=== PATIENT | female | born 1965 | race American Indian/Alaskan Native ===

== ENCOUNTER 2018-05-28 01:04 | Inpatient (IN) | payer MEDICAID, OTHER ==
[2018-05-28 01:18] VITALS: BMI 44.3
[2018-05-28] MEDS ORDERED: Sodium Chloride 0.9% 1,000 ML IV SCH (01:30)
--- NOTE | 2018-05-28 01:35 | ED PDOC ---
Arrival/HPI - General Chief Complaint: Altered Mental Status Time Seen by Provider: 05/28/18 01:05 Historian: Patient, EMS - History of Present Illness Narrative History of Present Illness (Text): 05/28/18 01:20 52 year old female, with past medical history of asthma and hypertension, presents to the Emergency department for evaluation of AMS since prior to arrival. As per EMS, patient was found at home sitting on a chair covered in feces and urine and responding poorly to questions. Patient reportedly was sitting on the chair for an entire week with poor compliance to diet. Upon arrival to the Emergency department, patient is alert and is able to respond verbally but is a poor historian. HPI and ROS limited secondary to patient's condition. Time/Duration: Prior to Arrival Symptom Onset: Gradual Symptom Course: Unchanged Activities at Onset: Light Context: Home Past Medical History - Provider Review Nursing Documentation Reviewed: Yes - Infectious Disease Hx of Infectious Diseases: None - Tetanus Immunization Tetanus Immunization: Unknown - Cardiac Hx Hypertension: Yes - Pulmonary Hx Asthma: Yes - Psychiatric Hx Depression: No Hx Emotional Abuse: No Hx Physical Abuse: No Hx Substance Use: No - Surgical History Hx Cholecystectomy: Yes - Anesthesia Hx Anesthesia: No - Suicidal Assessment Feels Threatened In Home Enviroment: No Family/Social History - Physician Review Nursing Documentation Reviewed: Yes Family/Social History: No Known Family HX Smoking Status: Unknown If Ever Smoked Hx Alcohol Use: No Hx Substance Use: No Hx Substance Use Treatment: No Allergies/Home Meds Allergies/Adverse Reactions: Allergies Sulfa (Sulfonamide Antibiotics) Allergy (Verified 05/28/18 01:17) ANAPHYLAXIS Home Medications: Home Meds Medication Instructions Recorded Confirmed Unobtainable 05/28/18 05/28/18 Review of Systems - Review of Systems Systems not reviewed;Unavailable: Altered Mental Status Physical Exam Vital Signs Reviewed: Yes Vital Signs Temp Pulse Pulse Pulse Resp BP Pulse Ox 05/28/18 08:28 97.6 F 102 H 18 99 05/28/18 08:24 97.6 F 104 H 104 H 104 H 22 159/87 H 05/28/18 07:58 97.6 F 108 H 18 114/73 100 05/28/18 06:45 109 H 19 122/76 99 05/28/18 05:25 109 H 20 130/79 100 05/28/18 04:52 110 H 18 133/65 100 05/28/18 02:16 97.7 F 05/28/18 02:14 111 H 24 117/81 100 05/28/18 01:32 98.4 F 05/28/18 01:19 113 H 18 124/80 100 Temperature: Afebrile Blood Pressure: Normal Pulse: Tachycardic Respiratory Rate: Normal Appearance: Positive for: Ill-Appearing Pain Distress: None Mental Status: Positive for: other (AMS) Finger Stick Blood Glucose: 484 - Systems Exam Head: Present: Atraumatic, Normocephalic Pupils: Present: PERRL Extroacular Muscles: Present: EOMI Conjunctiva: Present: Normal Neck: Present: Normal Range of Motion Respiratory/Chest: Present: Clear to Auscultation, Good Air Exchange. No: Respiratory Distress, Accessory Muscle Use Cardiovascular: Present: Regular Rate and Rhythm, Normal S1, S2. No: Murmurs Abdomen: No: Tenderness, Distention, Peritoneal Signs Back: Present: Normal Inspection Upper Extremity: Present: Normal Inspection. No: Cyanosis, Edema Lower Extremity: Present: Normal Inspection. No: Edema Neurological: Present: GCS=15, CN II-XII Intact Skin: Present: Warm, Dry, Normal Color. No: Rashes Psychiatric: Present: Alert Medical Decision Making ED Course and Treatment: 05/28/18 01:27 Impression: 52 year old female presents to the Emergency department for evaluation of AMS. Differential Diagnosis included but are not limited to: AMS Plan: -- VBG -- CT of head -- Labs -- EKG -- Chest X-ray -- IV Fluids -- Blood culture -- Urine culture -- Urinalysis -- Reassess and disposition Prior Visits: Notes and results from previous visits were reviewed. Progress Notes: 05/28/18 02:20 CODE SEPSIS ACTIVATED. 05/28/18 03:24 Discussed case with Loin Trimmer industrial relations manager, who is aware and agrees with Emergency department management plan, will evaluate patient for ICU admission. 05/28/18 04:15 CT of head reviewed by radiologist, shows normal CT of the brain. 05/28/18 05:13 Loin Trimmer is at bedside evaluating patient. - Critical Care Critical Care Minutes: 30 minutes (management of dka) - Lab Interpretations Microbiology Results: Microbiology Results 05/28/18 01:56 Blood-Venous Blood Culture - Preliminary NO GROWTH AFTER 24 HOURS 05/28/18 01:26 Blood-Venous Blood Culture - Preliminary NO GROWTH AFTER 24 HOURS Lab Results: 05/28/18 01:26 05/28/18 01:26 Lab Results 05/28/18 05:15: pO2 63 H, VBG pH 7.22 L, VBG pCO2 24.0 L, VBG HCO3 9.8 L, VBG Total CO2 10.5 L, VBG O2 Sat (Calc) 90.5 H, VBG Base Excess -16.1 L, VBG Potassium 3.3 L, Sodium 145.0, Chloride 109.0 H, Glucose 434 H* D, Lactate 3.2 H , FiO2 21.0, Venous Blood Potassium 3.3 L 05/28/18 02:35: Urine Opiates Screen Negative, Urine Methadone Screen Negative, Ur Barbiturates Screen Negative, Ur Phencyclidine Scrn Negative, Ur Amphetamines Screen Negative, U Benzodiazepines Scrn Negative, U Oth Cocaine Metabols Negative, U Cannabinoids Screen Negative 05/28/18 02:35: Urine Color Yellow, Urine Appearance Slight-cloudy, Urine pH 6.0 , Ur Specific [place] >= 1.030, Urine Protein 30 H, Urine Glucose (UA) >=1000, Urine Ketones >=80, Urine Blood Moderate H, Urine Nitrate Negative, Urine Bilirubin Small H, Urine Urobilinogen 1.0 H, Ur Leukocyte Esterase Negative, Urine RBC 2 - 5, Urine WBC Negative, Ur Epithelial Cells 4 - 5, Urine Bacteria Mod, Urine Other Mucus 05/28/18 01:26: Beta HCG, Quant < 2.39 05/28/18 01:26: pO2 101 H, VBG pH 7.24 L, VBG pCO2 20.0 L, VBG HCO3 8.6 L, VBG Total CO2 9.2 L, VBG O2 Sat (Calc) 96.4 H, VBG Base Excess -16.6 L, VBG Potassium 4.4, Sodium 141.0, Chloride 101.0, Glucose 544 H*, Lactate 4.2 H*, FiO2 21.0, Venous Blood Potassium 4.4 05/28/18 01:26: Salicylates < 1 L, Acetaminophen < 10.0 L 05/28/18 01:26: TSH 3rd Generation 1.77, Alcohol, Quantitative < 10 05/28/18 01:26: Sodium 145, Chloride 104, Potassium 4.7, Carbon Dioxide 7 L, Anion Gap 38 H, BUN 25 H, Creatinine 0.8, Est GFR ( Amer) > 60, Est GFR ( Non-Af Amer) > 60, Random Glucose 539 H*, Calcium 10.0, Phosphorus 3.8, Magnesium 2.5 H, Total Bilirubin 1.4 H, AST 47 H, ALT 52, Alkaline Phosphatase 190 H, Lactate Dehydrogenase 730 H, Total Creatine Kinase 111, Troponin I < 0.01 , Total Protein 8.9 H, Albumin 4.5, Globulin 4.4, Albumin/Globulin Ratio 1.0 L 05/28/18 01:26: PT 13.4 H, INR 1.17, APTT 20.7 L 05/28/18 01:26: WBC 15.0 H, RBC 4.87, Hgb 16.0, Hct 45.2, MCV 92.8, MCH 32.9, MCHC 35.4, RDW 13.0, Plt Count 341, MPV 10.3, Gran % 81.1 H, Lymph % (Auto) 14.6 L, [place] % (Auto) 4.2, Eos % (Auto) 0.0 L, Baso % (Auto) 0.1, Gran # 12.15 H , Lymph # (Auto) 2.2, [place] # (Auto) 0.6, Eos # (Auto) 0.0, Baso # (Auto) 0.01 05/28/18 01:11: POC Glucose (mg/dL) 484 H* - RAD Interpretation Radiology Orders: 05/28/18 01:20 HEAD W/O CONTRAST [CT] Stat 05/28/18 01:21 CHEST PORTABLE [RAD] Stat - EKG Interpretation EKG Interpretation (Text): 05/28/18 06:16 sinus tachycardia 109 nssts changes - Medication Orders Current Medication Orders: Enoxaparin Sodium (Lovenox) 40 mg SC DAILY [facility] PRN Reason: Protocol Last Admin: 05/28/18 10:29 Dose: 40 mg Subcutaneous Administrations Document 05/28/18 10:29 [email or web address] (Rec: 05/28/18 10:29 [email or web address] [facility] [place] [facility] Injection Site MAR Injection Site Left Abdomen Charges for Administration # of Subcutaneous Administrations 1 Insulin Human Regular 100 (units/ Sodium Chloride) 100 mls @ 6 mls/hr IV .[id number] PRN; Protocol; 6 UNITS/HR PRN Reason: TITRATE PER MD ORDER Last Titration: 05/29/18 05:23 Dose: 3 units/hr, 3 mls/hr Titration Intervention Document 05/29/18 05:23 PD (Rec: 05/29/18 05:[address]) Titration Intake Titration Intake 5 Cumulative Intake 15 Cumulative Intake (Rx) 105 Waste Amount 0 Container Volume 85 Titration Dosing Titration Dose 3 IV Rate 3 Intake/Decrease Increased Cumulative Dose 105 Vancomycin HCl (Vancomycin 1gm) 1 gm in 250 mls @ 167 mls/hr IVPB Q12H [facility] PRN Reason: Protocol Last Admin: 05/29/18 05:20 Dose: 167 mls/hr eMAR Start Stop Document 05/29/18 05:20 PD (Rec: 05/29/18 05:[address]) Intravenous Solution Start Date 05/29/18 Start Time 05:20 Piperacillin Sod/Tazobactam Sod (Zosyn 3.375 In Ns 100ml) 100 mls @ 200 mls/hr IVPB Q6 [facility] PRN Reason: Protocol Last Admin: 05/29/18 05:31 Dose: 200 mls/hr eMAR Start Stop Document 05/29/18 05:31 PD (Rec: 05/29/18 05:[address]) Intravenous Solution Start Date 05/29/18 Start Time 05:31 Potassium Chloride 40 meq/ (Sodium Chloride) 1,020 mls @ 150 mls/hr IV .Q6H48M [facility] Last Admin: 05/29/18 03:35 Dose: 150 mls/hr eMAR Start Stop Document 05/29/18 03:35 PD (Rec: 05/29/18 03:[address]) Intravenous Solution Start Date 05/29/18 Start Time 03:35 Nystatin (Nystop Topical Powder) 2 gm TOP BID O[facility] Last Admin: 05/28/18 17:17 Dose: 1 applic Pantoprazole Sodium (Protonix Inj) 40 mg IVP DAILY [facility] Last Admin: 05/28/18 10:29 Dose: 40 mg IVP Administration Document 05/28/18 10:29 [email or web address] (Rec: 05/28/18 10:29 [email or web address] [facility] [place] Charges for Administration # of IVP Administrations 1 Discontinued Medications Sodium Chloride (Sodium Chloride 0.9%) 1,000 mls @ 150 mls/hr IV .Q6H40M [facility] Last Admin: 05/28/18 01:28 Dose: 150 mls/hr eMAR Start Stop Document 05/28/18 01:28 CNR (Rec: 05/28/18 01:44 CNR [facility] [place] [id number] Intravenous Solution Start Date 05/28/18 Start Time 01:44 Aztreonam (Azactam 2 Gm) 100 mls @ 100 mls/hr IVPB STAT STA PRN Reason: Protocol Stop: 05/28/18 03:17 Last Admin: 05/28/18 03:01 Dose: 100 mls/hr eMAR Start Stop Document 05/28/18 03:01 CNR (Rec: 05/28/18 03:01 CNR [facility] [place] [id number] Intravenous Solution Start Date 05/28/18 Start Time 03:01 End Date 05/28/18 End time 04:01 Total Infusion Time 60 Vancomycin HCl (Vancomycin 1gm) 1 gm in 250 mls @ 167 mls/hr IVPB STAT STA PRN Reason: Protocol Stop: 05/28/18 03:47 Last Admin: 05/28/18 04:12 Dose: 167 mls/hr eMAR Start Stop Document 05/28/18 04:12 CNR (Rec: 05/28/18 04:13 CNR [facility] [id number] Intravenous Solution Start Date 05/28/18 Start Time 04:12 End Date 05/28/18 End time 05:42 Total Infusion Time 90 Piperacillin Sod/Tazobactam Sod (Zosyn 3.375 In Ns 100ml) 100 mls @ 200 mls/hr IVPB Q6H [facility] PRN Reason: Protocol Stop: 05/28/18 14:29 Last Admin: 05/28/18 13:19 Dose: 200 mls/hr eMAR Start Stop Document 05/28/18 13:19 [email or web address] (Rec: 05/28/18 13:19 [email or web address] [facility] [place] Intravenous Solution Start Date 05/28/18 Start Time 13:19 End Date 05/28/18 End time 13:49 Total Infusion Time 30 Potassium Chloride (Potassium Chloride 10 Meq/100 Ml) 10 meq in 100 mls @ 50 mls/hr IVPB Q2H [facility] Stop: 05/28/18 14:14 Last Admin: 05/28/18 11:41 Dose: 50 mls/hr eMAR Start Stop Document 05/28/18 11:41 [email or web address] (Rec: 05/28/18 11:41 [id number] [id number]) Intravenous Solution Start Date 05/28/18 Start Time 11:41 End Date 05/28/18 Dextrose/Sodium Chloride (Dextrose 5%/0.45% Ns 1000 Ml) 1,000 mls @ 150 mls/hr IV .Q6H40M [facility] Last Admin: 05/28/18 11:41 Dose: 150 mls/hr eMAR Start Stop Document 05/28/18 11:41 [email or web address] (Rec: 05/28/18 11:41 [email or web address] [facility] [place]) Intravenous Solution Start Date 05/28/18 Start Time 11:41 Sodium Chloride (Sodium Chloride 0.45%) 1,000 mls @ 100 mls/hr IV .Q10H [facility] Last Admin: 05/28/18 14:15 Dose: 100 mls/hr eMAR Start Stop Document 05/28/18 14:15 [email or web address] (Rec: 05/28/18 14:15 [email or web address] [id number]) Intravenous Solution Start Date 05/28/18 Start Time 14:15 Potassium Chloride 40 meq/ (Sodium Chloride) 1,020 mls @ 100 mls/hr IV .F68H03H [facility] Last Admin: 05/28/18 17:17 Dose: 100 mls/hr eMAR Start Stop Document 05/28/18 17:17 [email or web address] (Rec: 05/28/18 17:17 [email or web address] [facility] [id number]) Intravenous Solution Start Date 05/28/18 Start Time 17:17 Potassium Chloride (Potassium Chloride 10 Meq/100 Ml) 10 meq in 100 mls @ 50 mls/hr IVPB Q2H [facility] Stop: 05/28/18 19:59 Last Admin: 05/28/18 18:26 Dose: 50 mls/hr eMAR Start Stop Document 05/28/18 18:26 [email or web address] (Rec: 05/28/18 18:27 [email or web address] [facility] [place] Intravenous Solution Start Date 05/28/18 Start Time 18:26 End Date 05/28/18 End time 20:26 Total Infusion Time 120 Lorazepam (Ativan) 2 mg IVP ONCE STA PRN Reason: Protocol Stop: 05/29/18 00:54 Last Admin: 05/29/18 01:01 Dose: 2 mg IVP Administration Document 05/29/18 01:01 PD (Rec: 05/29/18 01:01 PD [facility] [place] [place] [place] Charges for Administration # of IVP Administrations 1 Behavioural Document 05/29/18 01:01 PD (Rec: 05/29/18 01:01 PD [facility] [place] [place] [place] Maintenance Maintenance Dose No Nonmedicinal Nonmedicinal Interventions Redirect Therapeutic Communication Behavior Behavior for Medication: Anxiety Hallucinations/paranoid/ delusions/extreme fear Insomnia Re-Assess: Reassess Psych Meds Document 05/29/18 01:31 PD (Rec: 05/29/18 05:29 PD [facility] [place] [place] [place] Reassess Psych Med Effective - Scribe Statement The provider has reviewed the documentation as recorded by the Scribe Freida Gannon. All medical record entries made by the Scribe were at my direction and personally dictated by me. I have reviewed the chart and agree that the record accurately reflects my personal performance of the history, physical exam, medical decision making, and the department course for this patient. I have also personally directed, reviewed, and agree with the discharge instructions and disposition. Disposition/Present on Arrival - Present on Arrival Any Indicators Present on Arrival: No History of DVT/PE: No History of Uncontrolled Diabetes: No Urinary Catheter: No History of Decub. Ulcer: No History Surgical Site Infection Following: None - Disposition Have Diagnosis and Disposition been Completed?: Yes Diagnosis: Diabetic ketoacidosis Disposition: HOSPITALIZED Disposition Time: 06:00 Condition: SERIOUS
[2018-05-28 01:41] LABS: BASO # 0.01 K/mm3 (0.0-2.0); BASO % 0.1 % (0.0-3.0); GRAN # 12.15 (1.4-6.5); GRAN % 81.1 % (50.0-68.0); LYMPH # 2.2 (1.2-3.4); LYMPH % 14.6 % (22.0-35.0); MEAN CELL VOLUME 92.8 fl (80.0-105.0); MEAN CORPUSCULAR HEMOGLOBIN 32.9 pg (25.0-35.0); MEAN CORPUSCULAR HGB CONC 35.4 g/dl (31.0-37.0); MEAN PLATELET VOLUME 10.3 fl (7.0-11.0); MONO # 0.6 (0.1-0.6); MONO % 4.2 % (1.0-6.0); RBC 4.87 10^6/uL (3.5-6.1)
[2018-05-28 01:58] LABS: ACETAMINOPHEN < 10.0 ug/ml (10.0-20.0); SALICYLATE < 1 mg/dL (2.0-20.0)
[2018-05-28 02:00] LABS: VENOUS BLOOD GAS BASE EXCESS -16.6 mmol/L (0.0-2.0); VENOUS BLOOD GAS PO2 101 mm/Hg (30-55); VENOUS BLOOD PH 7.24 (7.32-7.43)
[2018-05-28 02:06] LABS: TROPONIN I < 0.01 ng/mL
[2018-05-28 02:08] LABS: ALBUMIN 4.5 g/dL (3.0-4.8); ALT/SGPT 52 U/L (7-56); AST/SGOT 47 U/L (14-36); BLOOD UREA NITROGEN 25 mg/dL (7-21); GFR NON-AFRICAN AMERICAN > 60
[2018-05-28] MEDS ORDERED: Vancomycin 1gm in NS 250ml 1 GM/250 ML BAG IVPB STA (02:18)
[2018-05-28] MEDS ORDERED: Aztreonam 2 Gm in NS 100mL 100 ML IVPB STA (02:18)
[2018-05-28 02:38] LABS: INR 1.17; PROTHROMBIN TIME 13.4 SECONDS (9.4-12.5)
[2018-05-28 02:53] LABS: PARTIAL THROMBOPLASTIN TIME 20.7 Seconds (25.1-36.5)
[2018-05-28 03:22] LABS: URINE BILIRUBIN SMALL (NEGATIVE); URINE BLOOD MODERATE (NEGATIVE); URINE GLUCOSE (UA) >=1000 mg/dL (NEGATIVE); URINE LEUKOCYTE ESTERASE NEGATIVE Leu/uL (NEGATIVE); URINE PROTEIN 30 mg/dL (<30 mg/dL)
[2018-05-28 03:23] LABS: URINE COLOR YELLOW (YELLOW)
[2018-05-28 03:24] LABS: URINE APPEARANCE SLIGHT-CLOUDY (CLEAR)
[2018-05-28 03:30] LABS: URINE WBC NEGATIVE /hpf (0-6)
[2018-05-28 03:31] LABS: URINE BACTERIA MOD (NEG)
[2018-05-28] MEDS: Insulin Regular 100 UNITS in Sodium Chloride 0.9% 99 ML IV PRN (03:38)
[2018-05-28 03:54] LABS: BARBITURATES, UR NEGATIVE (NEGATIVE); BENZODIAZEPINES, UR NEGATIVE (NEGATIVE); OPIATES, UR NEGATIVE (NEGATIVE); PHENCYCLIDINE, UR NEGATIVE (NEGATIVE)
[2018-05-28 05:35] LABS: VENOUS BLOOD GAS BASE EXCESS -16.1 mmol/L (0.0-2.0); VENOUS BLOOD GAS PO2 63 mm/Hg (30-55); VENOUS BLOOD PH 7.22 (7.32-7.43)
[2018-05-28] MEDS: Vancomycin 1gm in NS 250ml 1 GM/250 ML BAG IVPB SCH ×2 (05:56→17:19)
--- NOTE | 2018-05-28 05:57 | CP.PCM.HP ---
History of Present Illness - History of Present Illness History of Present Illness: Internal Medicine H&P- Neela PGY2 Ms. Simpson is a 52 year old AAF with a past medical history significant for HTN and asthma who was BIBA after she was found to have AMS. Patient is awake but unresponsive verbally to any HPI and ROS questioning. All information was obtained either by EMS or chart review. Patient was reported to have been found covered in feces and to have been "sitting on the couch for one week". ROS unobtainable at this time. In the ED, patient was found to be in sepsis with undetermined source and DKA. PMH: HTN and Asthma PSH: Cholecystectomy Family History: Unobtainable Social History: No history of tobacco, alcohol or illicit drug use Allergies: Sulfa Home Medications: Unobtainable Present on Admission - Present on Admission Any Indicators Present on Admission: No Review of Systems - Review of Systems Systems not reviewed;Unavailable: Altered Mental Status Past Patient History - Infectious Disease Hx of Infectious Diseases: None - Tetanus Immunizations Tetanus Immunization: Unknown - Past Social History Smoking Status: Unknown If Ever Smoked - CARDIAC Hx Hypertension: Yes - PULMONARY Hx Asthma: Yes - PSYCHIATRIC Hx Depression: No Hx Emotional Abuse: No Hx Physical Abuse: No Hx Substance Use: No - SURGICAL HISTORY Hx Cholecystectomy: Yes - ANESTHESIA Hx Anesthesia: No Meds Allergies/Adverse Reactions: Allergies Allergy/AdvReac Type Severity Reaction Status Date / Time Sulfa (Sulfonamide Allergy ANAPHYLAXIS Verified 05/28/18 01:17 Antibiotics) Physical Exam - Constitutional Appears: Unkempt, Confused Additional comments: GCS: 11 - Head Exam Head Exam: ATRAUMATIC, NORMOCEPHALIC - Eye Exam Eye Exam: EOMI, Normal appearance, PERRL - ENT Exam ENT Exam: Mucous Membranes Dry - Neck Exam Neck exam: Positive for: Full Rom. Negative for: Meningismus, Tenderness - Respiratory Exam Respiratory Exam: Clear to Auscultation Bilateral, NORMAL BREATHING PATTERN. absent: Accessory Muscle Use, Chest Wall Tenderness, Decreased Breath Sounds, Prolonged Expiratory Phase, Rales, Rhonchi, Wheezes, Respiratory Distress, Stridor - Cardiovascular Exam Cardiovascular Exam: Tachycardia, REGULAR RHYTHM, +S1, +S2. absent: Bradycardia , Clicks, Diastolic murmur, Gallop, Irregular Rhythm, JVD, RRR, Rubs, +S4, Systolic Murmur - GI/Abdominal Exam GI & Abdominal Exam: Normal Bowel Sounds, Soft. absent: Diminished Bowel Sounds , Tenderness - Extremities Exam Extremities exam: Positive for: normal capillary refill, normal inspection, pedal pulses present. Negative for: calf tenderness, joint swelling, pedal edema, tenderness - Neurological Exam Neurological exam: Altered - Skin Skin Exam: Dry, Normal Color, Warm Additional comments: Multiple Stage I and Stage II SDU located approximately superior to the anal cleft Results - Vital Signs Recent Vital Signs: Last Vital Signs Temp 97.7 F 05/28/18 02:16 Pulse 109 H 05/28/18 05:25 Resp 20 05/28/18 05:25 BP 130/79 05/28/18 05:25 Pulse Ox 100 05/28/18 05:25 - Labs Result Diagrams: 05/28/18 01:26 05/28/18 01:26 Labs: Laboratory Results - last 24 hr 05/28/18 05/28/18 05/28/18 01:11 01:26 01:26 WBC 15.0 H RBC 4.87 Hgb 16.0 Hct 45.2 MCV 92.8 MCH 32.9 MCHC 35.4 RDW 13.0 Plt Count 341 MPV 10.3 Gran % 81.1 H Lymph % (Auto) 14.6 L [place] % (Auto) 4.2 Eos % (Auto) 0.0 L Baso % (Auto) 0.1 Gran # 12.15 H Lymph # (Auto) 2.2 [place] # (Auto) 0.6 Eos # (Auto) 0.0 Baso # (Auto) 0.01 PT 13.4 H INR 1.17 APTT 20.7 L pO2 VBG pH VBG pCO2 VBG HCO3 VBG Total CO2 VBG O2 Sat (Calc) VBG Base Excess VBG Potassium Sodium Chloride Glucose Lactate FiO2 Potassium Carbon Dioxide Anion Gap BUN Creatinine Est GFR ( Amer) Est GFR (Non-Af Amer) POC Glucose (mg/dL) 484 H* Random Glucose Calcium Phosphorus Magnesium Total Bilirubin AST ALT Alkaline Phosphatase Lactate Dehydrogenase Total Creatine Kinase Troponin I Total Protein Albumin Globulin Albumin/Globulin Ratio TSH 3rd Generation Beta HCG, Quant Venous Blood Potassium Urine Color Urine Appearance Urine pH Ur Specific [place] Urine Protein Urine Glucose (UA) Urine Ketones Urine Blood Urine Nitrate Urine Bilirubin Urine Urobilinogen Ur Leukocyte Esterase Urine RBC Urine WBC Ur Epithelial Cells Urine Bacteria Urine Other Salicylates Urine Opiates Screen Urine Methadone Screen Acetaminophen Ur Barbiturates Screen Ur Phencyclidine Scrn Ur Amphetamines Screen U Benzodiazepines Scrn U Oth Cocaine Metabols U Cannabinoids Screen Alcohol, Quantitative 05/28/18 05/28/18 05/28/18 01:26 01:26 01:26 WBC RBC Hgb Hct MCV MCH MCHC RDW Plt Count MPV Gran % Lymph % (Auto) [place] % (Auto) Eos % (Auto) Baso % (Auto) Gran # Lymph # (Auto) [place] # (Auto) Eos # (Auto) Baso # (Auto) PT INR APTT pO2 VBG pH VBG pCO2 VBG HCO3 VBG Total CO2 VBG O2 Sat (Calc) VBG Base Excess VBG Potassium Sodium 145 Chloride 104 Glucose Lactate FiO2 Potassium 4.7 Carbon Dioxide 7 L Anion Gap 38 H BUN 25 H Creatinine 0.8 Est GFR ( Amer) > 60 Est GFR (Non-Af Amer) > 60 POC Glucose (mg/dL) Random Glucose 539 H* Calcium 10.0 Phosphorus 3.8 Magnesium 2.5 H Total Bilirubin 1.4 H AST 47 H ALT 52 Alkaline Phosphatase 190 H Lactate Dehydrogenase 730 H Total Creatine Kinase 111 Troponin I < 0.01 Total Protein 8.9 H Albumin 4.5 Globulin 4.4 Albumin/Globulin Ratio 1.0 L TSH 3rd Generation 1.77 Beta HCG, Quant Venous Blood Potassium Urine Color Urine Appearance Urine pH Ur Specific [place] Urine Protein Urine Glucose (UA) Urine Ketones Urine Blood Urine Nitrate Urine Bilirubin Urine Urobilinogen Ur Leukocyte Esterase Urine RBC Urine WBC Ur Epithelial Cells Urine Bacteria Urine Other Salicylates < 1 L Urine Opiates Screen Urine Methadone Screen Acetaminophen < 10.0 L Ur Barbiturates Screen Ur Phencyclidine Scrn Ur Amphetamines Screen U Benzodiazepines Scrn U Oth Cocaine Metabols U Cannabinoids Screen Alcohol, Quantitative < 10 05/28/18 05/28/18 05/28/18 01:26 01:26 02:35 WBC RBC Hgb Hct MCV MCH MCHC RDW Plt Count MPV Gran % Lymph % (Auto) [place] % (Auto) Eos % (Auto) Baso % (Auto) Gran # Lymph # (Auto) [place] # (Auto) Eos # (Auto) Baso # (Auto) PT INR APTT pO2 101 H VBG pH 7.24 L VBG pCO2 20.0 L VBG HCO3 8.6 L VBG Total CO2 9.2 L VBG O2 Sat (Calc) 96.4 H VBG Base Excess -16.6 L VBG Potassium 4.4 Sodium 141.0 Chloride 101.0 Glucose 544 H* Lactate 4.2 H* FiO2 21.0 Potassium Carbon Dioxide Anion Gap BUN Creatinine Est GFR ( Amer) Est GFR (Non-Af Amer) POC Glucose (mg/dL) Random Glucose Calcium Phosphorus Magnesium Total Bilirubin AST ALT Alkaline Phosphatase Lactate Dehydrogenase Total Creatine Kinase Troponin I Total Protein Albumin Globulin Albumin/Globulin Ratio TSH 3rd Generation Beta HCG, Quant < 2.39 Venous Blood Potassium 4.4 Urine Color Yellow Urine Appearance Slight-cloudy Urine pH 6.0 Ur Specific [place] >= 1.030 Urine Protein 30 H Urine Glucose (UA) >=1000 Urine Ketones >=80 Urine Blood Moderate H Urine Nitrate Negative Urine Bilirubin Small H Urine Urobilinogen 1.0 H Ur Leukocyte Esterase Negative Urine RBC 2 - 5 Urine WBC Negative Ur Epithelial Cells 4 - 5 Urine Bacteria Mod Urine Other Mucus Salicylates Urine Opiates Screen Urine Methadone Screen Acetaminophen Ur Barbiturates Screen Ur Phencyclidine Scrn Ur Amphetamines Screen U Benzodiazepines Scrn U Oth Cocaine Metabols U Cannabinoids Screen Alcohol, Quantitative 05/28/18 05/28/18 02:35 05:15 WBC RBC Hgb Hct MCV MCH MCHC RDW Plt Count MPV Gran % Lymph % (Auto) [place] % (Auto) Eos % (Auto) Baso % (Auto) Gran # Lymph # (Auto) [place] # (Auto) Eos # (Auto) Baso # (Auto) PT INR APTT pO2 63 H VBG pH 7.22 L VBG pCO2 24.0 L VBG HCO3 9.8 L VBG Total CO2 10.5 L VBG O2 Sat (Calc) 90.5 H VBG Base Excess -16.1 L VBG Potassium 3.3 L Sodium 145.0 Chloride 109.0 H Glucose 434 H* D Lactate 3.2 H FiO2 21.0 Potassium Carbon Dioxide Anion Gap BUN Creatinine Est GFR ( Amer) Est GFR (Non-Af Amer) POC Glucose (mg/dL) Random Glucose Calcium Phosphorus Magnesium Total Bilirubin AST ALT Alkaline Phosphatase Lactate Dehydrogenase Total Creatine Kinase Troponin I Total Protein Albumin Globulin Albumin/Globulin Ratio TSH 3rd Generation Beta HCG, Quant Venous Blood Potassium 3.3 L Urine Color Urine Appearance Urine pH Ur Specific [place] Urine Protein Urine Glucose (UA) Urine Ketones Urine Blood Urine Nitrate Urine Bilirubin Urine Urobilinogen Ur Leukocyte Esterase Urine RBC Urine WBC Ur Epithelial Cells Urine Bacteria Urine Other Salicylates Urine Opiates Screen Negative Urine Methadone Screen Negative Acetaminophen Ur Barbiturates Screen Negative Ur Phencyclidine Scrn Negative Ur Amphetamines Screen Negative U Benzodiazepines Scrn Negative U Oth Cocaine Metabols Negative U Cannabinoids Screen Negative Alcohol, Quantitative Assessment & Plan - Assessment and Plan (Free Text) Assessment: 52 year old AAF with a past medical history significant for HTN and asthma who was BIBA after she was found to have AMS. Patient is awake but unresponsive verbally to any HPI and ROS questioning. Patient will be admitted to the ICU for management of DKA and sepsis without identified source. Plan: 1. DKA -Insulin Drip (DKA Algorithm 1) -Normal Saline at 150mls/hr -BMP Q4H -Fingersticks Q1H -Hemoglobin A1c pending -NPO 2. Sepsis without Defined Source -Afebrile with leukocytosis, tachycardia and lactic acidosis -Chest X-Ray pending official radiologist interpretation -Urinalysis without signs of UTI -IV Vancomycin and IV Zosyn empirically -Sputum, Blood and Urine cultures pending -Procal pending GI Prophylaxis: Protonix IVP DVT Prophylaxis: Lovenox Patient seen and case discussed with attending, Dr. Chua. - Date & Time Date: 05/28/18 Time: 06:18 Decision To Admit - Pt Status Changed To: Hospital Disposition Of: Inpatient Admission - Admit Certification Admit to Inpatient:: After my assessment, the patient will require hospitalization for at least two midnights. This is because of the severity of symptoms shown, intensity of services needed, and/or the medical risk in this patient being treated as an outpatient. - . Bed Request Type: Critical Care
--- NOTE | 2018-05-28 06:04 | PCM.SEPTIC ---
Sepsis Progress Note - Reassessment Type Date of Evaluation: 05/28/18 Time of Evaluation: 05:11 Reassessment Type: Non-invasive reassessment - Non Invasive Reassessment Were the most recent vital sign reviewed: Yes Vital Sign (Latest): Temp Pulse Resp BP Pulse Ox 97.7 F 109 H 20 130/79 100 05/28/18 02:16 05/28/18 05:25 05/28/18 05:25 05/28/18 05:25 05/28/18 05:25 Cardiovascular: Yes: Tachycardia. No: Regular Rate, Rhythm, Chest Non Tender, Edema, Gallop, JVD, Murmur, Bradycardia, Ectopy, Friction Rub, Irregularly Irregular Respiratory: Yes: Normal Breath Sounds. No: Accessory Muscle Use, Respiratory Distress Capillary Refill: Normal (Less than 2 sec) Skin: Normal Color, Warm, Dry
[2018-05-28] MEDS: Piperacillin/Tazobact 3.375 gm 100 ML IVPB SCH ×4 (08:26→23:22)
[2018-05-28 08:47] LABS: LDL CHOLESTEROL 106 mg/dL (0-129)
[2018-05-28 08:58] LABS: BLOOD UREA NITROGEN 22 mg/dL (7-21); CALCIUM 9.5 mg/dL (8.4-10.5); GFR NON-AFRICAN AMERICAN > 60; HDL CHOLESTEROL 39 mg/dL (29-60)
[2018-05-28] MEDS: Nystatin 100,000 Units/gm Topical Pow(15 gm) TOP SCH ×2 (09:37→17:17)
--- NOTE | 2018-05-28 09:37 | CT ---
Date of service: 05/28/2018 PROCEDURE: CT HEAD WITHOUT CONTRAST. HISTORY: ams COMPARISON: None available. TECHNIQUE: Axial computed tomography images were obtained through the head/brain without intravenous contrast. Radiation dose: Total exam DLP = 918 mGy-cm. This CT exam was performed using one or more of the following dose reduction techniques: Automated exposure control, adjustment of the mA and/or kV according to patient size, and/or use of iterative reconstruction technique. FINDINGS: HEMORRHAGE: No intracranial hemorrhage. BRAIN: No mass effect or edema. No atrophy or chronic microvascular ischemic changes. VENTRICLES: Unremarkable. No hydrocephalus. CALVARIUM: Unremarkable. PARANASAL SINUSES: Unremarkable as visualized. No significant inflammatory changes. MASTOID AIR CELLS: Unremarkable as visualized. No inflammatory changes. OTHER FINDINGS: The report concurs with the preliminary [facility] report IMPRESSION: No acute findings
--- NOTE | 2018-05-28 10:07 | RAD ---
HISTORY: ams COMPARISON: Chest x-ray performed 12/10/16 TECHNIQUE: Chest, one view. FINDINGS: Examination limited by habitus and patient obliquity. External wires and leads obscure evaluation of the underlying parenchyma. LUNGS: Bibasilar atelectasis. Please note that chest x-ray has limited sensitivity for the detection of pulmonary masses. PLEURA: No significant pleural effusion identified. No definite pneumothorax . CARDIOVASCULAR: Heart size appears within normal limits. OSSEOUS STRUCTURES: Degenerative changes of the spine. VISUALIZED UPPER ABDOMEN: Mild elevation of the right hemidiaphragm. OTHER FINDINGS: None. IMPRESSION: Bibasilar atelectasis.
[2018-05-28 10:24] LABS: BLOOD UREA NITROGEN 23 mg/dL (7-21); CALCIUM 9.4 mg/dL (8.4-10.5); GFR NON-AFRICAN AMERICAN > 60
[2018-05-28] MEDS: Enoxaparin 40 mg Syringe SC SCH (10:29)
[2018-05-28] MEDS ORDERED: Dextrose 5%/0.45% NS 1,000 ML IV SCH (11:15)
--- NOTE | 2018-05-28 12:01 | CARD ---
APPROVED REPORT Date of service: 05/28/2018 EKG Measurement Heart [id number] <Conclusion> Sinus tachycardia Left axis deviation PRWP V 1 - 6 STTW changes
--- NOTE | 2018-05-28 14:07 | CP.CCUPN ---
<Bernardo Bennett - Last Filed: 05/28/18 14:04> CCU Subjective - Physician Review Subjective (Free Text): 05/28/18 14:04 Bernardo Bennett DO PGY1 -Internal Medicine [employer] - ICU Progress Note Patient was seen and examined at bedside this AM; Patient was altered; Screaming for her mother. ROS Unobtainable at this time CCU Objective - Vital Signs / Intake & Output Vital Signs (Last 4 hours): Vital Signs Pulse Resp BP Pulse Ox 05/28/18 11:50 103 H 17 98 05/28/18 11:40 102 H 12 99 05/28/18 11:30 104 H 13 98 05/28/18 11:20 103 H 13 99 05/28/18 11:10 104 H 14 98 05/28/18 11:01 104 H 15 166/81 H 99 05/28/18 11:00 103 H 16 98 05/28/18 10:50 104 H 15 99 05/28/18 10:40 98 05/28/18 10:30 102 H 14 100 05/28/18 10:20 102 H 13 99 05/28/18 10:10 103 H 16 100 Intake and Output (Last 8hrs): Intake & Output 05/27/18 05/28/18 05/28/18 22:59 06:59 14:59 Intake Total 3 Balance 3 Intake: IV 3 - Physical Exam Physical Exam Limitations: Positive for: Altered Mental Status Head: Positive for: Atraumatic, Normocephalic Pupils: Positive for: PERRL Neck: Positive for: Normal Range of Motion Respiratory/Chest: Positive for: Clear to Auscultation, Good Air Exchange. Negative for: Respiratory Distress, Accessory Muscle Use Cardiovascular: Positive for: Regular Rate and Rhythm, Normal S1, S2. Negative for: Murmurs Abdomen: Negative for: Tenderness, Distention, Peritoneal Signs Back: Positive for: Other (SIGNIFICANT ULCERS THROUGHOUT ENTIRE BOTTOM WITH ACTIVE BLEEDIBG ) Upper Extremity: Positive for: Normal Inspection. Negative for: Cyanosis, Edema Lower Extremity: Positive for: Edema (2+ Non pitting ) Neurological: Positive for: GCS=15, CN II-XII Intact Skin: Positive for: Warm, Dry, Normal Color. Negative for: Rashes Other physical findings (Free Text): Poor insight, distressed; confused - Medications Active Medications: Active Medications Generic Name Dose Route Start Last Admin Trade Name Freq PRN Reason Stop Dose Admin Enoxaparin Sodium 40 mg 05/28/18 10:00 05/28/18 10:29 Lovenox SC 40 mg DAILY ODELL Administration Protocol Insulin Human Regular 100 100 mls @ 6 mls/hr 05/28/18 02:09 05/28/18 13:17 units/ Sodium Chloride IV 4 units/hr .[id number] PRN 4 mls/hr TITRATE PER MD ORDER Titration Protocol 6 UNITS/HR Vancomycin HCl 1 gm in 250 mls @ 167 mls/hr 05/28/18 06:00 05/28/18 05:56 Vancomycin 1gm IVPB Not Given Q12H ODELL Protocol Piperacillin Sod/Tazobactam Sod 100 mls @ 200 mls/hr 05/28/18 08:00 05/28/18 13:19 Zosyn 3.375 In Ns 100ml IVPB 05/28/18 14:29 200 mls/hr Q6H ODELL Administration Protocol Potassium Chloride 10 meq in 100 mls @ 50 mls/hr 05/28/18 10:15 05/28/18 11: 41 Potassium Chloride 10 Meq/100 Ml IVPB 05/28/18 14:14 50 mls/hr Q2H ODELL Administration Dextrose/Sodium Chloride 1,000 mls @ 150 mls/hr 05/28/18 11:15 05/28/18 11:41 Dextrose 5%/0.45% Ns 1000 Ml IV 150 mls/hr .Q6H40M ODELL Administration Nystatin 2 gm 05/28/18 10:00 05/28/18 09:37 Nystop Topical Powder TOP 1 applic BID ODELL Administration Pantoprazole Sodium 40 mg 05/28/18 10:00 05/28/18 10:29 Protonix Inj IVP 40 mg DAILY ODELL Administration - Patient Studies Lab Studies: Lab Studies 05/28/18 05/28/18 Range/Units 10:05 08:00 Sodium 153 H 152 H (132-148) mmol/L Potassium 3.3 L 3.3 L (3.6-5.0) mmol/L Chloride 116 H 114 H (98-107) mmol/L Carbon Dioxide 15 L 15 L (21-33) mmol/L Anion Gap 24 H 26 H (10-20) BUN 23 H 22 H (7-21) mg/dL Creatinine 0.6 L 0.6 L (0.7-1.2) mg/dl Est GFR ( Amer) > 60 > 60 Est GFR (Non-Af Amer) > 60 > 60 Random Glucose 294 H 324 H* D (70-110) mg/dL Calcium 9.4 9.5 (8.4-10.5) mg/dL Triglycerides 237 H (35-160) mg/dL Cholesterol 190 (130-200) mg/dL LDL Cholesterol Direct 106 (0-129) mg/dL HDL Cholesterol 39 (29-60) mg/dL Laboratory Results - last 24 hr 05/28/18 05/28/18 08:00 10:05 Sodium 152 H 153 H Potassium 3.3 L 3.3 L Chloride 114 H 116 H Carbon Dioxide 15 L 15 L Anion Gap 26 H 24 H BUN 22 H 23 H Creatinine 0.6 L 0.6 L Est GFR ( Amer) > 60 > 60 Est GFR (Non-Af Amer) > 60 > 60 Random Glucose 324 H* D 294 H Calcium 9.5 9.4 Triglycerides 237 H Cholesterol 190 LDL Cholesterol Direct 106 HDL Cholesterol 39 Fingerstick Blood Sugar Results: 354 Review of Systems - Review of Systems Systems not reviewed;Unavailable: Altered Mental Status Assessment/Plan - Assessment and Plan (Free Text) Assessment: 52F w/ a PMH of HTN and Asthma presented w/ DKA and SIRS to [facility] on 05/27. Neuro: -AAO1 -Altered mental status; Unknown baseline -Most likely 2/2 DKA; -CT Head negative for acute changes -Continue monitoring; Reorient patient as necessary Cardiology: -Tachycardic, Normotensive overnight -Maintain MAP >65 Pulmonology: -Satting >95% on RA -Continue monitoring Endo: -DKA- On admission: AG 34; BG 539 -Repeat BMP at 0800 - AG 23; Bg 324 -BMP Q4 -Accucheck Q1 -On Insulin Drip per DKA Algorithm GI: -NPO -Resume diet once gap closes and patient can tolerate / Nephro: -Murray in place -ID -SIRS -Empiric Vanc/Zosyn -UA w/o Bacteria/ Pyuria -Pancultures pending -CXR NAD -CTAP -Procal pending Patient was seen, examined, and discussed w/ attending physician Dr. Ed Bennett DO PGY1 - Date & Time Date: 05/28/18 Time: 14:12 <Kylie Ward - Last Filed: 05/28/18 15:34> CCU Objective - Vital Signs / Intake & Output Vital Signs (Last 4 hours): Vital Signs Pulse Resp Pulse Ox 05/28/18 11:50 103 H 17 98 05/28/18 11:40 102 H 12 99 Intake and Output (Last 8hrs): Intake & Output 05/28/18 05/28/18 05/28/18 06:59 14:59 22:59 Intake Total 3 Balance 3 Intake: IV 3 - Medications Active Medications: Active Medications Generic Name Dose Route Start Last Admin Trade Name Freq PRN Reason Stop Dose Admin Enoxaparin Sodium 40 mg 05/28/18 10:00 05/28/18 10:29 Lovenox SC 40 mg DAILY ODELL Administration Protocol Insulin Human Regular 100 100 mls @ 6 mls/hr 05/28/18 02:09 05/28/18 13:17 units/ Sodium Chloride IV 4 units/hr .[id number] PRN 4 mls/hr TITRATE PER MD ORDER Titration Protocol 6 UNITS/HR Vancomycin HCl 1 gm in 250 mls @ 167 mls/hr 05/28/18 06:00 05/28/18 05:56 Vancomycin 1gm IVPB Not Given Q12H ODELL Protocol Dextrose/Sodium Chloride 1,000 mls @ 150 mls/hr 05/28/18 11:15 05/28/18 11:41 Dextrose 5%/0.45% Ns 1000 Ml IV 150 mls/hr .Q6H40M ODELL Administration Sodium Chloride 1,000 mls @ 100 mls/hr 05/28/18 14:15 05/28/18 14:15 Sodium Chloride 0.45% IV 100 mls/hr .Q10H ODELL Administration Nystatin 2 gm 05/28/18 10:00 05/28/18 09:37 Nystop Topical Powder TOP 1 applic BID ODELL Administration Pantoprazole Sodium 40 mg 05/28/18 10:00 05/28/18 10:29 Protonix Inj IVP 40 mg DAILY ODELL Administration - Patient Studies Lab Studies: Lab Studies 05/28/18 05/28/18 05/28/18 Range/Units 14:25 10:05 08:00 Sodium 151 H 153 H 152 H (132-148) mmol/L Potassium 3.3 L 3.3 L 3.3 L (3.6-5.0) mmol/L Chloride 116 H 116 H 114 H (98-107) mmol/L Carbon Dioxide 17 L 15 L 15 L (21-33) mmol/L Anion Gap 21 H 24 H 26 H (10-20) BUN 20 23 H 22 H (7-21) mg/dL Creatinine 0.6 L 0.6 L 0.6 L (0.7-1.2) mg/dl Est GFR ( Amer) > 60 > 60 > 60 Est GFR (Non-Af Amer) > 60 > 60 > 60 Random Glucose 358 H* D 294 H 324 H* D (70-110) mg/dL Calcium 9.2 9.4 9.5 (8.4-10.5) mg/dL Triglycerides 237 H (35-160) mg/dL Cholesterol 190 (130-200) mg/dL LDL Cholesterol Direct 106 (0-129) mg/dL HDL Cholesterol 39 (29-60) mg/dL Laboratory Results - last 24 hr 05/28/18 05/28/18 05/28/18 08:00 10:05 14:25 Sodium 152 H 153 H 151 H Potassium 3.3 L 3.3 L 3.3 L Chloride 114 H 116 H 116 H Carbon Dioxide 15 L 15 L 17 L Anion Gap 26 H 24 H 21 H BUN 22 H 23 H 20 Creatinine 0.6 L 0.6 L 0.6 L Est GFR ( Amer) > 60 > 60 > 60 Est GFR (Non-Af Amer) > 60 > 60 > 60 Random Glucose 324 H* D 294 H 358 H* D Calcium 9.5 9.4 9.2 Triglycerides 237 H Cholesterol 190 LDL Cholesterol Direct 106 HDL Cholesterol 39 Addendum Addendum: 05/28/18 15:32 ICU Attending Addendum: Patient seen and examined. Case reviewed on round with housestaff. Agree with resident note above with the following additions/exceptions: 52F admitted with possible sepsis as well as DKA. Cont insulin drip with D5 1/2NS BMP q4 hours replete lytes qHour fingersticks check A1c cont broad spectrum abx with vanc/zosyn while awaiting cultures Rest of care as noted above. Kylie Ward MD Die [facility]
[2018-05-28] MEDS ORDERED: Sodium Chloride 0.45% 1,000 ML IV SCH (14:15)
[2018-05-28 14:51] LABS: BLOOD UREA NITROGEN 20 mg/dL (7-21); CALCIUM 9.2 mg/dL (8.4-10.5); GFR NON-AFRICAN AMERICAN > 60
[2018-05-28] MEDS ORDERED: Potassium Chloride 40 MEQ in Sodium Chloride 0.45% 1,000 ML IV SCH (15:47)
--- NOTE | 2018-05-28 16:15 | CP.PCM.CON ---
History of Present Illness - History of Present Illness History of Present Illness: Infectious Disease Consultation: May 28, 2018 Ms. Simpson is a 52 year old AAF with a past medical history significant for HTN and asthma who was BIBA after she was found to have AMS. Patient is awake but unresponsive verbally for any HPI and ROS questioning. All information was obtained either by EMS or chart review. Patient was reported to have been found covered in feces and to have been "sitting on the couch for one week". ROS unobtainable at this time. The patient is currently screaming for her mother and cannot be questioned on any other topics at this time. In ED, patient was found with values consistent with sepsis from undetermined source and DKA. PMHx: HTN and Asthma PSHx: Cholecystectomy Family Hx: Unable to obtain from patient Social Hx: No known history of tobacco, alcohol or illicit drug use Allergies: Sulfa Active Medications Enoxaparin Sodium (Lovenox) 40 mg SC DAILY [facility] PRN Reason: Protocol Last Admin: 05/28/18 10:29 Dose: 40 mg Insulin Human Regular 100 (units/ Sodium Chloride) 100 mls @ 6 mls/hr IV .[id number] PRN; Protocol; 6 UNITS/HR PRN Reason: TITRATE PER MD ORDER Last Titration: 05/28/18 13:17 Dose: 4 units/hr, 4 mls/hr Vancomycin HCl (Vancomycin 1gm) 1 gm in 250 mls @ 167 mls/hr IVPB Q12H [facility] PRN Reason: Protocol Last Admin: 05/28/18 05:56 Dose: Not Given Potassium Chloride 40 meq/ (Sodium Chloride) 1,020 mls @ 100 mls/hr IV .[id number] [facility] Potassium Chloride (Potassium Chloride 10 Meq/100 Ml) 10 meq in 100 mls @ 50 mls/hr IVPB Q2H [facility] Stop: 05/28/18 19:59 Nystatin (Nystop Topical Powder) 2 gm TOP BID ODE[facility] Last Admin: 05/28/18 09:37 Dose: 1 applic Pantoprazole Sodium (Protonix Inj) 40 mg IVP DAILY O[facility] Last Admin: 05/28/18 10:29 Dose: 40 mg ROS: Unable to obtain from patient. Past Patient History - Infectious Disease Hx of Infectious Diseases: None - Tetanus Immunizations Tetanus Immunization: Unknown - Past Social History Smoking Status: Unknown If Ever Smoked - CARDIAC Hx Hypertension: Yes - PULMONARY Hx Asthma: Yes - PSYCHIATRIC Hx Depression: No Hx Emotional Abuse: No Hx Physical Abuse: No Hx Substance Use: No - SURGICAL HISTORY Hx Cholecystectomy: Yes - ANESTHESIA Hx Anesthesia: No Meds Allergies/Adverse Reactions: Allergies Allergy/AdvReac Type Severity Reaction Status Date / Time Sulfa (Sulfonamide Allergy ANAPHYLAXIS Verified 05/28/18 01:17 Antibiotics) - Medications Medications: Current Medications Enoxaparin Sodium (Lovenox) 40 mg SC DAILY ODELL PRN Reason: Protocol Last Admin: 05/28/18 10:29 Dose: 40 mg Insulin Human Regular 100 (units/ Sodium Chloride) 100 mls @ 6 mls/hr IV .[id number] PRN; Protocol; 6 UNITS/HR PRN Reason: TITRATE PER MD ORDER Last Titration: 05/28/18 13:17 Dose: 4 units/hr, 4 mls/hr Vancomycin HCl (Vancomycin 1gm) 1 gm in 250 mls @ 167 mls/hr IVPB Q12H [facility] PRN Reason: Protocol Last Admin: 05/28/18 05:56 Dose: Not Given Potassium Chloride 40 meq/ (Sodium Chloride) 1,020 mls @ 100 mls/hr IV .[id number] [facility] Potassium Chloride (Potassium Chloride 10 Meq/100 Ml) 10 meq in 100 mls @ 50 mls/hr IVPB Q2H [facility] Stop: 05/28/18 19:59 Nystatin (Nystop Topical Powder) 2 gm TOP BID [facility] Last Admin: 05/28/18 09:37 Dose: 1 applic Pantoprazole Sodium (Protonix Inj) 40 mg IVP DAILY [facility] Last Admin: 05/28/18 10:29 Dose: 40 mg Physical Exam - Constitutional Appears: Unkempt, Agitated, Confused, Chronically Ill - Head Exam Head Exam: ATRAUMATIC, NORMOCEPHALIC - Eye Exam Eye Exam: EOMI, PERRL Pupil Exam: NORMAL ACCOMODATION, PERRL - ENT Exam ENT Exam: Mucous Membranes Moist, Normal External Ear Exam, TM's Normal Bilaterally - Neck Exam Neck exam: Positive for: Full Rom, Normal Inspection - Respiratory Exam Respiratory Exam: Clear to Auscultation Bilateral, NORMAL BREATHING PATTERN. absent: Rales, Rhonchi, Wheezes - Cardiovascular Exam Cardiovascular Exam: REGULAR RHYTHM, RRR, +S1, +S2 - GI/Abdominal Exam GI & Abdominal Exam: Normal Bowel Sounds, Soft. absent: Distended, Tenderness - Extremities Exam Extremities exam: Positive for: joint swelling, pedal edema Additional comments: +2 edema of the lower extremities. - Back Exam Additional comments: ulcerations on the lower back and upper sacrum... some are oozing blood. - Neurological Exam Neurological exam: Alert Additional comments: AAO x 0-1, unable to follow commands at this time. - Psychiatric Exam Psychiatric exam: Agitated, Anxious - Skin Additional comments: ulcerations in the lower back and upper sacral area. +2 edema of the lower extremities. Chronic venous stasis changes to the lower extremities. Morbidly obese. Results - Vital Signs Recent Vital Signs: Last Vital Signs Temp 97.6 F 05/28/18 08:28 Pulse 103 H 05/28/18 11:50 Resp 17 05/28/18 11:50 BP 166/81 H 05/28/18 11:01 Pulse Ox 98 05/28/18 11:50 - Labs Result Diagrams: 05/28/18 01:26 05/28/18 14:25 Labs: Laboratory Results - last 24 hr 05/28/18 05/28/18 05/28/18 08:00 10:05 14:25 Sodium 152 H 153 H 151 H Potassium 3.3 L 3.3 L 3.3 L Chloride 114 H 116 H 116 H Carbon Dioxide 15 L 15 L 17 L Anion Gap 26 H 24 H 21 H BUN 22 H 23 H 20 Creatinine 0.6 L 0.6 L 0.6 L Est GFR ( Amer) > 60 > 60 > 60 Est GFR (Non-Af Amer) > 60 > 60 > 60 Random Glucose 324 H* D 294 H 358 H* D Calcium 9.5 9.4 9.2 Triglycerides 237 H Cholesterol 190 LDL Cholesterol Direct 106 HDL Cholesterol 39 Assessment & Plan - Assessment and Plan (Free Text) Assessment: 52 yo AA obese female with AMS with signs of sepsis with tachcardia, leukocytosis of 15, but no fevers. Patient was reported found in her home covered in feces on her cough for unknown period of time. Findings of DKA. Check brown cultures. On insulin drip. Currently on IV Vancomycin and Zosyn for antibiotic coverage. Procalcitonin pending. No discernable renal issues at this time. Supportive care. Continue broad spectrum antibiotic coverage. Awaiting brown culture results. Awaiting Procalcitonin values. Thank you for allowing me to participate in the care of the patient, we will follow with you.
[2018-05-28] MEDS: Potassium Chloride 40 MEQ in Sodium Chloride 0.45% 1,000 ML IV SCH (18:22)
[2018-05-28 19:58] LABS: BLOOD UREA NITROGEN 19 mg/dL (7-21); CALCIUM 9.5 mg/dL (8.4-10.5); GFR NON-AFRICAN AMERICAN > 60
[2018-05-29 00:22] LABS: BLOOD UREA NITROGEN 18 mg/dL (7-21); CALCIUM 9.4 mg/dL (8.4-10.5); GFR NON-AFRICAN AMERICAN > 60
[2018-05-29] MEDS: Insulin Regular 100 UNITS in Sodium Chloride 0.9% 99 ML IV PRN (01:13)
[2018-05-29] MEDS: Potassium Chloride 40 MEQ in Sodium Chloride 0.45% 1,000 ML IV SCH (03:35)
[2018-05-29] MEDS: Vancomycin 1gm in NS 250ml 1 GM/250 ML BAG IVPB SCH ×2 (05:20→17:11)
[2018-05-29] MEDS: Piperacillin/Tazobact 3.375 gm 100 ML IVPB SCH ×4 (05:31→23:46)
[2018-05-29 07:14] LABS: ALB/GLOB RATIO 0.9 (1.1-1.8); ALBUMIN 3.2 g/dL (3.0-4.8); ALT/SGPT 45 U/L (7-56); AST/SGOT 43 U/L (14-36); BLOOD UREA NITROGEN 19 mg/dL (7-21); CALCIUM 9.6 mg/dL (8.4-10.5); GFR NON-AFRICAN AMERICAN > 60
--- NOTE | 2018-05-29 07:30 | CP.PCM.CON ---
<Meaghan Frances - Last Filed: 05/29/18 14:07> History of Present Illness - History of Present Illness History of Present Illness: PGY-1 Meaghan Frances D.O. Neurology consult note for Dr. Hernandez's service: Patient is uncooperative and disoriented at time of evaluation. Therefore, all HPI and history is obtained from medical record. Wanda Simpson is a 52 yo female with a history of HTN, obesity, and asthma who was brought in by ambulance after being found on her couch covered in feces with altered mental status. Patient reportedly has multiple skin tears and pressure ulcers. She required a stat dose of Ativan overnight for agitation. Patient is lying in bed. She states her name is Zahra and that she is home. She then repeatedly yells "I want to eat!" and is not cooperative with the exam. The last time the patient presented to the ED was in November 2016 with upper respiratory symptoms, during which she refused labs and left AMA. Patient was re-examined in the afternoon, and family (mother, son, daughter) were at bedside. They report that the patient is independently functional at baseline. She lives at home with her . They deny the patient previously being hospitalized for AMS or DKA. The patient is oriented to person and place and she is able to identify her family members. PMH: Denies DM HTN asthma OB ?hepatitis cholecystectomy Meds: unknown All: sulfa- anaphylaxis FH: unknown SH: unknown PMD: none Review of Systems - Review of Systems Systems not reviewed;Unavailable: Altered Mental Status, Uncooperative Past Patient History - Infectious Disease Hx of Infectious Diseases: None - Tetanus Immunizations Tetanus Immunization: Unknown - Past Medical History & Family History Past Medical History?: Yes Pertinent Family History: unknown - Past Social History Smoking Status: Unknown If Ever Smoked - CARDIAC Hx Hypertension: Yes - PULMONARY Hx Asthma: Yes - NEUROLOGICAL Hx Neurological Disorder: No - HEENT Hx HEENT Problems: No - RENAL Hx Chronic Kidney Disease: No - ENDOCRINE/METABOLIC Hx Endocrine Disorders: No - HEMATOLOGICAL/ONCOLOGICAL Hx Blood Disorders: No - INTEGUMENTARY Hx Dermatological Problems: No - MUSCULOSKELETAL/RHEUMATOLOGICAL Hx Arthritis: Yes Hx Falls: No - GASTROINTESTINAL Hx Gall Bladder Disease: Yes (cholestectomy) - GENITOURINARY/GYNECOLOGICAL Hx Genitourinary Disorders: Yes Hx Incontinence: Yes - PSYCHIATRIC Hx Depression: No Hx Emotional Abuse: No Hx Physical Abuse: No Hx Substance Use: No - SURGICAL HISTORY Hx Cholecystectomy: Yes - ANESTHESIA Hx Anesthesia: No Meds Allergies/Adverse Reactions: Allergies Allergy/AdvReac Type Severity Reaction Status Date / Time Sulfa (Sulfonamide Allergy ANAPHYLAXIS Verified 05/28/18 01:17 Antibiotics) - Medications Medications: Current Medications Enoxaparin Sodium (Lovenox) 40 mg SC DAILY [facility] PRN Reason: Protocol Last Admin: 05/28/18 10:29 Dose: 40 mg Insulin Human Regular 100 (units/ Sodium Chloride) 100 mls @ 6 mls/hr IV .[id number] PRN; Protocol; 6 UNITS/HR PRN Reason: TITRATE PER MD ORDER Last Titration: 05/29/18 05:23 Dose: 3 units/hr, 3 mls/hr Vancomycin HCl (Vancomycin 1gm) 1 gm in 250 mls @ 167 mls/hr IVPB Q12H [facility] PRN Reason: Protocol Last Admin: 05/29/18 05:20 Dose: 167 mls/hr Piperacillin Sod/Tazobactam Sod (Zosyn 3.375 In Ns 100ml) 100 mls @ 200 mls/hr IVPB Q6 [facility] PRN Reason: Protocol Last Admin: 05/29/18 05:31 Dose: 200 mls/hr Potassium Chloride 40 meq/ (Sodium Chloride) 1,020 mls @ 150 mls/hr IV .[id number] [facility] Last Admin: 05/29/18 03:35 Dose: 150 mls/hr Nystatin (Nystop Topical Powder) 2 gm TOP BID [facility] Last Admin: 05/28/18 17:17 Dose: 1 applic Pantoprazole Sodium (Protonix Inj) 40 mg IVP DAILY [facility] Last Admin: 05/28/18 10:29 Dose: 40 mg Physical Exam - Head Exam Head Exam: ATRAUMATIC, NORMAL INSPECTION, NORMOCEPHALIC - Eye Exam Eye Exam: EOMI, Normal appearance - ENT Exam ENT Exam: Mucous Membranes Moist, Normal Exam - Neck Exam Neck exam: Positive for: Normal Inspection - Respiratory Exam Respiratory Exam: NORMAL BREATHING PATTERN - Cardiovascular Exam Cardiovascular Exam: REGULAR RHYTHM - GI/Abdominal Exam GI & Abdominal Exam: Soft Additional comments: obese - Rectal Exam Rectal Exam: Deferred - Extremities Exam Extremities exam: Positive for: normal capillary refill, normal inspection, pedal pulses present - Neurological Exam Neurological exam: Alert, Altered, CN II-XII Intact Additional comments: oriented to person and place no gross motor or sensory deficits noted - Psychiatric Exam Psychiatric exam: Flat Affect - Skin Skin Exam: Dry, Normal Color, Warm Results - Vital Signs Recent Vital Signs: Last Vital Signs Temp 97.8 F 05/28/18 20:00 Pulse 99 H 05/29/18 06:30 Resp 17 05/29/18 06:30 BP 140/72 05/29/18 06:01 Pulse Ox 99 05/29/18 06:30 - Labs Result Diagrams: 05/29/18 05:45 05/29/18 05:45 Labs: Laboratory Results - last 24 hr 05/28/18 05/28/18 05/28/18 08:00 08:00 08:00 Sodium 152 H Potassium 3.3 L Chloride 114 H Carbon Dioxide 15 L Anion Gap 26 H BUN 22 H Creatinine 0.6 L Est GFR ( Amer) > 60 Est GFR (Non-Af Amer) > 60 POC Glucose (mg/dL) Random Glucose 324 H* D Hemoglobin A1c 16.9 H Calcium 9.5 Total Bilirubin AST ALT Alkaline Phosphatase Ammonia Total Protein Albumin Globulin Albumin/Globulin Ratio Triglycerides 237 H Cholesterol 190 LDL Cholesterol Direct 106 HDL Cholesterol 39 Procalcitonin 0.14 L 05/28/18 05/28/18 05/28/18 10:05 14:25 16:26 Sodium 153 H 151 H Potassium 3.3 L 3.3 L Chloride 116 H 116 H Carbon Dioxide 15 L 17 L Anion Gap 24 H 21 H BUN 23 H 20 Creatinine 0.6 L 0.6 L Est GFR ( Amer) > 60 > 60 Est GFR (Non-Af Amer) > 60 > 60 POC Glucose (mg/dL) 314 H Random Glucose 294 H 358 H* D Hemoglobin A1c Calcium 9.4 9.2 Total Bilirubin AST ALT Alkaline Phosphatase Ammonia Total Protein Albumin Globulin Albumin/Globulin Ratio Triglycerides Cholesterol LDL Cholesterol Direct HDL Cholesterol Procalcitonin 05/28/18 05/28/18 05/28/18 17:29 18:23 18:49 Sodium Potassium Chloride Carbon Dioxide Anion Gap BUN Creatinine Est GFR ( Amer) Est GFR (Non-Af Amer) POC Glucose (mg/dL) 318 H 285 H 290 H Random Glucose Hemoglobin A1c Calcium Total Bilirubin AST ALT Alkaline Phosphatase Ammonia Total Protein Albumin Globulin Albumin/Globulin Ratio Triglycerides Cholesterol LDL Cholesterol Direct HDL Cholesterol Procalcitonin 05/28/18 05/28/18 05/28/18 19:47 19:47 20:25 Sodium 152 H Potassium 3.4 L Chloride 118 H Carbon Dioxide 20 L Anion Gap 17 BUN 19 Creatinine 0.5 L Est GFR ( Amer) > 60 Est GFR (Non-Af Amer) > 60 POC Glucose (mg/dL) 257 H Random Glucose 249 H Hemoglobin A1c Calcium 9.5 Total Bilirubin AST ALT Alkaline Phosphatase Ammonia 29 Total Protein Albumin Globulin Albumin/Globulin Ratio Triglycerides Cholesterol LDL Cholesterol Direct HDL Cholesterol Procalcitonin 05/28/18 05/28/18 05/29/18 22:28 23:17 00:05 Sodium 152 H Potassium 3.5 L Chloride 119 H Carbon Dioxide 19 L Anion Gap 17 BUN 18 Creatinine 0.5 L Est GFR ( Amer) > 60 Est GFR (Non-Af Amer) > 60 POC Glucose (mg/dL) 257 H 230 H Random Glucose 221 H Hemoglobin A1c Calcium 9.4 Total Bilirubin AST ALT Alkaline Phosphatase Ammonia Total Protein Albumin Globulin Albumin/Globulin Ratio Triglycerides Cholesterol LDL Cholesterol Direct HDL Cholesterol Procalcitonin 05/29/18 05/29/18 00:06 05:45 Sodium 153 H Potassium 3.8 Chloride 119 H Carbon Dioxide 20 L Anion Gap 19 BUN 19 Creatinine 0.6 L Est GFR ( Amer) > 60 Est GFR (Non-Af Amer) > 60 POC Glucose (mg/dL) 223 H Random Glucose 252 H Hemoglobin A1c Calcium 9.6 Total Bilirubin 0.8 AST 43 H ALT 45 Alkaline Phosphatase 159 H Ammonia Total Protein 6.8 Albumin 3.2 Globulin 3.6 Albumin/Globulin Ratio 0.9 L Triglycerides Cholesterol LDL Cholesterol Direct HDL Cholesterol Procalcitonin - EKG Data EKG Interpreted by: ER Physician EKG shows normal: Sinus rhythm, [place] (left) Rate: Tachycardia - Impressions Impression: sinus tachycardia (HR 109), L axis deviation Assessment & Plan - Assessment and Plan (Free Text) Assessment: Patient is a 52 yo AA female with a history of HTN and asthma who presented with AMS and DKA. Patient was initially managed in the ICU on an insulin drip, but she is now downgraded to med/surg. Plan: AMS- suspect toxic metabolic encephalopathy 2/2 DKA and/or infection, need to correct systemic causes before evaluating further for neuro etiology - CT head: no acute findings - CXR: bibasilar atelectasis - UDS, BAL, salicylates, acetaminophen: negative - UA: moderate bacteria, no LE or nitrate - TSH wnl (1.77) - Consider EEG if still altered once metabolic derangements are corrected - F/u hepatitis panel - PT/OT/ST DKA, resolved - Management by primary team - BG 539->252 - VBG: pH 7.22, p02 63, pC02 24 - Anion gap 38->19 - Off insulin drip - ISS high - Accuchecks ACHS - Hypoglycemia protocol - F/u A1c Sepsis, improving - Management by primary team and ID - Afebrile - Tachycardic (90s-100s) - WBC 15->12.8 - LA 4.2->3.2 - Procal 0.14 - Blood Cx no growth >24 hrs - F/u Urine Cx - Vancomycin and zosyn HTN, chronic- SBP 110s-150s - Management by primary team Case was discussed with attending, Dr. Hernandez. <Yovany Hernandez - Last Filed: 05/29/18 20:41> Meds - Medications Medications: Current Medications Enoxaparin Sodium (Lovenox) 40 mg SC DAILY [facility] PRN Reason: Protocol Last Admin: 05/29/18 10:18 Dose: 40 mg Vancomycin HCl (Vancomycin 1gm) 1 gm in 250 mls @ 167 mls/hr IVPB Q12H [facility] PRN Reason: Protocol Last Admin: 05/29/18 17:11 Dose: 167 mls/hr Piperacillin Sod/Tazobactam Sod (Zosyn 3.375 In Ns 100ml) 100 mls @ 200 mls/hr IVPB Q6 [facility] PRN Reason: Protocol Last Admin: 05/29/18 17:18 Dose: 200 mls/hr Sodium Chloride (Sodium Chloride 0.45%) 1,000 mls @ 125 mls/hr IV .Q8H [facility] Last Admin: 05/29/18 16:59 Dose: 125 mls/hr Insulin Human NPH (Humulin N) 10 units SC HS ODELL Insulin Human Regular (Humulin R Low) 0 units SC ACHS ODE[facility] PRN Reason: Protocol Last Admin: 05/29/18 17:17 Dose: 5 unit Nystatin (Nystop Topical Powder) 2 gm TOP BID [facility] Last Admin: 05/29/18 17:17 Dose: 1 applic Pantoprazole Sodium (Protonix Inj) 40 mg IVP DAILY [facility] Last Admin: 05/29/18 10:18 Dose: 40 mg Results - Vital Signs Recent Vital Signs: Last Vital Signs Temp 97.6 F 05/29/18 16:00 Pulse 103 H 05/29/18 18:30 Resp 26 H 05/29/18 18:30 BP 151/73 H 05/29/18 18:01 Pulse Ox 99 05/29/18 18:30 - Labs Result Diagrams: 05/29/18 05:45 05/29/18 19:40 Labs: Laboratory Results - last 24 hr 05/28/18 05/28/18 05/28/18 09:50 10:51 11:52 WBC RBC Hgb Hct MCV MCH MCHC RDW Plt Count MPV Gran % Lymph % (Auto) [place] % (Auto) Eos % (Auto) Baso % (Auto) Gran # Lymph # (Auto) [place] # (Auto) Eos # (Auto) Baso # (Auto) Sodium Potassium Chloride Carbon Dioxide Anion Gap BUN Creatinine Est GFR ( Amer) Est GFR (Non-Af Amer) POC Glucose (mg/dL) 279 H 268 H 298 H Random Glucose Calcium Total Bilirubin AST ALT Alkaline Phosphatase Total Protein Albumin Globulin Albumin/Globulin Ratio 05/28/18 05/28/18 05/28/18 13:05 14:07 15:19 WBC RBC Hgb Hct MCV MCH MCHC RDW Plt Count MPV Gran % Lymph % (Auto) [place] % (Auto) Eos % (Auto) Baso % (Auto) Gran # Lymph # (Auto) [place] # (Auto) Eos # (Auto) Baso # (Auto) Sodium Potassium Chloride Carbon Dioxide Anion Gap BUN Creatinine Est GFR ( Amer) Est GFR (Non-Af Amer) POC Glucose (mg/dL) 322 H 335 H 347 H Random Glucose Calcium Total Bilirubin AST ALT Alkaline Phosphatase Total Protein Albumin Globulin Albumin/Globulin Ratio 05/28/18 05/28/18 05/29/18 22:28 23:17 00:05 WBC RBC Hgb Hct MCV MCH MCHC RDW Plt Count MPV Gran % Lymph % (Auto) [place] % (Auto) Eos % (Auto) Baso % (Auto) Gran # Lymph # (Auto) [place] # (Auto) Eos # (Auto) Baso # (Auto) Sodium 152 H Potassium 3.5 L Chloride 119 H Carbon Dioxide 19 L Anion Gap 17 BUN 18 Creatinine 0.5 L Est GFR ( Amer) > 60 Est GFR (Non-Af Amer) > 60 POC Glucose (mg/dL) 257 H 230 H Random Glucose 221 H Calcium 9.4 Total Bilirubin AST ALT Alkaline Phosphatase Total Protein Albumin Globulin Albumin/Globulin Ratio 05/29/18 05/29/18 05/29/18 00:06 01:08 02:11 WBC RBC Hgb Hct MCV MCH MCHC RDW Plt Count MPV Gran % Lymph % (Auto) [place] % (Auto) Eos % (Auto) Baso % (Auto) Gran # Lymph # (Auto) [place] # (Auto) Eos # (Auto) Baso # (Auto) Sodium Potassium Chloride Carbon Dioxide Anion Gap BUN Creatinine Est GFR ( Amer) Est GFR (Non-Af Amer) POC Glucose (mg/dL) 223 H 280 H 230 H Random Glucose Calcium Total Bilirubin AST ALT Alkaline Phosphatase Total Protein Albumin Globulin Albumin/Globulin Ratio 05/29/18 05/29/18 05/29/18 03:40 03:58 05:06 WBC RBC Hgb Hct MCV MCH MCHC RDW Plt Count MPV Gran % Lymph % (Auto) [place] % (Auto) Eos % (Auto) Baso % (Auto) Gran # Lymph # (Auto) [place] # (Auto) Eos # (Auto) Baso # (Auto) Sodium Potassium Chloride Carbon Dioxide Anion Gap BUN Creatinine Est GFR ( Amer) Est GFR (Non-Af Amer) POC Glucose (mg/dL) 233 H 203 H 291 H Random Glucose Calcium Total Bilirubin AST ALT Alkaline Phosphatase Total Protein Albumin Globulin Albumin/Globulin Ratio 05/29/18 05/29/18 05/29/18 05:45 05:45 06:32 WBC 12.8 H RBC 4.31 Hgb 14.0 D Hct 39.8 MCV 92.3 MCH 32.5 MCHC 35.2 RDW 12.9 Plt Count 239 MPV 10.2 Gran % 73.4 H Lymph % (Auto) 12.4 L [place] % (Auto) 13.8 H Eos % (Auto) 0.2 L Baso % (Auto) 0.2 Gran # 9.40 H Lymph # (Auto) 1.6 [place] # (Auto) 1.8 H Eos # (Auto) 0.0 Baso # (Auto) 0.02 Sodium 153 H Potassium 3.8 Chloride 119 H Carbon Dioxide 20 L Anion Gap 19 BUN 19 Creatinine 0.6 L Est GFR ( Amer) > 60 Est GFR (Non-Af Amer) > 60 POC Glucose (mg/dL) 265 H Random Glucose 252 H Calcium 9.6 Total Bilirubin 0.8 AST 43 H ALT 45 Alkaline Phosphatase 159 H Total Protein 6.8 Albumin 3.2 Globulin 3.6 Albumin/Globulin Ratio 0.9 L 05/29/18 05/29/18 05/29/18 07:27 08:45 09:55 WBC RBC Hgb Hct MCV MCH MCHC RDW Plt Count MPV Gran % Lymph % (Auto) [place] % (Auto) Eos % (Auto) Baso % (Auto) Gran # Lymph # (Auto) [place] # (Auto) Eos # (Auto) Baso # (Auto) Sodium Potassium Chloride Carbon Dioxide Anion Gap BUN Creatinine Est GFR ( Amer) Est GFR (Non-Af Amer) POC Glucose (mg/dL) 315 H 294 H 312 H Random Glucose Calcium Total Bilirubin AST ALT Alkaline Phosphatase Total Protein Albumin Globulin Albumin/Globulin Ratio 05/29/18 05/29/18 05/29/18 11:06 14:15 15:12 WBC RBC Hgb Hct MCV MCH MCHC RDW Plt Count MPV Gran % Lymph % (Auto) [place] % (Auto) Eos % (Auto) Baso % (Auto) Gran # Lymph # (Auto) [place] # (Auto) Eos # (Auto) Baso # (Auto) Sodium 152 H Potassium 3.6 Chloride 117 H Carbon Dioxide 20 L Anion Gap 19 BUN 17 Creatinine 0.5 L Est GFR ( Amer) > 60 Est GFR (Non-Af Amer) > 60 POC Glucose (mg/dL) 330 H 345 H Random Glucose 340 H* D Calcium 9.3 Total Bilirubin AST ALT Alkaline Phosphatase Total Protein Albumin Globulin Albumin/Globulin Ratio 05/29/18 05/29/18 05/29/18 16:09 17:51 19:40 WBC RBC Hgb Hct MCV MCH MCHC RDW Plt Count MPV Gran % Lymph % (Auto) [place] % (Auto) Eos % (Auto) Baso % (Auto) Gran # Lymph # (Auto) [place] # (Auto) Eos # (Auto) Baso # (Auto) Sodium 151 H Potassium 3.1 L Chloride 116 H Carbon Dioxide 23 Anion Gap 14 BUN 16 Creatinine 0.5 L Est GFR ( Amer) > 60 Est GFR (Non-Af Amer) > 60 POC Glucose (mg/dL) 377 H 330 H Random Glucose 271 H Calcium 9.4 Total Bilirubin AST ALT Alkaline Phosphatase Total Protein Albumin Globulin Albumin/Globulin Ratio Attending/Attestation - Attestation I have personally seen and examined this patient.: Yes I have fully participated in the care of the patient.: Yes I have reviewed all pertinent clinical information: Yes Notes (Text): 05/29/18 20:40 On my exam, the patient was awake, alert and somewhat oriented. She moves all extremities and followed simple commands. She recognized family members in the room and was able to name all of them. Her mental status was improving with correction of underlying toxic-metabolic causes for her encephalopathy.
[2018-05-29 07:32] LABS: BASO # 0.02 K/mm3 (0.0-2.0); BASO % 0.2 % (0.0-3.0); EOS % 0.2 % (1.5-5.0); GRAN # 9.4 (1.4-6.5); GRAN % 73.4 % (50.0-68.0); LYMPH # 1.6 (1.2-3.4); LYMPH % 12.4 % (22.0-35.0); MEAN CELL VOLUME 92.3 fl (80.0-105.0); MEAN CORPUSCULAR HEMOGLOBIN 32.5 pg (25.0-35.0); MEAN CORPUSCULAR HGB CONC 35.2 g/dl (31.0-37.0); MEAN PLATELET VOLUME 10.2 fl (7.0-11.0); MONO # 1.8 (0.1-0.6); MONO % 13.8 % (1.0-6.0); RBC 4.31 10^6/uL (3.5-6.1); RED CELL DISTRIBUTION WIDTH 12.9 % (11.5-14.5); WHITE BLOOD COUNT 12.8 10^3/ul (4.5-11.0)
[2018-05-29] MEDS ORDERED: Insulin Detemir 100 units/ml Vial (Levemir) SC ONE (07:53)
[2018-05-29] MEDS: Enoxaparin 40 mg Syringe SC SCH (10:18)
[2018-05-29] MEDS: Nystatin 100,000 Units/gm Topical Pow(15 gm) TOP SCH ×2 (10:19→17:17)
[2018-05-29] MEDS ORDERED: Insulin Reg-HIGH-Coverage SC SCH (11:30)
[2018-05-29 14:45] LABS: BLOOD UREA NITROGEN 17 mg/dL (7-21); CALCIUM 9.3 mg/dL (8.4-10.5); GFR NON-AFRICAN AMERICAN > 60
[2018-05-29] MEDS ORDERED: Insulin Regular 100 UNITS in Sodium Chloride 0.9% 99 ML IV SCH (15:15)
[2018-05-29] MEDS: Sodium Chloride 0.45% 1,000 ML IV SCH (16:59)
[2018-05-29] MEDS: Insulin Human NPH/Reg 70/30 Vial(3 ml) SC SCH (17:16)
[2018-05-29] MEDS: Insulin Reg-LOW-Coverage SC SCH ×2 (17:17→22:34)
--- NOTE | 2018-05-29 18:17 | CP.PCM.PN ---
<Edinson Bellamy - Last Filed: 05/29/18 18:13> Subjective - Date & Time of Evaluation Date of Evaluation: 05/29/18 Time of Evaluation: 18:14 - Subjective Subjective: Edinson Bellamy, PGY-1 Progress Note for Hospitalist Service Patient seen and examined this morning in the ICU at bedside. No acute events overnight. Patient is awake and responding to questions but is still altered. She states she slept well overnight and admits to good appetite. She denies any pain at this time. ROS limited due to altered state. Objective - Vital Signs/Intake and Output Vital Signs (last 24 hours): Temp Pulse Resp BP Pulse Ox 97.6 F 105 H 14 166/70 H 99 05/29/18 12:00 05/29/18 18:00 05/29/18 16:10 05/29/18 16:01 05/29/18 16:20 Intake and Output: 05/29/18 05/29/18 06:59 18:59 Intake Total 2380 3 Output Total 275 Balance 2105 3 - Medications Medications: Current Medications Enoxaparin Sodium (Lovenox) 40 mg SC DAILY [facility] PRN Reason: Protocol Last Admin: 05/29/18 10:18 Dose: 40 mg Vancomycin HCl (Vancomycin 1gm) 1 gm in 250 mls @ 167 mls/hr IVPB Q12H [facility] PRN Reason: Protocol Last Admin: 05/29/18 17:11 Dose: 167 mls/hr Piperacillin Sod/Tazobactam Sod (Zosyn 3.375 In Ns 100ml) 100 mls @ 200 mls/hr IVPB Q6 [facility] PRN Reason: Protocol Last Admin: 05/29/18 17:18 Dose: 200 mls/hr Sodium Chloride (Sodium Chloride 0.45%) 1,000 mls @ 125 mls/hr IV .Q8H [facility] Last Admin: 05/29/18 16:59 Dose: 125 mls/hr Insulin Human NPH (Humulin N) 10 units SC HS [facility] Insulin Human Regular (Humulin R Low) 0 units SC ACHS [facility] PRN Reason: Protocol Last Admin: 05/29/18 17:17 Dose: 5 unit Nystatin (Nystop Topical Powder) 2 gm TOP BID [facility] Last Admin: 05/29/18 17:17 Dose: 1 applic Pantoprazole Sodium (Protonix Inj) 40 mg IVP DAILY [facility] Last Admin: 05/29/18 10:18 Dose: 40 mg - Labs Labs: 05/29/18 05:45 05/29/18 14:15 PT 13.4 SECONDS (9.4-12.5) H 05/28/18 01:26 INR 1.17 05/28/18 01:26 APTT 20.7 Seconds (25.1-36.5) L 05/28/18 01:26 - Constitutional Appears: No Acute Distress - Head Exam Head Exam: ATRAUMATIC, NORMAL INSPECTION - Eye Exam Eye Exam: EOMI Pupil Exam: PERRL - Neck Exam Neck Exam: Normal Inspection - Respiratory Exam Respiratory Exam: Clear to Ausculation Bilateral, NORMAL BREATHING PATTERN - Cardiovascular Exam Cardiovascular Exam: REGULAR RHYTHM, +S1, +S2 - GI/Abdominal Exam GI & Abdominal Exam: Normal Bowel Sounds. absent: Firm, Guarding - Extremities Exam Extremities Exam: Normal Inspection. absent: Joint Swelling - Back Exam Additional comments: superficial skin abrasions noted on the lower back that extend from L5 to lower gluteal region B/L - Neurological Exam Neurological Exam: Altered, Awake. absent: Oriented x3 Neuro motor strength exam: Left Upper Extremity: 5, Right Upper Extremity: 5 - Skin Skin Exam: Normal Color, Warm Additional comments: fungal growth noted along lower breast border and lower abdominal crevice Assessment and Plan - Assessment and Plan (Free Text) Assessment: This is a 52 year old female with PMH of obesity, HTN and asthma presenting for management of DKA which is now resolved and sepsis. Echo final read is pending. AMS - improving -2/2 metabolic acidosis vs electrolyte abnormality -alert today but is not oriented to place or time -seizure, aspiration precautions -Head CT yesterday showed no acute findings -urine drug screen was unremarkable -PT eval -OT eval -speech/swallow eval -neff catheter in place -neurology on consult, Dr. Hernandez DKA - resolved -GAP today is 14 from 34 yesterday, most recent sugar today is 345 -insulin drip stopped this morning, received a total of approximately 36 units of insulin from 7pm last night to 7am this morning -currently receiving NPH 10 units HS and human regular ACHS -U/A on admission revealed ketones, moderate blood, and moderate bacteria -hypoglycemia protocol -NPO diet -Endo on consult, Dr. Solitario Sepsis -afebrile today, tachcardic -WBC today is 12.8 from 15 yesterday -CXR yesterday showed bibasilar atelectasis -U/A revealed moderate bacteria -urine culture pending, MRSA pending -blood culture shows no growth after 24 hours -currently on vancomycin and zosyn -procalc unremarkable at 0.14 -receiving nystatin topical for fungal growth noted along lower breast border and lower abdominal crevice -Infectious disease on consult, Dr. Pappas Hypernatremia -sodium this morning of 152 from 145 yesterday. Corrected sodium of 155 today -currently on 1/2 NS at 125 ml/hr -will monitor PPX with lovenox and protonix Case discussed and reviewed with attending, Dr. Bennett <Sandrita Bennett R - Last Filed: 05/30/18 12:58> Objective - Vital Signs/Intake and Output Vital Signs (last 24 hours): Temp Pulse Resp BP Pulse Ox 98 F 87 17 133/86 100 05/30/18 08:00 05/30/18 09:30 05/30/18 09:30 05/30/18 09:16 05/30/18 09:40 Intake and Output: 05/30/18 05/30/18 06:59 18:59 Intake Total 2150 Output Total 600 Balance 1550 - Medications Medications: Current Medications Enoxaparin Sodium (Lovenox) 40 mg SC DAILY [facility] PRN Reason: Protocol Last Admin: 05/30/18 09:23 Dose: 40 mg Vancomycin HCl (Vancomycin 1gm) 1 gm in 250 mls @ 167 mls/hr IVPB Q12H [facility] PRN Reason: Protocol Last Admin: 05/30/18 06:09 Dose: 167 mls/hr Piperacillin Sod/Tazobactam Sod (Zosyn 3.375 In Ns 100ml) 100 mls @ 200 mls/hr IVPB Q6 [facility] PRN Reason: Protocol Last Admin: 05/30/18 05:26 Dose: 200 mls/hr Sodium Chloride (Sodium Chloride 0.45%) 1,000 mls @ 125 mls/hr IV .Q8H [facility] Last Admin: 05/30/18 02:02 Dose: 125 mls/hr Potassium Phosphate 15 mmole/ (Sodium Chloride) 255 mls @ 42.5 mls/hr IVPB ONCE ONE Stop: 05/30/18 13:29 Last Admin: 05/30/18 09:20 Dose: 42.5 mls/hr Insulin Human NPH (Humulin N) 10 units SC HS [facility] Last Admin: 05/29/18 22:37 Dose: 10 units Insulin Human Regular (Humulin R Low) 0 units SC ACHS [facility] PRN Reason: Protocol Last Admin: 05/30/18 08:32 Dose: Not Given Nystatin (Nystop Topical Powder) 2 gm TOP BID [facility] Last Admin: 05/30/18 09:20 Dose: 1 applic Pantoprazole Sodium (Protonix Inj) 40 mg IVP DAILY [facility] Last Admin: 05/30/18 09:24 Dose: 40 mg - Labs Labs: 05/30/18 05:30 05/30/18 05:30 PT 13.4 SECONDS (9.4-12.5) H 05/28/18 01:26 INR 1.17 05/28/18 01:26 APTT 20.7 Seconds (25.1-36.5) L 05/28/18 01:26 Attending/Attestation - Attestation I have personally seen and examined this patient.: Yes I have fully participated in the care of the patient.: Yes I have reviewed all pertinent clinical information, including history, physical exam and plan: Yes
--- NOTE | 2018-05-29 19:17 | CP.CCUPN ---
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 - ICU Progress Note Seen and examined this morning at bedside in ICU Patient is still very altered; spoke w/ family who reported patient baseline is AAO4 ROS Unobtainable pt is noncooperative 05/29/18 19:29 CCU Objective - Vital Signs / Intake & Output Vital Signs (Last 4 hours): Vital Signs Temp Pulse Resp BP Pulse Ox 05/29/18 18:30 103 H 26 H 99 05/29/18 18:20 104 H 11 L 98 05/29/18 18:10 106 H 20 99 05/29/18 18:01 106 H 19 151/73 H 98 05/29/18 18:00 106 H 15 98 05/29/18 17:50 104 H 11 L 98 05/29/18 17:40 103 H 16 99 05/29/18 17:30 103 H 16 99 05/29/18 17:20 105 H 16 99 05/29/18 17:10 103 H 18 98 05/29/18 17:01 106 H 16 157/57 H 99 05/29/18 17:00 105 H 12 100 05/29/18 16:50 104 H 14 98 05/29/18 16:40 105 H 99 05/29/18 16:30 103 H 21 99 05/29/18 16:20 102 H 99 05/29/18 16:10 99 H 14 99 05/29/18 16:01 102 H 22 166/70 H 100 05/29/18 16:00 97.6 F 101 H 17 99 05/29/18 15:50 102 H 16 99 05/29/18 15:40 102 H 99 05/29/18 15:30 100 H 16 100 05/29/18 15:20 101 H 15 100 05/29/18 15:10 102 H 16 99 05/29/18 15:01 105 H 14 160/102 H 100 05/29/18 15:00 103 H 13 99 Intake and Output (Last 8hrs): Intake & Output 05/29/18 05/29/18 05/29/18 06:59 14:59 22:59 Intake Total 2380 3 1600 Output Total 275 650 Balance 2105 3 950 Intake: IV 2380 3 1600 Left Forearm 1600 Right Antecubital 2280 Output: Urine 275 650 Urethral (Murray) 275 650 - Physical Exam Head: Positive for: Atraumatic, Normocephalic Pupils: Positive for: PERRL Extroacular Muscles: Positive for: EOMI Conjunctiva: Positive for: Normal Neck: Positive for: Normal Range of Motion Respiratory/Chest: Positive for: Clear to Auscultation, Good Air Exchange. Negative for: Respiratory Distress, Accessory Muscle Use Cardiovascular: Positive for: Regular Rate and Rhythm, Normal S1, S2. Negative for: Murmurs Abdomen: Negative for: Tenderness, Distention, Peritoneal Signs Back: Positive for: Normal Inspection Upper Extremity: Positive for: Normal Inspection, Other (Brudzinski negative ). Negative for: Cyanosis, Edema Lower Extremity: Positive for: Normal Inspection. Negative for: Edema Neurological: Positive for: GCS=15, CN II-XII Intact, Other (Moving all extremities spontaneously ) Skin: Positive for: Warm, Dry, Normal Color. Negative for: Rashes Psychiatric: Positive for: Alert - Medications Active Medications: Active Medications Generic Name Dose Route Start Last Admin Trade Name Freq PRN Reason Stop Dose Admin Enoxaparin Sodium 40 mg 05/28/18 10:00 05/29/18 10:18 Lovenox SC 40 mg DAILY ODELL Administration Protocol Vancomycin HCl 1 gm in 250 mls @ 167 mls/hr 05/28/18 06:00 05/29/18 17:11 Vancomycin 1gm IVPB 167 mls/hr Q12H ODELL Administration Protocol Piperacillin Sod/Tazobactam Sod 100 mls @ 200 mls/hr 05/28/18 18:00 05/29/18 17:18 Zosyn 3.375 In Ns 100ml IVPB 200 mls/hr Q6 ODELL Administration Protocol Sodium Chloride 1,000 mls @ 125 mls/hr 05/29/18 16:15 05/29/18 16:59 Sodium Chloride 0.45% IV 125 mls/hr .Q8H ODELL Administration Insulin Human NPH 10 units 05/29/18 22:00 Humulin N SC HS ODELL Insulin Human Regular 0 units 05/29/18 16:30 05/29/18 17:17 Humulin R Low SC 5 unit ACHS ODELL Administration Protocol Nystatin 2 gm 05/28/18 10:00 05/29/18 17:17 Nystop Topical Powder TOP 1 applic BID ODELL Administration Pantoprazole Sodium 40 mg 05/28/18 10:00 05/29/18 10:18 Protonix Inj IVP 40 mg DAILY ODELL Administration - Patient Studies Lab Studies: Lab Studies 05/29/18 05/29/18 05/29/18 Range/Units 17:51 16:09 15:12 WBC (4.5-11.0) 10^3/ul RBC (3.5-6.1) 10^6/uL Hgb (12.0-16.0) g/dL Hct (36.0-48.0) % MCV (80.0-105.0) fl MCH (25.0-35.0) pg MCHC (31.0-37.0) g/dl RDW (11.5-14.5) % Plt Count (120.0-450.0) 10^3/uL MPV (7.0-11.0) fl Gran % (50.0-68.0) % Lymph % (Auto) (22.0-35.0) % [place] % (Auto) (1.0-6.0) % Eos % (Auto) (1.5-5.0) % Baso % (Auto) (0.0-3.0) % Gran # (1.4-6.5) Lymph # (Auto) (1.2-3.4) [place] # (Auto) (0.1-0.6) Eos # (Auto) (0.0-0.7) Baso # (Auto) (0.0-2.0) K/mm3 Sodium (132-148) mmol/L Potassium (3.6-5.0) mmol/L Chloride (98-107) mmol/L Carbon Dioxide (21-33) mmol/L Anion Gap (10-20) BUN (7-21) mg/dL Creatinine (0.7-1.2) mg/dl Est GFR ( Amer) Est GFR (Non-Af Amer) POC Glucose (mg/dL) 330 H 377 H 345 H (65-110) mg/dL Random Glucose (70-110) mg/dL Calcium (8.4-10.5) mg/dL Total Bilirubin (0.2-1.3) mg/dL AST (14-36) U/L ALT (7-56) U/L Alkaline Phosphatase (38-126) U/L Ammonia (9-33) umol/L Total Protein (5.8-8.3) g/dL Albumin (3.0-4.8) g/dL Globulin gm/dL Albumin/Globulin Ratio (1.1-1.8) 05/29/18 05/29/18 05/29/18 Range/Units 14:15 11:06 09:55 WBC (4.5-11.0) 10^3/ul RBC (3.5-6.1) 10^6/uL Hgb (12.0-16.0) g/dL Hct (36.0-48.0) % MCV (80.0-105.0) fl MCH (25.0-35.0) pg MCHC (31.0-37.0) g/dl RDW (11.5-14.5) % Plt Count (120.0-450.0) 10^3/uL MPV (7.0-11.0) fl Gran % (50.0-68.0) % Lymph % (Auto) (22.0-35.0) % [place] % (Auto) (1.0-6.0) % Eos % (Auto) (1.5-5.0) % Baso % (Auto) (0.0-3.0) % Gran # (1.4-6.5) Lymph # (Auto) (1.2-3.4) [place] # (Auto) (0.1-0.6) Eos # (Auto) (0.0-0.7) Baso # (Auto) (0.0-2.0) K/mm3 Sodium 152 H (132-148) mmol/L Potassium 3.6 (3.6-5.0) mmol/L Chloride 117 H (98-107) mmol/L Carbon Dioxide 20 L (21-33) mmol/L Anion Gap 19 (10-20) BUN 17 (7-21) mg/dL Creatinine 0.5 L (0.7-1.2) mg/dl Est GFR ( Amer) > 60 Est GFR (Non-Af Amer) > 60 POC Glucose (mg/dL) 330 H 312 H (65-110) mg/dL Random Glucose 340 H* D (70-110) mg/dL Calcium 9.3 (8.4-10.5) mg/dL Total Bilirubin (0.2-1.3) mg/dL AST (14-36) U/L ALT (7-56) U/L Alkaline Phosphatase (38-126) U/L Ammonia (9-33) umol/L Total Protein (5.8-8.3) g/dL Albumin (3.0-4.8) g/dL Globulin gm/dL Albumin/Globulin Ratio (1.1-1.8) 05/29/18 05/29/18 05/29/18 Range/Units 08:45 07:27 06:32 WBC (4.5-11.0) 10^3/ul RBC (3.5-6.1) 10^6/uL Hgb (12.0-16.0) g/dL Hct (36.0-48.0) % MCV (80.0-105.0) fl MCH (25.0-35.0) pg MCHC (31.0-37.0) g/dl RDW (11.5-14.5) % Plt Count (120.0-450.0) 10^3/uL MPV (7.0-11.0) fl Gran % (50.0-68.0) % Lymph % (Auto) (22.0-35.0) % [place] % (Auto) (1.0-6.0) % Eos % (Auto) (1.5-5.0) % Baso % (Auto) (0.0-3.0) % Gran # (1.4-6.5) Lymph # (Auto) (1.2-3.4) [place] # (Auto) (0.1-0.6) Eos # (Auto) (0.0-0.7) Baso # (Auto) (0.0-2.0) K/mm3 Sodium (132-148) mmol/L Potassium (3.6-5.0) mmol/L Chloride (98-107) mmol/L Carbon Dioxide (21-33) mmol/L Anion Gap (10-20) BUN (7-21) mg/dL Creatinine (0.7-1.2) mg/dl Est GFR ( Amer) Est GFR (Non-Af Amer) POC Glucose (mg/dL) 294 H 315 H 265 H (65-110) mg/dL Random Glucose (70-110) mg/dL Calcium (8.4-10.5) mg/dL Total Bilirubin (0.2-1.3) mg/dL AST (14-36) U/L ALT (7-56) U/L Alkaline Phosphatase (38-126) U/L Ammonia (9-33) umol/L Total Protein (5.8-8.3) g/dL Albumin (3.0-4.8) g/dL Globulin gm/dL Albumin/Globulin Ratio (1.1-1.8) 05/29/18 05/29/18 05/29/18 Range/Units 05:45 05:45 05:06 WBC 12.8 H (4.5-11.0) 10^3/ul RBC 4.31 (3.5-6.1) 10^6/uL Hgb 14.0 D (12.0-16.0) g/dL Hct 39.8 (36.0-48.0) % MCV 92.3 (80.0-105.0) fl MCH 32.5 (25.0-35.0) pg MCHC 35.2 (31.0-37.0) g/dl RDW 12.9 (11.5-14.5) % Plt Count 239 (120.0-450.0) 10^3/uL MPV 10.2 (7.0-11.0) fl Gran % 73.4 H (50.0-68.0) % Lymph % (Auto) 12.4 L (22.0-35.0) % [place] % (Auto) 13.8 H (1.0-6.0) % Eos % (Auto) 0.2 L (1.5-5.0) % Baso % (Auto) 0.2 (0.0-3.0) % Gran # 9.40 H (1.4-6.5) Lymph # (Auto) 1.6 (1.2-3.4) [place] # (Auto) 1.8 H (0.1-0.6) Eos # (Auto) 0.0 (0.0-0.7) Baso # (Auto) 0.02 (0.0-2.0) K/mm3 Sodium 153 H (132-148) mmol/L Potassium 3.8 (3.6-5.0) mmol/L Chloride 119 H (98-107) mmol/L Carbon Dioxide 20 L (21-33) mmol/L Anion Gap 19 (10-20) BUN 19 (7-21) mg/dL Creatinine 0.6 L (0.7-1.2) mg/dl Est GFR ( Amer) > 60 Est GFR (Non-Af Amer) > 60 POC Glucose (mg/dL) 291 H (65-110) mg/dL Random Glucose 252 H (70-110) mg/dL Calcium 9.6 (8.4-10.5) mg/dL Total Bilirubin 0.8 (0.2-1.3) mg/dL AST 43 H (14-36) U/L ALT 45 (7-56) U/L Alkaline Phosphatase 159 H (38-126) U/L Ammonia (9-33) umol/L Total Protein 6.8 (5.8-8.3) g/dL Albumin 3.2 (3.0-4.8) g/dL Globulin 3.6 gm/dL Albumin/Globulin Ratio 0.9 L (1.1-1.8) 05/29/18 05/29/18 05/29/18 Range/Units 03:58 03:40 02:11 WBC (4.5-11.0) 10^3/ul RBC (3.5-6.1) 10^6/uL Hgb (12.0-16.0) g/dL Hct (36.0-48.0) % MCV (80.0-105.0) fl MCH (25.0-35.0) pg MCHC (31.0-37.0) g/dl RDW (11.5-14.5) % Plt Count (120.0-450.0) 10^3/uL MPV (7.0-11.0) fl Gran % (50.0-68.0) % Lymph % (Auto) (22.0-35.0) % [place] % (Auto) (1.0-6.0) % Eos % (Auto) (1.5-5.0) % Baso % (Auto) (0.0-3.0) % Gran # (1.4-6.5) Lymph # (Auto) (1.2-3.4) [place] # (Auto) (0.1-0.6) Eos # (Auto) (0.0-0.7) Baso # (Auto) (0.0-2.0) K/mm3 Sodium (132-148) mmol/L Potassium (3.6-5.0) mmol/L Chloride (98-107) mmol/L Carbon Dioxide (21-33) mmol/L Anion Gap (10-20) BUN (7-21) mg/dL Creatinine (0.7-1.2) mg/dl Est GFR ( Amer) Est GFR (Non-Af Amer) POC Glucose (mg/dL) 203 H 233 H 230 H (65-110) mg/dL Random Glucose (70-110) mg/dL Calcium (8.4-10.5) mg/dL Total Bilirubin (0.2-1.3) mg/dL AST (14-36) U/L ALT (7-56) U/L Alkaline Phosphatase (38-126) U/L Ammonia (9-33) umol/L Total Protein (5.8-8.3) g/dL Albumin (3.0-4.8) g/dL Globulin gm/dL Albumin/Globulin Ratio (1.1-1.8) 05/29/18 05/29/18 05/29/18 Range/Units 01:08 00:06 00:05 WBC (4.5-11.0) 10^3/ul RBC (3.5-6.1) 10^6/uL Hgb (12.0-16.0) g/dL Hct (36.0-48.0) % MCV (80.0-105.0) fl MCH (25.0-35.0) pg MCHC (31.0-37.0) g/dl RDW (11.5-14.5) % Plt Count (120.0-450.0) 10^3/uL MPV (7.0-11.0) fl Gran % (50.0-68.0) % Lymph % (Auto) (22.0-35.0) % [place] % (Auto) (1.0-6.0) % Eos % (Auto) (1.5-5.0) % Baso % (Auto) (0.0-3.0) % Gran # (1.4-6.5) Lymph # (Auto) (1.2-3.4) [place] # (Auto) (0.1-0.6) Eos # (Auto) (0.0-0.7) Baso # (Auto) (0.0-2.0) K/mm3 Sodium 152 H (132-148) mmol/L Potassium 3.5 L (3.6-5.0) mmol/L Chloride 119 H (98-107) mmol/L Carbon Dioxide 19 L (21-33) mmol/L Anion Gap 17 (10-20) BUN 18 (7-21) mg/dL Creatinine 0.5 L (0.7-1.2) mg/dl Est GFR ( Amer) > 60 Est GFR (Non-Af Amer) > 60 POC Glucose (mg/dL) 280 H 223 H (65-110) mg/dL Random Glucose 221 H (70-110) mg/dL Calcium 9.4 (8.4-10.5) mg/dL Total Bilirubin (0.2-1.3) mg/dL AST (14-36) U/L ALT (7-56) U/L Alkaline Phosphatase (38-126) U/L Ammonia (9-33) umol/L Total Protein (5.8-8.3) g/dL Albumin (3.0-4.8) g/dL Globulin gm/dL Albumin/Globulin Ratio (1.1-1.8) 05/28/18 05/28/18 05/28/18 Range/Units 23:17 22:28 20:25 WBC (4.5-11.0) 10^3/ul RBC (3.5-6.1) 10^6/uL Hgb (12.0-16.0) g/dL Hct (36.0-48.0) % MCV (80.0-105.0) fl MCH (25.0-35.0) pg MCHC (31.0-37.0) g/dl RDW (11.5-14.5) % Plt Count (120.0-450.0) 10^3/uL MPV (7.0-11.0) fl Gran % (50.0-68.0) % Lymph % (Auto) (22.0-35.0) % [place] % (Auto) (1.0-6.0) % Eos % (Auto) (1.5-5.0) % Baso % (Auto) (0.0-3.0) % Gran # (1.4-6.5) Lymph # (Auto) (1.2-3.4) [place] # (Auto) (0.1-0.6) Eos # (Auto) (0.0-0.7) Baso # (Auto) (0.0-2.0) K/mm3 Sodium (132-148) mmol/L Potassium (3.6-5.0) mmol/L Chloride (98-107) mmol/L Carbon Dioxide (21-33) mmol/L Anion Gap (10-20) BUN (7-21) mg/dL Creatinine (0.7-1.2) mg/dl Est GFR ( Amer) Est GFR (Non-Af Amer) POC Glucose (mg/dL) 230 H 257 H 257 H (65-110) mg/dL Random Glucose (70-110) mg/dL Calcium (8.4-10.5) mg/dL Total Bilirubin (0.2-1.3) mg/dL AST (14-36) U/L ALT (7-56) U/L Alkaline Phosphatase (38-126) U/L Ammonia (9-33) umol/L Total Protein (5.8-8.3) g/dL Albumin (3.0-4.8) g/dL Globulin gm/dL Albumin/Globulin Ratio (1.1-1.8) 05/28/18 05/28/18 05/28/18 Range/Units 19:47 19:47 15:19 WBC (4.5-11.0) 10^3/ul RBC (3.5-6.1) 10^6/uL Hgb (12.0-16.0) g/dL Hct (36.0-48.0) % MCV (80.0-105.0) fl MCH (25.0-35.0) pg MCHC (31.0-37.0) g/dl RDW (11.5-14.5) % Plt Count (120.0-450.0) 10^3/uL MPV (7.0-11.0) fl Gran % (50.0-68.0) % Lymph % (Auto) (22.0-35.0) % [place] % (Auto) (1.0-6.0) % Eos % (Auto) (1.5-5.0) % Baso % (Auto) (0.0-3.0) % Gran # (1.4-6.5) Lymph # (Auto) (1.2-3.4) [place] # (Auto) (0.1-0.6) Eos # (Auto) (0.0-0.7) Baso # (Auto) (0.0-2.0) K/mm3 Sodium 152 H (132-148) mmol/L Potassium 3.4 L (3.6-5.0) mmol/L Chloride 118 H (98-107) mmol/L Carbon Dioxide 20 L (21-33) mmol/L Anion Gap 17 (10-20) BUN 19 (7-21) mg/dL Creatinine 0.5 L (0.7-1.2) mg/dl Est GFR ( Amer) > 60 Est GFR (Non-Af Amer) > 60 POC Glucose (mg/dL) 347 H (65-110) mg/dL Random Glucose 249 H (70-110) mg/dL Calcium 9.5 (8.4-10.5) mg/dL Total Bilirubin (0.2-1.3) mg/dL AST (14-36) U/L ALT (7-56) U/L Alkaline Phosphatase (38-126) U/L Ammonia 29 (9-33) umol/L Total Protein (5.8-8.3) g/dL Albumin (3.0-4.8) g/dL Globulin gm/dL Albumin/Globulin Ratio (1.1-1.8) 05/28/18 05/28/18 05/28/18 Range/Units 14:07 13:05 11:52 WBC (4.5-11.0) 10^3/ul RBC (3.5-6.1) 10^6/uL Hgb (12.0-16.0) g/dL Hct (36.0-48.0) % MCV (80.0-105.0) fl MCH (25.0-35.0) pg MCHC (31.0-37.0) g/dl RDW (11.5-14.5) % Plt Count (120.0-450.0) 10^3/uL MPV (7.0-11.0) fl Gran % (50.0-68.0) % Lymph % (Auto) (22.0-35.0) % [place] % (Auto) (1.0-6.0) % Eos % (Auto) (1.5-5.0) % Baso % (Auto) (0.0-3.0) % Gran # (1.4-6.5) Lymph # (Auto) (1.2-3.4) [place] # (Auto) (0.1-0.6) Eos # (Auto) (0.0-0.7) Baso # (Auto) (0.0-2.0) K/mm3 Sodium (132-148) mmol/L Potassium (3.6-5.0) mmol/L Chloride (98-107) mmol/L Carbon Dioxide (21-33) mmol/L Anion Gap (10-20) BUN (7-21) mg/dL Creatinine (0.7-1.2) mg/dl Est GFR ( Amer) Est GFR (Non-Af Amer) POC Glucose (mg/dL) 335 H 322 H 298 H (65-110) mg/dL Random Glucose (70-110) mg/dL Calcium (8.4-10.5) mg/dL Total Bilirubin (0.2-1.3) mg/dL AST (14-36) U/L ALT (7-56) U/L Alkaline Phosphatase (38-126) U/L Ammonia (9-33) umol/L Total Protein (5.8-8.3) g/dL Albumin (3.0-4.8) g/dL Globulin gm/dL Albumin/Globulin Ratio (1.1-1.8) 05/28/18 05/28/18 Range/Units 10:51 09:50 WBC (4.5-11.0) 10^3/ul RBC (3.5-6.1) 10^6/uL Hgb (12.0-16.0) g/dL Hct (36.0-48.0) % MCV (80.0-105.0) fl MCH (25.0-35.0) pg MCHC (31.0-37.0) g/dl RDW (11.5-14.5) % Plt Count (120.0-450.0) 10^3/uL MPV (7.0-11.0) fl Gran % (50.0-68.0) % Lymph % (Auto) (22.0-35.0) % [place] % (Auto) (1.0-6.0) % Eos % (Auto) (1.5-5.0) % Baso % (Auto) (0.0-3.0) % Gran # (1.4-6.5) Lymph # (Auto) (1.2-3.4) [place] # (Auto) (0.1-0.6) Eos # (Auto) (0.0-0.7) Baso # (Auto) (0.0-2.0) K/mm3 Sodium (132-148) mmol/L Potassium (3.6-5.0) mmol/L Chloride (98-107) mmol/L Carbon Dioxide (21-33) mmol/L Anion Gap (10-20) BUN (7-21) mg/dL Creatinine (0.7-1.2) mg/dl Est GFR ( Amer) Est GFR (Non-Af Amer) POC Glucose (mg/dL) 268 H 279 H (65-110) mg/dL Random Glucose (70-110) mg/dL Calcium (8.4-10.5) mg/dL Total Bilirubin (0.2-1.3) mg/dL AST (14-36) U/L ALT (7-56) U/L Alkaline Phosphatase (38-126) U/L Ammonia (9-33) umol/L Total Protein (5.8-8.3) g/dL Albumin (3.0-4.8) g/dL Globulin gm/dL Albumin/Globulin Ratio (1.1-1.8) Laboratory Results - last 24 hr 05/28/18 05/28/18 05/28/18 09:50 10:51 11:52 WBC RBC Hgb Hct MCV MCH MCHC RDW Plt Count MPV Gran % Lymph % (Auto) [place] % (Auto) Eos % (Auto) Baso % (Auto) Gran # Lymph # (Auto) [place] # (Auto) Eos # (Auto) Baso # (Auto) Sodium Potassium Chloride Carbon Dioxide Anion Gap BUN Creatinine Est GFR ( Amer) Est GFR (Non-Af Amer) POC Glucose (mg/dL) 279 H 268 H 298 H Random Glucose Calcium Total Bilirubin AST ALT Alkaline Phosphatase Ammonia Total Protein Albumin Globulin Albumin/Globulin Ratio 05/28/18 05/28/18 05/28/18 13:05 14:07 15:19 WBC RBC Hgb Hct MCV MCH MCHC RDW Plt Count MPV Gran % Lymph % (Auto) [place] % (Auto) Eos % (Auto) Baso % (Auto) Gran # Lymph # (Auto) [place] # (Auto) Eos # (Auto) Baso # (Auto) Sodium Potassium Chloride Carbon Dioxide Anion Gap BUN Creatinine Est GFR ( Amer) Est GFR (Non-Af Amer) POC Glucose (mg/dL) 322 H 335 H 347 H Random Glucose Calcium Total Bilirubin AST ALT Alkaline Phosphatase Ammonia Total Protein Albumin Globulin Albumin/Globulin Ratio 05/28/18 05/28/18 05/28/18 19:47 19:47 20:25 WBC RBC Hgb Hct MCV MCH MCHC RDW Plt Count MPV Gran % Lymph % (Auto) [place] % (Auto) Eos % (Auto) Baso % (Auto) Gran # Lymph # (Auto) [place] # (Auto) Eos # (Auto) Baso # (Auto) Sodium 152 H Potassium 3.4 L Chloride 118 H Carbon Dioxide 20 L Anion Gap 17 BUN 19 Creatinine 0.5 L Est GFR ( Amer) > 60 Est GFR (Non-Af Amer) > 60 POC Glucose (mg/dL) 257 H Random Glucose 249 H Calcium 9.5 Total Bilirubin AST ALT Alkaline Phosphatase Ammonia 29 Total Protein Albumin Globulin Albumin/Globulin Ratio 05/28/18 05/28/18 05/29/18 22:28 23:17 00:05 WBC RBC Hgb Hct MCV MCH MCHC RDW Plt Count MPV Gran % Lymph % (Auto) [place] % (Auto) Eos % (Auto) Baso % (Auto) Gran # Lymph # (Auto) [place] # (Auto) Eos # (Auto) Baso # (Auto) Sodium 152 H Potassium 3.5 L Chloride 119 H Carbon Dioxide 19 L Anion Gap 17 BUN 18 Creatinine 0.5 L Est GFR ( Amer) > 60 Est GFR (Non-Af Amer) > 60 POC Glucose (mg/dL) 257 H 230 H Random Glucose 221 H Calcium 9.4 Total Bilirubin AST ALT Alkaline Phosphatase Ammonia Total Protein Albumin Globulin Albumin/Globulin Ratio 05/29/18 05/29/18 05/29/18 00:06 01:08 02:11 WBC RBC Hgb Hct MCV MCH MCHC RDW Plt Count MPV Gran % Lymph % (Auto) [place] % (Auto) Eos % (Auto) Baso % (Auto) Gran # Lymph # (Auto) [place] # (Auto) Eos # (Auto) Baso # (Auto) Sodium Potassium Chloride Carbon Dioxide Anion Gap BUN Creatinine Est GFR ( Amer) Est GFR (Non-Af Amer) POC Glucose (mg/dL) 223 H 280 H 230 H Random Glucose Calcium Total Bilirubin AST ALT Alkaline Phosphatase Ammonia Total Protein Albumin Globulin Albumin/Globulin Ratio 05/29/18 05/29/18 05/29/18 03:40 03:58 05:06 WBC RBC Hgb Hct MCV MCH MCHC RDW Plt Count MPV Gran % Lymph % (Auto) [place] % (Auto) Eos % (Auto) Baso % (Auto) Gran # Lymph # (Auto) [place] # (Auto) Eos # (Auto) Baso # (Auto) Sodium Potassium Chloride Carbon Dioxide Anion Gap BUN Creatinine Est GFR ( Amer) Est GFR (Non-Af Amer) POC Glucose (mg/dL) 233 H 203 H 291 H Random Glucose Calcium Total Bilirubin AST ALT Alkaline Phosphatase Ammonia Total Protein Albumin Globulin Albumin/Globulin Ratio 05/29/18 05/29/18 05/29/18 05:45 05:45 06:32 WBC 12.8 H RBC 4.31 Hgb 14.0 D Hct 39.8 MCV 92.3 MCH 32.5 MCHC 35.2 RDW 12.9 Plt Count 239 MPV 10.2 Gran % 73.4 H Lymph % (Auto) 12.4 L [place] % (Auto) 13.8 H Eos % (Auto) 0.2 L Baso % (Auto) 0.2 Gran # 9.40 H Lymph # (Auto) 1.6 [place] # (Auto) 1.8 H Eos # (Auto) 0.0 Baso # (Auto) 0.02 Sodium 153 H Potassium 3.8 Chloride 119 H Carbon Dioxide 20 L Anion Gap 19 BUN 19 Creatinine 0.6 L Est GFR ( Amer) > 60 Est GFR (Non-Af Amer) > 60 POC Glucose (mg/dL) 265 H Random Glucose 252 H Calcium 9.6 Total Bilirubin 0.8 AST 43 H ALT 45 Alkaline Phosphatase 159 H Ammonia Total Protein 6.8 Albumin 3.2 Globulin 3.6 Albumin/Globulin Ratio 0.9 L 05/29/18 05/29/18 05/29/18 07:27 08:45 09:55 WBC RBC Hgb Hct MCV MCH MCHC RDW Plt Count MPV Gran % Lymph % (Auto) [place] % (Auto) Eos % (Auto) Baso % (Auto) Gran # Lymph # (Auto) [place] # (Auto) Eos # (Auto) Baso # (Auto) Sodium Potassium Chloride Carbon Dioxide Anion Gap BUN Creatinine Est GFR ( Amer) Est GFR (Non-Af Amer) POC Glucose (mg/dL) 315 H 294 H 312 H Random Glucose Calcium Total Bilirubin AST ALT Alkaline Phosphatase Ammonia Total Protein Albumin Globulin Albumin/Globulin Ratio 05/29/18 05/29/18 05/29/18 11:06 14:15 15:12 WBC RBC Hgb Hct MCV MCH MCHC RDW Plt Count MPV Gran % Lymph % (Auto) [place] % (Auto) Eos % (Auto) Baso % (Auto) Gran # Lymph # (Auto) [place] # (Auto) Eos # (Auto) Baso # (Auto) Sodium 152 H Potassium 3.6 Chloride 117 H Carbon Dioxide 20 L Anion Gap 19 BUN 17 Creatinine 0.5 L Est GFR ( Amer) > 60 Est GFR (Non-Af Amer) > 60 POC Glucose (mg/dL) 330 H 345 H Random Glucose 340 H* D Calcium 9.3 Total Bilirubin AST ALT Alkaline Phosphatase Ammonia Total Protein Albumin Globulin Albumin/Globulin Ratio 05/29/18 05/29/18 16:09 17:51 WBC RBC Hgb Hct MCV MCH MCHC RDW Plt Count MPV Gran % Lymph % (Auto) [place] % (Auto) Eos % (Auto) Baso % (Auto) Gran # Lymph # (Auto) [place] # (Auto) Eos # (Auto) Baso # (Auto) Sodium Potassium Chloride Carbon Dioxide Anion Gap BUN Creatinine Est GFR ( Amer) Est GFR (Non-Af Amer) POC Glucose (mg/dL) 377 H 330 H Random Glucose Calcium Total Bilirubin AST ALT Alkaline Phosphatase Ammonia Total Protein Albumin Globulin Albumin/Globulin Ratio Fingerstick Blood Sugar Results: 330 Review of Systems - Review of Systems Systems not reviewed;Unavailable: Altered Mental Status Assessment/Plan - Assessment and Plan (Free Text) Assessment: 52F w/ a PMH of HTN and Asthma presented w/ DKA and SIRS to [facility] [place] ED on 05/27. Neuro: -AAOx2 -Altered mental status; Baseline is AAO4 -Most likely 2/2 DKA; However Cannot rule out infectious or other etiologies at this time -CT Head negative for acute changes -Continue monitoring; Reorient patient as necessary Cardiology: -Patient continues to be tachycardic -Her BP ranges from borderline HTN to Normotensive; Her MAP is always >65 -Maintain MAP >65 Pulmonology: -Satting >95% on RA -CXR NAD -HOB >35degrees - aspiration precautions -Continue monitoring Endo: -DKA- On admission: AG 34; BG 539 -Most Recent A -BMP Q4 -Accucheck Q2 -No longer on drip switched to -30U NPH/Reg in AM -10U Humulin SCHS tonight -20U NPH/Reg AC today -ISS Low coverage ACHS -Patient is altered at this time; unable to follow commands -Will obtain [employer] eval tomorrow and resume diet GI: -NPO -Resume diet once gap closes and patient can tolerate / Nephro: -Murray in place -Monitor BUN/Cr -UA negative for bacteruria/ pyuria ID: -SIRS -Empiric Vanc/Zosyn -UA w/o Bacteria/ Pyuria -Pancultures pending -CXR NAD -CTAP -Procal pending GI PPX: Protonix IVP DVT PPX: SCDs ; Lovenox 40 Patient was seen, examined, and discussed w/ attending physician Dr. Aminta Bennett DO PGY1 - Date & Time Date: 05/29/18 Time: 20:35 <Luis Lemos - Last Filed: 05/30/18 15:18> CCU Objective - Vital Signs / Intake & Output Intake and Output (Last 8hrs): Intake & Output 05/30/18 05/30/18 05/30/18 06:59 14:59 22:59 Intake Total 2150 Output Total 600 Balance 1550 Intake: IV 2150 Left Forearm 2150 Output: Urine 600 Urethral (Murray) 600 - Medications Active Medications: Active Medications Generic Name Dose Route Start Last Admin Trade Name Freq PRN Reason Stop Dose Admin Enoxaparin Sodium 40 mg 05/28/18 10:00 05/30/18 09:23 Lovenox SC 40 mg DAILY ODELL Administration Protocol Vancomycin HCl 1 gm in 250 mls @ 167 mls/hr 05/28/18 06:00 05/30/18 06:09 Vancomycin 1gm IVPB 167 mls/hr Q12H ODELL Administration Protocol Piperacillin Sod/Tazobactam Sod 100 mls @ 200 mls/hr 05/28/18 18:00 05/30/18 14:29 Zosyn 3.375 In Ns 100ml IVPB 200 mls/hr Q6 ODELL Administration Protocol Sodium Chloride 1,000 mls @ 125 mls/hr 05/29/18 16:15 05/30/18 02:02 Sodium Chloride 0.45% IV 125 mls/hr .Q8H ODELL Administration Insulin Human NPH 10 units 05/29/18 22:00 05/29/18 22:37 Humulin N SC 10 units HS ODELL Administration Insulin Human Regular 0 units 05/29/18 16:30 05/30/18 12:00 Humulin R Low SC Not Given ACHS ODELL Protocol Nystatin 2 gm 05/28/18 10:00 05/30/18 09:20 Nystop Topical Powder TOP 1 applic BID ODELL Administration Pantoprazole Sodium 40 mg 05/28/18 10:00 05/30/18 09:24 Protonix Inj IVP 40 mg DAILY ODELL Administration - Patient Studies Lab Studies: Microbiology Studies 05/28/18 09:07 MRSA Culture (Admit) - Final Naris MRSA NOT DETECTED Lab Studies 05/30/18 05/30/18 05/30/18 Range/Units 11:03 06:14 05:30 WBC (4.5-11.0) 10^3/ul RBC (3.5-6.1) 10^6/uL Hgb (12.0-16.0) g/dL Hct (36.0-48.0) % MCV (80.0-105.0) fl MCH (25.0-35.0) pg MCHC (31.0-37.0) g/dl RDW (11.5-14.5) % Plt Count (120.0-450.0) 10^3/uL MPV (7.0-11.0) fl Gran % (50.0-68.0) % Lymph % (Auto) (22.0-35.0) % [place] % (Auto) (1.0-6.0) % Eos % (Auto) (1.5-5.0) % Baso % (Auto) (0.0-3.0) % Gran # (1.4-6.5) Lymph # (Auto) (1.2-3.4) [place] # (Auto) (0.1-0.6) Eos # (Auto) (0.0-0.7) Baso # (Auto) (0.0-2.0) K/mm3 Sodium 149 H (132-148) mmol/L Potassium 3.2 L (3.6-5.0) mmol/L Chloride 115 H (98-107) mmol/L Carbon Dioxide 26 (21-33) mmol/L Anion Gap 12 (10-20) BUN 13 (7-21) mg/dL Creatinine 0.4 L (0.7-1.2) mg/dl Est GFR ( Amer) > 60 Est GFR (Non-Af Amer) > 60 POC Glucose (mg/dL) 295 H 166 H (65-110) mg/dL Random Glucose 152 H (70-110) mg/dL Calcium 8.9 (8.4-10.5) mg/dL Phosphorus 1.1 L* (2.5-4.5) mg/dL Magnesium 2.0 (1.7-2.2) mg/dL Total Bilirubin 0.6 (0.2-1.3) mg/dL AST 44 H (14-36) U/L ALT 48 (7-56) U/L Alkaline Phosphatase 123 (38-126) U/L Total Protein 6.2 (5.8-8.3) g/dL Albumin 2.8 L (3.0-4.8) g/dL Globulin 3.4 gm/dL Albumin/Globulin Ratio 0.8 L (1.1-1.8) Hepatitis A IgM Ab (NEGATIVE) Hep Bs Antigen (NEGATIVE) Hep B Core IgM Ab (NEGATIVE) Hepatitis C Antibody (NEGATIVE) 05/30/18 05/30/18 05/29/18 Range/Units 05:30 03:13 23:59 WBC 8.1 D (4.5-11.0) 10^3/ul RBC 3.96 (3.5-6.1) 10^6/uL Hgb 12.7 (12.0-16.0) g/dL Hct 36.4 (36.0-48.0) % MCV 91.9 (80.0-105.0) fl MCH 32.1 (25.0-35.0) pg MCHC 34.9 (31.0-37.0) g/dl RDW 13.2 (11.5-14.5) % Plt Count 189 (120.0-450.0) 10^3/uL MPV 9.5 (7.0-11.0) fl Gran % 70.6 H (50.0-68.0) % Lymph % (Auto) 16.4 L (22.0-35.0) % [place] % (Auto) 12.1 H (1.0-6.0) % Eos % (Auto) 0.7 L (1.5-5.0) % Baso % (Auto) 0.2 (0.0-3.0) % Gran # 5.70 (1.4-6.5) Lymph # (Auto) 1.3 (1.2-3.4) [place] # (Auto) 1.0 H (0.1-0.6) Eos # (Auto) 0.1 (0.0-0.7) Baso # (Auto) 0.02 (0.0-2.0) K/mm3 Sodium (132-148) mmol/L Potassium (3.6-5.0) mmol/L Chloride (98-107) mmol/L Carbon Dioxide (21-33) mmol/L Anion Gap (10-20) BUN (7-21) mg/dL Creatinine (0.7-1.2) mg/dl Est GFR ( Amer) Est GFR (Non-Af Amer) POC Glucose (mg/dL) 137 H 168 H (65-110) mg/dL Random Glucose (70-110) mg/dL Calcium (8.4-10.5) mg/dL Phosphorus (2.5-4.5) mg/dL Magnesium (1.7-2.2) mg/dL Total Bilirubin (0.2-1.3) mg/dL AST (14-36) U/L ALT (7-56) U/L Alkaline Phosphatase (38-126) U/L Total Protein (5.8-8.3) g/dL Albumin (3.0-4.8) g/dL Globulin gm/dL Albumin/Globulin Ratio (1.1-1.8) Hepatitis A IgM Ab (NEGATIVE) Hep Bs Antigen (NEGATIVE) Hep B Core IgM Ab (NEGATIVE) Hepatitis C Antibody (NEGATIVE) 05/29/18 05/29/18 05/29/18 Range/Units 22:11 22:10 19:55 WBC (4.5-11.0) 10^3/ul RBC (3.5-6.1) 10^6/uL Hgb (12.0-16.0) g/dL Hct (36.0-48.0) % MCV (80.0-105.0) fl MCH (25.0-35.0) pg MCHC (31.0-37.0) g/dl RDW (11.5-14.5) % Plt Count (120.0-450.0) 10^3/uL MPV (7.0-11.0) fl Gran % (50.0-68.0) % Lymph % (Auto) (22.0-35.0) % [place] % (Auto) (1.0-6.0) % Eos % (Auto) (1.5-5.0) % Baso % (Auto) (0.0-3.0) % Gran # (1.4-6.5) Lymph # (Auto) (1.2-3.4) [place] # (Auto) (0.1-0.6) Eos # (Auto) (0.0-0.7) Baso # (Auto) (0.0-2.0) K/mm3 Sodium (132-148) mmol/L Potassium (3.6-5.0) mmol/L Chloride (98-107) mmol/L Carbon Dioxide (21-33) mmol/L Anion Gap (10-20) BUN (7-21) mg/dL Creatinine (0.7-1.2) mg/dl Est GFR ( Amer) Est GFR (Non-Af Amer) POC Glucose (mg/dL) 208 H 215 H 272 H (65-110) mg/dL Random Glucose (70-110) mg/dL Calcium (8.4-10.5) mg/dL Phosphorus (2.5-4.5) mg/dL Magnesium (1.7-2.2) mg/dL Total Bilirubin (0.2-1.3) mg/dL AST (14-36) U/L ALT (7-56) U/L Alkaline Phosphatase (38-126) U/L Total Protein (5.8-8.3) g/dL Albumin (3.0-4.8) g/dL Globulin gm/dL Albumin/Globulin Ratio (1.1-1.8) Hepatitis A IgM Ab (NEGATIVE) Hep Bs Antigen (NEGATIVE) Hep B Core IgM Ab (NEGATIVE) Hepatitis C Antibody (NEGATIVE) 05/29/18 05/29/18 05/29/18 Range/Units 19:40 17:51 16:09 WBC (4.5-11.0) 10^3/ul RBC (3.5-6.1) 10^6/uL Hgb (12.0-16.0) g/dL Hct (36.0-48.0) % MCV (80.0-105.0) fl MCH (25.0-35.0) pg MCHC (31.0-37.0) g/dl RDW (11.5-14.5) % Plt Count (120.0-450.0) 10^3/uL MPV (7.0-11.0) fl Gran % (50.0-68.0) % Lymph % (Auto) (22.0-35.0) % [place] % (Auto) (1.0-6.0) % Eos % (Auto) (1.5-5.0) % Baso % (Auto) (0.0-3.0) % Gran # (1.4-6.5) Lymph # (Auto) (1.2-3.4) [place] # (Auto) (0.1-0.6) Eos # (Auto) (0.0-0.7) Baso # (Auto) (0.0-2.0) K/mm3 Sodium 151 H (132-148) mmol/L Potassium 3.1 L (3.6-5.0) mmol/L Chloride 116 H (98-107) mmol/L Carbon Dioxide 23 (21-33) mmol/L Anion Gap 14 (10-20) BUN 16 (7-21) mg/dL Creatinine 0.5 L (0.7-1.2) mg/dl Est GFR ( Amer) > 60 Est GFR (Non-Af Amer) > 60 POC Glucose (mg/dL) 330 H 377 H (65-110) mg/dL Random Glucose 271 H (70-110) mg/dL Calcium 9.4 (8.4-10.5) mg/dL Phosphorus (2.5-4.5) mg/dL Magnesium (1.7-2.2) mg/dL Total Bilirubin (0.2-1.3) mg/dL AST (14-36) U/L ALT (7-56) U/L Alkaline Phosphatase (38-126) U/L Total Protein (5.8-8.3) g/dL Albumin (3.0-4.8) g/dL Globulin gm/dL Albumin/Globulin Ratio (1.1-1.8) Hepatitis A IgM Ab (NEGATIVE) Hep Bs Antigen (NEGATIVE) Hep B Core IgM Ab (NEGATIVE) Hepatitis C Antibody (NEGATIVE) 05/29/18 05/29/18 Range/Units 15:12 14:15 WBC (4.5-11.0) 10^3/ul RBC (3.5-6.1) 10^6/uL Hgb (12.0-16.0) g/dL Hct (36.0-48.0) % MCV (80.0-105.0) fl MCH (25.0-35.0) pg MCHC (31.0-37.0) g/dl RDW (11.5-14.5) % Plt Count (120.0-450.0) 10^3/uL MPV (7.0-11.0) fl Gran % (50.0-68.0) % Lymph % (Auto) (22.0-35.0) % [place] % (Auto) (1.0-6.0) % Eos % (Auto) (1.5-5.0) % Baso % (Auto) (0.0-3.0) % Gran # (1.4-6.5) Lymph # (Auto) (1.2-3.4) [place] # (Auto) (0.1-0.6) Eos # (Auto) (0.0-0.7) Baso # (Auto) (0.0-2.0) K/mm3 Sodium (132-148) mmol/L Potassium (3.6-5.0) mmol/L Chloride (98-107) mmol/L Carbon Dioxide (21-33) mmol/L Anion Gap (10-20) BUN (7-21) mg/dL Creatinine (0.7-1.2) mg/dl Est GFR ( Amer) Est GFR (Non-Af Amer) POC Glucose (mg/dL) 345 H (65-110) mg/dL Random Glucose (70-110) mg/dL Calcium (8.4-10.5) mg/dL Phosphorus (2.5-4.5) mg/dL Magnesium (1.7-2.2) mg/dL Total Bilirubin (0.2-1.3) mg/dL AST (14-36) U/L ALT (7-56) U/L Alkaline Phosphatase (38-126) U/L Total Protein (5.8-8.3) g/dL Albumin (3.0-4.8) g/dL Globulin gm/dL Albumin/Globulin Ratio (1.1-1.8) Hepatitis A IgM Ab Negative (NEGATIVE) Hep Bs Antigen Negative (NEGATIVE) Hep B Core IgM Ab Negative (NEGATIVE) Hepatitis C Antibody Reactive (NEGATIVE) Laboratory Results - last 24 hr 05/29/18 05/29/18 05/29/18 14:15 15:12 16:09 WBC RBC Hgb Hct MCV MCH MCHC RDW Plt Count MPV Gran % Lymph % (Auto) [place] % (Auto) Eos % (Auto) Baso % (Auto) Gran # Lymph # (Auto) [place] # (Auto) Eos # (Auto) Baso # (Auto) Sodium Potassium Chloride Carbon Dioxide Anion Gap BUN Creatinine Est GFR ( Amer) Est GFR (Non-Af Amer) POC Glucose (mg/dL) 345 H 377 H Random Glucose Calcium Phosphorus Magnesium Total Bilirubin AST ALT Alkaline Phosphatase Total Protein Albumin Globulin Albumin/Globulin Ratio Hepatitis A IgM Ab Negative Hep Bs Antigen Negative Hep B Core IgM Ab Negative Hepatitis C Antibody Reactive 05/29/18 05/29/18 05/29/18 17:51 19:40 19:55 WBC RBC Hgb Hct MCV MCH MCHC RDW Plt Count MPV Gran % Lymph % (Auto) [place] % (Auto) Eos % (Auto) Baso % (Auto) Gran # Lymph # (Auto) [place] # (Auto) Eos # (Auto) Baso # (Auto) Sodium 151 H Potassium 3.1 L Chloride 116 H Carbon Dioxide 23 Anion Gap 14 BUN 16 Creatinine 0.5 L Est GFR ( Amer) > 60 Est GFR (Non-Af Amer) > 60 POC Glucose (mg/dL) 330 H 272 H Random Glucose 271 H Calcium 9.4 Phosphorus Magnesium Total Bilirubin AST ALT Alkaline Phosphatase Total Protein Albumin Globulin Albumin/Globulin Ratio Hepatitis A IgM Ab Hep Bs Antigen Hep B Core IgM Ab Hepatitis C Antibody 05/29/18 05/29/18 05/29/18 22:10 22:11 23:59 WBC RBC Hgb Hct MCV MCH MCHC RDW Plt Count MPV Gran % Lymph % (Auto) [place] % (Auto) Eos % (Auto) Baso % (Auto) Gran # Lymph # (Auto) [place] # (Auto) Eos # (Auto) Baso # (Auto) Sodium Potassium Chloride Carbon Dioxide Anion Gap BUN Creatinine Est GFR ( Amer) Est GFR (Non-Af Amer) POC Glucose (mg/dL) 215 H 208 H 168 H Random Glucose Calcium Phosphorus Magnesium Total Bilirubin AST ALT Alkaline Phosphatase Total Protein Albumin Globulin Albumin/Globulin Ratio Hepatitis A IgM Ab Hep Bs Antigen Hep B Core IgM Ab Hepatitis C Antibody 05/30/18 05/30/18 05/30/18 03:13 05:30 05:30 WBC 8.1 D RBC 3.96 Hgb 12.7 Hct 36.4 MCV 91.9 MCH 32.1 MCHC 34.9 RDW 13.2 Plt Count 189 MPV 9.5 Gran % 70.6 H Lymph % (Auto) 16.4 L [place] % (Auto) 12.1 H Eos % (Auto) 0.7 L Baso % (Auto) 0.2 Gran # 5.70 Lymph # (Auto) 1.3 [place] # (Auto) 1.0 H Eos # (Auto) 0.1 Baso # (Auto) 0.02 Sodium 149 H Potassium 3.2 L Chloride 115 H Carbon Dioxide 26 Anion Gap 12 BUN 13 Creatinine 0.4 L Est GFR ( Amer) > 60 Est GFR (Non-Af Amer) > 60 POC Glucose (mg/dL) 137 H Random Glucose 152 H Calcium 8.9 Phosphorus 1.1 L* Magnesium 2.0 Total Bilirubin 0.6 AST 44 H ALT 48 Alkaline Phosphatase 123 Total Protein 6.2 Albumin 2.8 L Globulin 3.4 Albumin/Globulin Ratio 0.8 L Hepatitis A IgM Ab Hep Bs Antigen Hep B Core IgM Ab Hepatitis C Antibody 05/30/18 05/30/18 06:14 11:03 WBC RBC Hgb Hct MCV MCH MCHC RDW Plt Count MPV Gran % Lymph % (Auto) [place] % (Auto) Eos % (Auto) Baso % (Auto) Gran # Lymph # (Auto) [place] # (Auto) Eos # (Auto) Baso # (Auto) Sodium Potassium Chloride Carbon Dioxide Anion Gap BUN Creatinine Est GFR ( Amer) Est GFR (Non-Af Amer) POC Glucose (mg/dL) 166 H 295 H Random Glucose Calcium Phosphorus Magnesium Total Bilirubin AST ALT Alkaline Phosphatase Total Protein Albumin Globulin Albumin/Globulin Ratio Hepatitis A IgM Ab Hep Bs Antigen Hep B Core IgM Ab Hepatitis C Antibody Critical Care Progress Note - Nutrition Nutrition: Nutrition Category Date Time Status Dysphagia/Modified Consistency Diet [DIET] Diets 05/30/18 Lunch Ordered Attending/Attestation - Attestation I have personally seen and examined this patient.: Yes I have fully participated in the care of the patient.: Yes I have reviewed all pertinent clinical information: Yes Notes (Text): 05/30/18 15:12 52 yo with DKA, toxic metabolic encephalopathy, but protecting airways. cont insulin drip, fluids, accu q1, bmp q4 ccm time 40 min
[2018-05-29 19:57] LABS: BLOOD UREA NITROGEN 16 mg/dL (7-21); CALCIUM 9.4 mg/dL (8.4-10.5); GFR NON-AFRICAN AMERICAN > 60
[2018-05-29 22:14] LABS: HEPATITIS B SURFACE AG Negative (NEGATIVE)
[2018-05-29 22:20] LABS: HEPATITIS A IGM NEGATIVE (NEGATIVE); HEPATITIS B CORE AB NEGATIVE (NEGATIVE)
[2018-05-29] MEDS: Insulin Human NPH 1 UNITS/0.01 ML SC SCH (22:37)
[2018-05-29 23:40] LABS: HEPATITIS C ANTIBODY REACTIVE (NEGATIVE)
--- NOTE | 2018-05-29 23:57 | CP.PCM.PN ---
Subjective - Date & Time of Evaluation Date of Evaluation: 05/29/18 Time of Evaluation: 22:45 - Subjective Subjective: Infectious Disease Follow Up: May 29, 2018 Ms. Simpson is a 52 year old AAF with a past medical history significant for HTN and asthma who was BIBA after she was found to have AMS. Patient is awake but unresponsive verbally for any HPI and ROS questioning. All information was obtained either by EMS or chart review. Patient was reported to have been found covered in feces and to have been "sitting on the couch for one week". ROS unobtainable at this time. The patient is currently screaming for her mother and cannot be questioned on any other topics at this time. In ED, patient was found with values consistent with sepsis from undetermined source and DKA. Currently, the patient remains confused. Extensive sacral decubiti. Objective - Vital Signs/Intake and Output Vital Signs (last 24 hours): Temp Pulse Resp BP Pulse Ox 97.6 F 100 H 10 L 151/80 H 99 05/29/18 16:00 05/29/18 22:20 05/29/18 22:20 05/29/18 22:01 05/29/18 22:20 Intake and Output: 05/29/18 05/30/18 18:59 06:59 Intake Total 1603 Output Total 650 Balance 953 - Medications Medications: Current Medications Enoxaparin Sodium (Lovenox) 40 mg SC DAILY [facility] PRN Reason: Protocol Last Admin: 05/29/18 10:18 Dose: 40 mg Vancomycin HCl (Vancomycin 1gm) 1 gm in 250 mls @ 167 mls/hr IVPB Q12H [facility] PRN Reason: Protocol Last Admin: 05/29/18 17:11 Dose: 167 mls/hr Piperacillin Sod/Tazobactam Sod (Zosyn 3.375 In Ns 100ml) 100 mls @ 200 mls/hr IVPB Q6 [facility] PRN Reason: Protocol Last Admin: 05/29/18 17:18 Dose: 200 mls/hr Sodium Chloride (Sodium Chloride 0.45%) 1,000 mls @ 125 mls/hr IV .Q8H [facility] Last Admin: 05/29/18 16:59 Dose: 125 mls/hr Potassium Chloride (Potassium Chloride 20 Meq/100 Ml) 20 meq in 100 mls @ 50 mls/hr IVPB Q2H [facility] Stop: 05/30/18 01:44 Last Admin: 05/29/18 22:17 Dose: 50 mls/hr Insulin Human NPH (Humulin N) 10 units SC HS [facility] Last Admin: 05/29/18 22:37 Dose: 10 units Insulin Human Regular (Humulin R Low) 0 units SC ACHS [facility] PRN Reason: Protocol Last Admin: 05/29/18 22:34 Dose: Not Given Nystatin (Nystop Topical Powder) 2 gm TOP BID [facility] Last Admin: 05/29/18 17:17 Dose: 1 applic Pantoprazole Sodium (Protonix Inj) 40 mg IVP DAILY [facility] Last Admin: 05/29/18 10:18 Dose: 40 mg - Labs Labs: 05/29/18 05:45 05/29/18 19:40 PT 13.4 SECONDS (9.4-12.5) H 05/28/18 01:26 INR 1.17 05/28/18 01:26 APTT 20.7 Seconds (25.1-36.5) L 05/28/18 01:26 - Constitutional Appears: Non-toxic, No Acute Distress, Confused, Chronically Ill - Head Exam Head Exam: ATRAUMATIC, NORMOCEPHALIC - Eye Exam Eye Exam: EOMI, PERRL Pupil Exam: NORMAL ACCOMODATION, PERRL - ENT Exam ENT Exam: Mucous Membranes Moist, Normal External Ear Exam, TM's Normal Bilaterally - Neck Exam Neck Exam: Full ROM, Normal Inspection - Respiratory Exam Respiratory Exam: Clear to Ausculation Bilateral, NORMAL BREATHING PATTERN. absent: Rales, Rhonchi, Wheezes - Cardiovascular Exam Cardiovascular Exam: REGULAR RHYTHM, RRR, +S1, +S2 - GI/Abdominal Exam GI & Abdominal Exam: Soft, Tenderness, Normal Bowel Sounds. absent: Distended - Extremities Exam Extremities Exam: Full ROM, Joint Swelling, Normal Inspection, Pedal Edema Additional comments: +2 edema of the lower extremities. - Back Exam Additional comments: ulcerations on the lower back and upper sacrum... some are oozing blood. - Neurological Exam Neurological Exam: Alert, Awake, CN II-XII Intact - Psychiatric Exam Psychiatric exam: Agitated, Anxious - Skin Additional comments: ulcerations in the lower back and upper sacral area. +2 edema of the lower extremities. Chronic venous stasis changes to the lower extremities. Morbidly obese. Assessment and Plan - Assessment and Plan (Free Text) Assessment: 52 yo AA obese female with AMS with signs of sepsis with tachcardia, leukocytosis of 15, but no fevers. Patient was reported found in her home covered in feces on her cough for unknown period of time. Findings of DKA. Check brown cultures. On insulin drip. Currently on IV Vancomycin and Zosyn for antibiotic coverage. Procalcitonin pending. No discernable renal issues at this time. Supportive care. Continue broad spectrum antibiotic coverage. Awaiting brown culture results. Awaiting Procalcitonin values. Cultures to date are negative. Thank you for allowing me to participate in the care of the patient, we will follow with you.
[2018-05-30] MEDS: Sodium Chloride 0.45% 1,000 ML IV SCH ×2 (02:02→23:43)
--- NOTE | 2018-05-30 02:59 | CON ---
Copied To: Starr Solitario MD Attending MD: Starr Solitario MD DATE: 05/29/2018 ENDOCRINOLOGY CONSULT LOCATION: In CCU 128, room 3. HISTORY OF PRESENT ILLNESS: This is a 52-year-old female with known history of hypertension, presenting here with altered mental status and with fecal and urinary incontinence and supervening marked hyperglycemic accelerations and was evaluated to be in diabetic ketoacidosis and has received an insulin drip infusion with vigorous IV hydration in the ICU as noted. PAST MEDICAL HISTORY: Essentially not known as the patient remains confused and is unable to give any medical history at this time. FAMILY HISTORY: Positive for hypertension and diabetes. SOCIAL HISTORY: No known substance use. REVIEW OF SYSTEMS: Not possible at this time. PHYSICAL EXAMINATION: GENERAL: This is an obese female, in no apparent distress. VITAL SIGNS: Blood pressure of 150/90; pulse of 100 beats per minute, regular; temperature 98; respirations 20. Height is 5 feet 9 inches, weight is 300 pounds. HEENT: Head normocephalic. Eyes anicteric with pink conjunctivae. Funduscopy not possible at this time. Ears, nose and throat otherwise normal. NECK: Supple. Thyroid gland is normal sized. No carotid bruits or cervical adenopathy. CARDIOPULMONARY: Some adynamic precordium. S1, S2 is rapid and regular. LUNGS: Show scattered rhonchi. ABDOMEN: Obese, soft with positive bowel sounds. EXTREMITIES: No peripheral edema. Pulses are +2 bilaterally. LABORATORY DATA: Her initial chemistry showed a BUN of 25, sodium 145, potassium 4.7, chloride 104, CO2 is 7, glucose 539 and creatinine 0.8. Anion gap is 38. The latest CO2 now is 20 today as noted and glucose levels are ranging from 345 to 377 mg/dL. ASSESSMENT: This is a 52-year-old female with uncontrolled and decompensated type 2 insulin-requiring diabetes presenting here with diabetic ketoacidosis and dehydration and has now improved clinically and metabolically as noted thereof. The biggest concern at this time is the patient's persistent confusion and altered mental status, which will be a big concern regarding the outpatient insulin therapy, which would be started today. PLAN OF MANAGEMENT: At least for inpatient diabetic management, we will start her on a premixed insulin regimen with basal insulin at bedtime with Humulin NPH given as 10 units at bedtime start tonight. We will add Humulin 70/30 given as 30 units before breakfast and 20 units before dinner to start today. We will modify the coverage scale to obviate hypoglycemia and detailed orders have been given. We will continue the IV hydration and change the IV to half-normal saline at 125 mL/hour as ordered. We will obtain serial chemistries and supplement accordingly as needed. We will also obtain a baseline TSH to screen for any underlying endocrinopathy. We will follow. If she improves clinically and metabolically when inpatient, then we will switch her over to oral hypoglycemic therapy to be given as outpatient. Starr Solitario MD
[2018-05-30] MEDS: Piperacillin/Tazobact 3.375 gm 100 ML IVPB SCH ×4 (05:26→23:40)
[2018-05-30] MEDS: Vancomycin 1gm in NS 250ml 1 GM/250 ML BAG IVPB SCH ×2 (06:09→17:05)
[2018-05-30 06:32] LABS: BASO # 0.02 K/mm3 (0.0-2.0); BASO % 0.2 % (0.0-3.0); EOS # 0.1 (0.0-0.7); EOS % 0.7 % (1.5-5.0); GRAN # 5.7 (1.4-6.5); GRAN % 70.6 % (50.0-68.0); HEMOGLOBIN 12.7 g/dL (12.0-16.0); LYMPH # 1.3 (1.2-3.4); LYMPH % 16.4 % (22.0-35.0); MEAN CELL VOLUME 91.9 fl (80.0-105.0); MEAN CORPUSCULAR HEMOGLOBIN 32.1 pg (25.0-35.0); MEAN CORPUSCULAR HGB CONC 34.9 g/dl (31.0-37.0); MEAN PLATELET VOLUME 9.5 fl (7.0-11.0); MONO % 12.1 % (1.0-6.0); RBC 3.96 10^6/uL (3.5-6.1); RED CELL DISTRIBUTION WIDTH 13.2 % (11.5-14.5); WHITE BLOOD COUNT 8.1 10^3/ul (4.5-11.0)
[2018-05-30 07:30] LABS: BLOOD UREA NITROGEN 13 mg/dL (7-21)
[2018-05-30] MEDS ORDERED: Potassium Phosphate 15 MMOLE in Sodium Chloride 0.9% 250 ML IVPB ONE (07:30)
[2018-05-30] MEDS ORDERED: Insulin Human NPH/Reg 70/30 Vial(3 ml) SC SCH (07:30)
[2018-05-30 07:31] LABS: ALB/GLOB RATIO 0.8 (1.1-1.8); ALBUMIN 2.8 g/dL (3.0-4.8); ALT/SGPT 48 U/L (7-56); AST/SGOT 44 U/L (14-36); CALCIUM 8.9 mg/dL (8.4-10.5); GFR NON-AFRICAN AMERICAN > 60
--- NOTE | 2018-05-30 07:38 | CP.PCM.PN ---
<Meaghan Frances - Last Filed: 05/30/18 13:26> Subjective - Date & Time of Evaluation Date of Evaluation: 05/30/18 Time of Evaluation: 09:45 - Subjective Subjective: PGY-1 Meaghan Frances D.O. Neurology progress note for Dr. Dominguez service: Patient is seen and examined this morning. No acute events reported overnight. Patient is being fed by RN. She states that she needs help because of her "sugars." She denies knowing that she was diabetic prior to this; however, she states "I knew something was wrong because I was feeling weird." Her speech is very slow. She is oriented x3. She ignores some questions and closes her eyes. She is complaining about the taste of the food, yet it appears as though she ate most of her meal. She denies focal motor or sensory deficits. She denies problems with her vision. She endorses back pain. Objective - Vital Signs/Intake and Output Vital Signs (last 24 hours): Temp Pulse Resp BP Pulse Ox 97.6 F 89 15 147/75 96 05/29/18 16:00 05/30/18 07:10 05/30/18 07:10 05/30/18 06:01 05/30/18 07:10 - Medications Medications: Current Medications Enoxaparin Sodium (Lovenox) 40 mg SC DAILY ODELL PRN Reason: Protocol Last Admin: 05/29/18 10:18 Dose: 40 mg Vancomycin HCl (Vancomycin 1gm) 1 gm in 250 mls @ 167 mls/hr IVPB Q12H ODELL PRN Reason: Protocol Last Admin: 05/30/18 06:09 Dose: 167 mls/hr Piperacillin Sod/Tazobactam Sod (Zosyn 3.375 In Ns 100ml) 100 mls @ 200 mls/hr IVPB Q6 ODELL PRN Reason: Protocol Last Admin: 05/30/18 05:26 Dose: 200 mls/hr Sodium Chloride (Sodium Chloride 0.45%) 1,000 mls @ 125 mls/hr IV .Q8H ODELL Last Admin: 05/30/18 02:02 Dose: 125 mls/hr Potassium Phosphate 15 mmole/ (Sodium Chloride) 255 mls @ 42.5 mls/hr IVPB ONCE ONE Stop: 05/30/18 13:29 Insulin Human NPH (Humulin N) 10 units SC HS [facility] Last Admin: 05/29/18 22:37 Dose: 10 units Insulin Human Regular (Humulin R Low) 0 units SC ACHS [facility] PRN Reason: Protocol Last Admin: 05/29/18 22:34 Dose: Not Given Nystatin (Nystop Topical Powder) 2 gm TOP BID [facility] Last Admin: 05/29/18 17:17 Dose: 1 applic Pantoprazole Sodium (Protonix Inj) 40 mg IVP DAILY [facility] Last Admin: 05/29/18 10:18 Dose: 40 mg - Labs Labs: 05/30/18 05:30 05/30/18 05:30 PT 13.4 SECONDS (9.4-12.5) H 05/28/18 01:26 INR 1.17 05/28/18 01:26 APTT 20.7 Seconds (25.1-36.5) L 05/28/18 01:26 - Constitutional Appears: No Acute Distress, Unkempt - Head Exam Head Exam: ATRAUMATIC, NORMAL INSPECTION, NORMOCEPHALIC - Eye Exam Eye Exam: EOMI, Normal appearance, PERRL - ENT Exam ENT Exam: Mucous Membranes Moist, Normal Exam - Neck Exam Neck Exam: Normal Inspection - Respiratory Exam Respiratory Exam: Clear to Ausculation Bilateral, NORMAL BREATHING PATTERN - Cardiovascular Exam Cardiovascular Exam: REGULAR RHYTHM, +S1, +S2 - GI/Abdominal Exam GI & Abdominal Exam: Soft Additional comments: obese - Rectal Exam Rectal Exam: Deferred - Extremities Exam Extremities Exam: Normal Capillary Refill, Normal Inspection - Neurological Exam Neurological Exam: Alert, Awake, CN II-XII Intact, Oriented x3 Neuro motor strength exam: Left Upper Extremity: 5, Right Upper Extremity: 5, Left Lower Extremity: 5, Right Lower Extremity: 5 Additional comments: no significant change oriented to person and place no gross motor or sensory deficits noted - Psychiatric Exam Psychiatric exam: Flat Affect (with occasional outburts) - Skin Skin Exam: Dry, Normal Color, Warm Assessment and Plan - Assessment and Plan (Free Text) Assessment: Patient is a 52 yo AA female with a history of HTN and asthma who presented with AMS and DKA. Patient was initially managed in the ICU on an insulin drip, but she is now downgraded to med/surg. Plan: AMS, improving- suspect toxic metabolic encephalopathy 2/2 DKA and/or infection , neurological exam and mental status improving with improvement of glucose, anion gap, sodium, etc. - CT head: no acute findings - CXR: bibasilar atelectasis - Echo: EF 60%, LVH - UDS, BAL, salicylates, acetaminophen: negative - UA: moderate bacteria, no LE or nitrate - Ammonia wnl (29) - TSH wnl (1.77) - HCV Ab positive - HCV viral RNA pending - HIV pending - PT- rec QING - OT - ST- mechanical soft bite-sized diet, thin liquids DKA, resolved - Management by primary team and endocrinology - VBG on admission: pH 7.22, p02 63, pC02 24 - BG 539->152 - Anion gap 38->12 - A1c 16.9 - Off insulin drip - NPH 10 units QHS - ISS (regular) high dose - Accuchecks ACHS (200s-300s) - Hypoglycemia protocol Sepsis, improving - Management by primary team and ID - Afebrile - Tachycardic (90s-100s) - WBC 15->12.8->8.1 with L-shift - LA 4.2->3.2 - Procal 0.14 - Blood Cx no growth >48 hrs - Urine Cx no growth - Vancomycin and zosyn HTN, chronic- SBP 120s-150s - Management by primary team Neurology will sign off case at this time. Please re-consult if needed. Case was discussed with attending, Dr. Hernandez. <Yovany Hernandez - Last Filed: 06/14/18 13:30> Objective - Vital Signs/Intake and Output Vital Signs (last 24 hours): Temp Pulse Resp BP Pulse Ox 98.5 F 71 20 109/79 97 06/14/18 06:00 06/14/18 06:00 06/14/18 06:00 06/14/18 06:00 06/14/18 06:00 Intake and Output: 06/14/18 06/14/18 06:59 18:59 Output Total 1000 Balance -1000 - Medications Medications: Current Medications Collagenase (Santyl) 0 gm TOP BID [facility] Last Admin: 06/14/18 10:13 Dose: 1 applic Enoxaparin Sodium (Lovenox) 40 mg SC DAILY [facility] PRN Reason: Protocol Last Admin: 06/14/18 10:08 Dose: 40 mg Gabapentin (Neurontin) 100 mg PO TID ODELL PRN Reason: Protocol Last Admin: 06/14/18 09:59 Dose: 100 mg Ibuprofen (Motrin Tab) 400 mg PO Q6H PRN PRN Reason: Pain, moderate (4-7) Last Admin: 06/03/18 01:19 Dose: 400 mg Insulin Human NPH (Humulin N) 14 units SC HS [facility] Last Admin: 06/12/18 21:56 Dose: 14 units Insulin Human Regular (Humulin R Med) 0 units SC ACHS ODE[facility] PRN Reason: Protocol Last Admin: 06/14/18 12:25 Dose: Not Given Lactic Acid (Lac-Hydrin 12% Cream (140 G)) 0 ea TOP DAILY [facility] Last Admin: 06/14/18 10:08 Dose: 1 applic Magnesium Oxide (Mag-Ox) 400 mg PO BID [facility] Last Admin: 06/14/18 09:59 Dose: 400 mg Nystatin (Nystop Topical Powder) 2 gm TOP BID [facility] Stop: 06/15/18 23:59 Last Admin: 06/14/18 10:14 Dose: 1 applic Ondansetron HCl (Zofran Inj) 4 mg IVP Q4H PRN PRN Reason: Nausea/Vomiting Last Admin: 06/09/18 08:32 Dose: 4 mg Pantoprazole Sodium (Protonix Ec Tab) 40 mg PO ACB [facility] Last Admin: 06/14/18 09:59 Dose: 40 mg - Labs Labs: 06/14/18 08:45 06/14/18 08:45 PT 13.4 SECONDS (9.4-12.5) H 05/28/18 01:26 INR 1.17 05/28/18 01:26 APTT 20.7 Seconds (25.1-36.5) L 05/28/18 01:26 Attending/Attestation - Attestation I have personally seen and examined this patient.: Yes I have fully participated in the care of the patient.: Yes I have reviewed all pertinent clinical information, including history, physical exam and plan: Yes Notes (Text): 06/14/18 13:30 On my exam, the patient is neurologically unchanged and stable. I agree with the remaining assessment and plan.
[2018-05-30] MEDS: Insulin Reg-LOW-Coverage SC SCH ×4 (08:32→21:59)
[2018-05-30] MEDS ORDERED: Potassium & Sodium Phosphate PO ONE (08:55)
[2018-05-30] MEDS ORDERED: Potassium Chloride 20 mEq ER Tab PO STA (08:55)
--- NOTE | 2018-05-30 09:04 | CARD ---
APPROVED REPORT Date of service: 05/29/2018 EXAM: Two-dimensional and M-mode echocardiogram with Doppler and color Doppler. Other Information Quality : GoodRhythm : INDICATION Murmur 2D DIMENSIONS Left Atrium (2D)3.3 (1.6-4.0cm)IVSd1.2 (0.7-1.1cm) LVDd4.1 (3.9-5.9cm)PWd1.2 (0.7-1.1cm) LVDs2.8 (2.5-4.0cm)FS (%) 32.1 % LVEF (%)60.0 (>50%) M-Mode DIMENSIONS Aortic Root2.80 (2.2-3.7cm)Aortic Cusp Exc.1.90 (1.5-2.0cm) Aortic Valve AoV Peak Troqqenp824.0cm/sAoV VTI41.1cmLVOT Peak Nntpztkq212.0cm/s LVOT VTI31.20cm Mitral Valve MV E Olkckggn99.6cm/sMV A Shaycylg042.0cm/sE/A ratio0.7 TDI Lateral E' Peak V11.10cm/sMedial E' Peak V9.75cm/sE/Lateral E'7.5 E/Medial E'8.6 Pulmonary Valve PV Peak Pwtquuuj840.0cm/sPV Peak Grad.8mmHg Tricuspid Valve TR Peak Gzpjiebm520xg/sRAP [id number] Peak Gr.29mmHg [id number] LEFT VENTRICLE The left ventricle is normal size. There is borderline to mild concentric left ventricular hypertrophy. The left ventricular function is normal. The left ventricular ejection fraction is within the normal range. There is normal LV segmental wall motion. RIGHT VENTRICLE The right ventricle is normal size. ATRIA The left atrium size is normal. The right atrium size is normal. The interatrial septum is intact with no evidence for an atrial septal defect. AORTIC VALVE The aortic valve is normal in structure. MITRAL VALVE The mitral valve is normal in structure. TRICUSPID VALVE The tricuspid valve is normal in structure. There is mild tricuspid regurgitation. PULMONIC VALVE The pulmonic valve is not well visualized. GREAT VESSELS The aortic root is normal in size. PERICARDIAL EFFUSION There is no pericardial effusion. <Conclusion> The left ventricle is normal size. There is borderline to mild concentric left ventricular hypertrophy. The left ventricular function is normal. There is mild tricuspid regurgitation.
[2018-05-30] MEDS: Nystatin 100,000 Units/gm Topical Pow(15 gm) TOP SCH (09:20)
[2018-05-30] MEDS: Enoxaparin 40 mg Syringe SC SCH (09:23)
--- NOTE | 2018-05-30 12:14 | RAD ---
Date of service: 05/30/2018 PROCEDURE: Radiographs of the Left Shoulder HISTORY: lump on shoulder COMPARISON: No prior. FINDINGS: BONES: Normal. No fracture. JOINTS: Normal. Glenohumeral and acromioclavicular joints preserved. No osteoarthritis. SOFT TISSUES: There is a large lipoma over the left shoulder measuring 15 cm wide by 7 cm in height. OTHER FINDINGS: None. IMPRESSION: There is a large lipoma over the left shoulder measuring 15 cm wide by 7 cm in height.
--- NOTE | 2018-05-30 14:17 | CP.CCUPN ---
<Tonie Bonilla - Last Filed: 05/30/18 13:56> CCU Subjective - Physician Review Events Since Last Encounter (Free Text): 05/30/18 13:56 Patient seen and examined at bedside. No acute event overnight. This AM, patient is awake, alert, oriented to self, place, family members. States that she is hungry. Denies nausea, vomiting, fevers, chills, focal weakness, abdominal pain, urinary symptoms. CCU Objective - Vital Signs / Intake & Output Intake and Output (Last 8hrs): Intake & Output 05/29/18 05/30/18 05/30/18 22:59 06:59 14:59 Intake Total 1600 2150 Output Total 650 600 Balance 950 1550 Intake: IV 1600 2150 Left Forearm 1600 2150 Output: Urine 650 600 Urethral (Murray) 650 600 - Physical Exam Head: Positive for: Atraumatic, Normocephalic Pupils: Positive for: PERRL Extroacular Muscles: Positive for: EOMI Conjunctiva: Positive for: Normal Neck: Positive for: Normal Range of Motion Respiratory/Chest: Positive for: Clear to Auscultation, Good Air Exchange. Negative for: Respiratory Distress, Accessory Muscle Use Cardiovascular: Positive for: Regular Rate and Rhythm, Normal S1, S2. Negative for: Murmurs Abdomen: Negative for: Tenderness, Distention, Peritoneal Signs Back: Positive for: Normal Inspection Upper Extremity: Positive for: Normal Inspection, Other (large left sided soft mass, movable palpable on left shoulder, mildly TTP). Negative for: Cyanosis, Edema Lower Extremity: Positive for: Normal Inspection. Negative for: Edema Neurological: Positive for: GCS=15, CN II-XII Intact, Speech Normal, Other ( Moving all extremities spontaneously ) Skin: Positive for: Warm, Dry, Normal Color. Negative for: Rashes Psychiatric: Positive for: Alert - Medications Active Medications: Active Medications Generic Name Dose Route Start Last Admin Trade Name Freq PRN Reason Stop Dose Admin Enoxaparin Sodium 40 mg 05/28/18 10:00 05/30/18 09:23 Lovenox SC 40 mg DAILY ODELL Administration Protocol Vancomycin HCl 1 gm in 250 mls @ 167 mls/hr 05/28/18 06:00 05/30/18 06:09 Vancomycin 1gm IVPB 167 mls/hr Q12H ODELL Administration Protocol Piperacillin Sod/Tazobactam Sod 100 mls @ 200 mls/hr 05/28/18 18:00 05/30/18 05:26 Zosyn 3.375 In Ns 100ml IVPB 200 mls/hr Q6 ODELL Administration Protocol Sodium Chloride 1,000 mls @ 125 mls/hr 05/29/18 16:15 05/30/18 02:02 Sodium Chloride 0.45% IV 125 mls/hr .Q8H ODELL Administration Insulin Human NPH 10 units 05/29/18 22:00 05/29/18 22:37 Humulin N SC 10 units HS ODELL Administration Insulin Human Regular 0 units 05/29/18 16:30 05/30/18 08:32 Humulin R Low SC Not Given ACHS ODELL Protocol Nystatin 2 gm 05/28/18 10:00 05/30/18 09:20 Nystop Topical Powder TOP 1 applic BID ODELL Administration Pantoprazole Sodium 40 mg 05/28/18 10:00 05/30/18 09:24 Protonix Inj IVP 40 mg DAILY ODELL Administration - Patient Studies Lab Studies: Microbiology Studies 05/28/18 09:07 MRSA Culture (Admit) - Final Naris MRSA NOT DETECTED Lab Studies 05/30/18 05/30/18 05/30/18 Range/Units 11:03 06:14 05:30 WBC (4.5-11.0) 10^3/ul RBC (3.5-6.1) 10^6/uL Hgb (12.0-16.0) g/dL Hct (36.0-48.0) % MCV (80.0-105.0) fl MCH (25.0-35.0) pg MCHC (31.0-37.0) g/dl RDW (11.5-14.5) % Plt Count (120.0-450.0) 10^3/uL MPV (7.0-11.0) fl Gran % (50.0-68.0) % Lymph % (Auto) (22.0-35.0) % [place] % (Auto) (1.0-6.0) % Eos % (Auto) (1.5-5.0) % Baso % (Auto) (0.0-3.0) % Gran # (1.4-6.5) Lymph # (Auto) (1.2-3.4) [place] # (Auto) (0.1-0.6) Eos # (Auto) (0.0-0.7) Baso # (Auto) (0.0-2.0) K/mm3 Sodium 149 H (132-148) mmol/L Potassium 3.2 L (3.6-5.0) mmol/L Chloride 115 H (98-107) mmol/L Carbon Dioxide 26 (21-33) mmol/L Anion Gap 12 (10-20) BUN 13 (7-21) mg/dL Creatinine 0.4 L (0.7-1.2) mg/dl Est GFR ( Amer) > 60 Est GFR (Non-Af Amer) > 60 POC Glucose (mg/dL) 295 H 166 H (65-110) mg/dL Random Glucose 152 H (70-110) mg/dL Calcium 8.9 (8.4-10.5) mg/dL Phosphorus 1.1 L* (2.5-4.5) mg/dL Magnesium 2.0 (1.7-2.2) mg/dL Total Bilirubin 0.6 (0.2-1.3) mg/dL AST 44 H (14-36) U/L ALT 48 (7-56) U/L Alkaline Phosphatase 123 (38-126) U/L Total Protein 6.2 (5.8-8.3) g/dL Albumin 2.8 L (3.0-4.8) g/dL Globulin 3.4 gm/dL Albumin/Globulin Ratio 0.8 L (1.1-1.8) Hepatitis A IgM Ab (NEGATIVE) Hep Bs Antigen (NEGATIVE) Hep B Core IgM Ab (NEGATIVE) Hepatitis C Antibody (NEGATIVE) 05/30/18 05/30/18 05/29/18 Range/Units 05:30 03:13 23:59 WBC 8.1 D (4.5-11.0) 10^3/ul RBC 3.96 (3.5-6.1) 10^6/uL Hgb 12.7 (12.0-16.0) g/dL Hct 36.4 (36.0-48.0) % MCV 91.9 (80.0-105.0) fl MCH 32.1 (25.0-35.0) pg MCHC 34.9 (31.0-37.0) g/dl RDW 13.2 (11.5-14.5) % Plt Count 189 (120.0-450.0) 10^3/uL MPV 9.5 (7.0-11.0) fl Gran % 70.6 H (50.0-68.0) % Lymph % (Auto) 16.4 L (22.0-35.0) % [place] % (Auto) 12.1 H (1.0-6.0) % Eos % (Auto) 0.7 L (1.5-5.0) % Baso % (Auto) 0.2 (0.0-3.0) % Gran # 5.70 (1.4-6.5) Lymph # (Auto) 1.3 (1.2-3.4) [place] # (Auto) 1.0 H (0.1-0.6) Eos # (Auto) 0.1 (0.0-0.7) Baso # (Auto) 0.02 (0.0-2.0) K/mm3 Sodium (132-148) mmol/L Potassium (3.6-5.0) mmol/L Chloride (98-107) mmol/L Carbon Dioxide (21-33) mmol/L Anion Gap (10-20) BUN (7-21) mg/dL Creatinine (0.7-1.2) mg/dl Est GFR ( Amer) Est GFR (Non-Af Amer) POC Glucose (mg/dL) 137 H 168 H (65-110) mg/dL Random Glucose (70-110) mg/dL Calcium (8.4-10.5) mg/dL Phosphorus (2.5-4.5) mg/dL Magnesium (1.7-2.2) mg/dL Total Bilirubin (0.2-1.3) mg/dL AST (14-36) U/L ALT (7-56) U/L Alkaline Phosphatase (38-126) U/L Total Protein (5.8-8.3) g/dL Albumin (3.0-4.8) g/dL Globulin gm/dL Albumin/Globulin Ratio (1.1-1.8) Hepatitis A IgM Ab (NEGATIVE) Hep Bs Antigen (NEGATIVE) Hep B Core IgM Ab (NEGATIVE) Hepatitis C Antibody (NEGATIVE) 05/29/18 05/29/18 05/29/18 Range/Units 22:11 22:10 19:55 WBC (4.5-11.0) 10^3/ul RBC (3.5-6.1) 10^6/uL Hgb (12.0-16.0) g/dL Hct (36.0-48.0) % MCV (80.0-105.0) fl MCH (25.0-35.0) pg MCHC (31.0-37.0) g/dl RDW (11.5-14.5) % Plt Count (120.0-450.0) 10^3/uL MPV (7.0-11.0) fl Gran % (50.0-68.0) % Lymph % (Auto) (22.0-35.0) % [place] % (Auto) (1.0-6.0) % Eos % (Auto) (1.5-5.0) % Baso % (Auto) (0.0-3.0) % Gran # (1.4-6.5) Lymph # (Auto) (1.2-3.4) [place] # (Auto) (0.1-0.6) Eos # (Auto) (0.0-0.7) Baso # (Auto) (0.0-2.0) K/mm3 Sodium (132-148) mmol/L Potassium (3.6-5.0) mmol/L Chloride (98-107) mmol/L Carbon Dioxide (21-33) mmol/L Anion Gap (10-20) BUN (7-21) mg/dL Creatinine (0.7-1.2) mg/dl Est GFR ( Amer) Est GFR (Non-Af Amer) POC Glucose (mg/dL) 208 H 215 H 272 H (65-110) mg/dL Random Glucose (70-110) mg/dL Calcium (8.4-10.5) mg/dL Phosphorus (2.5-4.5) mg/dL Magnesium (1.7-2.2) mg/dL Total Bilirubin (0.2-1.3) mg/dL AST (14-36) U/L ALT (7-56) U/L Alkaline Phosphatase (38-126) U/L Total Protein (5.8-8.3) g/dL Albumin (3.0-4.8) g/dL Globulin gm/dL Albumin/Globulin Ratio (1.1-1.8) Hepatitis A IgM Ab (NEGATIVE) Hep Bs Antigen (NEGATIVE) Hep B Core IgM Ab (NEGATIVE) Hepatitis C Antibody (NEGATIVE) 05/29/18 05/29/18 05/29/18 Range/Units 19:40 17:51 16:09 WBC (4.5-11.0) 10^3/ul RBC (3.5-6.1) 10^6/uL Hgb (12.0-16.0) g/dL Hct (36.0-48.0) % MCV (80.0-105.0) fl MCH (25.0-35.0) pg MCHC (31.0-37.0) g/dl RDW (11.5-14.5) % Plt Count (120.0-450.0) 10^3/uL MPV (7.0-11.0) fl Gran % (50.0-68.0) % Lymph % (Auto) (22.0-35.0) % [place] % (Auto) (1.0-6.0) % Eos % (Auto) (1.5-5.0) % Baso % (Auto) (0.0-3.0) % Gran # (1.4-6.5) Lymph # (Auto) (1.2-3.4) [place] # (Auto) (0.1-0.6) Eos # (Auto) (0.0-0.7) Baso # (Auto) (0.0-2.0) K/mm3 Sodium 151 H (132-148) mmol/L Potassium 3.1 L (3.6-5.0) mmol/L Chloride 116 H (98-107) mmol/L Carbon Dioxide 23 (21-33) mmol/L Anion Gap 14 (10-20) BUN 16 (7-21) mg/dL Creatinine 0.5 L (0.7-1.2) mg/dl Est GFR ( Amer) > 60 Est GFR (Non-Af Amer) > 60 POC Glucose (mg/dL) 330 H 377 H (65-110) mg/dL Random Glucose 271 H (70-110) mg/dL Calcium 9.4 (8.4-10.5) mg/dL Phosphorus (2.5-4.5) mg/dL Magnesium (1.7-2.2) mg/dL Total Bilirubin (0.2-1.3) mg/dL AST (14-36) U/L ALT (7-56) U/L Alkaline Phosphatase (38-126) U/L Total Protein (5.8-8.3) g/dL Albumin (3.0-4.8) g/dL Globulin gm/dL Albumin/Globulin Ratio (1.1-1.8) Hepatitis A IgM Ab (NEGATIVE) Hep Bs Antigen (NEGATIVE) Hep B Core IgM Ab (NEGATIVE) Hepatitis C Antibody (NEGATIVE) 05/29/18 05/29/18 05/29/18 Range/Units 15:12 14:15 14:15 WBC (4.5-11.0) 10^3/ul RBC (3.5-6.1) 10^6/uL Hgb (12.0-16.0) g/dL Hct (36.0-48.0) % MCV (80.0-105.0) fl MCH (25.0-35.0) pg MCHC (31.0-37.0) g/dl RDW (11.5-14.5) % Plt Count (120.0-450.0) 10^3/uL MPV (7.0-11.0) fl Gran % (50.0-68.0) % Lymph % (Auto) (22.0-35.0) % [place] % (Auto) (1.0-6.0) % Eos % (Auto) (1.5-5.0) % Baso % (Auto) (0.0-3.0) % Gran # (1.4-6.5) Lymph # (Auto) (1.2-3.4) [place] # (Auto) (0.1-0.6) Eos # (Auto) (0.0-0.7) Baso # (Auto) (0.0-2.0) K/mm3 Sodium 152 H (132-148) mmol/L Potassium 3.6 (3.6-5.0) mmol/L Chloride 117 H (98-107) mmol/L Carbon Dioxide 20 L (21-33) mmol/L Anion Gap 19 (10-20) BUN 17 (7-21) mg/dL Creatinine 0.5 L (0.7-1.2) mg/dl Est GFR ( Amer) > 60 Est GFR (Non-Af Amer) > 60 POC Glucose (mg/dL) 345 H (65-110) mg/dL Random Glucose 340 H* D (70-110) mg/dL Calcium 9.3 (8.4-10.5) mg/dL Phosphorus (2.5-4.5) mg/dL Magnesium (1.7-2.2) mg/dL Total Bilirubin (0.2-1.3) mg/dL AST (14-36) U/L ALT (7-56) U/L Alkaline Phosphatase (38-126) U/L Total Protein (5.8-8.3) g/dL Albumin (3.0-4.8) g/dL Globulin gm/dL Albumin/Globulin Ratio (1.1-1.8) Hepatitis A IgM Ab Negative (NEGATIVE) Hep Bs Antigen Negative (NEGATIVE) Hep B Core IgM Ab Negative (NEGATIVE) Hepatitis C Antibody Reactive (NEGATIVE) 05/28/18 05/28/18 05/28/18 Range/Units 15:19 14:07 13:05 WBC (4.5-11.0) 10^3/ul RBC (3.5-6.1) 10^6/uL Hgb (12.0-16.0) g/dL Hct (36.0-48.0) % MCV (80.0-105.0) fl MCH (25.0-35.0) pg MCHC (31.0-37.0) g/dl RDW (11.5-14.5) % Plt Count (120.0-450.0) 10^3/uL MPV (7.0-11.0) fl Gran % (50.0-68.0) % Lymph % (Auto) (22.0-35.0) % [place] % (Auto) (1.0-6.0) % Eos % (Auto) (1.5-5.0) % Baso % (Auto) (0.0-3.0) % Gran # (1.4-6.5) Lymph # (Auto) (1.2-3.4) [place] # (Auto) (0.1-0.6) Eos # (Auto) (0.0-0.7) Baso # (Auto) (0.0-2.0) K/mm3 Sodium (132-148) mmol/L Potassium (3.6-5.0) mmol/L Chloride (98-107) mmol/L Carbon Dioxide (21-33) mmol/L Anion Gap (10-20) BUN (7-21) mg/dL Creatinine (0.7-1.2) mg/dl Est GFR ( Amer) Est GFR (Non-Af Amer) POC Glucose (mg/dL) 347 H 335 H 322 H (65-110) mg/dL Random Glucose (70-110) mg/dL Calcium (8.4-10.5) mg/dL Phosphorus (2.5-4.5) mg/dL Magnesium (1.7-2.2) mg/dL Total Bilirubin (0.2-1.3) mg/dL AST (14-36) U/L ALT (7-56) U/L Alkaline Phosphatase (38-126) U/L Total Protein (5.8-8.3) g/dL Albumin (3.0-4.8) g/dL Globulin gm/dL Albumin/Globulin Ratio (1.1-1.8) Hepatitis A IgM Ab (NEGATIVE) Hep Bs Antigen (NEGATIVE) Hep B Core IgM Ab (NEGATIVE) Hepatitis C Antibody (NEGATIVE) 05/28/18 Range/Units 11:52 WBC (4.5-11.0) 10^3/ul RBC (3.5-6.1) 10^6/uL Hgb (12.0-16.0) g/dL Hct (36.0-48.0) % MCV (80.0-105.0) fl MCH (25.0-35.0) pg MCHC (31.0-37.0) g/dl RDW (11.5-14.5) % Plt Count (120.0-450.0) 10^3/uL MPV (7.0-11.0) fl Gran % (50.0-68.0) % Lymph % (Auto) (22.0-35.0) % [place] % (Auto) (1.0-6.0) % Eos % (Auto) (1.5-5.0) % Baso % (Auto) (0.0-3.0) % Gran # (1.4-6.5) Lymph # (Auto) (1.2-3.4) [place] # (Auto) (0.1-0.6) Eos # (Auto) (0.0-0.7) Baso # (Auto) (0.0-2.0) K/mm3 Sodium (132-148) mmol/L Potassium (3.6-5.0) mmol/L Chloride (98-107) mmol/L Carbon Dioxide (21-33) mmol/L Anion Gap (10-20) BUN (7-21) mg/dL Creatinine (0.7-1.2) mg/dl Est GFR ( Amer) Est GFR (Non-Af Amer) POC Glucose (mg/dL) 298 H (65-110) mg/dL Random Glucose (70-110) mg/dL Calcium (8.4-10.5) mg/dL Phosphorus (2.5-4.5) mg/dL Magnesium (1.7-2.2) mg/dL Total Bilirubin (0.2-1.3) mg/dL AST (14-36) U/L ALT (7-56) U/L Alkaline Phosphatase (38-126) U/L Total Protein (5.8-8.3) g/dL Albumin (3.0-4.8) g/dL Globulin gm/dL Albumin/Globulin Ratio (1.1-1.8) Hepatitis A IgM Ab (NEGATIVE) Hep Bs Antigen (NEGATIVE) Hep B Core IgM Ab (NEGATIVE) Hepatitis C Antibody (NEGATIVE) Laboratory Results - last 24 hr 05/28/18 05/28/18 05/28/18 11:52 13:05 14:07 WBC RBC Hgb Hct MCV MCH MCHC RDW Plt Count MPV Gran % Lymph % (Auto) [place] % (Auto) Eos % (Auto) Baso % (Auto) Gran # Lymph # (Auto) [place] # (Auto) Eos # (Auto) Baso # (Auto) Sodium Potassium Chloride Carbon Dioxide Anion Gap BUN Creatinine Est GFR ( Amer) Est GFR (Non-Af Amer) POC Glucose (mg/dL) 298 H 322 H 335 H Random Glucose Calcium Phosphorus Magnesium Total Bilirubin AST ALT Alkaline Phosphatase Total Protein Albumin Globulin Albumin/Globulin Ratio Hepatitis A IgM Ab Hep Bs Antigen Hep B Core IgM Ab Hepatitis C Antibody 05/28/18 05/29/18 05/29/18 15:19 14:15 14:15 WBC RBC Hgb Hct MCV MCH MCHC RDW Plt Count MPV Gran % Lymph % (Auto) [place] % (Auto) Eos % (Auto) Baso % (Auto) Gran # Lymph # (Auto) [place] # (Auto) Eos # (Auto) Baso # (Auto) Sodium 152 H Potassium 3.6 Chloride 117 H Carbon Dioxide 20 L Anion Gap 19 BUN 17 Creatinine 0.5 L Est GFR ( Amer) > 60 Est GFR (Non-Af Amer) > 60 POC Glucose (mg/dL) 347 H Random Glucose 340 H* D Calcium 9.3 Phosphorus Magnesium Total Bilirubin AST ALT Alkaline Phosphatase Total Protein Albumin Globulin Albumin/Globulin Ratio Hepatitis A IgM Ab Negative Hep Bs Antigen Negative Hep B Core IgM Ab Negative Hepatitis C Antibody Reactive 05/29/18 05/29/18 05/29/18 15:12 16:09 17:51 WBC RBC Hgb Hct MCV MCH MCHC RDW Plt Count MPV Gran % Lymph % (Auto) [place] % (Auto) Eos % (Auto) Baso % (Auto) Gran # Lymph # (Auto) [place] # (Auto) Eos # (Auto) Baso # (Auto) Sodium Potassium Chloride Carbon Dioxide Anion Gap BUN Creatinine Est GFR ( Amer) Est GFR (Non-Af Amer) POC Glucose (mg/dL) 345 H 377 H 330 H Random Glucose Calcium Phosphorus Magnesium Total Bilirubin AST ALT Alkaline Phosphatase Total Protein Albumin Globulin Albumin/Globulin Ratio Hepatitis A IgM Ab Hep Bs Antigen Hep B Core IgM Ab Hepatitis C Antibody 05/29/18 05/29/18 05/29/18 19:40 19:55 22:10 WBC RBC Hgb Hct MCV MCH MCHC RDW Plt Count MPV Gran % Lymph % (Auto) [place] % (Auto) Eos % (Auto) Baso % (Auto) Gran # Lymph # (Auto) [place] # (Auto) Eos # (Auto) Baso # (Auto) Sodium 151 H Potassium 3.1 L Chloride 116 H Carbon Dioxide 23 Anion Gap 14 BUN 16 Creatinine 0.5 L Est GFR ( Amer) > 60 Est GFR (Non-Af Amer) > 60 POC Glucose (mg/dL) 272 H 215 H Random Glucose 271 H Calcium 9.4 Phosphorus Magnesium Total Bilirubin AST ALT Alkaline Phosphatase Total Protein Albumin Globulin Albumin/Globulin Ratio Hepatitis A IgM Ab Hep Bs Antigen Hep B Core IgM Ab Hepatitis C Antibody 05/29/18 05/29/18 05/30/18 22:11 23:59 03:13 WBC RBC Hgb Hct MCV MCH MCHC RDW Plt Count MPV Gran % Lymph % (Auto) [place] % (Auto) Eos % (Auto) Baso % (Auto) Gran # Lymph # (Auto) [place] # (Auto) Eos # (Auto) Baso # (Auto) Sodium Potassium Chloride Carbon Dioxide Anion Gap BUN Creatinine Est GFR ( Amer) Est GFR (Non-Af Amer) POC Glucose (mg/dL) 208 H 168 H 137 H Random Glucose Calcium Phosphorus Magnesium Total Bilirubin AST ALT Alkaline Phosphatase Total Protein Albumin Globulin Albumin/Globulin Ratio Hepatitis A IgM Ab Hep Bs Antigen Hep B Core IgM Ab Hepatitis C Antibody 05/30/18 05/30/18 05/30/18 05:30 05:30 06:14 WBC 8.1 D RBC 3.96 Hgb 12.7 Hct 36.4 MCV 91.9 MCH 32.1 MCHC 34.9 RDW 13.2 Plt Count 189 MPV 9.5 Gran % 70.6 H Lymph % (Auto) 16.4 L [place] % (Auto) 12.1 H Eos % (Auto) 0.7 L Baso % (Auto) 0.2 Gran # 5.70 Lymph # (Auto) 1.3 [place] # (Auto) 1.0 H Eos # (Auto) 0.1 Baso # (Auto) 0.02 Sodium 149 H Potassium 3.2 L Chloride 115 H Carbon Dioxide 26 Anion Gap 12 BUN 13 Creatinine 0.4 L Est GFR ( Amer) > 60 Est GFR (Non-Af Amer) > 60 POC Glucose (mg/dL) 166 H Random Glucose 152 H Calcium 8.9 Phosphorus 1.1 L* Magnesium 2.0 Total Bilirubin 0.6 AST 44 H ALT 48 Alkaline Phosphatase 123 Total Protein 6.2 Albumin 2.8 L Globulin 3.4 Albumin/Globulin Ratio 0.8 L Hepatitis A IgM Ab Hep Bs Antigen Hep B Core IgM Ab Hepatitis C Antibody 05/30/18 11:03 WBC RBC Hgb Hct MCV MCH MCHC RDW Plt Count MPV Gran % Lymph % (Auto) [place] % (Auto) Eos % (Auto) Baso % (Auto) Gran # Lymph # (Auto) [place] # (Auto) Eos # (Auto) Baso # (Auto) Sodium Potassium Chloride Carbon Dioxide Anion Gap BUN Creatinine Est GFR ( Amer) Est GFR (Non-Af Amer) POC Glucose (mg/dL) 295 H Random Glucose Calcium Phosphorus Magnesium Total Bilirubin AST ALT Alkaline Phosphatase Total Protein Albumin Globulin Albumin/Globulin Ratio Hepatitis A IgM Ab Hep Bs Antigen Hep B Core IgM Ab Hepatitis C Antibody Fingerstick Blood Sugar Results: 295 Critical Care Progress Note - Nutrition Nutrition: Nutrition Category Date Time Status Dysphagia/Modified Consistency Diet [DIET] Diets 05/30/18 Lunch Ordered Assessment/Plan - Assessment and Plan (Free Text) Assessment: 52F with PMH HTN, type 2 DM, and asthma, admitted to ICU for AMS in setting of DKA. Patient's mental status has improved since admission. Patient['s agap closed, on sq insulin, Dr Solitario following. Downgraded, primary team aware: Neuro: -AAO to person, place -Baseline is AAO4. CT head negative. Neuro on board, likely toxic metabolic encephalopathy. -monitor closely Cardiology: -Maintain MAP >65 -Echo shows EF 60.8%. Pulmonology: - saturating well on RA - CXR neg Endo: -DKA- agap closed. on SQ insulin, Dr Solitario following, maintain euglycemia. GI: -Carb consistent diet -protonix Nephro: -stable Cr. replete lytes, maintain euvolemia. ID: - afebrile, no leukocytosis today. -On Vanc/Zosyn per ID -UA w/o Bacteria/ Pyuria -blood culture neg, Ucx neg -CXR NAD -Procal 0.14 GI PPX: Protonix DVT PPX: SCDs ; Lovenox 40 Patient was seen, examined, and discussed w/ attending physician Dr. Lemos <Luis Lemos - Last Filed: 05/30/18 15:44> CCU Objective - Vital Signs / Intake & Output Intake and Output (Last 8hrs): Intake & Output 05/30/18 05/30/18 05/30/18 06:59 14:59 22:59 Intake Total 2150 Output Total 600 Balance 1550 Intake: IV 2150 Left Forearm 2150 Output: Urine 600 Urethral (Murray) 600 - Medications Active Medications: Active Medications Generic Name Dose Route Start Last Admin Trade Name Freq PRN Reason Stop Dose Admin Enoxaparin Sodium 40 mg 05/28/18 10:00 05/30/18 09:23 Lovenox SC 40 mg DAILY ODELL Administration Protocol Vancomycin HCl 1 gm in 250 mls @ 167 mls/hr 05/28/18 06:00 05/30/18 06:09 Vancomycin 1gm IVPB 167 mls/hr Q12H ODELL Administration Protocol Piperacillin Sod/Tazobactam Sod 100 mls @ 200 mls/hr 05/28/18 18:00 05/30/18 14:29 Zosyn 3.375 In Ns 100ml IVPB 200 mls/hr Q6 ODELL Administration Protocol Sodium Chloride 1,000 mls @ 125 mls/hr 05/29/18 16:15 05/30/18 02:02 Sodium Chloride 0.45% IV 125 mls/hr .Q8H ODELL Administration Insulin Human NPH 10 units 05/29/18 22:00 05/29/18 22:37 Humulin N SC 10 units HS ODELL Administration Insulin Human Regular 0 units 05/29/18 16:30 05/30/18 12:00 Humulin R Low SC Not Given ACHS ODELL Protocol Nystatin 2 gm 05/28/18 10:00 05/30/18 09:20 Nystop Topical Powder TOP 1 applic BID ODELL Administration Pantoprazole Sodium 40 mg 05/28/18 10:00 05/30/18 09:24 Protonix Inj IVP 40 mg DAILY ODELL Administration - Patient Studies Lab Studies: Microbiology Studies 05/28/18 09:07 MRSA Culture (Admit) - Final Naris MRSA NOT DETECTED Lab Studies 05/30/18 05/30/18 05/30/18 Range/Units 11:03 06:14 05:30 WBC (4.5-11.0) 10^3/ul RBC (3.5-6.1) 10^6/uL Hgb (12.0-16.0) g/dL Hct (36.0-48.0) % MCV (80.0-105.0) fl MCH (25.0-35.0) pg MCHC (31.0-37.0) g/dl RDW (11.5-14.5) % Plt Count (120.0-450.0) 10^3/uL MPV (7.0-11.0) fl Gran % (50.0-68.0) % Lymph % (Auto) (22.0-35.0) % [place] % (Auto) (1.0-6.0) % Eos % (Auto) (1.5-5.0) % Baso % (Auto) (0.0-3.0) % Gran # (1.4-6.5) Lymph # (Auto) (1.2-3.4) [place] # (Auto) (0.1-0.6) Eos # (Auto) (0.0-0.7) Baso # (Auto) (0.0-2.0) K/mm3 Sodium 149 H (132-148) mmol/L Potassium 3.2 L (3.6-5.0) mmol/L Chloride 115 H (98-107) mmol/L Carbon Dioxide 26 (21-33) mmol/L Anion Gap 12 (10-20) BUN 13 (7-21) mg/dL Creatinine 0.4 L (0.7-1.2) mg/dl Est GFR ( Amer) > 60 Est GFR (Non-Af Amer) > 60 POC Glucose (mg/dL) 295 H 166 H (65-110) mg/dL Random Glucose 152 H (70-110) mg/dL Calcium 8.9 (8.4-10.5) mg/dL Phosphorus 1.1 L* (2.5-4.5) mg/dL Magnesium 2.0 (1.7-2.2) mg/dL Total Bilirubin 0.6 (0.2-1.3) mg/dL AST 44 H (14-36) U/L ALT 48 (7-56) U/L Alkaline Phosphatase 123 (38-126) U/L Total Protein 6.2 (5.8-8.3) g/dL Albumin 2.8 L (3.0-4.8) g/dL Globulin 3.4 gm/dL Albumin/Globulin Ratio 0.8 L (1.1-1.8) Hepatitis A IgM Ab (NEGATIVE) Hep Bs Antigen (NEGATIVE) Hep B Core IgM Ab (NEGATIVE) Hepatitis C Antibody (NEGATIVE) 05/30/18 05/30/18 05/29/18 Range/Units 05:30 03:13 23:59 WBC 8.1 D (4.5-11.0) 10^3/ul RBC 3.96 (3.5-6.1) 10^6/uL Hgb 12.7 (12.0-16.0) g/dL Hct 36.4 (36.0-48.0) % MCV 91.9 (80.0-105.0) fl MCH 32.1 (25.0-35.0) pg MCHC 34.9 (31.0-37.0) g/dl RDW 13.2 (11.5-14.5) % Plt Count 189 (120.0-450.0) 10^3/uL MPV 9.5 (7.0-11.0) fl Gran % 70.6 H (50.0-68.0) % Lymph % (Auto) 16.4 L (22.0-35.0) % [place] % (Auto) 12.1 H (1.0-6.0) % Eos % (Auto) 0.7 L (1.5-5.0) % Baso % (Auto) 0.2 (0.0-3.0) % Gran # 5.70 (1.4-6.5) Lymph # (Auto) 1.3 (1.2-3.4) [place] # (Auto) 1.0 H (0.1-0.6) Eos # (Auto) 0.1 (0.0-0.7) Baso # (Auto) 0.02 (0.0-2.0) K/mm3 Sodium (132-148) mmol/L Potassium (3.6-5.0) mmol/L Chloride (98-107) mmol/L Carbon Dioxide (21-33) mmol/L Anion Gap (10-20) BUN (7-21) mg/dL Creatinine (0.7-1.2) mg/dl Est GFR ( Amer) Est GFR (Non-Af Amer) POC Glucose (mg/dL) 137 H 168 H (65-110) mg/dL Random Glucose (70-110) mg/dL Calcium (8.4-10.5) mg/dL Phosphorus (2.5-4.5) mg/dL Magnesium (1.7-2.2) mg/dL Total Bilirubin (0.2-1.3) mg/dL AST (14-36) U/L ALT (7-56) U/L Alkaline Phosphatase (38-126) U/L Total Protein (5.8-8.3) g/dL Albumin (3.0-4.8) g/dL Globulin gm/dL Albumin/Globulin Ratio (1.1-1.8) Hepatitis A IgM Ab (NEGATIVE) Hep Bs Antigen (NEGATIVE) Hep B Core IgM Ab (NEGATIVE) Hepatitis C Antibody (NEGATIVE) 05/29/18 05/29/18 05/29/18 Range/Units 22:11 22:10 19:55 WBC (4.5-11.0) 10^3/ul RBC (3.5-6.1) 10^6/uL Hgb (12.0-16.0) g/dL Hct (36.0-48.0) % MCV (80.0-105.0) fl MCH (25.0-35.0) pg MCHC (31.0-37.0) g/dl RDW (11.5-14.5) % Plt Count (120.0-450.0) 10^3/uL MPV (7.0-11.0) fl Gran % (50.0-68.0) % Lymph % (Auto) (22.0-35.0) % [place] % (Auto) (1.0-6.0) % Eos % (Auto) (1.5-5.0) % Baso % (Auto) (0.0-3.0) % Gran # (1.4-6.5) Lymph # (Auto) (1.2-3.4) [place] # (Auto) (0.1-0.6) Eos # (Auto) (0.0-0.7) Baso # (Auto) (0.0-2.0) K/mm3 Sodium (132-148) mmol/L Potassium (3.6-5.0) mmol/L Chloride (98-107) mmol/L Carbon Dioxide (21-33) mmol/L Anion Gap (10-20) BUN (7-21) mg/dL Creatinine (0.7-1.2) mg/dl Est GFR ( Amer) Est GFR (Non-Af Amer) POC Glucose (mg/dL) 208 H 215 H 272 H (65-110) mg/dL Random Glucose (70-110) mg/dL Calcium (8.4-10.5) mg/dL Phosphorus (2.5-4.5) mg/dL Magnesium (1.7-2.2) mg/dL Total Bilirubin (0.2-1.3) mg/dL AST (14-36) U/L ALT (7-56) U/L Alkaline Phosphatase (38-126) U/L Total Protein (5.8-8.3) g/dL Albumin (3.0-4.8) g/dL Globulin gm/dL Albumin/Globulin Ratio (1.1-1.8) Hepatitis A IgM Ab (NEGATIVE) Hep Bs Antigen (NEGATIVE) Hep B Core IgM Ab (NEGATIVE) Hepatitis C Antibody (NEGATIVE) 05/29/18 05/29/18 05/29/18 Range/Units 19:40 17:51 16:09 WBC (4.5-11.0) 10^3/ul RBC (3.5-6.1) 10^6/uL Hgb (12.0-16.0) g/dL Hct (36.0-48.0) % MCV (80.0-105.0) fl MCH (25.0-35.0) pg MCHC (31.0-37.0) g/dl RDW (11.5-14.5) % Plt Count (120.0-450.0) 10^3/uL MPV (7.0-11.0) fl Gran % (50.0-68.0) % Lymph % (Auto) (22.0-35.0) % [place] % (Auto) (1.0-6.0) % Eos % (Auto) (1.5-5.0) % Baso % (Auto) (0.0-3.0) % Gran # (1.4-6.5) Lymph # (Auto) (1.2-3.4) [place] # (Auto) (0.1-0.6) Eos # (Auto) (0.0-0.7) Baso # (Auto) (0.0-2.0) K/mm3 Sodium 151 H (132-148) mmol/L Potassium 3.1 L (3.6-5.0) mmol/L Chloride 116 H (98-107) mmol/L Carbon Dioxide 23 (21-33) mmol/L Anion Gap 14 (10-20) BUN 16 (7-21) mg/dL Creatinine 0.5 L (0.7-1.2) mg/dl Est GFR ( Amer) > 60 Est GFR (Non-Af Amer) > 60 POC Glucose (mg/dL) 330 H 377 H (65-110) mg/dL Random Glucose 271 H (70-110) mg/dL Calcium 9.4 (8.4-10.5) mg/dL Phosphorus (2.5-4.5) mg/dL Magnesium (1.7-2.2) mg/dL Total Bilirubin (0.2-1.3) mg/dL AST (14-36) U/L ALT (7-56) U/L Alkaline Phosphatase (38-126) U/L Total Protein (5.8-8.3) g/dL Albumin (3.0-4.8) g/dL Globulin gm/dL Albumin/Globulin Ratio (1.1-1.8) Hepatitis A IgM Ab (NEGATIVE) Hep Bs Antigen (NEGATIVE) Hep B Core IgM Ab (NEGATIVE) Hepatitis C Antibody (NEGATIVE) 05/29/18 Range/Units 14:15 WBC (4.5-11.0) 10^3/ul RBC (3.5-6.1) 10^6/uL Hgb (12.0-16.0) g/dL Hct (36.0-48.0) % MCV (80.0-105.0) fl MCH (25.0-35.0) pg MCHC (31.0-37.0) g/dl RDW (11.5-14.5) % Plt Count (120.0-450.0) 10^3/uL MPV (7.0-11.0) fl Gran % (50.0-68.0) % Lymph % (Auto) (22.0-35.0) % [place] % (Auto) (1.0-6.0) % Eos % (Auto) (1.5-5.0) % Baso % (Auto) (0.0-3.0) % Gran # (1.4-6.5) Lymph # (Auto) (1.2-3.4) [place] # (Auto) (0.1-0.6) Eos # (Auto) (0.0-0.7) Baso # (Auto) (0.0-2.0) K/mm3 Sodium (132-148) mmol/L Potassium (3.6-5.0) mmol/L Chloride (98-107) mmol/L Carbon Dioxide (21-33) mmol/L Anion Gap (10-20) BUN (7-21) mg/dL Creatinine (0.7-1.2) mg/dl Est GFR ( Amer) Est GFR (Non-Af Amer) POC Glucose (mg/dL) (65-110) mg/dL Random Glucose (70-110) mg/dL Calcium (8.4-10.5) mg/dL Phosphorus (2.5-4.5) mg/dL Magnesium (1.7-2.2) mg/dL Total Bilirubin (0.2-1.3) mg/dL AST (14-36) U/L ALT (7-56) U/L Alkaline Phosphatase (38-126) U/L Total Protein (5.8-8.3) g/dL Albumin (3.0-4.8) g/dL Globulin gm/dL Albumin/Globulin Ratio (1.1-1.8) Hepatitis A IgM Ab Negative (NEGATIVE) Hep Bs Antigen Negative (NEGATIVE) Hep B Core IgM Ab Negative (NEGATIVE) Hepatitis C Antibody Reactive (NEGATIVE) Laboratory Results - last 24 hr 05/29/18 05/29/18 05/29/18 14:15 16:09 17:51 WBC RBC Hgb Hct MCV MCH MCHC RDW Plt Count MPV Gran % Lymph % (Auto) [place] % (Auto) Eos % (Auto) Baso % (Auto) Gran # Lymph # (Auto) [place] # (Auto) Eos # (Auto) Baso # (Auto) Sodium Potassium Chloride Carbon Dioxide Anion Gap BUN Creatinine Est GFR ( Amer) Est GFR (Non-Af Amer) POC Glucose (mg/dL) 377 H 330 H Random Glucose Calcium Phosphorus Magnesium Total Bilirubin AST ALT Alkaline Phosphatase Total Protein Albumin Globulin Albumin/Globulin Ratio Hepatitis A IgM Ab Negative Hep Bs Antigen Negative Hep B Core IgM Ab Negative Hepatitis C Antibody Reactive 05/29/18 05/29/18 05/29/18 19:40 19:55 22:10 WBC RBC Hgb Hct MCV MCH MCHC RDW Plt Count MPV Gran % Lymph % (Auto) [place] % (Auto) Eos % (Auto) Baso % (Auto) Gran # Lymph # (Auto) [place] # (Auto) Eos # (Auto) Baso # (Auto) Sodium 151 H Potassium 3.1 L Chloride 116 H Carbon Dioxide 23 Anion Gap 14 BUN 16 Creatinine 0.5 L Est GFR ( Amer) > 60 Est GFR (Non-Af Amer) > 60 POC Glucose (mg/dL) 272 H 215 H Random Glucose 271 H Calcium 9.4 Phosphorus Magnesium Total Bilirubin AST ALT Alkaline Phosphatase Total Protein Albumin Globulin Albumin/Globulin Ratio Hepatitis A IgM Ab Hep Bs Antigen Hep B Core IgM Ab Hepatitis C Antibody 05/29/18 05/29/18 05/30/18 22:11 23:59 03:13 WBC RBC Hgb Hct MCV MCH MCHC RDW Plt Count MPV Gran % Lymph % (Auto) [place] % (Auto) Eos % (Auto) Baso % (Auto) Gran # Lymph # (Auto) [place] # (Auto) Eos # (Auto) Baso # (Auto) Sodium Potassium Chloride Carbon Dioxide Anion Gap BUN Creatinine Est GFR ( Amer) Est GFR (Non-Af Amer) POC Glucose (mg/dL) 208 H 168 H 137 H Random Glucose Calcium Phosphorus Magnesium Total Bilirubin AST ALT Alkaline Phosphatase Total Protein Albumin Globulin Albumin/Globulin Ratio Hepatitis A IgM Ab Hep Bs Antigen Hep B Core IgM Ab Hepatitis C Antibody 05/30/18 05/30/18 05/30/18 05:30 05:30 06:14 WBC 8.1 D RBC 3.96 Hgb 12.7 Hct 36.4 MCV 91.9 MCH 32.1 MCHC 34.9 RDW 13.2 Plt Count 189 MPV 9.5 Gran % 70.6 H Lymph % (Auto) 16.4 L [place] % (Auto) 12.1 H Eos % (Auto) 0.7 L Baso % (Auto) 0.2 Gran # 5.70 Lymph # (Auto) 1.3 [place] # (Auto) 1.0 H Eos # (Auto) 0.1 Baso # (Auto) 0.02 Sodium 149 H Potassium 3.2 L Chloride 115 H Carbon Dioxide 26 Anion Gap 12 BUN 13 Creatinine 0.4 L Est GFR ( Amer) > 60 Est GFR (Non-Af Amer) > 60 POC Glucose (mg/dL) 166 H Random Glucose 152 H Calcium 8.9 Phosphorus 1.1 L* Magnesium 2.0 Total Bilirubin 0.6 AST 44 H ALT 48 Alkaline Phosphatase 123 Total Protein 6.2 Albumin 2.8 L Globulin 3.4 Albumin/Globulin Ratio 0.8 L Hepatitis A IgM Ab Hep Bs Antigen Hep B Core IgM Ab Hepatitis C Antibody 05/30/18 11:03 WBC RBC Hgb Hct MCV MCH MCHC RDW Plt Count MPV Gran % Lymph % (Auto) [place] % (Auto) Eos % (Auto) Baso % (Auto) Gran # Lymph # (Auto) [place] # (Auto) Eos # (Auto) Baso # (Auto) Sodium Potassium Chloride Carbon Dioxide Anion Gap BUN Creatinine Est GFR ( Amer) Est GFR (Non-Af Amer) POC Glucose (mg/dL) 295 H Random Glucose Calcium Phosphorus Magnesium Total Bilirubin AST ALT Alkaline Phosphatase Total Protein Albumin Globulin Albumin/Globulin Ratio Hepatitis A IgM Ab Hep Bs Antigen Hep B Core IgM Ab Hepatitis C Antibody Critical Care Progress Note - Nutrition Nutrition: Nutrition Category Date Time Status Dysphagia/Modified Consistency Diet [DIET] Diets 05/30/18 Lunch Ordered Attending/Attestation - Attestation I have personally seen and examined this patient.: Yes I have fully participated in the care of the patient.: Yes I have reviewed all pertinent clinical information: Yes Notes (Text): 05/30/18 15:39 52 yo female with now resolved DKA, toelrates long acting sc insulin, oral nutrition and hydration, endo consult is appreciated. Ok to downgrade to [facility] ccm time 40 min
--- NOTE | 2018-05-30 14:55 | CP.PCM.PN ---
Subjective - Date & Time of Evaluation Date of Evaluation: 05/30/18 Time of Evaluation: 14:00 - Subjective Subjective: Infectious Disease Follow Up: May 30, 2018 Ms. Simpson is a 52 year old AAF with a past medical history significant for HTN and asthma who was BIBA after she was found to have AMS. Patient is awake but unresponsive verbally for any HPI and ROS questioning. All information was obtained either by EMS or chart review. Patient was reported to have been found covered in feces and to have been "sitting on the couch for one week". ROS unobtainable at this time. The patient is currently screaming for her mother and cannot be questioned on any other topics at this time. In ED, patient was found with values consistent with sepsis from undetermined source and DKA. Currently, the patient is awake, alert, and orientated. Extensive sacral decubiti. Objective - Vital Signs/Intake and Output Vital Signs (last 24 hours): Temp Pulse Resp BP Pulse Ox 98 F 87 17 133/86 100 05/30/18 08:00 05/30/18 09:30 05/30/18 09:30 05/30/18 09:16 05/30/18 09:40 Intake and Output: 05/30/18 05/30/18 06:59 18:59 Intake Total 2150 Output Total 600 Balance 1550 - Medications Medications: Current Medications Enoxaparin Sodium (Lovenox) 40 mg SC DAILY [facility] PRN Reason: Protocol Last Admin: 05/30/18 09:23 Dose: 40 mg Vancomycin HCl (Vancomycin 1gm) 1 gm in 250 mls @ 167 mls/hr IVPB Q12H [facility] PRN Reason: Protocol Last Admin: 05/30/18 06:09 Dose: 167 mls/hr Piperacillin Sod/Tazobactam Sod (Zosyn 3.375 In Ns 100ml) 100 mls @ 200 mls/hr IVPB Q6 [facility] PRN Reason: Protocol Last Admin: 05/30/18 14:29 Dose: 200 mls/hr Sodium Chloride (Sodium Chloride 0.45%) 1,000 mls @ 125 mls/hr IV .Q8H [facility] Last Admin: 05/30/18 02:02 Dose: 125 mls/hr Insulin Human NPH (Humulin N) 10 units SC HS [facility] Last Admin: 05/29/18 22:37 Dose: 10 units Insulin Human Regular (Humulin R Low) 0 units SC ACHS [facility] PRN Reason: Protocol Last Admin: 05/30/18 12:00 Dose: Not Given Nystatin (Nystop Topical Powder) 2 gm TOP BID [facility] Last Admin: 05/30/18 09:20 Dose: 1 applic Pantoprazole Sodium (Protonix Inj) 40 mg IVP DAILY [facility] Last Admin: 05/30/18 09:24 Dose: 40 mg - Labs Labs: 05/30/18 05:30 05/30/18 05:30 PT 13.4 SECONDS (9.4-12.5) H 05/28/18 01:26 INR 1.17 05/28/18 01:26 APTT 20.7 Seconds (25.1-36.5) L 05/28/18 01:26 - Constitutional Appears: Non-toxic, No Acute Distress, Chronically Ill - Head Exam Head Exam: ATRAUMATIC, NORMOCEPHALIC - Eye Exam Eye Exam: EOMI, PERRL Pupil Exam: NORMAL ACCOMODATION, PERRL - ENT Exam ENT Exam: Mucous Membranes Moist, Normal External Ear Exam, TM's Normal Bilaterally - Neck Exam Neck Exam: Full ROM, Normal Inspection - Respiratory Exam Respiratory Exam: Clear to Ausculation Bilateral, NORMAL BREATHING PATTERN. absent: Rales, Rhonchi, Wheezes - Cardiovascular Exam Cardiovascular Exam: REGULAR RHYTHM, RRR, +S1, +S2 - GI/Abdominal Exam GI & Abdominal Exam: Soft, Normal Bowel Sounds. absent: Distended, Tenderness - Extremities Exam Extremities Exam: Full ROM, Normal Inspection - Neurological Exam Neurological Exam: Alert, Awake, CN II-XII Intact Additional comments: AAO x 2-3 - Psychiatric Exam Psychiatric exam: Normal Affect, Normal Mood - Skin Additional comments: large ulcerations of the lower back and sacrum bilaterally. Assessment and Plan - Assessment and Plan (Free Text) Assessment: 52 yo AA obese female with AMS with signs of sepsis with tachcardia, leukocytosis of 15, but no fevers. Patient was reported found in her home covered in feces on her cough for unknown period of time. Findings of DKA. Check brown cultures. On insulin drip. Currently on IV Vancomycin and Zosyn for antibiotic coverage. Procalcitonin of 0.14. No discernable renal issues at this time. Supportive care. Continue broad spectrum antibiotic coverage. Awaiting brown culture results. Cultures to date are negative. Clinically the patient is improving. Thank you for allowing me to participate in the care of the patient, we will follow with you.
[2018-05-30] MEDS: Insulin Human NPH/Reg 70/30 Vial(3 ml) SC SCH (16:18)
--- NOTE | 2018-05-30 16:20 | CP.PCM.PN ---
<Ruby Burt - Last Filed: 05/30/18 16:24> Subjective - Date & Time of Evaluation Date of Evaluation: 05/30/18 Time of Evaluation: 07:00 - Subjective Subjective: PGY-3 progress note for hospitalist service Patient seen and examined at bedside, no acute distress. No acute distress overnight, nurse reports no acute events overnight. Patient denies any pain, sob , chest pain. She states that she is hungry and would like to have breakfast. Objective - Vital Signs/Intake and Output Vital Signs (last 24 hours): Temp Pulse Resp BP Pulse Ox 98 F 87 17 133/86 100 05/30/18 08:00 05/30/18 09:30 05/30/18 09:30 05/30/18 09:16 05/30/18 09:40 Intake and Output: 05/30/18 05/30/18 06:59 18:59 Intake Total 2150 Output Total 600 Balance 1550 - Medications Medications: Current Medications Enoxaparin Sodium (Lovenox) 40 mg SC DAILY [facility] PRN Reason: Protocol Last Admin: 05/30/18 09:23 Dose: 40 mg Vancomycin HCl (Vancomycin 1gm) 1 gm in 250 mls @ 167 mls/hr IVPB Q12H [facility] PRN Reason: Protocol Last Admin: 05/30/18 06:09 Dose: 167 mls/hr Piperacillin Sod/Tazobactam Sod (Zosyn 3.375 In Ns 100ml) 100 mls @ 200 mls/hr IVPB Q6 [facility] PRN Reason: Protocol Last Admin: 05/30/18 14:29 Dose: 200 mls/hr Sodium Chloride (Sodium Chloride 0.45%) 1,000 mls @ 125 mls/hr IV .Q8H [facility] Last Admin: 05/30/18 02:02 Dose: 125 mls/hr Insulin Human NPH (Humulin N) 10 units SC HS [facility] Last Admin: 05/29/18 22:37 Dose: 10 units Insulin Human Regular (Humulin R Low) 0 units SC ACHS [facility] PRN Reason: Protocol Last Admin: 05/30/18 16:13 Dose: Not Given Nystatin (Nystop Topical Powder) 2 gm TOP BID [facility] Last Admin: 05/30/18 09:20 Dose: 1 applic Pantoprazole Sodium (Protonix Inj) 40 mg IVP DAILY [facility] Last Admin: 05/30/18 09:24 Dose: 40 mg - Labs Labs: 05/30/18 05:30 05/30/18 05:30 PT 13.4 SECONDS (9.4-12.5) H 05/28/18 01:26 INR 1.17 05/28/18 01:26 APTT 20.7 Seconds (25.1-36.5) L 05/28/18 01:26 - Constitutional Appears: No Acute Distress - Head Exam Head Exam: ATRAUMATIC, NORMAL INSPECTION, NORMOCEPHALIC - Eye Exam Eye Exam: EOMI, Normal appearance - ENT Exam ENT Exam: Mucous Membranes Moist - Respiratory Exam Respiratory Exam: Clear to Ausculation Bilateral, NORMAL BREATHING PATTERN. absent: Decreased Breath Sounds, Rales, Rhonchi, Wheezes, Respiratory Distress, Stridor - Cardiovascular Exam Cardiovascular Exam: REGULAR RHYTHM, +S1, +S2. absent: Bradycardia, Tachycardia , Murmur - GI/Abdominal Exam GI & Abdominal Exam: Soft, Normal Bowel Sounds. absent: Distended, Firm, Guarding, Tenderness - Extremities Exam Extremities Exam: Normal Inspection. absent: Pedal Edema, Tenderness - Neurological Exam Neurological Exam: Alert, Awake, Oriented x3 - Skin Skin Exam: Dry, Normal Color, Warm Additional comments: superficial skin abrasions noted on the lower back lipoma located on her left shoulder Assessment and Plan - Assessment and Plan (Free Text) Assessment: 52 yo female with PMH of obesity, HTN and asthma presented with AMS most likely due to DKA, electrolyte abnormalities, sepsis due to sacral ulcers found to be Hepatitis C positive Plan: AMS - most likely due to toxic metabolic encephalopathy due to DKA, sepsis, electrolyte abnormality - alert and oriented got person, place but not time, improved from yesterday - continue seizure, aspiration precautions- Head CT on admission showed no acute findings - urine drug screen was unremarkable - PT recommended subacute rehab - speech/swallow eval- no dysphagia, heart health diet started - neff catheter was discontinued - neurology on consult, Dr. Hernandez, recommend correcting electrolyte abnormalities DKA - resolved - anion gap closed - Humulin NPH 10 units HS per endocrinology - ISSS- low - U/A on admission revealed ketones, moderate blood, and moderate bacteria - diet advanced to heart healthy, low carb - Endo on consult, Dr. Solitario Sepsis due to sacral ulcers - afebrile, improved leukocytosis - CXR on admission showed bibasilar atelectasis - UA revealed moderate bacteria, however urine culture are negative - blood culture shows no growth after 48 hours - currently on vancomycin and zosyn day 3 - procalcitonin unremarkable at 0.14 - receiving nystatin topical for fungal growth noted along lower breast border and lower abdominal crevice - Infectious disease on consult, Dr. Pappas, recommendations appreciated Hypernatremia - improving, sodium this morning of 149, corrected 150 - Continue on 10/01 NS at 125 ml/hr - will continue to monitor hypophosphatemia - Replaced - Will repeat in AM Hypokalemia - Replaced - Will repeat in AM Hepatitis C - hepatitis c antibody was reactive - Patient states that she is aware of her status - Hepatitis C viral load ordered - HIV ordered lipoma - located on her left shoulder - shoulder xray showed lipoma of the shoulder - lovenox for DVT ppx - protonix for GI ppx Dispo - PT recommend subacute rehab Case discussed and reviewed with attending, Dr. Bennett <Sandrita Bennett R - Last Filed: 05/31/18 14:23> Objective - Vital Signs/Intake and Output Vital Signs (last 24 hours): Temp Pulse Resp BP Pulse Ox 98.3 F 100 H 20 107/76 97 05/31/18 06:00 05/31/18 06:00 05/31/18 06:00 05/31/18 06:00 05/31/18 06:00 Intake and Output: 05/31/18 05/31/18 06:59 18:59 Intake Total 220 Output Total 300 Balance -80 - Medications Medications: Current Medications Enoxaparin Sodium (Lovenox) 40 mg SC DAILY [facility] PRN Reason: Protocol Last Admin: 05/31/18 09:22 Dose: 40 mg Vancomycin HCl (Vancomycin 1gm) 1 gm in 250 mls @ 167 mls/hr IVPB Q12H [facility] PRN Reason: Protocol Last Admin: 05/31/18 05:15 Dose: 167 mls/hr Piperacillin Sod/Tazobactam Sod (Zosyn 3.375 In Ns 100ml) 100 mls @ 200 mls/hr IVPB Q6 [facility] PRN Reason: Protocol Last Admin: 05/31/18 12:32 Dose: 200 mls/hr Potassium Phosphate 15 mmole/ (Sodium Chloride) 255 mls @ 42.5 mls/hr IVPB ONCE ONE Stop: 05/31/18 20:17 Insulin Human NPH (Humulin N) 10 units SC HS [facility] Last Admin: 05/30/18 21:58 Dose: 10 units Insulin Human Regular (Humulin R Low) 0 units SC ACHS [facility] PRN Reason: Protocol Last Admin: 05/31/18 12:30 Dose: 4 unit Lactobacillus Acidophilus (Bacid Acidophilus) 1 cap PO BID [facility] Nystatin (Nystop Topical Powder) 2 gm TOP BID [facility] Last Admin: 05/31/18 09:39 Dose: 1 applic Pantoprazole Sodium (Protonix Inj) 40 mg IVP DAILY [facility] Last Admin: 05/31/18 09:23 Dose: 40 mg - Labs Labs: 05/31/18 11:00 05/31/18 11:00 PT 13.4 SECONDS (9.4-12.5) H 05/28/18 01:26 INR 1.17 05/28/18 01:26 APTT 20.7 Seconds (25.1-36.5) L 05/28/18 01:26 Attending/Attestation - Attestation I have personally seen and examined this patient.: Yes I have fully participated in the care of the patient.: Yes I have reviewed all pertinent clinical information, including history, physical exam and plan: Yes Notes (Text): Patient seen and examined by me at 10:20AM with resident 05/30/18. Case including HPI, physical exam, and assessment and plan discussed with resident. Agree with above with following additions/corrections. Patient is a 52-year-old female with past medical history significant for hypertension and asthma the presented to the emergency room with altered mental status. Patient is awake and alert. Still with confusion. She denies any chest pain or shortness of breath. No headaches or dizziness. No nausea, vomiting, or abdominal pain. However on exam patient has abdominal tenderness. No fevers or chills. No dysuria. Patient is having bowel movements. Physical exam: General: Awake and alert, lying in bed in no acute distress HEENT: Normocephalic, atraumatic. Extraocular muscles intact. No scleral icterus. Oropharynx is pink. Moist mucous membranes. Neck is supple. Cardiovascular: Normal rhythm. Normal S1, S2. Positive systolic murmur. No rubs rubs or gallops appreciated Pulmonary: Normal respiratory effort. Decreased breath sounds. No rhonchi, rales , or wheezing appreciated. Gastrointestinal: Soft, nondistended, obese abdomen. Positive generalized tenderness. Positive bowel sounds all 4 quadrants, no guarding. Musculoskeletal: Moves all extremities, no calf tenderness, no edema appreciated. Positive left shoulder large lump noted. Central nervous system: Awake and alert. CN2-12 grossly intact. Dermatologic: Skin warm and dry. Positive a chronic decubitus ulcers. Positive erythematous rash under bilateral breasts and groin area. Assessment and plan: Patient is a 52-year-old female with past medical history significant for hypertension and asthma the presented to the emergency room with altered mental status. 1. Toxic metabolic encephalopathy. Improved. May be secondary to DKA vs electrolyte imbalance. Met sepsis criteria on admission. DKA resolved. Insulin drip stopped. Endocrinology following, recommendations appreciated. Continue insulin sliding scale. Continue Humulin 10 units at bedtime. Neurology following , recommendations appreciated. ID following, recommendations appreciated. Continue with broad-spectrum antibiotics vancomycin and Zosyn for now. Blood cultures negative so far. Urine culture negative. Continue IV fluids. Afebrile. Leukocytosis resolved. Head CT per radiologist showed no acute intracranial abdnormalities. Procalcitionin 0.14. 2. DKA. Resolved. Off insulin drip. Continue IV fluids. Endocrinology following , recommendations appreciated. Hemoglobin A1c 16.9. Continue insulin sliding scale and he will and 10 units at bedtime. Continue to monitor Accu-Cheks. 3. Hypernatremia. Likely secondary to dehydration. Improving Continue IV fluids. 4. Hypokalemia/hypophosphatemia. Replace potassium and phosphorus. Continue to monitor. 5. Candidal rash. Under breasts and in groin area. Continue with Nystatin 6. Sacral ulcers. Wound care consulted. Continue local wound care and antibiotics. 7. Left shoulder lump. X-ray left shoulder shows lipoma. Patient will need outpatient follow-up for possible removal if wanted. 8. Hepatitis C positive. Per patient, she was aware of this. Viral load pending. HIV ordered. ID following. 9. GI/DVT prophylaxis. Protonix and Lovenox Case was discussed in detail with patient regarding current diagnosis and treatment plan
[2018-05-30] MEDS: Insulin Human NPH 1 UNITS/0.01 ML SC SCH (21:58)
--- NOTE | 2018-05-30 23:41 | PN ---
Copied To: Starr Solitario MD Attending MD: Starr Solitario MD DATE: 05/30/2018 ENDO FOLLOWUP NOTE LOCATION: In ICU room 128, 3. SUBJECTIVE: This is a 52-year-old female with recent uncontrolled type 2 insulin-requiring diabetes, presenting here with diabetic ketoacidosis and dehydration and also persistent confusion and altered mental status as noted. Her glycemic levels are fluctuating, but improved and the glucose values have ranged from 166-295 mg/dL. Her latest chemistries showed a BUN of 13, sodium 149, potassium 3.2, chloride 115, CO2 of 26, glucose 152 and creatinine 0.4. So at this time, we will continue the same basal and premixed insulin regimen to allow for dose equilibration and keep her on the Humulin 70/30 given as 30 units before breakfast and 20 units before dinner to start today. We will also continue the NPH given as 10 units subcu at bedtime daily, which was started last night as noted. We will obtain serial chemistries and supplement accordingly as needed. We will also continue the IV hydration to optimize the lost fluids and electrolytes as noted. We will follow. Starr Solitario MD
[2018-05-31] MEDS: Piperacillin/Tazobact 3.375 gm 100 ML IVPB SCH ×3 (05:13→18:01)
[2018-05-31] MEDS: Vancomycin 1gm in NS 250ml 1 GM/250 ML BAG IVPB SCH ×2 (05:15→18:01)
[2018-05-31] MEDS: Insulin Human NPH/Reg 70/30 Vial(3 ml) SC SCH ×2 (09:21→17:55)
[2018-05-31] MEDS: Enoxaparin 40 mg Syringe SC SCH (09:22)
[2018-05-31] MEDS: Insulin Reg-LOW-Coverage SC SCH ×4 (09:22→22:02)
[2018-05-31] MEDS: Sodium Chloride 0.45% 1,000 ML IV SCH (09:37)
[2018-05-31] MEDS: Nystatin 100,000 Units/gm Topical Pow(15 gm) TOP SCH ×2 (09:39→17:56)
--- NOTE | 2018-05-31 10:14 | PN ---
Copied To: Starr Solitario MD Attending MD: Starr Solitario MD DATE: 05/31/2018 ENDO FOLLOWUP NOTE LOCATION: In room 570. SUBJECTIVE: This is a 52-year-old female with recent uncontrolled type 2 insulin-requiring diabetes, now being followed closely for metabolic management. She presented with diabetic ketoacidosis and has improved clinically and metabolically with the initiation of vigorous IV hydration and intensive insulin therapy as given. Her glucose values today have ranged from 170-189 mg/dL. So at this time, we will modify her current premixed and basal insulin and increase the NPH to 10 units subcu at bedtime daily as given. We will also increase the Humulin 70/30 to 34 units before breakfast and 24 units before dinner to allow for dose equilibration. She was given these conventional insulin vials because they are more affordable on the outpatient since the patient has no medical insurance at this time. We would recommend that she follows with our medical clinic in the hospital post discharge for ongoing diabetic and medical followup. We will sign off from the diabetic care at this time. Starr Solitario MD
[2018-05-31 11:14] LABS: BASO # 0.01 K/mm3 (0.0-2.0); BASO % 0.2 % (0.0-3.0); EOS # 0.1 (0.0-0.7); EOS % 0.8 % (1.5-5.0); GRAN # 4.2 (1.4-6.5); GRAN % 67.3 % (50.0-68.0); HEMOGLOBIN 11.8 g/dL (12.0-16.0); LYMPH # 1.3 (1.2-3.4); MEAN CELL VOLUME 92.8 fl (80.0-105.0); MEAN CORPUSCULAR HEMOGLOBIN 31.6 pg (25.0-35.0); MEAN CORPUSCULAR HGB CONC 34.1 g/dl (31.0-37.0); MEAN PLATELET VOLUME 9.8 fl (7.0-11.0); MONO # 0.7 (0.1-0.6); MONO % 11.7 % (1.0-6.0); RBC 3.73 10^6/uL (3.5-6.1); RED CELL DISTRIBUTION WIDTH 13.1 % (11.5-14.5); WHITE BLOOD COUNT 6.2 10^3/ul (4.5-11.0)
[2018-05-31 11:24] LABS: ALB/GLOB RATIO 0.8 (1.1-1.8); ALBUMIN 2.6 g/dL (3.0-4.8); ALT/SGPT 46 U/L (7-56); AST/SGOT 46 U/L (14-36); BLOOD UREA NITROGEN 11 mg/dL (7-21); CALCIUM 8.2 mg/dL (8.4-10.5); GFR NON-AFRICAN AMERICAN > 60
--- NOTE | 2018-05-31 13:27 | CP.PCM.PN ---
<Edinson Bellamy - Last Filed: 05/31/18 13:22> Subjective - Date & Time of Evaluation Date of Evaluation: 05/31/18 Time of Evaluation: 13:23 - Subjective Subjective: Edinson Bellamy, PGY-1 Progress Note for Hospitalist Service Patient seen and examined this morning at bedside. No acute events overnight, but patient continues to be altered. Patient to receive wound care and P.T. Will remove neff today. ROS limited due to altered state. Objective - Vital Signs/Intake and Output Vital Signs (last 24 hours): Temp Pulse Resp BP Pulse Ox 98.3 F 100 H 20 107/76 97 05/31/18 06:00 05/31/18 06:00 05/31/18 06:00 05/31/18 06:00 05/31/18 06:00 Intake and Output: 05/31/18 05/31/18 06:59 18:59 Intake Total 220 Output Total 300 Balance -80 - Medications Medications: Current Medications Enoxaparin Sodium (Lovenox) 40 mg SC DAILY [facility] PRN Reason: Protocol Last Admin: 05/31/18 09:22 Dose: 40 mg Vancomycin HCl (Vancomycin 1gm) 1 gm in 250 mls @ 167 mls/hr IVPB Q12H [facility] PRN Reason: Protocol Last Admin: 05/31/18 05:15 Dose: 167 mls/hr Piperacillin Sod/Tazobactam Sod (Zosyn 3.375 In Ns 100ml) 100 mls @ 200 mls/hr IVPB Q6 [facility] PRN Reason: Protocol Last Admin: 05/31/18 12:32 Dose: 200 mls/hr Sodium Chloride (Sodium Chloride 0.45%) 1,000 mls @ 125 mls/hr IV .Q8H [facility] Last Admin: 05/31/18 09:37 Dose: 125 mls/hr Insulin Human NPH (Humulin N) 10 units SC HS [facility] Last Admin: 05/30/18 21:58 Dose: 10 units Insulin Human Regular (Humulin R Low) 0 units SC ACHS [facility] PRN Reason: Protocol Last Admin: 05/31/18 12:30 Dose: 4 unit Nystatin (Nystop Topical Powder) 2 gm TOP BID [facility] Last Admin: 05/31/18 09:39 Dose: 1 applic Pantoprazole Sodium (Protonix Inj) 40 mg IVP DAILY [facility] Last Admin: 05/31/18 09:23 Dose: 40 mg - Labs Labs: 05/31/18 11:00 05/31/18 11:00 PT 13.4 SECONDS (9.4-12.5) H 05/28/18 01:26 INR 1.17 05/28/18 01:26 APTT 20.7 Seconds (25.1-36.5) L 05/28/18 01:26 - Constitutional Appears: Combative - Head Exam Head Exam: ATRAUMATIC, NORMAL INSPECTION - Eye Exam Eye Exam: EOMI Pupil Exam: PERRL - Respiratory Exam Respiratory Exam: Clear to Ausculation Bilateral - Cardiovascular Exam Cardiovascular Exam: RRR, +S1, +S2 - GI/Abdominal Exam GI & Abdominal Exam: Normal Bowel Sounds. absent: Guarding, Rigid - Back Exam Additional comments: B/L superficial sacral bruising noted - Neurological Exam Neurological Exam: Alert, Awake Additional comments: does not respond appropriately to questions - Skin Skin Exam: Normal Color, Warm Assessment and Plan - Assessment and Plan (Free Text) Assessment: 52 yo female with PMH of obesity, HTN and asthma presented with AMS most likely due to DKA - resolved, electrolyte abnormalities, and sepsis due to sacral ulcers. Will need subacute rehab placement. Plan: AMS -2/2 toxic metabolic encephalopathy from DKA -resolved, sepsis - improving, and electrolyte abnormality - repleted -continues to be altered and combative today. Does not respond appropriately to questioning -continue seizure, aspiration precautions -Head CT on admission showed no acute findings -urine drug screen was negative -speech/swallow eval- no dysphagia, heart health diet started -neff removed today -PT recommended subacute rehab placement -neurology on consult, Dr. Hernandez Sepsis due to sacral ulcers -afebrile overnight and today, improved leukocytosis -CXR on admission showed bibasilar atelectasis -UA revealed moderate bacteria -blood culture shows no growth after 3 days -MRSA not detected -Urine culture shows no growth -currently on vancomycin and zosyn -procalcitonin unremarkable at 0.14 -receiving nystatin topical for fungal growth noted along lower breast border and lower abdominal crevice -wound care ordered -Infectious disease on consult, Dr. Pappas Hypophosphatemia -phosphorous is 1.5 today from 1.1 yesterday. Improved -will continue to monitor Hypokalemia -potassium today is 3.5 from 3.2 yesterday -will monitor Lipoma -left shoulder lipoma measuring approximatey 15x7cm -shoulder xray on 05/30 showed lipoma of the shoulder DKA - resolved -anion gap closed -Humulin NPH 10 units HS per endocrinology -ISSS- low -U/A on admission revealed ketones -diet advanced to heart healthy, low carb -cone cleaner pending -Endo on consult, Dr. Solitario Hypernatremia - resolved -sodium is 138 from 149 yesterday -stopped 1/2 NS today -will continue to monitor Hepatitis C -hepatitis c antibody was reactive -Hepatitis C viral load ordered -HIV is non reactive -patient aware PPX with lovonex and protonix Case discussed and reviewed with attending, Dr. Bennett <Sandrita Bennett R - Last Filed: 06/01/18 12:53> Objective - Vital Signs/Intake and Output Vital Signs (last 24 hours): Temp Pulse Resp BP Pulse Ox 98.3 F 92 H 20 122/79 97 06/01/18 06:00 06/01/18 06:00 06/01/18 06:00 06/01/18 06:00 06/01/18 06:00 Intake and Output: 06/01/18 06/01/18 06:59 18:59 Intake Total 360 Output Total 1500 Balance -1140 - Medications Medications: Current Medications Enoxaparin Sodium (Lovenox) 40 mg SC DAILY [facility] PRN Reason: Protocol Last Admin: 06/01/18 09:48 Dose: 40 mg Vancomycin HCl (Vancomycin 1gm) 1 gm in 250 mls @ 167 mls/hr IVPB Q12H [facility] PRN Reason: Protocol Last Admin: 06/01/18 05:39 Dose: 167 mls/hr Potassium Chloride (Potassium Chloride 10 Meq/100 Ml) 10 meq in 100 mls @ 50 mls/hr IVPB Q2H [facility] Stop: 06/01/18 14:59 Insulin Human NPH (Humulin N) 10 units SC HS [facility] Last Admin: 05/31/18 22:03 Dose: 10 units Insulin Human Regular (Humulin R Med) 0 units SC ACHS [facility] PRN Reason: Protocol Last Admin: 06/01/18 08:27 Dose: 5 unit Lactobacillus Acidophilus (Bacid Acidophilus) 1 cap PO BID [facility] Last Admin: 06/01/18 09:49 Dose: 1 cap Nystatin (Nystop Topical Powder) 2 gm TOP BID [facility] Last Admin: 06/01/18 09:49 Dose: 1 applic Pantoprazole Sodium (Protonix Inj) 40 mg IVP DAILY [facility] Last Admin: 06/01/18 09:49 Dose: 40 mg - Labs Labs: 06/01/18 08:00 06/01/18 08:00 PT 13.4 SECONDS (9.4-12.5) H 05/28/18 01:26 INR 1.17 05/28/18 01:26 APTT 20.7 Seconds (25.1-36.5) L 05/28/18 01:26 Attending/Attestation - Attestation I have personally seen and examined this patient.: Yes I have fully participated in the care of the patient.: Yes I have reviewed all pertinent clinical information, including history, physical exam and plan: Yes Notes (Text): Patient seen and examined by me at 11AM with resident 05/31/18. Case including HPI, physical exam, and assessment and plan discussed with resident. Agree with above with following additions/corrections. Patient is a 52-year-old female with past medical history significant for hypertension and asthma the presented to the emergency room with altered mental status. Patient is awake and alert. Improved mental status. Patient's at bedside. Patient does not want us asking questions. She denies any chest pain or shortness of breath. No headaches or dizziness. No nausea, vomiting, or abdominal pain. She is eating well. No fevers or chills. No dysuria. Patient is having bowel movements. Physical exam: General: Awake and alert, lying in bed in no acute distress HEENT: Normocephalic, atraumatic. Extraocular muscles intact. No scleral icterus. Oropharynx is pink. Moist mucous membranes. Neck is supple. Cardiovascular: Normal rhythm. Normal S1, S2. Positive systolic murmur. No rubs rubs or gallops appreciated Pulmonary: Normal respiratory effort. Decreased breath sounds. No rhonchi, rales , or wheezing appreciated. Gastrointestinal: Soft, nondistended, obese abdomen. Positive generalized tenderness. Positive bowel sounds all 4 quadrants, no guarding. Musculoskeletal: Moves all extremities, no calf tenderness, no edema appreciated. Positive left shoulder large lump noted. Central nervous system: Awake and alert. CN2-12 grossly intact. Dermatologic: Skin warm and dry. Positive a chronic decubitus ulcers. Positive erythematous rash under bilateral breasts and groin area. Assessment and plan: Patient is a 52-year-old female with past medical history significant for hypertension and asthma the presented to the emergency room with altered mental status. 1. Toxic metabolic encephalopathy. Mental status improved today. May be secondary to DKA vs electrolyte imbalance. Continue insulin sliding scale. Continue Humulin 10 units at bedtime. Continue with broad-spectrum antibiotics vancomycin and Zosyn for atleast a total of 5 days per ID. Blood cultures negative so far. Urine culture negative. Afebrile. Leukocytosis resolved. Procalcitionin 0.14. Head CT per radiologist showed no acute intracranial abdnormalities. Met sepsis criteria on admission. DKA resolved. Insulin drip stopped. Endocrinology following, recommendations appreciated. Neurology following, recommendations appreciated. ID following, recommendations appreciated. 2. DKA. Resolved. Off insulin drip. Endocrinology following, recommendations appreciated. Hemoglobin A1c 16.9. Continue insulin sliding scale and humulin 10 units at bedtime. Continue to monitor Accu-Cheks. 3. Hypernatremia. Likely secondary to dehydration. Resolved. Continue to monitor. 4. Hypokalemia/hypophosphatemia. Continue to replace potassium and phosphorus. Continue to monitor. 5. Candidal rash. Under breasts and in groin area. Continue with Nystatin 6. Sacral ulcers. Wound care consulted. Continue local wound care and antibiotics. 7. Left shoulder lump. X-ray left shoulder shows lipoma. Patient will need outpatient follow-up for possible removal if wanted. 8. Hepatitis C positive. Per patient, she was aware of this. Viral load pending. HIV ordered. ID following. 9. GI/DVT prophylaxis. Protonix and Lovenox Case was discussed in detail with patient regarding current diagnosis and treatment plan.
[2018-05-31] MEDS ORDERED: Potassium Phosphate 15 MMOLE in Sodium Chloride 0.9% 250 ML IVPB ONE (14:18)
--- NOTE | 2018-05-31 17:28 | CP.PCM.PN ---
Subjective - Date & Time of Evaluation Date of Evaluation: 05/31/18 Time of Evaluation: 15:00 - Subjective Subjective: Infectious Disease Follow Up: May 31, 2018 Ms. Simpson is a 52 year old AAF with a past medical history significant for HTN and asthma who was BIBA after she was found to have AMS. Patient is awake but unresponsive verbally for any HPI and ROS questioning. All information was obtained either by EMS or chart review. Patient was reported to have been found covered in feces and to have been "sitting on the couch for one week". ROS unobtainable at this time. In ED, patient was found with values consistent with sepsis from undetermined source and DKA. Currently, the patient is awake, alert, and orientated. Extensive sacral decubiti. Strange family dynamic. Patient only gives very vague complaints and symptoms. Patient does not want her knowning about her case even though the is in the room during this conversation. Objective - Vital Signs/Intake and Output Vital Signs (last 24 hours): Temp Pulse Resp BP Pulse Ox 98.6 F 95 H 20 125/84 97 05/31/18 14:00 05/31/18 14:00 05/31/18 14:00 05/31/18 14:00 05/31/18 14:00 Intake and Output: 05/31/18 05/31/18 06:59 18:59 Intake Total 220 Output Total 300 Balance -80 - Medications Medications: Current Medications Enoxaparin Sodium (Lovenox) 40 mg SC DAILY [facility] PRN Reason: Protocol Last Admin: 05/31/18 09:22 Dose: 40 mg Vancomycin HCl (Vancomycin 1gm) 1 gm in 250 mls @ 167 mls/hr IVPB Q12H [facility] PRN Reason: Protocol Last Admin: 05/31/18 05:15 Dose: 167 mls/hr Piperacillin Sod/Tazobactam Sod (Zosyn 3.375 In Ns 100ml) 100 mls @ 200 mls/hr IVPB Q6 [facility] PRN Reason: Protocol Last Admin: 05/31/18 12:32 Dose: 200 mls/hr Potassium Phosphate 15 mmole/ (Sodium Chloride) 255 mls @ 42.5 mls/hr IVPB ONCE ONE Stop: 05/31/18 20:17 Last Admin: 05/31/18 15:19 Dose: 42.5 mls/hr Insulin Human NPH (Humulin N) 10 units SC HS [facility] Last Admin: 05/30/18 21:58 Dose: 10 units Insulin Human Regular (Humulin R Low) 0 units SC ACHS [facility] PRN Reason: Protocol Last Admin: 05/31/18 12:30 Dose: 4 unit Lactobacillus Acidophilus (Bacid Acidophilus) 1 cap PO BID [facility] Nystatin (Nystop Topical Powder) 2 gm TOP BID [facility] Last Admin: 05/31/18 09:39 Dose: 1 applic Pantoprazole Sodium (Protonix Inj) 40 mg IVP DAILY [facility] Last Admin: 05/31/18 09:23 Dose: 40 mg - Labs Labs: 05/31/18 11:00 05/31/18 11:00 PT 13.4 SECONDS (9.4-12.5) H 05/28/18 01:26 INR 1.17 05/28/18 01:26 APTT 20.7 Seconds (25.1-36.5) L 05/28/18 01:26 - Constitutional Appears: Non-toxic, No Acute Distress, Chronically Ill - Head Exam Head Exam: ATRAUMATIC, NORMOCEPHALIC - Eye Exam Eye Exam: EOMI, PERRL Pupil Exam: NORMAL ACCOMODATION, PERRL - ENT Exam ENT Exam: Mucous Membranes Moist, Normal External Ear Exam, TM's Normal Bilaterally - Neck Exam Neck Exam: Full ROM, Normal Inspection - Respiratory Exam Respiratory Exam: Clear to Ausculation Bilateral, NORMAL BREATHING PATTERN. absent: Rales, Rhonchi, Wheezes - Cardiovascular Exam Cardiovascular Exam: REGULAR RHYTHM, RRR, +S1, +S2 - GI/Abdominal Exam GI & Abdominal Exam: Soft, Normal Bowel Sounds. absent: Distended, Tenderness - Extremities Exam Extremities Exam: Full ROM, Normal Inspection - Neurological Exam Neurological Exam: Alert, Awake, CN II-XII Intact, Oriented x3 - Psychiatric Exam Additional comments: Odd Affect. - Skin Additional comments: large ulcerations of the lower back and sacrum bilaterally. Assessment and Plan - Assessment and Plan (Free Text) Assessment: 52 yo AA obese female with AMS with signs of sepsis with tachcardia, leukocytosis of 15, but no fevers. Patient was reported found in her home covered in feces on her cough for unknown period of time. Findings of DKA. Check brown cultures. On insulin drip. Currently on IV Vancomycin and Zosyn for antibiotic coverage. Procalcitonin of 0.14. No discernable renal issues at this time. Supportive care. Continue broad spectrum antibiotic coverage. Awaiting brown culture results. Cultures to date are negative. Clinically the patient is improving. Give at least 5 days of antibiotics before stopping. Thank you for allowing me to participate in the care of the patient, we will follow with you.
[2018-05-31] MEDS: Lactobacillus Acidophilus 500 MU Cap PO SCH (18:01)
[2018-05-31] MEDS: Insulin Human NPH 1 UNITS/0.01 ML SC SCH (22:03)
[2018-06-01] MEDS: Vancomycin 1gm in NS 250ml 1 GM/250 ML BAG IVPB SCH ×2 (05:39→17:20)
[2018-06-01 08:21] LABS: BASO # 0.01 K/mm3 (0.0-2.0); BASO % 0.2 % (0.0-3.0); EOS # 0.1 (0.0-0.7); EOS % 0.9 % (1.5-5.0); GRAN # 3.77 (1.4-6.5); GRAN % 66.5 % (50.0-68.0); LYMPH # 1.1 (1.2-3.4); LYMPH % 18.6 % (22.0-35.0); MEAN CELL VOLUME 91.7 fl (80.0-105.0); MEAN CORPUSCULAR HEMOGLOBIN 31.2 pg (25.0-35.0); MEAN PLATELET VOLUME 9.2 fl (7.0-11.0); MONO # 0.8 (0.1-0.6); MONO % 13.8 % (1.0-6.0); RBC 3.85 10^6/uL (3.5-6.1); WHITE BLOOD COUNT 5.7 10^3/ul (4.5-11.0)
[2018-06-01] MEDS: Insulin Reg-MEDIUM-Coverage SC SCH ×4 (08:27→22:16)
[2018-06-01] MEDS: Insulin Human NPH/Reg 70/30 Vial(3 ml) SC SCH ×2 (08:28→16:49)
[2018-06-01 08:33] LABS: ALB/GLOB RATIO 0.8 (1.1-1.8); ALBUMIN 2.6 g/dL (3.0-4.8); ALT/SGPT 49 U/L (7-56); AST/SGOT 49 U/L (14-36); BLOOD UREA NITROGEN 5 mg/dL (7-21); CALCIUM 8.3 mg/dL (8.4-10.5); GFR NON-AFRICAN AMERICAN > 60
[2018-06-01] MEDS: Enoxaparin 40 mg Syringe SC SCH (09:48)
[2018-06-01] MEDS: Lactobacillus Acidophilus 500 MU Cap PO SCH ×2 (09:49→17:20)
[2018-06-01] MEDS: Nystatin 100,000 Units/gm Topical Pow(15 gm) TOP SCH ×2 (09:49→17:20)
[2018-06-01] MEDS ORDERED: Potassium Chloride 20 mEq ER Tab PO ONE (10:50)
[2018-06-01] MEDS ORDERED: Magnesium 2 gm/50 ml NS 2 GM/50 ML BAG IVPB ONE (10:50)
--- NOTE | 2018-06-01 17:26 | CP.PCM.PN ---
Subjective - Date & Time of Evaluation Date of Evaluation: 06/01/18 Time of Evaluation: 16:15 - Subjective Subjective: Infectious Disease Follow Up: June 01, 2018 Ms. Simpson is a 52 year old AAF with a past medical history significant for HTN and asthma who was BIBA after she was found to have AMS. Patient is awake but unresponsive verbally for any HPI and ROS questioning. All information was obtained either by EMS or chart review. Patient was reported to have been found covered in feces and to have been "sitting on the couch for one week". ROS unobtainable at this time. In ED, patient was found with values consistent with sepsis from undetermined source and DKA. Currently, the patient is awake, alert, and orientated. Extensive sacral decubiti. Strange family dynamic. Patient only gives very vague complaints and symptoms. Patient does not want her knowning about her case even though the is in the room during this conversation. No additional issues. Objective - Vital Signs/Intake and Output Vital Signs (last 24 hours): Temp Pulse Resp BP Pulse Ox 97.6 F 89 20 94/69 L 97 06/01/18 14:00 06/01/18 14:00 06/01/18 14:00 06/01/18 14:00 06/01/18 14:00 Intake and Output: 06/01/18 06/01/18 06:59 18:59 Intake Total 360 Output Total 1500 Balance -1140 - Medications Medications: Current Medications Enoxaparin Sodium (Lovenox) 40 mg SC DAILY [facility] PRN Reason: Protocol Last Admin: 06/01/18 09:48 Dose: 40 mg Vancomycin HCl (Vancomycin 1gm) 1 gm in 250 mls @ 167 mls/hr IVPB Q12H [facility] PRN Reason: Protocol Last Admin: 06/01/18 05:39 Dose: 167 mls/hr Insulin Human NPH (Humulin N) 10 units SC HS [facility] Last Admin: 05/31/18 22:03 Dose: 10 units Insulin Human Regular (Humulin R Med) 0 units SC ACHS [facility] PRN Reason: Protocol Last Admin: 06/01/18 16:49 Dose: 3 unit Lactobacillus Acidophilus (Bacid Acidophilus) 1 cap PO BID [facility] Last Admin: 06/01/18 09:49 Dose: 1 cap Nystatin (Nystop Topical Powder) 2 gm TOP BID [facility] Last Admin: 06/01/18 09:49 Dose: 1 applic Pantoprazole Sodium (Protonix Inj) 40 mg IVP DAILY [facility] Last Admin: 06/01/18 09:49 Dose: 40 mg - Labs Labs: 06/01/18 08:00 06/01/18 08:00 PT 13.4 SECONDS (9.4-12.5) H 05/28/18 01:26 INR 1.17 05/28/18 01:26 APTT 20.7 Seconds (25.1-36.5) L 05/28/18 01:26 - Constitutional Appears: Non-toxic, No Acute Distress, Chronically Ill - Head Exam Head Exam: ATRAUMATIC, NORMOCEPHALIC - Eye Exam Eye Exam: EOMI, PERRL Pupil Exam: NORMAL ACCOMODATION, PERRL - ENT Exam ENT Exam: Mucous Membranes Moist, Normal External Ear Exam, TM's Normal Bilaterally - Neck Exam Neck Exam: Full ROM, Normal Inspection - Respiratory Exam Respiratory Exam: Clear to Ausculation Bilateral, NORMAL BREATHING PATTERN. absent: Rales, Rhonchi, Wheezes - Cardiovascular Exam Cardiovascular Exam: REGULAR RHYTHM, RRR, +S1, +S2 - GI/Abdominal Exam GI & Abdominal Exam: Soft, Normal Bowel Sounds. absent: Distended, Tenderness - Extremities Exam Extremities Exam: Full ROM, Normal Inspection - Neurological Exam Neurological Exam: Alert, Awake, CN II-XII Intact, Oriented x3 - Psychiatric Exam Additional comments: Odd Affect - Skin Additional comments: large ulcerations of the lower back and sacrum bilaterally. Assessment and Plan - Assessment and Plan (Free Text) Assessment: 52 yo AA obese female with AMS with signs of sepsis with tachcardia, leukocytosis of 15, but no fevers. Patient was reported found in her home covered in feces on her cough for unknown period of time. Findings of DKA. Check brown cultures. On insulin drip. Currently on IV Vancomycin and Zosyn for antibiotic coverage. Procalcitonin of 0.14. No discernable renal issues at this time. Supportive care. Continue broad spectrum antibiotic coverage. Awaiting brown culture results. Cultures to date are negative. Clinically the patient is improving. Give at least 5 days of antibiotics before stopping. Cultures remain negative. Question of family issues or strange family dynamic. Thank you for allowing me to participate in the care of the patient, we will follow with you.
--- NOTE | 2018-06-01 18:03 | CP.PCM.PN ---
<Edinson Bellamy - Last Filed: 06/01/18 17:58> Subjective - Date & Time of Evaluation Date of Evaluation: 06/01/18 Time of Evaluation: 17:58 - Subjective Subjective: Edinson Bellamy, PGY-1 Progress Note for Hospitalist Service Patient seen and examined at bedside this morning. No acute events overnight. Patient continues to be altered during examination. She had bowel movement on herself this morning. K and Mg repleted. P.T. pending. Awaiting rehab placement. ROS limited due to altered state with unknown baseline. Objective - Vital Signs/Intake and Output Vital Signs (last 24 hours): Temp Pulse Resp BP Pulse Ox 97.6 F 89 20 94/69 L 96 06/01/18 16:00 06/01/18 16:00 06/01/18 16:00 06/01/18 16:00 06/01/18 16:00 Intake and Output: 06/01/18 06/01/18 06:59 18:59 Intake Total 360 Output Total 1500 Balance -1140 - Medications Medications: Current Medications Enoxaparin Sodium (Lovenox) 40 mg SC DAILY [facility] PRN Reason: Protocol Last Admin: 06/01/18 09:48 Dose: 40 mg Vancomycin HCl (Vancomycin 1gm) 1 gm in 250 mls @ 167 mls/hr IVPB Q12H [facility] PRN Reason: Protocol Last Admin: 06/01/18 17:20 Dose: 167 mls/hr Insulin Human NPH (Humulin N) 10 units SC HS [facility] Last Admin: 05/31/18 22:03 Dose: 10 units Insulin Human Regular (Humulin R Med) 0 units SC ACHS [facility] PRN Reason: Protocol Last Admin: 06/01/18 16:49 Dose: 3 unit Lactobacillus Acidophilus (Bacid Acidophilus) 1 cap PO BID [facility] Last Admin: 06/01/18 17:20 Dose: 1 cap Nystatin (Nystop Topical Powder) 2 gm TOP BID [facility] Last Admin: 06/01/18 17:20 Dose: 1 applic Pantoprazole Sodium (Protonix Inj) 40 mg IVP DAILY [facility] Last Admin: 06/01/18 09:49 Dose: 40 mg - Labs Labs: 06/01/18 08:00 06/01/18 08:00 PT 13.4 SECONDS (9.4-12.5) H 05/28/18 01:26 INR 1.17 05/28/18 01:26 APTT 20.7 Seconds (25.1-36.5) L 05/28/18 01:26 - Constitutional Appears: No Acute Distress - Head Exam Head Exam: ATRAUMATIC, NORMAL INSPECTION - Eye Exam Eye Exam: EOMI Pupil Exam: PERRL - ENT Exam ENT Exam: Mucous Membranes Moist - Respiratory Exam Respiratory Exam: Clear to Ausculation Bilateral. absent: Respiratory Distress - Cardiovascular Exam Cardiovascular Exam: REGULAR RHYTHM, +S1, +S2, Murmur - GI/Abdominal Exam GI & Abdominal Exam: Normal Bowel Sounds. absent: Guarding, Rigid - Extremities Exam Extremities Exam: Normal Inspection Additional comments: patient expressed pain upon light tight of lower extremities - Back Exam Additional comments: superficial sacral ulcers noted - Neurological Exam Neurological Exam: Alert, Altered, Awake - Skin Additional comments: possible fungal rash noted under breasts B/L and below pelvic region Assessment and Plan - Assessment and Plan (Free Text) Assessment: 52 yo female with PMH of obesity, HTN and asthma presented with AMS most likely due to DKA - resolved, electrolyte abnormalities, and sepsis 2/2 sacral ulcers. Will need subacute rehab placement. Delayed placement due to holiday weekend. Patient continues to be altered. Plan: AMS -2/2 toxic metabolic encephalopathy from DKA -resolved, sepsis - improving, and electrolyte abnormality - repleted -K 3.2 and Mg 1.5 today. Repleted -continues to be altered and does not respond appropriately to questioning -seizure, aspiration precautions -Head CT on admission showed no acute findings -urine drug screen was negative -speech/swallow eval- no dysphagia, heart health diet started -PT recommended subacute rehab placement. Delayed placement due to holiday weekend -neurology on consult, Dr. Hernandez Sepsis 2/2 sacral ulcers -afebrile overnight and today, improved leukocytosis -CXR on admission showed bibasilar atelectasis -UA revealed moderate bacteria -blood culture shows no growth after 4 days -MRSA not detected -Urine culture shows no growth -currently on vancomycin -procalcitonin unremarkable at 0.14 -receiving nystatin topical for fungal growth noted along lower breast border and lower abdominal crevice -wound care pending -Infectious disease on consult, Dr. Pappas Hypomagnesemia -Mg is 1.5 today. Repleted -will continue to monitor Hypokalemia -potassium today is 3.2 from 3.5 yesterday. Repleted -will monitor Lipoma -left shoulder lipoma measuring approximatey 15x7cm -shoulder xray on 05/30 showed lipoma of the shoulder DKA - resolved -anion gap closed -Humulin NPH 10 units HS per endocrinology -ISSS- low -U/A on admission revealed ketones -diet advanced to heart healthy, low carb -educator senior clinical -Endo on consult, Dr. Solitario Hypernatremia - resolved -sodium is 140 today WNL -will continue to monitor Hepatitis C -hepatitis c antibody reactive -Hepatitis C viral load ordered -HIV is non reactive -patient aware PPX with lovonex and protonix Case discussed and reviewed with attending, Dr. Bennett <Sandrita Bennett R - Last Filed: 06/02/18 11:19> Objective - Vital Signs/Intake and Output Vital Signs (last 24 hours): Temp Pulse Resp BP Pulse Ox 98 F 84 20 164/84 H 90 L 06/02/18 07:56 06/02/18 07:56 06/02/18 07:56 06/02/18 07:56 06/02/18 07:56 - Medications Medications: Current Medications Enoxaparin Sodium (Lovenox) 40 mg SC DAILY [facility] PRN Reason: Protocol Last Admin: 06/02/18 10:04 Dose: 40 mg Gabapentin (Neurontin) 100 mg PO TID [facility] PRN Reason: Protocol Last Admin: 06/02/18 10:05 Dose: 100 mg Insulin Human NPH (Humulin N) 14 units SC HS [facility] Insulin Human Regular (Humulin R Med) 0 units SC ACHS [facility] PRN Reason: Protocol Last Admin: 06/02/18 08:30 Dose: 1 unit Lactobacillus Acidophilus (Bacid Acidophilus) 1 cap PO BID [facility] Last Admin: 06/02/18 10:05 Dose: 1 cap Nystatin (Nystop Topical Powder) 2 gm TOP BID [facility] Last Admin: 06/02/18 10:06 Dose: 1 applic Pantoprazole Sodium (Protonix Inj) 40 mg IVP DAILY [facility] Last Admin: 06/02/18 10:05 Dose: 40 mg - Labs Labs: 06/02/18 06:30 06/02/18 06:30 PT 13.4 SECONDS (9.4-12.5) H 05/28/18 01:26 INR 1.17 05/28/18 01:26 APTT 20.7 Seconds (25.1-36.5) L 05/28/18 01:26 Attending/Attestation - Attestation I have personally seen and examined this patient.: Yes I have fully participated in the care of the patient.: Yes I have reviewed all pertinent clinical information, including history, physical exam and plan: Yes Notes (Text): Patient seen and examined by me at 10:40AM with resident 06/01/18. Case including HPI, physical exam, and assessment and plan discussed with resident. Agree with above with following additions/corrections. Patient is a 52-year-old female with past medical history significant for hypertension and asthma the presented to the emergency room with altered mental status. Patient states she is feeling ok. States that she was not feeling well at home and was embarrassed to ask anyone for help. She felt weak at home. She states she did not know she had diabetes. She states that her did not know how to help her. Patient denies any chest pain or shortness of breath. No headaches or dizziness. No nausea, vomiting, or abdominal pain. No fevers or chills. No dysuria. Patient is having bowel movements. Patient wants to get up to go to the bathroom. Physical exam: General: Awake and alert, lying in bed in no acute distress HEENT: Normocephalic, atraumatic. Extraocular muscles intact. No scleral icterus. Oropharynx is pink. Moist mucous membranes. Neck is supple. Cardiovascular: Normal rhythm. Normal S1, S2. Positive systolic murmur. No rubs rubs or gallops appreciated Pulmonary: Normal respiratory effort. Decreased breath sounds. No rhonchi, rales , or wheezing appreciated. Gastrointestinal: Soft, nondistended, obese abdomen. Positive generalized tenderness. Positive bowel sounds all 4 quadrants, no guarding. Musculoskeletal: Moves all extremities, no calf tenderness, no edema appreciated. Positive left shoulder large lump noted. Central nervous system: Awake and alert. CN2-12 grossly intact. Dermatologic: Skin warm and dry. Positive a chronic decubitus ulcers. Positive erythematous rash under bilateral breasts and groin area. Assessment and plan: Patient is a 52-year-old female with past medical history significant for hypertension and asthma the presented to the emergency room with altered mental status. 1. Toxic metabolic encephalopathy. Resolving. May be secondary to DKA vs electrolyte imbalance. Continue insulin sliding scale. Continue Humulin 10 units at bedtime. Continue with broad-spectrum antibiotics vancomycin and Zosyn for atleast a total of 5 days per ID. Blood cultures negative. Urine culture negative. Afebrile. Leukocytosis resolved. Procalcitionin 0.14. Head CT per radiologist showed no acute intracranial abdnormalities. Met sepsis criteria on admission. DKA resolved. Insulin drip stopped. Endocrinology following, recommendations appreciated. Neurology following, recommendations appreciated. ID following, recommendations appreciated. 2. DKA. Resolved. Off insulin drip. Endocrinology following, recommendations appreciated. Hemoglobin A1c 16.9. Continue insulin sliding scale and humulin 10 units at bedtime. Continue to monitor Accu-Cheks. 3. Hypernatremia. Likely secondary to dehydration. Resolved. Continue to monitor. 4. Hypokalemia/hypophosphatemia. Hypophoshatemia resolved. Continue to replace potassium. Continue to monitor. 5. Candidal rash. Under breasts and in groin area. Continue with Nystatin 6. Sacral ulcers. Wound care consulted. Continue local wound care and antibiotics. 7. Left shoulder lump. X-ray left shoulder shows lipoma. Patient will need outpatient follow-up for possible removal if wanted. 8. Hepatitis C positive. Per patient, she was aware of this. Viral load pending. HIV ordered. ID following. 9. GI/DVT prophylaxis. Protonix and Lovenox 10. Dispo. Needs QING placement. Case was discussed in detail with patient regarding current diagnosis and treatment plan.
[2018-06-01] MEDS: Insulin Human NPH 1 UNITS/0.01 ML SC SCH (22:23)
[2018-06-02] MEDS: Vancomycin 1gm in NS 250ml 1 GM/250 ML BAG IVPB SCH (05:35)
[2018-06-02 07:22] LABS: BASO # 0.01 K/mm3 (0.0-2.0); BASO % 0.2 % (0.0-3.0); EOS # 0.1 (0.0-0.7); EOS % 1.2 % (1.5-5.0); GRAN # 3.51 (1.4-6.5); GRAN % 62.3 % (50.0-68.0); HEMOGLOBIN 11.2 g/dL (12.0-16.0); LYMPH % 18.4 % (22.0-35.0); MEAN CELL VOLUME 93.3 fl (80.0-105.0); MEAN CORPUSCULAR HEMOGLOBIN 31.3 pg (25.0-35.0); MEAN CORPUSCULAR HGB CONC 33.5 g/dl (31.0-37.0); MEAN PLATELET VOLUME 9.2 fl (7.0-11.0); MONO % 17.9 % (1.0-6.0); RBC 3.58 10^6/uL (3.5-6.1); RED CELL DISTRIBUTION WIDTH 12.9 % (11.5-14.5); WHITE BLOOD COUNT 5.6 10^3/ul (4.5-11.0)
[2018-06-02] MEDS ORDERED: Potassium Chloride 20 mEq ER Tab PO STA (07:33)
[2018-06-02] MEDS ORDERED: Magnesium 2 gm/50 ml NS 2 GM/50 ML BAG IVPB ONE (07:34)
[2018-06-02 07:44] LABS: ALB/GLOB RATIO 0.8 (1.1-1.8); ALBUMIN 2.3 g/dL (3.0-4.8); ALT/SGPT 58 U/L (7-56); AST/SGOT 53 U/L (14-36); BLOOD UREA NITROGEN 4 mg/dL (7-21); CALCIUM 8.4 mg/dL (8.4-10.5); GFR NON-AFRICAN AMERICAN > 60
[2018-06-02] MEDS: Insulin Reg-MEDIUM-Coverage SC SCH ×3 (08:30→16:42)
[2018-06-02] MEDS: Insulin Human NPH/Reg 70/30 Vial(3 ml) SC SCH ×2 (08:30→16:42)
[2018-06-02] MEDS: Enoxaparin 40 mg Syringe SC SCH (10:04)
[2018-06-02] MEDS: Lactobacillus Acidophilus 500 MU Cap PO SCH ×2 (10:05→17:20)
[2018-06-02] MEDS: Nystatin 100,000 Units/gm Topical Pow(15 gm) TOP SCH ×2 (10:06→17:20)
--- NOTE | 2018-06-02 15:15 | CP.PCM.PN ---
<Varghese Faust - Last Filed: 06/02/18 16:06> Subjective - Date & Time of Evaluation Date of Evaluation: 06/02/18 Time of Evaluation: 07:00 - Subjective Subjective: Vagrhese Faust, PGY1 Medicine Progress Note for Dr. Guadarrama Patient was seen and examined at bedside this morning. Patient was more alert and awake today. She said that she has some mild abdominal discomfort and increased urinary frequency. However, denies chest pain, shortness of breath, cough, headache, palpitations, numbness and tingling of extremities. No overnight changes. No fevers overnight, vital signs stable. After interview, patient's mother ( ) visited. She claimed that prior to admission, patient did not have any issues with mental status and was able to ambulate and do ordinary tasks. A full 12 point ROS was conducted and unremarkable except as stated above. Objective - Vital Signs/Intake and Output Vital Signs (last 24 hours): Temp Pulse Resp BP Pulse Ox 98 F 84 20 164/84 H 90 L 06/02/18 07:56 06/02/18 07:56 06/02/18 07:56 06/02/18 07:56 06/02/18 07:56 - Medications Medications: Current Medications Enoxaparin Sodium (Lovenox) 40 mg SC DAILY [facility] PRN Reason: Protocol Last Admin: 06/02/18 10:04 Dose: 40 mg Gabapentin (Neurontin) 100 mg PO TID [facility] PRN Reason: Protocol Last Admin: 06/02/18 15:00 Dose: 100 mg Ibuprofen (Motrin Tab) 400 mg PO Q6H PRN PRN Reason: Pain, moderate (4-7) Insulin Human NPH (Humulin N) 14 units SC HS [facility] Insulin Human Regular (Humulin R Med) 0 units SC ACHS [facility] PRN Reason: Protocol Last Admin: 06/02/18 12:30 Dose: Not Given Lactobacillus Acidophilus (Bacid Acidophilus) 1 cap PO BID [facility] Last Admin: 06/02/18 10:05 Dose: 1 cap Nystatin (Nystop Topical Powder) 2 gm TOP BID [facility] Last Admin: 06/02/18 10:06 Dose: 1 applic Pantoprazole Sodium (Protonix Inj) 40 mg IVP DAILY [facility] Last Admin: 06/02/18 10:05 Dose: 40 mg - Labs Labs: 06/02/18 06:30 06/02/18 06:30 PT 13.4 SECONDS (9.4-12.5) H 05/28/18 01:26 INR 1.17 05/28/18 01:26 APTT 20.7 Seconds (25.1-36.5) L 05/28/18 01:26 - Constitutional Appears: Well, No Acute Distress - Head Exam Head Exam: ATRAUMATIC, NORMAL INSPECTION, NORMOCEPHALIC - Eye Exam Eye Exam: EOMI, Normal appearance, PERRL Pupil Exam: NORMAL ACCOMODATION, PERRL - ENT Exam ENT Exam: Mucous Membranes Moist, Normal Exam - Neck Exam Neck Exam: Full ROM, Normal Inspection. absent: Lymphadenopathy - Respiratory Exam Respiratory Exam: Clear to Ausculation Bilateral, NORMAL BREATHING PATTERN. absent: Rales, Rhonchi, Wheezes - Cardiovascular Exam Cardiovascular Exam: REGULAR RHYTHM, +S1, +S2. absent: Murmur - GI/Abdominal Exam GI & Abdominal Exam: Soft, Tenderness (Mild tenderness at periumbilical region. ), Normal Bowel Sounds - Extremities Exam Extremities Exam: Full ROM, Normal Capillary Refill. absent: Joint Swelling, Pedal Edema Additional comments: Large lipoma at left shoulder. - Back Exam Additional comments: Sacral decubitus ulcer (stage III) - Neurological Exam Neurological Exam: Alert, Awake, Oriented x3 - Skin Skin Exam: Dry, Intact, Normal Color, Warm Assessment and Plan - Assessment and Plan (Free Text) Assessment: Patient is a 52 y/o F with PMH of obesity, HTN and asthma who presented for AMS most likely due to metabolic encephalopathy. Patient was in DKA on admission, which resolved. She was also admitted for electrolyte abnormalities and sepsis 2 /2 sacral ulcers. Will need subacute rehab placement. Patient is being monitored on the floor. Plan: AMS likely 2/2 Metabolic Encephalopathy -AAOx2 (person, place); improving mental status, follows commands -K 3.3 and Mg 1.8 (06/02) -Hospital admission for DKA -resolved, sepsis - improving, and electrolyte abnormality - repleted -ordered abdominal US for complaint of abdominal tenderness -c/w seizure, aspiration precautions -Head CT on admission showed no acute findings -urine drug screen was negative -c/w dysphagia heart healthy diet -PT recommended subacute rehab placement. -neurology on consult, Dr. Hernandez Sepsis 2/2 sacral ulcers (Stage III) -afebrile overnight, no leukocytosis -wound care is following -CXR on admission showed bibasilar atelectasis -UA revealed moderate bacteria -blood culture shows no growth after 4 days -MRSA not detected -Urine culture shows no growth -currently on vancomycin -procalcitonin unremarkable at 0.14 -receiving nystatin topical for fungal growth noted along lower breast border and lower abdominal crevice -Infectious disease on consult, Dr. Pappas Hypokalemia -potassium today is 3.3 (06/02) -continue to monitor/replete with Potassium Chloride Hypomagnesemia -resolved -Mg is 1.8 -continue to monitor Lipoma -left shoulder lipoma measuring approximatey 15x7cm -shoulder xray (05/30): lipoma of the left shoulder DKA - resolved -anion gap closed -Humulin NPH 10 units HS per endocrinology -c/w ISS -U/A on admission revealed ketones -diet advanced to heart healthy, low carb -tobacco prevention health educator -Endo on consult, Dr. Solitario Hypernatremia likely 2/2 dehydration- resolved -sodium is 140 today WNL -will continue to monitor Hepatitis C -hepatitis c antibody reactive -Hepatitis C viral load ordered -HIV is non reactive -patient aware PPX with lovonex and protonix Pending Physical Therapy evaluation. Please assist patient OOB to chair. Dispo: continue to monitor patient on the floor. Case was discussed and reviewed with Attending Physician Dr. Guadarrama. <Sirisha Guadarrama - Last Filed: 06/04/18 07:57> Objective - Vital Signs/Intake and Output Vital Signs (last 24 hours): Temp Pulse Resp BP Pulse Ox 98.7 F 92 H 20 121/71 97 06/03/18 08:32 06/03/18 08:32 06/03/18 08:32 06/03/18 08:32 06/03/18 08:32 Intake and Output: 06/04/18 06/04/18 06:59 18:59 Intake Total 540 Output Total 3600 Balance -3060 - Medications Medications: Current Medications Collagenase (Santyl) 0 gm TOP BID [facility] Last Admin: 06/03/18 18:48 Dose: 1 unit Enoxaparin Sodium (Lovenox) 40 mg SC DAILY [facility] PRN Reason: Protocol Last Admin: 06/03/18 10:20 Dose: 40 mg Gabapentin (Neurontin) 100 mg PO TID [facility] PRN Reason: Protocol Last Admin: 06/03/18 17:17 Dose: 100 mg Ibuprofen (Motrin Tab) 400 mg PO Q6H PRN PRN Reason: Pain, moderate (4-7) Last Admin: 06/03/18 01:19 Dose: 400 mg Insulin Human NPH (Humulin N) 14 units SC HS [facility] Last Admin: 06/03/18 22:22 Dose: 14 units Insulin Human Regular (Humulin R Med) 0 units SC ACHS [facility] PRN Reason: Protocol Last Admin: 06/03/18 22:24 Dose: Not Given Lactobacillus Acidophilus (Bacid Acidophilus) 1 cap PO BID [facility] Last Admin: 06/03/18 17:17 Dose: 1 cap Nystatin (Nystop Topical Powder) 2 gm TOP BID [facility] Last Admin: 06/03/18 18:48 Dose: 1 applic Pantoprazole Sodium (Protonix Ec Tab) 40 mg PO ACB [facility] - Labs Labs: 06/04/18 06:40 06/04/18 06:40 PT 13.4 SECONDS (9.4-12.5) H 05/28/18 01:26 INR 1.17 05/28/18 01:26 APTT 20.7 Seconds (25.1-36.5) L 05/28/18 01:26 Attending/Attestation - Attestation I have personally seen and examined this patient.: Yes I have fully participated in the care of the patient.: Yes I have reviewed all pertinent clinical information, including history, physical exam and plan: Yes Notes (Text): 06/04/18 07:52 Attending note; Patient seen and examined with resident. Patient is alert and awake. Complaining of generalized discomfort. Denies any nausea, vomiting. Tolerating diet well. Patient is a 52-year-old female with past medical history significant for hypertension and asthma the presented to the emergency room with altered mental status. 1. Toxic metabolic encephalopathy. resolved. secondary to DKA . Continue insulin .endocrinology evaluation appreciated. Continue with broad-spectrum antibiotics vancomycin and Zosyn for atleast a total of 5 days per ID. Blood cultures negative. Urine culture negative. Afebrile. Leukocytosis resolved. Dietary education and diabetic education given. Nursing staff and educated the patient to check fingersticks and insulin injection. 2. Hypokalemia/hypomagnesemia;. Continue to replace potassium and magnesium. 3. Candidal rash. Under breasts and in groin area. Continue with Nystatin 4. Sacral ulcers. Wound care consulted. Continue local wound care and antibiotics. 5. Hepatitis C positive. Per patient, she was aware of this. Needs close outpatient follow-up and treatment. HIV is negative. 6. GI/DVT prophylaxis. Protonix and Lovenox PT evaluation requested. Will discuss with case management director for discharge planning. Case was discussed in detail with patient regarding current diagnosis and treatment plan.
--- NOTE | 2018-06-02 16:57 | CP.PCM.PN ---
Subjective - Date & Time of Evaluation Date of Evaluation: 06/02/18 Time of Evaluation: 16:15 - Subjective Subjective: Infectious Disease Follow Up: June 02, 2018 Ms. Simpson is a 52 year old AAF with a past medical history significant for HTN and asthma who was BIBA after she was found to have AMS. Patient is awake but unresponsive verbally for any HPI and ROS questioning. All information was obtained either by EMS or chart review. Patient was reported to have been found covered in feces and to have been "sitting on the couch for one week". ROS unobtainable at this time. In ED, patient was found with values consistent with sepsis from undetermined source and DKA. Currently, the patient is awake, alert, and orientated. Extensive sacral decubiti. Strange family dynamic. Patient only gives very vague complaints and symptoms. Patient does not want her knowing about her case even though the is in the room during this conversation. History provided by the patient's mother suspect as it doesn't match aspects of the patient's clinical findings. No additional issues. Objective - Vital Signs/Intake and Output Vital Signs (last 24 hours): Temp Pulse Resp BP Pulse Ox 98.4 F 90 20 122/80 97 06/02/18 14:00 06/02/18 14:00 06/02/18 14:00 06/02/18 14:00 06/02/18 14:00 - Medications Medications: Current Medications Enoxaparin Sodium (Lovenox) 40 mg SC DAILY [facility] PRN Reason: Protocol Last Admin: 06/02/18 10:04 Dose: 40 mg Gabapentin (Neurontin) 100 mg PO TID [facility] PRN Reason: Protocol Last Admin: 06/02/18 15:00 Dose: 100 mg Ibuprofen (Motrin Tab) 400 mg PO Q6H PRN PRN Reason: Pain, moderate (4-7) Last Admin: 06/02/18 15:06 Dose: 400 mg Insulin Human NPH (Humulin N) 14 units SC HS [facility] Insulin Human Regular (Humulin R Med) 0 units SC ACHS [facility] PRN Reason: Protocol Last Admin: 06/02/18 16:42 Dose: 2 unit Lactobacillus Acidophilus (Bacid Acidophilus) 1 cap PO BID [facility] Last Admin: 06/02/18 10:05 Dose: 1 cap Nystatin (Nystop Topical Powder) 2 gm TOP BID [facility] Last Admin: 06/02/18 10:06 Dose: 1 applic Pantoprazole Sodium (Protonix Inj) 40 mg IVP DAILY [facility] Last Admin: 06/02/18 10:05 Dose: 40 mg - Labs Labs: 06/02/18 06:30 06/02/18 06:30 PT 13.4 SECONDS (9.4-12.5) H 05/28/18 01:26 INR 1.17 05/28/18 01:26 APTT 20.7 Seconds (25.1-36.5) L 05/28/18 01:26 - Constitutional Appears: Non-toxic, No Acute Distress - Head Exam Head Exam: ATRAUMATIC, NORMOCEPHALIC - Eye Exam Eye Exam: EOMI, PERRL Pupil Exam: NORMAL ACCOMODATION, PERRL - ENT Exam ENT Exam: Mucous Membranes Moist, Normal External Ear Exam, TM's Normal Bilaterally - Neck Exam Neck Exam: Full ROM, Normal Inspection - Respiratory Exam Respiratory Exam: Clear to Ausculation Bilateral, NORMAL BREATHING PATTERN. absent: Rales, Rhonchi, Wheezes - Cardiovascular Exam Cardiovascular Exam: REGULAR RHYTHM, RRR, +S1, +S2 - GI/Abdominal Exam GI & Abdominal Exam: Soft, Normal Bowel Sounds. absent: Distended, Tenderness - Extremities Exam Extremities Exam: Full ROM, Normal Inspection - Neurological Exam Neurological Exam: Alert, Awake, CN II-XII Intact, Oriented x3 - Psychiatric Exam Additional comments: Odd affect - Skin Additional comments: large ulcers in lower back and sacrum. Most Stage III. Assessment and Plan - Assessment and Plan (Free Text) Assessment: 52 yo AA obese female with AMS with signs of sepsis with tachcardia, leukocytosis of 15, but no fevers. Patient was reported found in her home covered in feces on her cough for unknown period of time. Findings of DKA. Check brown cultures. On insulin drip. Currently on IV Vancomycin and Zosyn for antibiotic coverage. Procalcitonin of 0.14. No discernable renal issues at this time. Supportive care. Continue broad spectrum antibiotic coverage. Awaiting brown culture results. Cultures to date are negative. Clinically the patient is improving. Give at least 5 days of antibiotics before stopping. Cultures remain negative. Can consider stopping antibiotics at this point. Question of family issues or strange family dynamic. Thank you for allowing me to participate in the care of the patient, we will follow with you.
[2018-06-03] MEDS: Insulin Reg-MEDIUM-Coverage SC SCH ×5 (01:05→22:24)
[2018-06-03] MEDS: Insulin Human NPH 1 UNITS/0.01 ML SC SCH ×2 (01:16→22:22)
[2018-06-03] MEDS: Insulin Human NPH/Reg 70/30 Vial(3 ml) SC SCH ×2 (08:44→17:19)
[2018-06-03] MEDS: Enoxaparin 40 mg Syringe SC SCH (10:20)
[2018-06-03] MEDS: Lactobacillus Acidophilus 500 MU Cap PO SCH ×2 (10:21→17:17)
[2018-06-03] MEDS: Nystatin 100,000 Units/gm Topical Pow(15 gm) TOP SCH ×2 (11:43→18:48)
--- NOTE | 2018-06-03 13:23 | US ---
Date of service: 06/03/2018 HISTORY: abd pain COMPARISON: None. TECHNIQUE: Sonographic evaluation of the abdomen. FINDINGS: LIVER: Measures 18.8 cm. Normal echogenicity of the liver parenchyma. No mass. No intrahepatic bile duct dilatation. Normal hepatopetal portal venous flow. GALLBLADDER: Status post cholecystectomy COMMON BILE DUCT: Measures 5 mm. No stones. No dilatation. PANCREAS: Unremarkable as visualized. No mass. No ductal dilatation. RIGHT KIDNEY: Measures 12.2cm. Normal echogenicity. No calculus, mass, or hydronephrosis. LEFT KIDNEY: Measures 10.8cm. Normal echogenicity. No calculus, mass, or hydronephrosis. SPLEEN: Mild splenomegaly. 14.8 cm greatest dimension. No mass. AORTA: No aneurysmal dilatation. IVC: Unremarkable. OTHER FINDINGS: None. IMPRESSION: Mild hepatosplenomegaly. Status post cholecystectomy. No additional abnormality.
--- NOTE | 2018-06-03 14:27 | CP.PCM.CON ---
History of Present Illness - History of Present Illness History of Present Illness: Marcos Escamilla DO, PGY-1 General Surgery Consult Note for Dr. Dhaliwal Patient is a 52 year old female with PMH of HTN and asthma who presented to ED via EMS on 05/28/18 with AMS. She was found to have sepsis and DKA in ED. She was subsequently treated in ICU, stabilized, and then transferred to the medical floor. She was found to have a worsening sacral decubitus ulcer on exam , prompting consult. Today, patient states that what brought her into the ED were "floaters" and feeling dizzy for the past three weeks. She denies syncope at the time of admission but states that she feels a chest tightness intermittently especially with exertion. She states that normally she is able to ambulate around the [place] without difficulty but for the past three weeks she has had increasing difficulty because of blurred vision and floaters. She denies SOB, dyspnea on exertion, fever, chills, nausea/vomiting/ diarrhea. Review of Systems - Constitutional Constitutional: absent: Chills, Fever - EENT Eyes: Blurred Vision, Floaters. absent: Loss of Vision Ears: absent: Decreased Hearing, Ear Pain, Tinnitus Nose/Mouth/Throat: absent: Nasal Congestion, Post Nasal Drip, Sore Throat, Throat Swelling - Breasts Breasts: absent: Change in Shape, Mass, Nipple Discharge - Cardiovascular Cardiovascular: Chest Pain (exertional, mid-sternal, improves with rest). absent: Dyspnea, Dyspnea on Exertion - Respiratory Respiratory: absent: Cough, Dyspnea, Wheezing - Gastrointestinal Gastrointestinal: absent: Abdominal Pain, Nausea, Vomiting - Genitourinary Genitourinary: absent: Change in Urinary Stream, Difficulty Urinating, Dysuria - Musculoskeletal Musculoskeletal: absent: Muscle Cramps, Muscle Weakness - Integumentary Integumentary: Skin Ulcer. absent: Jaundice - Neurological Neurological: Confusion, Dizziness, Lack of Coordination. absent: Numbness, Loss of Vision, Syncope - Psychiatric Psychiatric: Visual Hallucinations. absent: Depression, Mood Swings, Suicidal Ideation - Endocrine Endocrine: absent: Flushing, Palpitations - Hematologic/Lymphatic Hematologic: absent: Easy Bleeding, Easy Bruising Past Patient History - Infectious Disease Hx of Infectious Diseases: None - Tetanus Immunizations Tetanus Immunization: Unknown - Past Medical History & Family History Past Medical History?: Yes - Past Social History Smoking Status: Unknown If Ever Smoked - CARDIAC Hx Pacemaker: No - PULMONARY Hx Asthma: Yes - NEUROLOGICAL Hx Neurological Disorder: No - HEENT Hx HEENT Problems: No - RENAL Hx Chronic Kidney Disease: No - ENDOCRINE/METABOLIC Hx Endocrine Disorders: No - HEMATOLOGICAL/ONCOLOGICAL Hx Cancer: No - INTEGUMENTARY Hx Dermatological Problems: No - MUSCULOSKELETAL/RHEUMATOLOGICAL Hx Arthritis: Yes - GASTROINTESTINAL Hx Gall Bladder Disease: Yes (cholestectomy) - GENITOURINARY/GYNECOLOGICAL Hx Genitourinary Disorders: Yes Hx Incontinence: Yes - PSYCHIATRIC Hx Depression: No Hx Emotional Abuse: No Hx Physical Abuse: No Hx Substance Use: No - SURGICAL HISTORY Hx Mastectomy: No - ANESTHESIA Hx Anesthesia: No Meds Allergies/Adverse Reactions: Allergies Allergy/AdvReac Type Severity Reaction Status Date / Time Sulfa (Sulfonamide Allergy ANAPHYLAXIS Verified 05/28/18 01:17 Antibiotics) - Medications Medications: Current Medications Enoxaparin Sodium (Lovenox) 40 mg SC DAILY [facility] PRN Reason: Protocol Last Admin: 06/03/18 10:20 Dose: 40 mg Gabapentin (Neurontin) 100 mg PO TID [facility] PRN Reason: Protocol Last Admin: 06/03/18 14:07 Dose: 100 mg Ibuprofen (Motrin Tab) 400 mg PO Q6H PRN PRN Reason: Pain, moderate (4-7) Last Admin: 06/03/18 01:19 Dose: 400 mg Insulin Human NPH (Humulin N) 14 units SC HS [facility] Last Admin: 06/03/18 01:16 Dose: 14 units Insulin Human Regular (Humulin R Med) 0 units SC ACHS [facility] PRN Reason: Protocol Last Admin: 06/03/18 11:42 Dose: Not Given Lactobacillus Acidophilus (Bacid Acidophilus) 1 cap PO BID [facility] Last Admin: 06/03/18 10:21 Dose: 1 cap Nystatin (Nystop Topical Powder) 2 gm TOP BID [facility] Last Admin: 06/03/18 11:43 Dose: 1 applic Pantoprazole Sodium (Protonix Ec Tab) 40 mg PO ACB [facility] Physical Exam - Constitutional Appears: Non-toxic, No Acute Distress - Head Exam Head Exam: ATRAUMATIC, NORMAL INSPECTION - ENT Exam ENT Exam: Mucous Membranes Moist - Neck Exam Neck exam: Positive for: Full Rom - Back Exam Additional comments: Stage II sacral decubitus ulcer present bilaterally, peripheral skin tears visualized but no invasion to muscle or bone. - Neurological Exam Neurological exam: Alert Results - Vital Signs Recent Vital Signs: Last Vital Signs Temp 98.7 F 06/03/18 08:32 Pulse 92 H 06/03/18 08:32 Resp 20 06/03/18 08:32 BP 121/71 06/03/18 08:32 Pulse Ox 97 06/03/18 08:32 - Labs Result Diagrams: 06/02/18 06:30 06/02/18 06:30 Labs: Laboratory Results - last 24 hr 06/02/18 06/02/18 06/03/18 16:12 21:21 06:46 POC Glucose (mg/dL) 178 H 177 H 174 H Phosphorus Magnesium 06/03/18 06/03/18 08:30 11:35 POC Glucose (mg/dL) 149 H Phosphorus 2.2 L Magnesium 1.7 Assessment & Plan - Assessment and Plan (Free Text) Assessment: 52 year old female with PMH of asthma and HTN with stage II sacral decubitus ulcer. Plan: -Recommend Opti-foam dressing and santyl BID -Q2 hour turns, air mattress, off-loading -Keep area clean and dry Case discussed with Dr. Isra Escamilla, DO IM Resident PGY-1
--- NOTE | 2018-06-03 17:11 | CP.PCM.PN ---
<Varghese Faust - Last Filed: 06/03/18 17:06> Subjective - Date & Time of Evaluation Date of Evaluation: 06/03/18 Time of Evaluation: 07:00 - Subjective Subjective: Varghese Faust, PGY1 Medicine Progress Note for Dr. Guadarrama Patient was seen and examined at bedside this morning. No overnight changes, vital signs stable. Patient has mild tenderness of the legs, with left greater than right. She also has some weakness likely due to immobility for the past 3 weeks. She denies chest pain, shortness of breath, abdominal pain, nausea, vomiting, diarrhea, changes in bowel and bladder. Patient was educated about her admission for DKA and how to manage her diabetes appropriately. Patient was tearful on examination. A full 12 point ROS was conducted and unremarkable except as stated above. Objective - Vital Signs/Intake and Output Vital Signs (last 24 hours): Temp Pulse Resp BP Pulse Ox 98.7 F 92 H 20 121/71 97 06/03/18 08:32 06/03/18 08:32 06/03/18 08:32 06/03/18 08:32 06/03/18 08:32 Intake and Output: 06/03/18 06/03/18 06:59 18:59 Intake Total 240 360 Output Total 1300 800 Balance -1060 -440 - Medications Medications: Current Medications Collagenase (Santyl) 0 gm TOP BID [facility] Enoxaparin Sodium (Lovenox) 40 mg SC DAILY [facility] PRN Reason: Protocol Last Admin: 06/03/18 10:20 Dose: 40 mg Gabapentin (Neurontin) 100 mg PO TID [facility] PRN Reason: Protocol Last Admin: 06/03/18 14:07 Dose: 100 mg Ibuprofen (Motrin Tab) 400 mg PO Q6H PRN PRN Reason: Pain, moderate (4-7) Last Admin: 06/03/18 01:19 Dose: 400 mg Insulin Human NPH (Humulin N) 14 units SC HS [facility] Last Admin: 06/03/18 01:16 Dose: 14 units Insulin Human Regular (Humulin R Med) 0 units SC ACHS [facility] PRN Reason: Protocol Last Admin: 06/03/18 11:42 Dose: Not Given Lactobacillus Acidophilus (Bacid Acidophilus) 1 cap PO BID [facility] Last Admin: 06/03/18 10:21 Dose: 1 cap Nystatin (Nystop Topical Powder) 2 gm TOP BID [facility] Last Admin: 06/03/18 11:43 Dose: 1 applic Pantoprazole Sodium (Protonix Ec Tab) 40 mg PO ACB [facility] - Labs Labs: 06/02/18 06:30 06/02/18 06:30 PT 13.4 SECONDS (9.4-12.5) H 05/28/18 01:26 INR 1.17 05/28/18 01:26 APTT 20.7 Seconds (25.1-36.5) L 05/28/18 01:26 - Constitutional Appears: Well, Other (Tearful on examination ) - Head Exam Head Exam: ATRAUMATIC, NORMAL INSPECTION, NORMOCEPHALIC - Eye Exam Eye Exam: EOMI, Normal appearance, PERRL - ENT Exam ENT Exam: Mucous Membranes Moist, Normal Exam - Neck Exam Neck Exam: Full ROM, Normal Inspection. absent: Lymphadenopathy - Respiratory Exam Respiratory Exam: Clear to Ausculation Bilateral, NORMAL BREATHING PATTERN. absent: Rales, Rhonchi, Wheezes - Cardiovascular Exam Cardiovascular Exam: REGULAR RHYTHM, +S1, +S2. absent: Murmur - GI/Abdominal Exam GI & Abdominal Exam: Soft, Normal Bowel Sounds. absent: Guarding, Tenderness - Extremities Exam Extremities Exam: Normal Capillary Refill, Normal Inspection. absent: Full ROM , Joint Swelling, Pedal Edema - Back Exam Additional comments: Stage III sacral ulcer. - Neurological Exam Neurological Exam: Alert, Awake, Oriented x3 - Skin Skin Exam: Dry, Intact, Normal Color, Warm Assessment and Plan - Assessment and Plan (Free Text) Assessment: Patient is a 52 y/o F with PMH of obesity, HTN and asthma who presented for AMS most likely due to metabolic encephalopathy. Patient was in DKA on admission, which resolved. She was also admitted for electrolyte abnormalities and sepsis 2 /2 sacral ulcers. Will need subacute rehab placement. Patient is being monitored on the floor. Plan: Sepsis 2/2 sacral ulcers (Stage III) -f/u surgery recs in regards to management of sacral wound ulcers -afebrile overnight, no leukocytosis -wound care is following -f/u PT recs for possible QING and placement -CXR on admission showed bibasilar atelectasis -UA revealed moderate bacteria -blood culture shows no growth after 4 days -MRSA not detected -Urine culture shows no growth -currently on vancomycin -procalcitonin unremarkable at 0.14 -receiving nystatin topical for fungal growth noted along lower breast border and lower abdominal crevice -Infectious disease on consult, Dr. Pappas AMS likely 2/2 Metabolic Encephalopathy - improving -AAOx3; improved mental status. -Hospital admission for DKA -resolved, sepsis - improving, and electrolyte abnormality - repleted -Abdominal US: mild hepatosplenomegaly. Status post cholecystectomy. No additional abnormality. -c/w seizure, aspiration precautions -Head CT on admission showed no acute findings -urine drug screen was negative -c/w dysphagia heart healthy diet -neurology on consult, Dr. Hernandez Hypokalemia -potassium today is 3.3 (06/02) -continue to monitor/replete with Potassium Chloride Lipoma -left shoulder lipoma measuring approximatey 15x7cm -shoulder xray (05/30): lipoma of the left shoulder DKA - resolved -diabetic education -anion gap closed, transferred to floors -c/w ISS -diet advanced to heart healthy, low carb -Endo on consult, Dr. Solitario Hepatitis C -hepatitis c antibody reactive -Hepatitis C viral load ordered -HIV is non reactive -patient aware PPX with lovonex and protonix Pending Physical Therapy evaluation. Please assist patient OOB to chair. Patient is pending application for medicaid. She is currently on [facility]. Dispo: continue to monitor patient on the floor. Case was discussed and reviewed with Attending Physician Dr. Guadarrama. <Sirisha Guadarrama - Last Filed: 06/04/18 08:03> Objective - Vital Signs/Intake and Output Vital Signs (last 24 hours): Temp Pulse Resp BP Pulse Ox 98.7 F 92 H 20 121/71 97 06/03/18 08:32 06/03/18 08:32 06/03/18 08:32 06/03/18 08:32 06/03/18 08:32 Intake and Output: 06/04/18 06/04/18 06:59 18:59 Intake Total 540 Output Total 3600 Balance -3060 - Medications Medications: Current Medications Collagenase (Santyl) 0 gm TOP BID [facility] Last Admin: 06/03/18 18:48 Dose: 1 unit Enoxaparin Sodium (Lovenox) 40 mg SC DAILY [facility] PRN Reason: Protocol Last Admin: 06/03/18 10:20 Dose: 40 mg Gabapentin (Neurontin) 100 mg PO TID [facility] PRN Reason: Protocol Last Admin: 06/03/18 17:17 Dose: 100 mg Ibuprofen (Motrin Tab) 400 mg PO Q6H PRN PRN Reason: Pain, moderate (4-7) Last Admin: 06/03/18 01:19 Dose: 400 mg Insulin Human NPH (Humulin N) 14 units SC HS [facility] Last Admin: 06/03/18 22:22 Dose: 14 units Insulin Human Regular (Humulin R Med) 0 units SC ACHS [facility] PRN Reason: Protocol Last Admin: 06/03/18 22:24 Dose: Not Given Lactobacillus Acidophilus (Bacid Acidophilus) 1 cap PO BID [facility] Last Admin: 06/03/18 17:17 Dose: 1 cap Nystatin (Nystop Topical Powder) 2 gm TOP BID [facility] Last Admin: 06/03/18 18:48 Dose: 1 applic Pantoprazole Sodium (Protonix Ec Tab) 40 mg PO ACB [facility] - Labs Labs: 06/04/18 06:40 06/04/18 06:40 PT 13.4 SECONDS (9.4-12.5) H 05/28/18 01:26 INR 1.17 05/28/18 01:26 APTT 20.7 Seconds (25.1-36.5) L 05/28/18 01:26 Attending/Attestation - Attestation I have personally seen and examined this patient.: Yes I have fully participated in the care of the patient.: Yes I have reviewed all pertinent clinical information, including history, physical exam and plan: Yes Notes (Text): 06/04/18 08:00 Attending note; Patient seen and examined with resident. Patient is alert and awake. tearful during examination because of her home situation. Wants to get physical therapy. Requesting rehabilitation. Complaining of generalized weakness . Denies any nausea, vomiting. Tolerating diet well. Patient is a 52-year-old female with past medical history significant for hypertension and asthma the presented to the emergency room with altered mental status. 1. Toxic metabolic encephalopathy. resolved. secondary to DKA . Continue insulin .endocrinology evaluation appreciated. Completed IV vancomycin and Zosyn for 5 days. Blood cultures negative. Urine culture negative. Afebrile. Leukocytosis resolved. MRSA screen negative. Dietary education and diabetic education given. Nursing staff and educated the patient to check fingersticks and insulin injection. 2. Hypokalemia/hypomagnesemia;. Continue to replace potassium and magnesium. 3. Candidal rash. Under breasts and in groin area. Continue with Nystatin 4. Sacral ulcers. Wound care consulted. Continue local wound care and antibiotics. Surgery/Wound Care evaluation requested. Turn patient frequently. Air mattress. 5. Hepatitis C positive. Per patient, she was aware of this. Needs close outpatient follow-up and treatment. HIV is negative. 6. GI/DVT prophylaxis. Protonix and Lovenox PT evaluation requested. Will discuss with major case detective for discharge planning. Case was discussed in detail with patient regarding current diagnosis and treatment plan.
--- NOTE | 2018-06-03 18:23 | CP.PCM.PN ---
Subjective - Date & Time of Evaluation Date of Evaluation: 06/03/18 Time of Evaluation: 17:30 - Subjective Subjective: Infectious Disease Follow Up: June 03, 2018 Ms. Simpson is a 52 year old AAF with a past medical history significant for HTN and asthma who was BIBA after she was found to have AMS. Patient is awake but unresponsive verbally for any HPI and ROS questioning. All information was obtained either by EMS or chart review. Patient was reported to have been found covered in feces and to have been "sitting on the couch for one week". ROS unobtainable at this time. In ED, patient was found with values consistent with sepsis from undetermined source and DKA. Currently, the patient is awake, alert, and orientated. Extensive sacral decubiti. Strange family dynamic. Patient only gives very vague complaints and symptoms. Patient does not want her knowing about her case even though the is in the room during this conversation. History provided by the patient's mother suspect as it doesn't match aspects of the patient's clinical findings. No additional issues. Patient appears to be fully awake and alert. Objective - Vital Signs/Intake and Output Vital Signs (last 24 hours): Temp Pulse Resp BP Pulse Ox 98.7 F 92 H 20 121/71 97 06/03/18 08:32 06/03/18 08:32 06/03/18 08:32 06/03/18 08:32 06/03/18 08:32 Intake and Output: 06/03/18 06/03/18 06:59 18:59 Intake Total 240 360 Output Total 1300 800 Balance -1060 -440 - Medications Medications: Current Medications Collagenase (Santyl) 0 gm TOP BID [facility] Enoxaparin Sodium (Lovenox) 40 mg SC DAILY [facility] PRN Reason: Protocol Last Admin: 06/03/18 10:20 Dose: 40 mg Gabapentin (Neurontin) 100 mg PO TID [facility] PRN Reason: Protocol Last Admin: 06/03/18 17:17 Dose: 100 mg Ibuprofen (Motrin Tab) 400 mg PO Q6H PRN PRN Reason: Pain, moderate (4-7) Last Admin: 06/03/18 01:19 Dose: 400 mg Insulin Human NPH (Humulin N) 14 units SC [facility] Last Admin: 06/03/18 01:16 Dose: 14 units Insulin Human Regular (Humulin R Med) 0 units SC ACHS [facility] PRN Reason: Protocol Last Admin: 06/03/18 17:18 Dose: 1 unit Lactobacillus Acidophilus (Bacid Acidophilus) 1 cap PO BID [facility] Last Admin: 06/03/18 17:17 Dose: 1 cap Nystatin (Nystop Topical Powder) 2 gm TOP BID [facility] Last Admin: 06/03/18 11:43 Dose: 1 applic Pantoprazole Sodium (Protonix Ec Tab) 40 mg PO ACB [facility] - Labs Labs: 06/02/18 06:30 06/02/18 06:30 PT 13.4 SECONDS (9.4-12.5) H 05/28/18 01:26 INR 1.17 05/28/18 01:26 APTT 20.7 Seconds (25.1-36.5) L 05/28/18 01:26 - Constitutional Appears: Non-toxic, No Acute Distress - Head Exam Head Exam: ATRAUMATIC, NORMOCEPHALIC - Eye Exam Eye Exam: EOMI, PERRL Pupil Exam: NORMAL ACCOMODATION, PERRL - ENT Exam ENT Exam: Mucous Membranes Moist, Normal External Ear Exam, TM's Normal Bilaterally - Neck Exam Neck Exam: Full ROM, Normal Inspection - Respiratory Exam Respiratory Exam: Clear to Ausculation Bilateral, NORMAL BREATHING PATTERN. absent: Rales, Rhonchi, Wheezes - Cardiovascular Exam Cardiovascular Exam: REGULAR RHYTHM, RRR, +S1, +S2 - GI/Abdominal Exam GI & Abdominal Exam: Soft, Normal Bowel Sounds. absent: Distended, Tenderness - Extremities Exam Extremities Exam: Full ROM, Normal Inspection - Neurological Exam Neurological Exam: Alert, Awake, CN II-XII Intact, Oriented x3 - Psychiatric Exam Additional comments: Odd affect. - Skin Additional comments: large ulcers in lower back and sacrum. Most Stage III. Assessment and Plan - Assessment and Plan (Free Text) Assessment: 52 yo AA obese female with AMS with signs of sepsis with tachcardia, leukocytosis of 15, but no fevers. Patient was reported found in her home covered in feces on her cough for unknown period of time. Findings of DKA. Check brown cultures. On insulin drip. Currently on IV Vancomycin and Zosyn for antibiotic coverage. Procalcitonin of 0.14. No discernable renal issues at this time. Supportive care. Continue broad spectrum antibiotic coverage. Awaiting brown culture results. Cultures to date are negative. Clinically the patient is improving. Give at least 5 days of antibiotics before stopping. Cultures remain negative. Can consider stopping antibiotics at this point. Question of family issues or strange family dynamic. Thank you for allowing me to participate in the care of the patient, we will follow with you.
[2018-06-03] MEDS: Collagenase 250 Units/gm Ointment(30 gm) TOP SCH (18:48)
[2018-06-04 07:16] LABS: BASO # 0.01 K/mm3 (0.0-2.0); BASO % 0.2 % (0.0-3.0); EOS # 0.1 (0.0-0.7); GRAN # 3.4 (1.4-6.5); GRAN % 55.4 % (50.0-68.0); HEMOGLOBIN 11.3 g/dL (12.0-16.0); LYMPH # 1.5 (1.2-3.4); LYMPH % 24.6 % (22.0-35.0); MEAN CELL VOLUME 94.7 fl (80.0-105.0); MEAN CORPUSCULAR HEMOGLOBIN 31.3 pg (25.0-35.0); MONO # 1.2 (0.1-0.6); MONO % 18.8 % (1.0-6.0); RBC 3.61 10^6/uL (3.5-6.1); WHITE BLOOD COUNT 6.1 10^3/ul (4.5-11.0)
[2018-06-04 07:38] LABS: ALB/GLOB RATIO 0.9 (1.1-1.8); ALBUMIN 2.7 g/dL (3.0-4.8); ALT/SGPT 52 U/L (7-56); AST/SGOT 59 U/L (14-36); BLOOD UREA NITROGEN 5 mg/dL (7-21); CALCIUM 8.9 mg/dL (8.4-10.5); GFR NON-AFRICAN AMERICAN > 60
[2018-06-04] MEDS ORDERED: Potassium Chloride 20 mEq ER Tab PO STA (07:56)
[2018-06-04] MEDS: Pantoprazole 40 mg EC Tab PO SCH (08:50)
[2018-06-04] MEDS: Insulin Reg-MEDIUM-Coverage SC SCH ×4 (08:50→22:30)
[2018-06-04] MEDS: Insulin Human NPH/Reg 70/30 Vial(3 ml) SC SCH ×2 (08:51→17:16)
[2018-06-04] MEDS: Enoxaparin 40 mg Syringe SC SCH (10:56)
[2018-06-04] MEDS: Lactobacillus Acidophilus 500 MU Cap PO SCH ×2 (10:56→18:00)
[2018-06-04] MEDS: Nystatin 100,000 Units/gm Topical Pow(15 gm) TOP SCH ×2 (11:51→18:01)
[2018-06-04] MEDS: Collagenase 250 Units/gm Ointment(30 gm) TOP SCH ×2 (13:33→18:07)
--- NOTE | 2018-06-04 15:47 | CP.PCM.PN ---
Subjective - Date & Time of Evaluation Date of Evaluation: 06/04/18 Time of Evaluation: 15:30 - Subjective Subjective: Infectious Disease Follow Up: June 04, 2018 Ms. Simpson is a 52 year old AAF with a past medical history significant for HTN and asthma who was BIBA after she was found to have AMS. Patient is awake but unresponsive verbally for any HPI and ROS questioning. All information was obtained either by EMS or chart review. Patient was reported to have been found covered in feces and to have been "sitting on the couch for one week". ROS unobtainable at this time. In ED, patient was found with values consistent with sepsis from undetermined source and DKA. Currently, the patient is awake, alert, and orientated. Extensive sacral decubiti. Strange family dynamic. Patient only gives very vague complaints and symptoms. Patient does not want her knowing about her case even though the is in the room during this conversation. History provided by the patient's mother suspect as it doesn't match aspects of the patient's clinical findings. No additional issues. Patient appears to be fully awake and alert. Objective - Vital Signs/Intake and Output Vital Signs (last 24 hours): Temp Pulse Resp BP Pulse Ox 98.2 F 98 H 20 112/85 95 06/04/18 14:00 06/04/18 14:00 06/04/18 14:00 06/04/18 14:00 06/04/18 14:00 Intake and Output: 06/04/18 06/04/18 06:59 18:59 Intake Total 540 Output Total 3600 Balance -3060 - Medications Medications: Current Medications Collagenase (Santyl) 0 gm TOP BID [facility] Last Admin: 06/04/18 13:33 Dose: 1 unit Enoxaparin Sodium (Lovenox) 40 mg SC DAILY [facility] PRN Reason: Protocol Last Admin: 06/04/18 10:56 Dose: 40 mg Gabapentin (Neurontin) 100 mg PO TID [facility] PRN Reason: Protocol Last Admin: 06/04/18 14:11 Dose: 100 mg Ibuprofen (Motrin Tab) 400 mg PO Q6H PRN PRN Reason: Pain, moderate (4-7) Last Admin: 06/03/18 01:19 Dose: 400 mg Insulin Human NPH (Humulin N) 14 units SC [facility] Last Admin: 06/03/18 22:22 Dose: 14 units Insulin Human Regular (Humulin R Med) 0 units SC ACHS [facility] PRN Reason: Protocol Last Admin: 06/04/18 11:56 Dose: 1 unit Lactobacillus Acidophilus (Bacid Acidophilus) 1 cap PO BID [facility] Last Admin: 06/04/18 10:56 Dose: 1 cap Nystatin (Nystop Topical Powder) 2 gm TOP BID [facility] Last Admin: 06/04/18 11:51 Dose: 1 applic Pantoprazole Sodium (Protonix Ec Tab) 40 mg PO ACB [facility] Last Admin: 06/04/18 08:50 Dose: 40 mg - Labs Labs: 06/04/18 06:40 06/04/18 06:40 PT 13.4 SECONDS (9.4-12.5) H 05/28/18 01:26 INR 1.17 05/28/18 01:26 APTT 20.7 Seconds (25.1-36.5) L 05/28/18 01:26 - Constitutional Appears: Non-toxic, No Acute Distress - Head Exam Head Exam: ATRAUMATIC, NORMOCEPHALIC - Eye Exam Eye Exam: EOMI, PERRL Pupil Exam: NORMAL ACCOMODATION, PERRL - ENT Exam ENT Exam: Mucous Membranes Moist, Normal External Ear Exam, TM's Normal Bilaterally - Neck Exam Neck Exam: Full ROM, Normal Inspection - Respiratory Exam Respiratory Exam: Clear to Ausculation Bilateral, NORMAL BREATHING PATTERN. absent: Rales, Rhonchi, Wheezes - Cardiovascular Exam Cardiovascular Exam: REGULAR RHYTHM, RRR, +S1, +S2 - GI/Abdominal Exam GI & Abdominal Exam: Soft, Normal Bowel Sounds. absent: Distended, Tenderness - Extremities Exam Extremities Exam: Full ROM, Normal Inspection - Neurological Exam Neurological Exam: Alert, Awake, CN II-XII Intact, Oriented x3 - Psychiatric Exam Additional comments: Odd affect. - Skin Additional comments: large ulcers in lower back and sacrum. Most Stage III. Assessment and Plan - Assessment and Plan (Free Text) Assessment: 52 yo AA obese female with AMS with signs of sepsis with tachcardia, leukocytosis of 15, but no fevers. Patient was reported found in her home covered in feces on her cough for unknown period of time. Findings of DKA. Check brown cultures. On insulin drip. Currently on IV Vancomycin and Zosyn for antibiotic coverage. Procalcitonin of 0.14. No discernable renal issues at this time. Supportive care. Continue broad spectrum antibiotic coverage. Awaiting brown culture results. Cultures to date are negative. Clinically the patient is improving. Give at least 5 days of antibiotics before stopping. Cultures remain negative. Antibiotics stopped at this point. Question of family issues or strange family dynamic. Thank you for allowing me to participate in the care of the patient, we will follow with you.
--- NOTE | 2018-06-04 21:51 | CP.PCM.PN ---
<Varghese Faust - Last Filed: 06/04/18 21:48> Subjective - Date & Time of Evaluation Date of Evaluation: 06/04/18 Time of Evaluation: 07:00 - Subjective Subjective: Varghese Faust, PGY1 Medicine Progress Note for Dr. Guadarrama Patient seen and examined at bedside this morning. No overnight changes. She saw PT yesterday, however, patient was unable to get up and walk. Patient was told that it was important for her to get out and walk with the help of PT due to her sacral wound pressure ulcer. She will be evaluated by PT again today. Denies chest pain, sob, n/v/d, numbness and tingling of extremities. A full 12 point ROS was conducted and unremarkable except as stated above. Objective - Vital Signs/Intake and Output Vital Signs (last 24 hours): Temp Pulse Resp BP Pulse Ox 98.2 F 98 H 20 112/85 95 06/04/18 14:00 06/04/18 14:00 06/04/18 14:00 06/04/18 14:00 06/04/18 14:00 - Medications Medications: Current Medications Collagenase (Santyl) 0 gm TOP BID [facility] Last Admin: 06/04/18 18:07 Dose: Not Given Enoxaparin Sodium (Lovenox) 40 mg SC DAILY [facility] PRN Reason: Protocol Last Admin: 06/04/18 10:56 Dose: 40 mg Gabapentin (Neurontin) 100 mg PO TID [facility] PRN Reason: Protocol Last Admin: 06/04/18 18:00 Dose: 100 mg Ibuprofen (Motrin Tab) 400 mg PO Q6H PRN PRN Reason: Pain, moderate (4-7) Last Admin: 06/03/18 01:19 Dose: 400 mg Insulin Human NPH (Humulin N) 14 units SC HS [facility] Last Admin: 06/03/18 22:22 Dose: 14 units Insulin Human Regular (Humulin R Med) 0 units SC ACHS [facility] PRN Reason: Protocol Last Admin: 06/04/18 17:09 Dose: Not Given Lactobacillus Acidophilus (Bacid Acidophilus) 1 cap PO BID [facility] Last Admin: 06/04/18 18:00 Dose: 1 cap Nystatin (Nystop Topical Powder) 2 gm TOP BID [facility] Last Admin: 06/04/18 18:01 Dose: 1 applic Pantoprazole Sodium (Protonix Ec Tab) 40 mg PO ACB [facility] Last Admin: 06/04/18 08:50 Dose: 40 mg - Labs Labs: 06/04/18 06:40 06/04/18 06:40 PT 13.4 SECONDS (9.4-12.5) H 05/28/18 01:26 INR 1.17 05/28/18 01:26 APTT 20.7 Seconds (25.1-36.5) L 05/28/18 01:26 - Constitutional Appears: Well - Head Exam Head Exam: ATRAUMATIC, NORMAL INSPECTION, NORMOCEPHALIC - Eye Exam Eye Exam: EOMI, Normal appearance, PERRL - ENT Exam ENT Exam: Mucous Membranes Moist, Normal Exam - Neck Exam Neck Exam: Full ROM, Normal Inspection. absent: Lymphadenopathy - Respiratory Exam Respiratory Exam: Clear to Ausculation Bilateral, NORMAL BREATHING PATTERN. absent: Rales, Rhonchi, Wheezes - Cardiovascular Exam Cardiovascular Exam: REGULAR RHYTHM, +S1, +S2. absent: Murmur - GI/Abdominal Exam GI & Abdominal Exam: Soft, Normal Bowel Sounds. absent: Tenderness - Extremities Exam Extremities Exam: Tenderness. absent: Full ROM, Normal Inspection, Pedal Edema - Back Exam Back Exam: NORMAL INSPECTION - Neurological Exam Neurological Exam: Alert, Awake, Oriented x3 Neuro motor strength exam: Left Upper Extremity: 5, Right Upper Extremity: 5, Left Lower Extremity: 4, Right Lower Extremity: 4 - Skin Skin Exam: Dry, Intact, Normal Color, Warm Assessment and Plan - Assessment and Plan (Free Text) Assessment: Patient is a 52 y/o F with PMH of obesity, HTN and asthma who presented for AMS most likely due to metabolic encephalopathy. Patient was in DKA on admission, which resolved. She was also admitted for electrolyte abnormalities and sepsis 2 /2 sacral ulcers. Will need subacute rehab placement. Patient is being monitored on the floor. Plan: Sepsis 2/2 sacral ulcers (Stage III) -surgery recommends optiform dressing, q2 turns, and air mattress for management -Patient needs PT to get her out of bed -afebrile overnight, no leukocytosis -wound care is following -f/u PT recs for possible QING and placement -CXR on admission showed bibasilar atelectasis -UA revealed moderate bacteria -blood culture shows no growth after 4 days -MRSA not detected -Urine culture shows no growth -currently on vancomycin -procalcitonin unremarkable at 0.14 -receiving nystatin topical for fungal growth noted along lower breast border and lower abdominal crevice -Infectious disease on consult, Dr. Pappas AMS likely 2/2 Metabolic Encephalopathy - improved -AAOx3; improved mental status. -Hospital admission for DKA -resolved, sepsis - improving, and electrolyte abnormality - repleted -Abdominal US: mild hepatosplenomegaly. Status post cholecystectomy. No additional abnormality. -c/w seizure, aspiration precautions -Head CT on admission showed no acute findings -urine drug screen was negative -c/w dysphagia heart healthy diet -neurology on consult, Dr. Hernandez Lipoma -left shoulder lipoma measuring approximatey 15x7cm -shoulder xray (05/30): lipoma of the left shoulder Hypokalemia - resolved -potassium today is 3.3 (06/02) -continue to monitor/replete with Potassium Chloride DKA - resolved -diabetic education -anion gap closed, transferred to floors -c/w ISS -diet advanced to heart healthy, low carb -Endo on consult, Dr. Solitario Hepatitis C -hepatitis c antibody reactive -Hepatitis C viral load ordered -HIV is non reactive -patient aware PPX with lovonex and protonix PT: Please get the patient moving and out of bed. Patient is pending application for medicaid. She is currently on [employer]. Will speak to family member (Mother). Dispo: continue to monitor patient on the floor. Continue with physical therapy. Case was discussed and reviewed with Attending Physician Dr. Guadarrama. <Sirisha Guadarrama - Last Filed: 06/05/18 13:29> Objective - Vital Signs/Intake and Output Vital Signs (last 24 hours): Temp Pulse Resp BP Pulse Ox 98.5 F 84 20 136/78 97 06/05/18 06:00 06/05/18 06:00 06/05/18 06:00 06/05/18 06:00 06/05/18 06:00 Intake and Output: 06/05/18 06/05/18 06:59 18:59 Intake Total 180 Output Total 650 Balance -470 - Medications Medications: Current Medications Collagenase (Santyl) 0 gm TOP BID [facility] Last Admin: 06/05/18 09:58 Dose: 1 unit Enoxaparin Sodium (Lovenox) 40 mg SC DAILY [facility] PRN Reason: Protocol Last Admin: 06/05/18 09:57 Dose: 40 mg Gabapentin (Neurontin) 100 mg PO TID [facility] PRN Reason: Protocol Last Admin: 06/05/18 09:58 Dose: 100 mg Ibuprofen (Motrin Tab) 400 mg PO Q6H PRN PRN Reason: Pain, moderate (4-7) Last Admin: 06/03/18 01:19 Dose: 400 mg Insulin Human NPH (Humulin N) 14 units SC HS [facility] Last Admin: 06/04/18 22:35 Dose: Not Given Insulin Human Regular (Humulin R Med) 0 units SC ACHS [facility] PRN Reason: Protocol Last Admin: 06/05/18 12:37 Dose: 3 unit Lactobacillus Acidophilus (Bacid Acidophilus) 1 cap PO BID [facility] Last Admin: 06/05/18 09:57 Dose: 1 cap Magnesium Oxide (Mag-Ox) 400 mg PO BID [facility] Nystatin (Nystop Topical Powder) 2 gm TOP BID [facility] Last Admin: 06/05/18 11:38 Dose: 1 applic Oxycodone/Acetaminophen (Percocet 5/325 Mg Tab) 1 tab PO Q6H PRN PRN Reason: Pain, severe (8-10) Stop: 06/08/18 08:32 Pantoprazole Sodium (Protonix Ec Tab) 40 mg PO ACB [facility] Last Admin: 06/05/18 08:48 Dose: 40 mg - Labs Labs: 06/05/18 07:15 06/05/18 07:15 PT 13.4 SECONDS (9.4-12.5) H 05/28/18 01:26 INR 1.17 05/28/18 01:26 APTT 20.7 Seconds (25.1-36.5) L 05/28/18 01:26 Attending/Attestation - Attestation I have personally seen and examined this patient.: Yes I have fully participated in the care of the patient.: Yes I have reviewed all pertinent clinical information, including history, physical exam and plan: Yes Notes (Text): 06/05/18 13:24 Attending note; Patient seen and examined with resident. Patient is alert and awake. Complaining of generalized weakness . Denies any nausea, vomiting. Tolerating diet well. Patient is a 52-year-old female with past medical history significant for hypertension and asthma the presented to the emergency room with altered mental status. 1. Toxic metabolic encephalopathy. resolved. secondary to DKA . Continue insulin .endocrinology evaluation appreciated. Completed IV vancomycin and Zosyn for 5 days. Blood cultures negative. Urine culture negative. Afebrile. Leukocytosis resolved. MRSA screen negative. Dietary education and diabetic education given. Nursing staff and educated the patient to check fingersticks and insulin injection. 2. Hypokalemia/ hypomagnesemia;. Continue to replace potassium and magnesium. 3. Candidal rash. Under breasts and in groin area. Continue with Nystatin 4. Sacral ulcers. Wound care consulted. Continue local wound care and antibiotics. We will educate the family about Wound Care. Surgery/Wound Care evaluation appreciated. Turn patient frequently. Air mattress. Dressing instructions appreciated. 5. Hepatitis C positive. Per patient, she was aware of this. Needs close outpatient follow-up and treatment. HIV is negative. 6. GI/DVT prophylaxis. Protonix and Lovenox PT evaluation appreciated .subacute rehabilitation recommended . Patient has no benefits for rehabilitation . Patient and the family strongly advised to learn wound care , diabetic care. trade show manager evaluation appreciated . Case was discussed in detail with patient regarding current diagnosis and treatment plan. Upon discharge patient will be referred to [facility] clinic.
[2018-06-04] MEDS: Insulin Human NPH 1 UNITS/0.01 ML SC SCH (22:35)
[2018-06-05 07:33] LABS: BASO # 0.01 K/mm3 (0.0-2.0); BASO % 0.2 % (0.0-3.0); EOS # 0.1 (0.0-0.7); EOS % 1.1 % (1.5-5.0); GRAN # 3.51 (1.4-6.5); GRAN % 54.9 % (50.0-68.0); HEMOGLOBIN 11.7 g/dL (12.0-16.0); LYMPH % 30.9 % (22.0-35.0); MEAN CELL VOLUME 95.9 fl (80.0-105.0); MEAN CORPUSCULAR HEMOGLOBIN 32.1 pg (25.0-35.0); MEAN CORPUSCULAR HGB CONC 33.5 g/dl (31.0-37.0); MEAN PLATELET VOLUME 9.3 fl (7.0-11.0); MONO # 0.8 (0.1-0.6); MONO % 12.9 % (1.0-6.0); RBC 3.64 10^6/uL (3.5-6.1); RED CELL DISTRIBUTION WIDTH 13.2 % (11.5-14.5); WHITE BLOOD COUNT 6.4 10^3/ul (4.5-11.0)
[2018-06-05 07:50] LABS: ALB/GLOB RATIO 0.9 (1.1-1.8); ALBUMIN 2.8 g/dL (3.0-4.8); ALT/SGPT 60 U/L (7-56); AST/SGOT 63 U/L (14-36); BLOOD UREA NITROGEN 11 mg/dL (7-21); CALCIUM 11.1 mg/dL (8.4-10.5); GFR NON-AFRICAN AMERICAN > 60
[2018-06-05] MEDS: Insulin Human NPH/Reg 70/30 Vial(3 ml) SC SCH ×2 (08:46→16:53)
[2018-06-05] MEDS: Insulin Reg-MEDIUM-Coverage SC SCH ×4 (08:47→23:24)
[2018-06-05] MEDS: Pantoprazole 40 mg EC Tab PO SCH (08:48)
[2018-06-05] MEDS: Lactobacillus Acidophilus 500 MU Cap PO SCH ×2 (09:57→17:37)
[2018-06-05] MEDS: Enoxaparin 40 mg Syringe SC SCH (09:57)
[2018-06-05] MEDS: Collagenase 250 Units/gm Ointment(30 gm) TOP SCH ×2 (09:58→17:39)
--- NOTE | 2018-06-05 10:16 | CP.PCM.PN ---
<Varghese Faust - Last Filed: 06/05/18 15:16> Subjective - Date & Time of Evaluation Date of Evaluation: 06/05/18 Time of Evaluation: 07:00 - Subjective Subjective: Varghese Faust, PGY1 Medicine Progress Note for Dr. Guadarrama Patient seen and examined at bedside this morning. Patient still has pain at the legs. She has a difficult time moving around in bed. She was not examined by PT yesterday. Plan for PT today to get her moving. PT was made aware to give patient pain medication if pain is limiting her mobility. Otherwise, she has no changes since prior visit and no overnight changes. Denies chest pain, shortness of breath, abdominal pain, nausea, vomiting, diarrhea. Tolerating the advance in her diet (HHD mod carb consistent) well. A full 12 point ROS was conducted and unremarkable except as stated above. Objective - Vital Signs/Intake and Output Vital Signs (last 24 hours): Temp Pulse Resp BP Pulse Ox 98.5 F 84 20 136/78 97 06/05/18 06:00 06/05/18 06:00 06/05/18 06:00 06/05/18 06:00 06/05/18 06:00 Intake and Output: 06/05/18 06/05/18 06:59 18:59 Intake Total 180 Output Total 650 Balance -470 - Medications Medications: Current Medications Collagenase (Santyl) 0 gm TOP BID [facility] Last Admin: 06/05/18 09:58 Dose: 1 unit Enoxaparin Sodium (Lovenox) 40 mg SC DAILY [facility] PRN Reason: Protocol Last Admin: 06/05/18 09:57 Dose: 40 mg Gabapentin (Neurontin) 100 mg PO TID [facility] PRN Reason: Protocol Last Admin: 06/05/18 09:58 Dose: 100 mg Ibuprofen (Motrin Tab) 400 mg PO Q6H PRN PRN Reason: Pain, moderate (4-7) Last Admin: 06/03/18 01:19 Dose: 400 mg Insulin Human NPH (Humulin N) 14 units SC HS [facility] Last Admin: 06/04/18 22:35 Dose: Not Given Insulin Human Regular (Humulin R Med) 0 units SC ACHS [facility] PRN Reason: Protocol Last Admin: 06/05/18 08:47 Dose: Not Given Lactobacillus Acidophilus (Bacid Acidophilus) 1 cap PO BID [facility] Last Admin: 06/05/18 09:57 Dose: 1 cap Nystatin (Nystop Topical Powder) 2 gm TOP BID [facility] Last Admin: 06/04/18 18:01 Dose: 1 applic Oxycodone/Acetaminophen (Percocet 5/325 Mg Tab) 1 tab PO Q6H PRN PRN Reason: Pain, severe (8-10) Stop: 06/08/18 08:32 Pantoprazole Sodium (Protonix Ec Tab) 40 mg PO ACB [facility] Last Admin: 06/05/18 08:48 Dose: 40 mg - Labs Labs: 06/05/18 07:15 06/05/18 07:15 PT 13.4 SECONDS (9.4-12.5) H 05/28/18 01:26 INR 1.17 05/28/18 01:26 APTT 20.7 Seconds (25.1-36.5) L 05/28/18 01:26 - Constitutional Appears: Well, No Acute Distress - Head Exam Head Exam: ATRAUMATIC, NORMAL INSPECTION, NORMOCEPHALIC - Eye Exam Eye Exam: EOMI, Normal appearance, PERRL - ENT Exam ENT Exam: Mucous Membranes Moist, Normal Exam - Neck Exam Neck Exam: Full ROM, Normal Inspection. absent: Lymphadenopathy - Respiratory Exam Respiratory Exam: Clear to Ausculation Bilateral, NORMAL BREATHING PATTERN. absent: Rales, Rhonchi, Wheezes - Cardiovascular Exam Cardiovascular Exam: REGULAR RHYTHM, +S1, +S2. absent: Murmur - GI/Abdominal Exam GI & Abdominal Exam: Distended, Soft, Normal Bowel Sounds. absent: Tenderness - Back Exam Additional comments: Stage III sacral ulcer. - Neurological Exam Neurological Exam: Alert, Awake, Oriented x3 Neuro motor strength exam: Left Upper Extremity: 5, Right Upper Extremity: 5, Left Lower Extremity: 4, Right Lower Extremity: 4 - Psychiatric Exam Psychiatric exam: Normal Affect, Normal Mood - Skin Skin Exam: Dry, Intact, Normal Color, Warm Assessment and Plan - Assessment and Plan (Free Text) Assessment: Patient is a 52 y/o F with PMH of obesity, HTN and asthma who presented for AMS most likely due to metabolic encephalopathy. Patient was in DKA on admission, which resolved. She was also admitted for electrolyte abnormalities and sepsis 2 /2 sacral ulcers. Will need subacute rehab placement. Patient is being monitored on the floor. Plan: Sepsis 2/2 sacral ulcers (Stage III) -Patient needs to get out of bed; PT today. Please give percocet 5/325 prior to therapy if patient cannot tolerate. -surgery recommends optiform dressing, q2 turns, and air mattress for management -afebrile overnight, no leukocytosis -wound care is following -f/u PT recs for possible QING and placement -CXR on admission showed bibasilar atelectasis -UA revealed moderate bacteria -blood culture shows no growth after 4 days -MRSA not detected -Urine culture shows no growth -currently on vancomycin -procalcitonin unremarkable at 0.14 -receiving nystatin topical for fungal growth noted along lower breast border and lower abdominal crevice -Infectious disease on consult, Dr. Pappas Possible Depression or Mood Disorder -psych consulted, f/u recs -Patient is laying in bed, not participating with therapy AMS likely 2/2 Metabolic Encephalopathy - improved -AAOx3; improved mental status. -Hospital admission for DKA -resolved, sepsis - improving, and electrolyte abnormality - repleted -Abdominal US: mild hepatosplenomegaly. Status post cholecystectomy. No additional abnormality. -c/w seizure, aspiration precautions -Head CT on admission showed no acute findings -urine drug screen was negative -c/w dysphagia heart healthy diet -neurology on consult, Dr. Hernandez Lipoma -left shoulder lipoma measuring approximatey 15x7cm -shoulder xray (05/30): lipoma of the left shoulder Hypokalemia - resolved -potassium today is 3.3 (9/) -continue to monitor/replete with Potassium Chloride DKA - resolved -diabetic education -anion gap closed, transferred to floors -c/w ISS -diet advanced to heart healthy, low carb -Endo on consult, Dr. Solitario Hepatitis C -hepatitis c antibody reactive -Hepatitis C viral load ordered -HIV is non reactive -patient aware PPX with lovonex and protonix PT: Please get the patient moving and out of bed. Patient is pending application for medicaid. She is currently on [employer]. Will speak to family member (Mother). Social Work: denied by [facility] because patient does not have an acute rehab diagnosis. Dispo: continue to monitor patient on the floor. Continue with physical therapy. Case was discussed and reviewed with Attending Physician Dr. Guadarrama. <Rangasamy,Ajantha - Last Filed: 06/05/18 17:44> Objective - Vital Signs/Intake and Output Vital Signs (last 24 hours): Temp Pulse Resp BP Pulse Ox 98.1 F 93 H 20 117/68 97 06/05/18 14:00 06/05/18 14:00 06/05/18 14:00 06/05/18 14:00 06/05/18 14:00 Intake and Output: 06/05/18 06/05/18 06:59 18:59 Intake Total 180 Output Total 650 Balance -470 - Medications Medications: Current Medications Collagenase (Santyl) 0 gm TOP BID [facility] Last Admin: 06/05/18 09:58 Dose: 1 unit Enoxaparin Sodium (Lovenox) 40 mg SC DAILY [facility] PRN Reason: Protocol Last Admin: 06/05/18 09:57 Dose: 40 mg Gabapentin (Neurontin) 100 mg PO TID [facility] PRN Reason: Protocol Last Admin: 06/05/18 14:55 Dose: Not Given Magnesium Sulfate (Magnesium Sulfate 2 Gm/50 Ml Water) 2 gm in 50 mls @ 50 mls/ hr IV ONCE ONE Stop: 06/05/18 18:14 Ibuprofen (Motrin Tab) 400 mg PO Q6H PRN PRN Reason: Pain, moderate (4-7) Last Admin: 06/03/18 01:19 Dose: 400 mg Insulin Human NPH (Humulin N) 14 units SC HS [facility] Last Admin: 06/04/18 22:35 Dose: Not Given Insulin Human Regular (Humulin R Med) 0 units SC ACHS [facility] PRN Reason: Protocol Last Admin: 06/05/18 16:54 Dose: 1 unit Lactobacillus Acidophilus (Bacid Acidophilus) 1 cap PO BID [facility] Last Admin: 06/05/18 09:57 Dose: 1 cap Magnesium Oxide (Mag-Ox) 400 mg PO BID [facility] Nystatin (Nystop Topical Powder) 2 gm TOP BID [facility] Last Admin: 06/05/18 11:38 Dose: 1 applic Oxycodone/Acetaminophen (Percocet 5/325 Mg Tab) 1 tab PO Q6H PRN PRN Reason: Pain, severe (8-10) Stop: 06/08/18 08:32 Pantoprazole Sodium (Protonix Ec Tab) 40 mg PO ACB [facility] Last Admin: 06/05/18 08:48 Dose: 40 mg - Labs Labs: 06/05/18 07:15 06/05/18 07:15 PT 13.4 SECONDS (9.4-12.5) H 05/28/18 01:26 INR 1.17 05/28/18 01:26 APTT 20.7 Seconds (25.1-36.5) L 05/28/18 01:26 Attending/Attestation - Attestation I have personally seen and examined this patient.: Yes I have fully participated in the care of the patient.: Yes I have reviewed all pertinent clinical information, including history, physical exam and plan: Yes Notes (Text): 06/05/18 17:41 Attending note; Patient seen and examined with resident. patient's daughter by the bedside. Patient is alert and awake. agreed to do physical therapy. Patient has poor motivation. Patient is a 52-year-old female with past medical history significant for hypertension and asthma the presented to the emergency room with altered mental status. 1. Toxic metabolic encephalopathy. resolved. secondary to DKA . Continue insulin .endocrinology evaluation appreciated. Completed IV vancomycin and Zosyn for 5 days. Blood cultures negative. Urine culture negative. Afebrile. Leukocytosis resolved. MRSA screen negative. Dietary education and diabetic education given. Nursing staff to educate the patient and family to check fingersticks and insulin injection. wound care education will be given. 2. hypomagnesemia;. Continue magnesium supplementation 3. Candidal rash. Under breasts and in groin area. Continue with Nystatin 4. Sacral ulcers. Wound care consulted. Continue local wound care and antibiotics. We will educate the family about Wound Care. Surgery/Wound Care evaluation appreciated. Turn patient frequently. Air mattress. Dressing instructions appreciated. 5. Hepatitis C positive. Per patient, she was aware of this. Needs close outpatient follow-up and treatment. HIV is negative. 6. GI/DVT prophylaxis. Protonix and Lovenox PT evaluation appreciated .subacute rehabilitation recommended . Patient has no benefits for rehabilitation . Patient and the family strongly advised to learn wound care , diabetic care. economic development manager evaluation appreciated . Case was discussed in detail with patient regarding current diagnosis and treatment plan. Upon discharge patient will be referred to [facility] [place] clinic.
[2018-06-05] MEDS: Nystatin 100,000 Units/gm Topical Pow(15 gm) TOP SCH ×2 (11:38→17:37)
[2018-06-05] MEDS ORDERED: Magnesium 2 gm/50 ml NS 2 GM/50 ML BAG IVPB ONE (13:27)
[2018-06-05] MEDS ORDERED: Magnesium Sulfate 2 gm/50 ml 2 GM/50 ML BAG IV ONE (17:15)
[2018-06-05] MEDS: Oxycodone/Acetaminophen 5/325 mg Tab PO PRN (17:38)
[2018-06-05] MEDS: Magnesium Oxide 400 mg Tab UD PO SCH (17:38)
--- NOTE | 2018-06-05 19:40 | CP.PCM.PN ---
Subjective - Date & Time of Evaluation Date of Evaluation: 06/05/18 Time of Evaluation: 18:00 - Subjective Subjective: Infectious Disease Follow Up: June 05, 2018 Ms. Simpson is a 52 year old AAF with a past medical history significant for HTN and asthma who was BIBA after she was found to have AMS. Patient is awake but unresponsive verbally for any HPI and ROS questioning. All information was obtained either by EMS or chart review. Patient was reported to have been found covered in feces and to have been "sitting on the couch for one week". ROS unobtainable at this time. In ED, patient was found with values consistent with sepsis from undetermined source and DKA. Currently, the patient is awake, alert, and orientated. Extensive sacral decubiti. Strange family dynamic. Patient only gives very vague complaints and symptoms. Patient does not want her knowing about her case even though the is in the room during this conversation. History provided by the patient's mother suspect as it doesn't match aspects of the patient's clinical findings. No additional issues. Patient appears to be fully awake and alert. Objective - Vital Signs/Intake and Output Vital Signs (last 24 hours): Temp Pulse Resp BP Pulse Ox 98.1 F 93 H 20 117/68 97 06/05/18 14:00 06/05/18 14:00 06/05/18 14:00 06/05/18 14:00 06/05/18 14:00 Intake and Output: 06/05/18 06/06/18 18:59 06:59 Intake Total 180 Output Total 650 Balance -470 - Medications Medications: Current Medications Collagenase (Santyl) 0 gm TOP BID [facility] Last Admin: 06/05/18 17:39 Dose: 1 unit Enoxaparin Sodium (Lovenox) 40 mg SC DAILY [facility] PRN Reason: Protocol Last Admin: 06/05/18 09:57 Dose: 40 mg Gabapentin (Neurontin) 100 mg PO TID [facility] PRN Reason: Protocol Last Admin: 06/05/18 17:47 Dose: 100 mg Ibuprofen (Motrin Tab) 400 mg PO Q6H PRN PRN Reason: Pain, moderate (4-7) Last Admin: 06/03/18 01:19 Dose: 400 mg Insulin Human NPH (Humulin N) 14 units SC [facility] Last Admin: 06/04/18 22:35 Dose: Not Given Insulin Human Regular (Humulin R Med) 0 units SC ACHS [facility] PRN Reason: Protocol Last Admin: 06/05/18 16:54 Dose: 1 unit Lactobacillus Acidophilus (Bacid Acidophilus) 1 cap PO BID [facility] Last Admin: 06/05/18 17:37 Dose: 1 cap Magnesium Oxide (Mag-Ox) 400 mg PO BID [facility] Last Admin: 06/05/18 17:38 Dose: 400 mg Nystatin (Nystop Topical Powder) 2 gm TOP BID [facility] Last Admin: 06/05/18 17:37 Dose: 1 applic Oxycodone/Acetaminophen (Percocet 5/325 Mg Tab) 1 tab PO Q6H PRN PRN Reason: Pain, severe (8-10) Stop: 06/08/18 08:32 Last Admin: 06/05/18 17:38 Dose: 1 tab Pantoprazole Sodium (Protonix Ec Tab) 40 mg PO ACB [facility] Last Admin: 06/05/18 08:48 Dose: 40 mg - Labs Labs: 06/05/18 07:15 06/05/18 07:15 PT 13.4 SECONDS (9.4-12.5) H 05/28/18 01:26 INR 1.17 05/28/18 01:26 APTT 20.7 Seconds (25.1-36.5) L 05/28/18 01:26 - Constitutional Appears: Non-toxic, No Acute Distress, Chronically Ill - Head Exam Head Exam: ATRAUMATIC, NORMOCEPHALIC - Eye Exam Eye Exam: EOMI, PERRL Pupil Exam: NORMAL ACCOMODATION, PERRL - ENT Exam ENT Exam: Mucous Membranes Moist, Normal External Ear Exam, TM's Normal Bilaterally - Neck Exam Neck Exam: Full ROM, Normal Inspection - Respiratory Exam Respiratory Exam: Clear to Ausculation Bilateral, NORMAL BREATHING PATTERN. absent: Rales, Rhonchi, Wheezes - Cardiovascular Exam Cardiovascular Exam: REGULAR RHYTHM, RRR, +S1, +S2 - GI/Abdominal Exam GI & Abdominal Exam: Soft, Normal Bowel Sounds. absent: Distended, Tenderness - Extremities Exam Extremities Exam: absent: Full ROM, Normal Inspection - Neurological Exam Neurological Exam: Alert, Awake, CN II-XII Intact, Oriented x3 - Psychiatric Exam Additional comments: Odd affect - Skin Additional comments: large ulcers in lower back and sacrum. Most Stage III. Assessment and Plan - Assessment and Plan (Free Text) Assessment: 52 yo AA obese female with AMS with signs of sepsis with tachcardia, leukocytosis of 15, but no fevers. Patient was reported found in her home covered in feces on her cough for unknown period of time. Findings of DKA. Check brown cultures. On insulin drip. Currently on IV Vancomycin and Zosyn for antibiotic coverage. Procalcitonin of 0.14. No discernable renal issues at this time. Supportive care. Continue broad spectrum antibiotic coverage. Awaiting brown culture results. Cultures to date are negative. Clinically the patient is improving. Give at least 5 days of antibiotics before stopping. Cultures remain negative. Antibiotics stopped at this point. Question of family issues or strange family dynamic. No additional issues. Thank you for allowing me to participate in the care of the patient, we will follow with you.
[2018-06-05] MEDS: Insulin Human NPH 1 UNITS/0.01 ML SC SCH (23:27)
[2018-06-06] MEDS: Insulin Reg-MEDIUM-Coverage SC SCH ×4 (08:18→22:11)
[2018-06-06] MEDS: Insulin Human NPH/Reg 70/30 Vial(3 ml) SC SCH ×2 (08:22→17:15)
[2018-06-06] MEDS: Pantoprazole 40 mg EC Tab PO SCH (09:07)
[2018-06-06] MEDS: Lactobacillus Acidophilus 500 MU Cap PO SCH ×2 (09:07→17:18)
[2018-06-06] MEDS: Enoxaparin 40 mg Syringe SC SCH (09:07)
[2018-06-06] MEDS: Magnesium Oxide 400 mg Tab UD PO SCH ×2 (09:07→17:17)
[2018-06-06] MEDS: Nystatin 100,000 Units/gm Topical Pow(15 gm) TOP SCH ×2 (09:08→17:18)
[2018-06-06] MEDS: Collagenase 250 Units/gm Ointment(30 gm) TOP SCH ×2 (09:08→17:18)
[2018-06-06] MEDS: Oxycodone/Acetaminophen 5/325 mg Tab PO PRN (09:11)
--- NOTE | 2018-06-06 16:03 | CP.PCM.PN ---
Subjective - Date & Time of Evaluation Date of Evaluation: 06/06/18 Time of Evaluation: 15:00 - Subjective Subjective: Infectious Disease Follow Up: June 06, 2018 Ms. iSmpson is a 52 year old AAF with a past medical history significant for HTN and asthma who was BIBA after she was found to have AMS. Patient is awake but unresponsive verbally for any HPI and ROS questioning. All information was obtained either by EMS or chart review. Patient was reported to have been found covered in feces and to have been "sitting on the couch for one week". ROS unobtainable at this time. In ED, patient was found with values consistent with sepsis from undetermined source and DKA. Currently, the patient is awake, alert, and orientated. Extensive sacral decubiti. Strange family dynamic. Patient only gives very vague complaints and symptoms. Patient does not want her knowing about her case even though the is in the room during this conversation. History provided by the patient's mother suspect as it doesn't match aspects of the patient's clinical findings. No additional issues. Patient appears to be fully awake and alert. Objective - Vital Signs/Intake and Output Vital Signs (last 24 hours): Temp Pulse Resp BP Pulse Ox 98 F 89 18 124/76 96 06/06/18 14:00 06/06/18 14:00 06/06/18 14:00 06/06/18 14:00 06/06/18 14:00 Intake and Output: 06/06/18 06/06/18 06:59 18:59 Intake Total 480 Output Total 1100 Balance -620 - Medications Medications: Current Medications Collagenase (Santyl) 0 gm TOP BID [facility] Last Admin: 06/06/18 09:08 Dose: 1 unit Enoxaparin Sodium (Lovenox) 40 mg SC DAILY [facility] PRN Reason: Protocol Last Admin: 06/06/18 09:07 Dose: 40 mg Gabapentin (Neurontin) 100 mg PO TID [facility] PRN Reason: Protocol Last Admin: 06/06/18 13:28 Dose: 100 mg Ibuprofen (Motrin Tab) 400 mg PO Q6H PRN PRN Reason: Pain, moderate (4-7) Last Admin: 06/03/18 01:19 Dose: 400 mg Insulin Human NPH (Humulin N) 14 units SC [facility] Last Admin: 09/06/18 23:27 Dose: 14 units Insulin Human Regular (Humulin R Med) 0 units SC ACHS [facility] PRN Reason: Protocol Last Admin: 06/06/18 11:30 Dose: Not Given Lactobacillus Acidophilus (Bacid Acidophilus) 1 cap PO BID [facility] Last Admin: 06/06/18 09:07 Dose: 1 cap Magnesium Oxide (Mag-Ox) 400 mg PO BID [facility] Last Admin: 06/06/18 09:07 Dose: 400 mg Nystatin (Nystop Topical Powder) 2 gm TOP BID [facility] Last Admin: 06/06/18 09:08 Dose: 1 applic Oxycodone/Acetaminophen (Percocet 5/325 Mg Tab) 1 tab PO Q6H PRN PRN Reason: Pain, severe (8-10) Stop: 06/08/18 08:32 Last Admin: 06/06/18 09:11 Dose: 1 tab Pantoprazole Sodium (Protonix Ec Tab) 40 mg PO ACB [facility] Last Admin: 06/06/18 09:07 Dose: 40 mg - Labs Labs: 06/05/18 07:15 06/05/18 07:15 PT 13.4 SECONDS (9.4-12.5) H 05/28/18 01:26 INR 1.17 05/28/18 01:26 APTT 20.7 Seconds (25.1-36.5) L 05/28/18 01:26 - Constitutional Appears: Non-toxic, No Acute Distress, Chronically Ill - Head Exam Head Exam: ATRAUMATIC, NORMOCEPHALIC - Eye Exam Eye Exam: EOMI, PERRL Pupil Exam: NORMAL ACCOMODATION, PERRL - ENT Exam ENT Exam: Mucous Membranes Moist, Normal External Ear Exam, TM's Normal Bilaterally - Neck Exam Neck Exam: Full ROM, Normal Inspection - Respiratory Exam Respiratory Exam: Clear to Ausculation Bilateral, NORMAL BREATHING PATTERN. absent: Rales, Rhonchi, Wheezes - Cardiovascular Exam Cardiovascular Exam: REGULAR RHYTHM, RRR, +S1, +S2 - GI/Abdominal Exam GI & Abdominal Exam: Soft, Normal Bowel Sounds. absent: Distended, Tenderness - Extremities Exam Extremities Exam: absent: Full ROM, Normal Inspection Additional comments: lower body weakness. - Neurological Exam Neurological Exam: Alert, Awake, CN II-XII Intact, Oriented x3 - Psychiatric Exam Additional comments: Odd affect - Skin Additional comments: large ulcers in lower back and sacrum. Most Stage III. Assessment and Plan - Assessment and Plan (Free Text) Assessment: 52 yo AA obese female with AMS with signs of sepsis with tachcardia, leukocytosis of 15, but no fevers. Patient was reported found in her home covered in feces on her cough for unknown period of time. Findings of DKA. Check brown cultures. On insulin drip. Currently on IV Vancomycin and Zosyn for antibiotic coverage. Procalcitonin of 0.14. No discernable renal issues at this time. Supportive care. Continue broad spectrum antibiotic coverage. Awaiting brown culture results. Cultures to date are negative. Clinically the patient is improving. Given at least 5 days of antibiotics before stopping. Cultures remain negative. Antibiotics stopped at this point. Question of family issues or strange family dynamic. No additional issues. Thank you for allowing me to participate in the care of the patient, we will follow with you.
--- NOTE | 2018-06-06 16:22 | CP.PCM.PN ---
<Varghese Faust - Last Filed: 06/06/18 16:19> Subjective - Date & Time of Evaluation Date of Evaluation: 06/06/18 Time of Evaluation: 07:00 - Subjective Subjective: Varghese Faust, PGY1 Medicine Progress Note for Dr. Guadarrama Patient was seen and evaluated this morning. Patient had PT yesterday. As per PT , patient did some bed rolling with sit to stand, holding onto RW with 2 person assist, however, 3 minutes into therapy she got dizziness. Patient educated on the importance of doing physical therapy. Discussion at length with mother at bedside in regards to completing the process for medicaid application; mother also explained that the patient is also very sensitive to pain in general. Otherwise, patient did not complain of anything. She has no chest pain, shortness of breath, lower extremity pain, n/v/d. She needs evaluation by PT again today. No overnight changes and vital signs stable. A full 12 point ROS was conducted and unremarkable except as stated above. Objective - Vital Signs/Intake and Output Vital Signs (last 24 hours): Temp Pulse Resp BP Pulse Ox 98 F 89 18 124/76 96 06/06/18 14:00 06/06/18 14:00 06/06/18 14:00 06/06/18 14:00 06/06/18 14:00 Intake and Output: 06/06/18 06/06/18 06:59 18:59 Intake Total 480 Output Total 1100 Balance -620 - Medications Medications: Current Medications Collagenase (Santyl) 0 gm TOP BID [facility] Last Admin: 06/06/18 09:08 Dose: 1 unit Enoxaparin Sodium (Lovenox) 40 mg SC DAILY [facility] PRN Reason: Protocol Last Admin: 06/06/18 09:07 Dose: 40 mg Gabapentin (Neurontin) 100 mg PO TID [facility] PRN Reason: Protocol Last Admin: 06/06/18 13:28 Dose: 100 mg Ibuprofen (Motrin Tab) 400 mg PO Q6H PRN PRN Reason: Pain, moderate (4-7) Last Admin: 06/03/18 01:19 Dose: 400 mg Insulin Human NPH (Humulin N) 14 units SC HS [facility] Last Admin: 06/05/18 23:27 Dose: 14 units Insulin Human Regular (Humulin R Med) 0 units SC ACHS [facility] PRN Reason: Protocol Last Admin: 06/06/18 11:30 Dose: Not Given Lactobacillus Acidophilus (Bacid Acidophilus) 1 cap PO BID [facility] Last Admin: 06/06/18 09:07 Dose: 1 cap Magnesium Oxide (Mag-Ox) 400 mg PO BID [facility] Last Admin: 06/06/18 09:07 Dose: 400 mg Nystatin (Nystop Topical Powder) 2 gm TOP BID [facility] Last Admin: 06/06/18 09:08 Dose: 1 applic Oxycodone/Acetaminophen (Percocet 5/325 Mg Tab) 1 tab PO Q6H PRN PRN Reason: Pain, severe (8-10) Stop: 06/08/18 08:32 Last Admin: 06/06/18 09:11 Dose: 1 tab Pantoprazole Sodium (Protonix Ec Tab) 40 mg PO ACB [facility] Last Admin: 06/06/18 09:07 Dose: 40 mg - Labs Labs: 06/05/18 07:15 06/05/18 07:15 PT 13.4 SECONDS (9.4-12.5) H 05/28/18 01:26 INR 1.17 05/28/18 01:26 APTT 20.7 Seconds (25.1-36.5) L 05/28/18 01:26 - Constitutional Appears: Well - Head Exam Head Exam: ATRAUMATIC, NORMAL INSPECTION, NORMOCEPHALIC - Eye Exam Eye Exam: EOMI, Normal appearance, PERRL Pupil Exam: NORMAL ACCOMODATION, PERRL - ENT Exam ENT Exam: Mucous Membranes Moist, Normal Exam - Neck Exam Neck Exam: Full ROM, Normal Inspection. absent: Lymphadenopathy - Respiratory Exam Respiratory Exam: Clear to Ausculation Bilateral, NORMAL BREATHING PATTERN. absent: Rales, Rhonchi, Wheezes - Cardiovascular Exam Cardiovascular Exam: REGULAR RHYTHM, +S1, +S2. absent: Murmur - GI/Abdominal Exam GI & Abdominal Exam: Soft, Normal Bowel Sounds. absent: Guarding, Rigid, Tenderness, Rebound - Extremities Exam Extremities Exam: Full ROM, Normal Capillary Refill, Normal Inspection. absent : Joint Swelling, Pedal Edema, Tenderness - Neurological Exam Neurological Exam: Alert, Awake, Oriented x3 Neuro motor strength exam: Left Upper Extremity: 5, Right Upper Extremity: 5, Left Lower Extremity: 5, Right Lower Extremity: 5 - Psychiatric Exam Psychiatric exam: Flat Affect - Skin Skin Exam: Dry, Intact, Normal Color, Warm Assessment and Plan - Assessment and Plan (Free Text) Assessment: Patient is a 52 y/o F with PMH of obesity, HTN and asthma who presented for AMS most likely due to metabolic encephalopathy. Patient was in DKA on admission, which resolved. She was also admitted for electrolyte abnormalities and sepsis 2 /2 sacral ulcers. Will need subacute rehab placement. Patient is being monitored on the floor. Plan: Sepsis 2/2 sacral ulcers (Stage III) -f/u PT today -Please give percocet 5/325 prior to therapy if patient cannot tolerate. -surgery recommends optiform dressing, q2 turns, and air mattress for management -afebrile overnight, no leukocytosis -wound care is following -f/u PT recs for possible QING and placement -CXR on admission showed bibasilar atelectasis -UA revealed moderate bacteria -blood culture shows no growth after 4 days -MRSA not detected -Urine culture shows no growth -currently on vancomycin -procalcitonin unremarkable at 0.14 -receiving nystatin topical for fungal growth noted along lower breast border and lower abdominal crevice -Infectious disease on consult, Dr. Pappas Possible Depression or Mood Disorder -psych consulted, f/u recs -Flat affect on exam; needs appropriate evaluation for depression -Patient is laying in bed, not participating with therapy AMS likely 2/2 Metabolic Encephalopathy - improved -AAOx3; improved mental status. -Hospital admission for DKA -resolved, sepsis - improving, and electrolyte abnormality - repleted -Abdominal US: mild hepatosplenomegaly. Status post cholecystectomy. No additional abnormality. -c/w seizure, aspiration precautions -Head CT on admission showed no acute findings -urine drug screen was negative -c/w dysphagia heart healthy diet -neurology on consult, Dr. Hernandez Lipoma -left shoulder lipoma measuring approximatey 15x7cm -shoulder xray (05/30): lipoma of the left shoulder Hypokalemia - resolved -potassium today is 3.3 (06/02) -continue to monitor/replete with Potassium Chloride DKA - resolved -diabetic education -anion gap closed, transferred to floors -c/w ISS -diet advanced to heart healthy, low carb -Endo on consult, Dr. Solitario Hepatitis C -hepatitis c antibody reactive -Hepatitis C viral load ordered -HIV is non reactive -patient aware PPX with lovonex and protonix PT: Please get the patient moving and out of bed. Social Work: denied by [facility] because patient does not have an acute rehab diagnosis. [facility] Psychiatrist: patient needs outpatient PT. Discussion with patient's mother about mcaid application. Dispo: continue to monitor patient on the floor. Continue with physical therapy. Case was discussed and reviewed with Attending Physician Dr. Guadarrama. <Sirisha Guadarrama - Last Filed: 06/06/18 18:20> Objective - Vital Signs/Intake and Output Vital Signs (last 24 hours): Temp Pulse Resp BP Pulse Ox 98 F 89 18 124/76 96 06/06/18 14:00 06/06/18 14:00 06/06/18 14:00 06/06/18 14:00 06/06/18 14:00 Intake and Output: 06/06/18 06/06/18 06:59 18:59 Intake Total 480 Output Total 1100 Balance -620 - Medications Medications: Current Medications Collagenase (Santyl) 0 gm TOP BID [facility] Last Admin: 06/06/18 17:18 Dose: 1 unit Enoxaparin Sodium (Lovenox) 40 mg SC DAILY [facility] PRN Reason: Protocol Last Admin: 06/06/18 09:07 Dose: 40 mg Gabapentin (Neurontin) 100 mg PO TID [facility] PRN Reason: Protocol Last Admin: 06/06/18 17:17 Dose: 100 mg Ibuprofen (Motrin Tab) 400 mg PO Q6H PRN PRN Reason: Pain, moderate (4-7) Last Admin: 06/03/18 01:19 Dose: 400 mg Insulin Human NPH (Humulin N) 14 units SC HS [facility] Last Admin: 06/05/18 23:27 Dose: 14 units Insulin Human Regular (Humulin R Med) 0 units SC ACHS [facility] PRN Reason: Protocol Last Admin: 06/06/18 17:16 Dose: Not Given Lactobacillus Acidophilus (Bacid Acidophilus) 1 cap PO BID [facility] Last Admin: 06/06/18 17:18 Dose: 1 cap Magnesium Oxide (Mag-Ox) 400 mg PO BID [facility] Last Admin: 06/06/18 17:17 Dose: 400 mg Nystatin (Nystop Topical Powder) 2 gm TOP BID [facility] Last Admin: 06/06/18 17:18 Dose: 1 applic Oxycodone/Acetaminophen (Percocet 5/325 Mg Tab) 1 tab PO Q6H PRN PRN Reason: Pain, severe (8-10) Stop: 06/08/18 08:32 Last Admin: 06/06/18 09:11 Dose: 1 tab Pantoprazole Sodium (Protonix Ec Tab) 40 mg PO ACB [facility] Last Admin: 06/06/18 09:07 Dose: 40 mg - Labs Labs: 06/05/18 07:15 06/05/18 07:15 PT 13.4 SECONDS (9.4-12.5) H 05/28/18 01:26 INR 1.17 05/28/18 01:26 APTT 20.7 Seconds (25.1-36.5) L 05/28/18 01:26 Attending/Attestation - Attestation I have personally seen and examined this patient.: Yes I have fully participated in the care of the patient.: Yes I have reviewed all pertinent clinical information, including history, physical exam and plan: Yes Notes (Text): 06/06/18 18:19 Attending note; Patient seen and examined with resident. patient's mother by the bedside. Patient's by the bedside. Patient is alert and awake. doing physical therapy with slow improvement. Patient is a 52-year-old female with past medical history significant for hypertension and asthma the presented to the emergency room with altered mental status. 1. Toxic metabolic encephalopathy. resolved. secondary to DKA . Continue insulin .endocrinology evaluation appreciated. Completed IV vancomycin and Zosyn for 5 days. Blood cultures negative. Urine culture negative. Afebrile. Leukocytosis resolved. MRSA screen negative. Dietary education and diabetic education given. Nursing staff to educate the patient and family to check fingersticks and insulin injection. wound care education will be given. 2. hypomagnesemia;. Continue magnesium supplementation 3. Candidal rash. Under breasts and in groin area. Continue with Nystatin 4. Sacral ulcers. Wound care consulted. Continue local wound care and antibiotics. We will educate the family about Wound Care. Surgery/Wound Care evaluation appreciated. Turn patient frequently. Air mattress. Dressing instructions appreciated. 5. Hepatitis C positive. Per patient, she was aware of this. Needs close outpatient follow-up and treatment. HIV is negative. 6. GI/DVT prophylaxis. Protonix and Lovenox PT evaluation appreciated .subacute rehabilitation recommended . Patient and the family strongly advised to learn wound care , diabetic care. patient's mother discussed with case hardener today. Case was discussed in detail with patient regarding current diagnosis and treatment plan. Upon discharge patient will be referred to [facility]. 06/06/18 18:20
[2018-06-06] MEDS: Insulin Human NPH 1 UNITS/0.01 ML SC SCH (21:38)
--- NOTE | 2018-06-06 23:39 | CON ---
DATE: 06/06/2018 HISTORY OF PRESENT ILLNESS: In short, the patient is a 52-year-old female with history of asthma, hypertension. The patient was brought for evaluation of altered mental status. The patient was found sitting in the chair, covered with feces and urine at home, poorly responding to the questions. The patient was found to have sepsis secondary to sacral ulcers. The patient also has delirium. The patient has lipoma, hypokalemia, diabetic ketoacidosis, hepatitis C. Psych consult was called for evaluation of possible underlying depression. The patient was seen and examined. The patient presented with flat affect. Patient reported her medical issues making her feel very depressed and upset. The patient adamantly denied that she wanted to kill herself or others, but reported to feel hopelessness and helplessness at times. The patient denied hearing voices, denied seeing things. The patient never been evaluated by psychiatrist in the past and never been on any psychotropic medication. The patient gave permission to this sheet writer to talk to her mother, Mary Norman, who is next to the patient. For the future references, mother's phone number is [phone]. As per mother's report, the patient was very upset over her medical issues. The patient never verbalized any thoughts of killing herself or others. The patient never been on any psychotropic medications. Vital signs are stable. Temperature 98.0, pulse is 89, blood pressure 117/77, respiration 18, oxygen saturation is 96. Medications reviewed. The patient is on collagenase, Lovenox, Neurontin 100 mg three times a day, Motrin, Humulin, magnesium oxide, Percocet, Protonix. LABORATORY DATA: Labs reviewed. Hemoglobin and hematocrit 11.7 and 34.9. Coagulation reviewed. Chemistry reviewed. Urinalysis reviewed. Toxicology reviewed. Negative for any substances. Reports reviewed and discussed with Dr. Guadarrama MENTAL STATUS EXAM: The patient appears to be depressed, flat affect. Mood described as at times hopeless. Thought process coherent, goal directed. Thought content, the patient denied visual, auditory, tactile hallucinations. Denied paranoid ideation. The patient denied thoughts of harming herself or others. Denied intent or plan. Insight and judgment seems to be fair. Impulses are well controlled. IMPRESSION: Rule out mood disorder due to general medical condition, rule out major depressive disorder. PLAN: Continue current management. Continue current medication. As of now, this sheet writer will not initiate any psychotropic medications. The patient will be followed up by Dr. Jennings on Saturday. Thank you very much for letting me participate in care of your patient. In regards of the medical team question about possible depression as well as not willing to participate in physical therapy, the patient reported that she feels very weak and reported that she feels sick from the medical standpoint, but the patient wants to get better and wants to be improved. Yamileth Ch MD
[2018-06-07] MEDS: Insulin Reg-MEDIUM-Coverage SC SCH ×4 (08:02→21:17)
[2018-06-07] MEDS: Insulin Human NPH/Reg 70/30 Vial(3 ml) SC SCH ×2 (08:34→16:46)
[2018-06-07] MEDS: Pantoprazole 40 mg EC Tab PO SCH (08:34)
[2018-06-07] MEDS: Enoxaparin 40 mg Syringe SC SCH (09:10)
[2018-06-07] MEDS: Lactobacillus Acidophilus 500 MU Cap PO SCH ×2 (09:15→17:35)
[2018-06-07] MEDS: Magnesium Oxide 400 mg Tab UD PO SCH ×2 (09:15→17:35)
[2018-06-07] MEDS: Nystatin 100,000 Units/gm Topical Pow(15 gm) TOP SCH ×2 (09:16→18:05)
[2018-06-07] MEDS: Collagenase 250 Units/gm Ointment(30 gm) TOP SCH ×2 (11:31→18:05)
--- NOTE | 2018-06-07 14:47 | CP.PCM.PN ---
<Varghese Faust - Last Filed: 06/07/18 16:21> Subjective - Date & Time of Evaluation Date of Evaluation: 06/07/18 Time of Evaluation: 07:00 - Subjective Subjective: Varghese Faust, PGY1 Medicine Progress Note for Dr. Guadarrama Patient seen and examined at bedside this morning. Patient had PT yesterday and tolerated exercises well but requires further therapy. Patient denied chest pain , shortness of breath, abdominal pain, nausea, vomiting, diarrhea. She still has pain the site of her sacral ulcer. No overnight changes. Vitals are stable. A full 12 point ROS was conducted and unremarkable except as stated above. Objective - Vital Signs/Intake and Output Vital Signs (last 24 hours): Temp Pulse Resp BP Pulse Ox 98.5 F 98 H 20 125/71 96 06/07/18 07:51 06/07/18 07:51 06/07/18 07:51 06/07/18 07:51 06/07/18 07:51 Intake and Output: 06/07/18 06/07/18 06:59 18:59 Intake Total 300 Output Total 800 500 Balance -500 -500 - Medications Medications: Current Medications Collagenase (Santyl) 0 gm TOP BID [facility] Last Admin: 06/07/18 11:31 Dose: 1 unit Enoxaparin Sodium (Lovenox) 40 mg SC DAILY [facility] PRN Reason: Protocol Last Admin: 06/07/18 09:10 Dose: 40 mg Gabapentin (Neurontin) 100 mg PO TID [facility] PRN Reason: Protocol Last Admin: 06/07/18 13:36 Dose: 100 mg Ibuprofen (Motrin Tab) 400 mg PO Q6H PRN PRN Reason: Pain, moderate (4-7) Last Admin: 06/03/18 01:19 Dose: 400 mg Insulin Human NPH (Humulin N) 14 units SC HS [facility] Last Admin: 06/06/18 21:38 Dose: 14 units Insulin Human Regular (Humulin R Med) 0 units SC ACHS [facility] PRN Reason: Protocol Last Admin: 06/07/18 11:27 Dose: Not Given Lactobacillus Acidophilus (Bacid Acidophilus) 1 cap PO BID [facility] Last Admin: 06/07/18 09:15 Dose: Not Given Magnesium Oxide (Mag-Ox) 400 mg PO BID [facility] Last Admin: 06/07/18 09:15 Dose: Not Given Nystatin (Nystop Topical Powder) 2 gm TOP BID [facility] Last Admin: 06/07/18 09:16 Dose: Not Given Oxycodone/Acetaminophen (Percocet 5/325 Mg Tab) 1 tab PO Q6H PRN PRN Reason: Pain, severe (8-10) Stop: 06/08/18 08:32 Last Admin: 06/06/18 09:11 Dose: 1 tab Pantoprazole Sodium (Protonix Ec Tab) 40 mg PO ACB [facility] Last Admin: 06/07/18 08:34 Dose: 40 mg - Labs Labs: 06/05/18 07:15 06/05/18 07:15 PT 13.4 SECONDS (9.4-12.5) H 05/28/18 01:26 INR 1.17 05/28/18 01:26 APTT 20.7 Seconds (25.1-36.5) L 05/28/18 01:26 - Constitutional Appears: Well - Head Exam Head Exam: ATRAUMATIC, NORMAL INSPECTION, NORMOCEPHALIC - Eye Exam Eye Exam: EOMI, Normal appearance, PERRL Pupil Exam: NORMAL ACCOMODATION, PERRL - ENT Exam ENT Exam: Mucous Membranes Moist, Normal Exam - Neck Exam Neck Exam: Full ROM, Normal Inspection. absent: Lymphadenopathy - Respiratory Exam Respiratory Exam: Clear to Ausculation Bilateral, NORMAL BREATHING PATTERN. absent: Rales, Rhonchi, Wheezes - Cardiovascular Exam Cardiovascular Exam: REGULAR RHYTHM, +S1, +S2. absent: Murmur - GI/Abdominal Exam GI & Abdominal Exam: Soft, Normal Bowel Sounds. absent: Tenderness - Extremities Exam Extremities Exam: Normal Capillary Refill, Normal Inspection. absent: Joint Swelling, Pedal Edema, Tenderness Additional comments: Improved ROM of lower extremities. - Neurological Exam Neurological Exam: Alert, Awake, Oriented x3 Neuro motor strength exam: Left Upper Extremity: 5, Right Upper Extremity: 5, Left Lower Extremity: 4, Right Lower Extremity: 4 - Psychiatric Exam Psychiatric exam: Normal Affect - Skin Skin Exam: Dry, Intact, Normal Color, Warm Assessment and Plan - Assessment and Plan (Free Text) Assessment: Patient is a 52 y/o F with PMH of obesity, HTN and asthma who presented for AMS most likely due to metabolic encephalopathy. Patient was in DKA on admission, which resolved. She was also admitted for electrolyte abnormalities and sepsis 2 /2 sacral ulcers. Will need subacute rehab placement. Patient is being monitored on the floor. Plan: Sepsis 2/2 sacral ulcers (Stage III) -c/w PT; Please give percocet 5/325 prior to therapy if patient cannot tolerate therapy because of pain. -surgery recommends optiform dressing, q2 turns, and air mattress for management -afebrile overnight, no leukocytosis -wound care is following -f/u PT recs for possible QING and placement -CXR on admission showed bibasilar atelectasis -UA revealed moderate bacteria -blood culture shows no growth after 4 days -MRSA not detected -Urine culture shows no growth -currently on vancomycin -procalcitonin unremarkable at 0.14 -receiving nystatin topical for fungal growth noted along lower breast border and lower abdominal crevice -Infectious disease on consult, Dr. Pappas Possible Depression or Mood Disorder -Psych recommends to continue with current management; no meds at this time. AMS likely 2/2 Metabolic Encephalopathy - improved -AAOx3; improved mental status. -Hospital admission for DKA -resolved, sepsis - improving, and electrolyte abnormality - repleted -Abdominal US: mild hepatosplenomegaly. Status post cholecystectomy. No additional abnormality. -Head CT on admission showed no acute findings -urine drug screen was negative -appreciated neurology recs Lipoma -left shoulder lipoma measuring approximatey 15x7cm -shoulder xray (05/30): lipoma of the left shoulder Hypokalemia - resolved -potassium normal DKA - resolved -diabetic education -anion gap closed, transferred to floors -c/w ISS -diet advanced to heart healthy, low carb -Endo on consult, Dr. Solitario PPX with lovonex and protonix PT: Please get the patient moving and out of bed. Social Work: denied by [facility] because patient does not have an acute rehab diagnosis. Railways Assistant: patient needs outpatient PT. Discussion with patient's mother about mcaid application. Dispo: continue to monitor patient on the floor. Continue with physical therapy. Case was discussed and reviewed with Attending Physician Dr. Guadarrama. <Sirisha Guadarrama - Last Filed: 06/07/18 18:46> Objective - Vital Signs/Intake and Output Vital Signs (last 24 hours): Temp Pulse Resp BP Pulse Ox 98.5 F 98 H 20 125/71 96 06/07/18 07:51 06/07/18 07:51 06/07/18 07:51 06/07/18 07:51 06/07/18 07:51 Intake and Output: 06/07/18 06/07/18 06:59 18:59 Intake Total 300 Output Total 800 500 Balance -500 -500 - Medications Medications: Current Medications Collagenase (Santyl) 0 gm TOP BID [facility] Last Admin: 06/07/18 18:05 Dose: Not Given Enoxaparin Sodium (Lovenox) 40 mg SC DAILY [facility] PRN Reason: Protocol Last Admin: 06/07/18 09:10 Dose: 40 mg Gabapentin (Neurontin) 100 mg PO TID [facility] PRN Reason: Protocol Last Admin: 06/07/18 17:35 Dose: 100 mg Ibuprofen (Motrin Tab) 400 mg PO Q6H PRN PRN Reason: Pain, moderate (4-7) Last Admin: 06/03/18 01:19 Dose: 400 mg Insulin Human NPH (Humulin N) 14 units SC HS [facility] Last Admin: 06/06/18 21:38 Dose: 14 units Insulin Human Regular (Humulin R Med) 0 units SC ACHS [facility] PRN Reason: Protocol Last Admin: 06/07/18 16:26 Dose: Not Given Lactobacillus Acidophilus (Bacid Acidophilus) 1 cap PO BID [facility] Last Admin: 06/07/18 17:35 Dose: 1 cap Magnesium Oxide (Mag-Ox) 400 mg PO BID [facility] Last Admin: 06/07/18 17:35 Dose: 400 mg Nystatin (Nystop Topical Powder) 2 gm TOP BID [facility] Last Admin: 06/07/18 18:05 Dose: 1 applic Oxycodone/Acetaminophen (Percocet 5/325 Mg Tab) 1 tab PO Q6H PRN PRN Reason: Pain, severe (8-10) Stop: 06/08/18 08:32 Last Admin: 06/06/18 09:11 Dose: 1 tab Pantoprazole Sodium (Protonix Ec Tab) 40 mg PO ACB [facility] Last Admin: 06/07/18 08:34 Dose: 40 mg - Labs Labs: 06/05/18 07:15 06/05/18 07:15 PT 13.4 SECONDS (9.4-12.5) H 05/28/18 01:26 INR 1.17 05/28/18 01:26 APTT 20.7 Seconds (25.1-36.5) L 05/28/18 01:26 Attending/Attestation - Attestation I have personally seen and examined this patient.: Yes I have fully participated in the care of the patient.: Yes I have reviewed all pertinent clinical information, including history, physical exam and plan: Yes Notes (Text): 06/07/18 18:45 Attending note; Patient seen and examined with resident. Patient is alert and awake. doing physical therapy with slow improvement. Patient is a 52-year-old female with past medical history significant for hypertension and asthma the presented to the emergency room with altered mental status. 1. Toxic metabolic encephalopathy. resolved. secondary to DKA . Continue insulin. blood sugar is better controlled.endocrinology evaluation appreciated. Completed IV vancomycin and Zosyn for 5 days. Blood cultures negative. Urine culture negative. Afebrile. Leukocytosis resolved. MRSA screen negative. Dietary education and diabetic education given. Nursing staff to educate the patient and family to check fingersticks and insulin injection. wound care education will be given. 2. Sacral ulcers. Wound care consulted. Continue local wound care and antibiotics. We will educate the family about Wound Care. Surgery/Wound Care evaluation appreciated. Turn patient frequently. Air mattress. Dressing instructions appreciated. PT evaluation appreciated .subacute rehabilitation recommended . Patient and the family strongly advised to learn wound care , diabetic care. Case was discussed in detail with patient regarding current diagnosis and treatment plan. Upon discharge [place] [facility]
--- NOTE | 2018-06-07 16:55 | CP.PCM.PN ---
Subjective - Date & Time of Evaluation Date of Evaluation: 06/07/18 Time of Evaluation: 15:45 - Subjective Subjective: Infectious Disease Follow Up: June 07, 2018 Ms. Simpson is a 52 year old AAF with a past medical history significant for HTN and asthma who was BIBA after she was found to have AMS. Patient is awake but unresponsive verbally for any HPI and ROS questioning. All information was obtained either by EMS or chart review. Patient was reported to have been found covered in feces and to have been "sitting on the couch for one week". ROS unobtainable at this time. In ED, patient was found with values consistent with sepsis from undetermined source and DKA. Currently, the patient is awake, alert, and orientated. Extensive sacral decubiti. Strange family dynamic. Patient only gives very vague complaints and symptoms. Patient does not want her knowing about her case even though the is in the room during this conversation. History provided by the patient's mother suspect as it doesn't match aspects of the patient's clinical findings. No additional issues. Patient appears to be fully awake and alert. Still with difficulty with movement. Objective - Vital Signs/Intake and Output Vital Signs (last 24 hours): Temp Pulse Resp BP Pulse Ox 98.5 F 98 H 20 125/71 96 06/07/18 07:51 06/07/18 07:51 06/07/18 07:51 06/07/18 07:51 06/07/18 07:51 Intake and Output: 06/07/18 06/07/18 06:59 18:59 Intake Total 300 Output Total 800 500 Balance -500 -500 - Medications Medications: Current Medications Collagenase (Santyl) 0 gm TOP BID [facility] Last Admin: 06/07/18 11:31 Dose: 1 unit Enoxaparin Sodium (Lovenox) 40 mg SC DAILY [facility] PRN Reason: Protocol Last Admin: 06/07/18 09:10 Dose: 40 mg Gabapentin (Neurontin) 100 mg PO TID [facility] PRN Reason: Protocol Last Admin: 06/07/18 13:36 Dose: 100 mg Ibuprofen (Motrin Tab) 400 mg PO Q6H PRN PRN Reason: Pain, moderate (4-7) Last Admin: 06/03/18 01:19 Dose: 400 mg Insulin Human NPH (Humulin N) 14 units SC HS [facility] Last Admin: 06/06/18 21:38 Dose: 14 units Insulin Human Regular (Humulin R Med) 0 units SC ACHS [facility] PRN Reason: Protocol Last Admin: 06/07/18 16:26 Dose: Not Given Lactobacillus Acidophilus (Bacid Acidophilus) 1 cap PO BID [facility] Last Admin: 06/07/18 09:15 Dose: Not Given Magnesium Oxide (Mag-Ox) 400 mg PO BID [facility] Last Admin: 06/07/18 09:15 Dose: Not Given Nystatin (Nystop Topical Powder) 2 gm TOP BID [facility] Last Admin: 06/07/18 09:16 Dose: Not Given Oxycodone/Acetaminophen (Percocet 5/325 Mg Tab) 1 tab PO Q6H PRN PRN Reason: Pain, severe (8-10) Stop: 06/08/18 08:32 Last Admin: 06/06/18 09:11 Dose: 1 tab Pantoprazole Sodium (Protonix Ec Tab) 40 mg PO ACB [facility] Last Admin: 06/07/18 08:34 Dose: 40 mg - Labs Labs: 06/05/18 07:15 06/05/18 07:15 PT 13.4 SECONDS (9.4-12.5) H 05/28/18 01:26 INR 1.17 05/28/18 01:26 APTT 20.7 Seconds (25.1-36.5) L 05/28/18 01:26 - Constitutional Appears: Non-toxic, No Acute Distress, Chronically Ill - Head Exam Head Exam: ATRAUMATIC, NORMOCEPHALIC - Eye Exam Eye Exam: EOMI, PERRL Pupil Exam: NORMAL ACCOMODATION, PERRL - ENT Exam ENT Exam: Mucous Membranes Moist, Normal External Ear Exam, TM's Normal Bilaterally - Neck Exam Neck Exam: Full ROM, Normal Inspection - Respiratory Exam Respiratory Exam: Clear to Ausculation Bilateral, NORMAL BREATHING PATTERN. absent: Rales, Rhonchi, Wheezes - Cardiovascular Exam Cardiovascular Exam: REGULAR RHYTHM, RRR, +S1, +S2 - GI/Abdominal Exam GI & Abdominal Exam: Soft, Normal Bowel Sounds. absent: Distended, Tenderness - Extremities Exam Extremities Exam: Normal Inspection. absent: Joint Swelling, Pedal Edema - Neurological Exam Neurological Exam: Alert, Awake, CN II-XII Intact, Oriented x3 Additional comments: lower body weakness. - Psychiatric Exam Psychiatric exam: Normal Affect - Skin Skin Exam: Intact, Normal Color Additional comments: large ulcers in lower back and sacrum. Most Stage III. Assessment and Plan - Assessment and Plan (Free Text) Assessment: 52 yo AA obese female with AMS with signs of sepsis with tachcardia, leukocytosis of 15, but no fevers. Patient was reported found in her home covered in feces on her cough for unknown period of time. Findings of DKA. Check brown cultures. On insulin drip. Currently on IV Vancomycin and Zosyn for antibiotic coverage. Procalcitonin of 0.14. No discernable renal issues at this time. Supportive care. Continue broad spectrum antibiotic coverage. Awaiting brown culture results. Cultures to date are negative. Clinically the patient is improving. Given at least 5 days of antibiotics before stopping. Cultures remain negative. Antibiotics stopped at this point. Question of family issues or strange family dynamic. No additional issues. Still with difficulty with ambulation. Thank you for allowing me to participate in the care of the patient, we will follow with you.
[2018-06-07] MEDS: Insulin Human NPH 1 UNITS/0.01 ML SC SCH (22:40)
[2018-06-08] MEDS: Insulin Reg-MEDIUM-Coverage SC SCH ×4 (08:46→22:51)
[2018-06-08] MEDS: Insulin Human NPH/Reg 70/30 Vial(3 ml) SC SCH ×2 (08:55→17:30)
[2018-06-08] MEDS: Lactobacillus Acidophilus 500 MU Cap PO SCH ×2 (09:30→17:43)
[2018-06-08] MEDS: Pantoprazole 40 mg EC Tab PO SCH (09:31)
[2018-06-08] MEDS: Magnesium Oxide 400 mg Tab UD PO SCH ×2 (09:31→17:43)
[2018-06-08] MEDS: Enoxaparin 40 mg Syringe SC SCH (09:31)
[2018-06-08] MEDS: Collagenase 250 Units/gm Ointment(30 gm) TOP SCH ×2 (09:32→17:44)
[2018-06-08] MEDS: Nystatin 100,000 Units/gm Topical Pow(15 gm) TOP SCH ×2 (09:33→17:45)
--- NOTE | 2018-06-08 12:41 | CP.PCM.PN ---
<Varghese Faust - Last Filed: 06/08/18 14:13> Subjective - Date & Time of Evaluation Date of Evaluation: 06/08/18 Time of Evaluation: 07:00 - Subjective Subjective: Varghese Faust, PGY1 Medicine Progress Note for Dr. Guadarrama Patient seen and examined at bedside this morning. During interview, patient was dry heaving but has had no episodes of vomiting. She did not eat her breakfast and was complaining about the food. She said that she wanted to eat something else and was unsatisfied with the food. Patient was explained that she has no medical issues at this time. No overnight changes, afebrile and vital signs stable. She denies chest pain, shortness of breath, abdominal pain, lower extremity pain, changes in bowel and bladder. A full 12 point ROS was conducted and unremarkable except as stated above. Objective - Vital Signs/Intake and Output Vital Signs (last 24 hours): Temp Pulse Resp BP Pulse Ox 98.3 F 92 H 20 125/77 96 06/08/18 06:06 06/08/18 06:06 06/08/18 06:06 06/08/18 06:06 06/08/18 06:06 Intake and Output: 06/08/18 06/08/18 06:59 18:59 Intake Total 180 Output Total 700 Balance -520 - Medications Medications: Current Medications Collagenase (Santyl) 0 gm TOP BID [facility] Last Admin: 06/08/18 09:32 Dose: 1 unit Enoxaparin Sodium (Lovenox) 40 mg SC DAILY [facility] PRN Reason: Protocol Last Admin: 06/08/18 09:31 Dose: 40 mg Gabapentin (Neurontin) 100 mg PO TID [facility] PRN Reason: Protocol Last Admin: 06/08/18 09:30 Dose: 100 mg Ibuprofen (Motrin Tab) 400 mg PO Q6H PRN PRN Reason: Pain, moderate (4-7) Last Admin: 06/03/18 01:19 Dose: 400 mg Insulin Human NPH (Humulin N) 14 units SC HS [facility] Last Admin: 06/07/18 22:40 Dose: 14 units Insulin Human Regular (Humulin R Med) 0 units SC ACHS [facility] PRN Reason: Protocol Last Admin: 06/08/18 11:20 Dose: 1 unit Lactobacillus Acidophilus (Bacid Acidophilus) 1 cap PO BID [facility] Last Admin: 06/08/18 09:30 Dose: 1 cap Magnesium Oxide (Mag-Ox) 400 mg PO BID [facility] Last Admin: 06/08/18 09:31 Dose: 400 mg Nystatin (Nystop Topical Powder) 2 gm TOP BID [facility] Last Admin: 06/08/18 09:33 Dose: 1 applic Ondansetron HCl (Zofran Inj) 4 mg IVP Q4H PRN PRN Reason: Nausea/Vomiting Pantoprazole Sodium (Protonix Ec Tab) 40 mg PO ACB [facility] Last Admin: 06/08/18 09:31 Dose: 40 mg - Labs Labs: 06/05/18 07:15 06/05/18 07:15 PT 13.4 SECONDS (9.4-12.5) H 05/28/18 01:26 INR 1.17 05/28/18 01:26 APTT 20.7 Seconds (25.1-36.5) L 05/28/18 01:26 - Constitutional Appears: Well - Head Exam Head Exam: ATRAUMATIC, NORMAL INSPECTION, NORMOCEPHALIC - Eye Exam Eye Exam: EOMI, Normal appearance, PERRL - ENT Exam ENT Exam: Mucous Membranes Moist, Normal Exam - Neck Exam Neck Exam: Full ROM, Normal Inspection. absent: Lymphadenopathy - Respiratory Exam Respiratory Exam: Clear to Ausculation Bilateral, NORMAL BREATHING PATTERN. absent: Rales, Rhonchi, Wheezes - Cardiovascular Exam Cardiovascular Exam: REGULAR RHYTHM, +S1, +S2. absent: Murmur - GI/Abdominal Exam GI & Abdominal Exam: Soft, Normal Bowel Sounds. absent: Tenderness - Extremities Exam Extremities Exam: Full ROM, Normal Capillary Refill, Normal Inspection. absent : Joint Swelling, Pedal Edema - Back Exam Additional comments: Sacral decubitus ulcer. - Neurological Exam Neurological Exam: Alert, Awake, Oriented x3 Neuro motor strength exam: Left Upper Extremity: 5, Right Upper Extremity: 5, Left Lower Extremity: 5, Right Lower Extremity: 5 - Skin Skin Exam: Dry, Intact, Normal Color, Warm Assessment and Plan - Assessment and Plan (Free Text) Assessment: Patient is a 52 y/o F with PMH of obesity, HTN and asthma who presented for AMS most likely due to metabolic encephalopathy. Patient was in DKA on admission, which resolved. She was also admitted for electrolyte abnormalities and sepsis 2 /2 sacral ulcers. Will need subacute rehab placement. Patient is being monitored on the floor. Plan: Sacral Wound Ulcers (Stage III) -c/w PT; Please give percocet 5/325 prior to therapy if patient cannot tolerate therapy because of pain. -surgery recommends optiform dressing, q2 turns, and air mattress for management -afebrile overnight, no leukocytosis -wound care is following -f/u PT recs for possible QING and placement -Infectious disease on consult, appreciated recs. Possible Depression or Mood Disorder -Psych recommends to continue with current management; no meds at this time. AMS likely 2/2 Metabolic Encephalopathy - improved -AAOx3; improved mental status. -Hospital admission for DKA -resolved, sepsis - improving, and electrolyte abnormality - repleted -Abdominal US: mild hepatosplenomegaly. Status post cholecystectomy. No additional abnormality. -Head CT on admission showed no acute findings -urine drug screen was negative -appreciated neurology recs Lipoma -left shoulder lipoma measuring approximatey 15x7cm -shoulder xray (05/30): lipoma of the left shoulder DKA - resolved -diabetic education -c/w ISS -diet advanced to heart healthy, low carb -Endo on consult, Dr. Solitario PPX with lovonex and protonix PT: Please get the patient moving and out of bed. Recommend QING. Accounting Lecturer: patient needs outpatient PT. Discussion with patient's mother about mcaid application. Dispo: continue to monitor patient on the floor. Continue with physical therapy. Case was discussed and reviewed with Attending Physician Dr. Guadarrama. <Sirisha Guadarrama - Last Filed: 06/08/18 15:18> Objective - Vital Signs/Intake and Output Vital Signs (last 24 hours): Temp Pulse Resp BP Pulse Ox 98.3 F 92 H 20 125/77 96 06/08/18 06:06 06/08/18 06:06 06/08/18 06:06 06/08/18 06:06 06/08/18 06:06 Intake and Output: 06/08/18 06/08/18 06:59 18:59 Intake Total 180 Output Total 700 Balance -520 - Medications Medications: Current Medications Collagenase (Santyl) 0 gm TOP BID [facility] Last Admin: 06/08/18 09:32 Dose: 1 unit Enoxaparin Sodium (Lovenox) 40 mg SC DAILY [facility] PRN Reason: Protocol Last Admin: 06/08/18 09:31 Dose: 40 mg Gabapentin (Neurontin) 100 mg PO TID [facility] PRN Reason: Protocol Last Admin: 06/08/18 14:05 Dose: 100 mg Ibuprofen (Motrin Tab) 400 mg PO Q6H PRN PRN Reason: Pain, moderate (4-7) Last Admin: 06/03/18 01:19 Dose: 400 mg Insulin Human NPH (Humulin N) 14 units SC HS [facility] Last Admin: 06/07/18 22:40 Dose: 14 units Insulin Human Regular (Humulin R Med) 0 units SC ACHS [facility] PRN Reason: Protocol Last Admin: 06/08/18 11:20 Dose: 1 unit Lactobacillus Acidophilus (Bacid Acidophilus) 1 cap PO BID [facility] Last Admin: 06/08/18 09:30 Dose: 1 cap Magnesium Oxide (Mag-Ox) 400 mg PO BID [facility] Last Admin: 06/08/18 09:31 Dose: 400 mg Nystatin (Nystop Topical Powder) 2 gm TOP BID [facility] Last Admin: 06/08/18 09:33 Dose: 1 applic Ondansetron HCl (Zofran Inj) 4 mg IVP Q4H PRN PRN Reason: Nausea/Vomiting Pantoprazole Sodium (Protonix Ec Tab) 40 mg PO ACB [facility] Last Admin: 06/08/18 09:31 Dose: 40 mg - Labs Labs: 06/05/18 07:15 06/05/18 07:15 PT 13.4 SECONDS (9.4-12.5) H 05/28/18 01:26 INR 1.17 05/28/18 01:26 APTT 20.7 Seconds (25.1-36.5) L 05/28/18 01:26 Attending/Attestation - Attestation I have personally seen and examined this patient.: Yes I have fully participated in the care of the patient.: Yes I have reviewed all pertinent clinical information, including history, physical exam and plan: Yes Notes (Text): 06/08/18 15:15 Attending note; Patient seen and examined with resident. Patient is alert and awake. complaining of nausea.. But wants to eat. patient having an anxiety attack. ativan ordered. Patient was educated. now calmed down a bit. Patient is a 52-year-old female with past medical history significant for hypertension and asthma the presented to the emergency room with altered mental status. 1. Toxic metabolic encephalopathy. resolved. secondary to DKA . Continue insulin. blood sugar is better controlled.endocrinology evaluation appreciated. Completed IV vancomycin and Zosyn for 5 days. Blood cultures negative. Urine culture negative. Afebrile. Leukocytosis resolved. MRSA screen negative. Dietary education and diabetic education given. Nursing staff to educate the patient and family to check fingersticks and insulin injection. wound care education will be given. 2. Sacral ulcers. Wound care consulted. Continue local wound care and antibiotics. We will educate the family about Wound Care. Surgery/Wound Care evaluation appreciated. Turn patient frequently. Air mattress. Dressing instructions appreciated. 3. anxiety attack; patient refused medication. we will get psych evaluation. PT evaluation appreciated .subacute rehabilitation recommended . Patient and the family strongly advised to learn wound care , diabetic care. Case was discussed in detail with patient regarding current diagnosis and treatment plan. Upon discharge patient will be referred to [facility] [place]. 06/08/18 15:17
--- NOTE | 2018-06-08 19:13 | CP.PCM.PN ---
Subjective - Date & Time of Evaluation Date of Evaluation: 06/08/18 Time of Evaluation: 17:00 - Subjective Subjective: Infectious Disease Follow Up: June 08, 2018 Ms. Simpson is a 52 year old AAF with a past medical history significant for HTN and asthma who was BIBA after she was found to have AMS. Patient is awake but unresponsive verbally for any HPI and ROS questioning. All information was obtained either by EMS or chart review. Patient was reported to have been found covered in feces and to have been "sitting on the couch for one week". ROS unobtainable at this time. In ED, patient was found with values consistent with sepsis from undetermined source and DKA. Currently, the patient is awake, alert, and orientated. Extensive sacral decubiti. Strange family dynamic. Patient only gives very vague complaints and symptoms. Patient does not want her knowing about her case even though the is in the room during this conversation. History provided by the patient's mother suspect as it doesn't match aspects of the patient's clinical findings. No additional issues. Patient appears to be fully awake and alert. Still with difficulty with movement. Objective - Vital Signs/Intake and Output Vital Signs (last 24 hours): Temp Pulse Resp BP Pulse Ox 98.2 F 85 18 122/79 98 06/08/18 16:31 06/08/18 16:31 06/08/18 16:31 06/08/18 16:31 06/08/18 16:31 Intake and Output: 06/08/18 06/09/18 18:59 06:59 Output Total 1100 Balance -1100 - Medications Medications: Current Medications Collagenase (Santyl) 0 gm TOP BID [facility] Last Admin: 06/08/18 17:44 Dose: 1 unit Enoxaparin Sodium (Lovenox) 40 mg SC DAILY [facility] PRN Reason: Protocol Last Admin: 06/08/18 09:31 Dose: 40 mg Gabapentin (Neurontin) 100 mg PO TID [facility] PRN Reason: Protocol Last Admin: 06/08/18 17:43 Dose: 100 mg Ibuprofen (Motrin Tab) 400 mg PO Q6H PRN PRN Reason: Pain, moderate (4-7) Last Admin: 06/03/18 01:19 Dose: 400 mg Insulin Human NPH (Humulin N) 14 units SC [facility] Last Admin: 06/07/18 22:40 Dose: 14 units Insulin Human Regular (Humulin R Med) 0 units SC ACHS [facility] PRN Reason: Protocol Last Admin: 06/08/18 16:30 Dose: Not Given Lactobacillus Acidophilus (Bacid Acidophilus) 1 cap PO BID [facility] Last Admin: 06/08/18 17:43 Dose: 1 cap Magnesium Oxide (Mag-Ox) 400 mg PO BID [facility] Last Admin: 06/08/18 17:43 Dose: 400 mg Nystatin (Nystop Topical Powder) 2 gm TOP BID [facility] Last Admin: 06/08/18 17:45 Dose: 1 applic Ondansetron HCl (Zofran Inj) 4 mg IVP Q4H PRN PRN Reason: Nausea/Vomiting Pantoprazole Sodium (Protonix Ec Tab) 40 mg PO ACB [facility] Last Admin: 06/08/18 09:31 Dose: 40 mg - Labs Labs: 06/05/18 07:15 06/05/18 07:15 PT 13.4 SECONDS (9.4-12.5) H 05/28/18 01:26 INR 1.17 05/28/18 01:26 APTT 20.7 Seconds (25.1-36.5) L 05/28/18 01:26 - Constitutional Appears: Non-toxic, No Acute Distress, Chronically Ill - Head Exam Head Exam: ATRAUMATIC, NORMOCEPHALIC - Eye Exam Eye Exam: EOMI, PERRL Pupil Exam: NORMAL ACCOMODATION, PERRL - ENT Exam ENT Exam: Mucous Membranes Moist, Normal External Ear Exam, TM's Normal Bilaterally - Neck Exam Neck Exam: Full ROM, Normal Inspection - Respiratory Exam Respiratory Exam: Clear to Ausculation Bilateral, Wheezes, NORMAL BREATHING PATTERN. absent: Rales, Rhonchi - Cardiovascular Exam Cardiovascular Exam: REGULAR RHYTHM, RRR - GI/Abdominal Exam GI & Abdominal Exam: Soft, Tenderness, Normal Bowel Sounds. absent: Distended - Extremities Exam Extremities Exam: Full ROM, Normal Inspection Additional comments: lower body weakness. - Neurological Exam Neurological Exam: Alert, Awake, CN II-XII Intact - Psychiatric Exam Psychiatric exam: Normal Affect, Normal Mood - Skin Additional comments: large ulcers in lower back and sacrum. Most Stage III. Assessment and Plan - Assessment and Plan (Free Text) Assessment: 52 yo AA obese female with AMS with signs of sepsis with tachcardia, leukocytosis of 15, but no fevers. Patient was reported found in her home covered in feces on her cough for unknown period of time. Findings of DKA. Check brown cultures. On insulin drip. Currently on IV Vancomycin and Zosyn for antibiotic coverage. Procalcitonin of 0.14. No discernable renal issues at this time. Supportive care. Continue broad spectrum antibiotic coverage. Awaiting brown culture results. Cultures to date are negative. Clinically the patient is improving. Given at least 5 days of antibiotics before stopping. Cultures remain negative. Antibiotics stopped at this point. Question of family issues or strange family dynamic. No additional issues. Still with difficulty with ambulation. Thank you for allowing me to participate in the care of the patient, we will follow with you.
--- NOTE | 2018-06-08 22:38 | CON ---
DATE: 06/08/2018 HISTORY OF PRESENT ILLNESS: Patient is a 52-year-old female with the Psychiatry is following on the medical floor for symptoms of depression. This provider was requested to follow up with the patient today to monitor her symptoms although she denied that she wants to harm herself or anybody else. I reviewed the patient's notes and met with the patient at bedside. She is alert and oriented to month, location and year at this time. Her focus is fair and her affect does continue constricted. She does report continued depression; however, she feels a lot of it secondary to her medical issues. She denies having feeling hopeless at this time or having any wishes and her responses are generally consistent and coherent. She is not in acute danger to herself or others. Insight and judgment are considered to be fair. Vital signs and labs were reviewed. RELEVANT PSYCHIATRIC MEDICATIONS: The patient is not on any psychotropic medications. IMPRESSION: I agree with Dr. Ch, rule out mood disorder due to general medical condition, rule out adjustment disorder with depression and anxiety, rule out major depressive disorder. PLAN: We will continue current management and the patient should be referred to mental health services once she is ultimately medically cleared. The patient does indicate that many of her symptoms are related to current circumstances; however, she also commits to follow up with mental health referral if the symptoms continue to persist or worsen. Psychiatry will sign off at this time. Please re-consult marissa Maria T Jennings MD
[2018-06-08] MEDS: Insulin Human NPH 1 UNITS/0.01 ML SC SCH (22:53)
[2018-06-09] MEDS: Insulin Reg-MEDIUM-Coverage SC SCH ×4 (08:15→21:25)
[2018-06-09] MEDS: Insulin Human NPH/Reg 70/30 Vial(3 ml) SC SCH ×2 (08:31→16:11)
[2018-06-09] MEDS: Enoxaparin 40 mg Syringe SC SCH (09:46)
[2018-06-09] MEDS: Lactobacillus Acidophilus 500 MU Cap PO SCH ×2 (09:46→17:06)
[2018-06-09] MEDS: Pantoprazole 40 mg EC Tab PO SCH (09:46)
[2018-06-09] MEDS: Magnesium Oxide 400 mg Tab UD PO SCH ×2 (09:46→17:06)
[2018-06-09] MEDS: Nystatin 100,000 Units/gm Topical Pow(15 gm) TOP SCH ×2 (11:44→17:24)
[2018-06-09] MEDS: Collagenase 250 Units/gm Ointment(30 gm) TOP SCH ×2 (11:44→17:23)
--- NOTE | 2018-06-09 12:48 | CP.PCM.PCO ---
Physician Communication Note - Physician Communication Note Physician Communication Note: psychiatry signed off
--- NOTE | 2018-06-09 16:08 | CP.PCM.PN ---
<Varghese Faust - Last Filed: 06/09/18 17:34> Subjective - Date & Time of Evaluation Date of Evaluation: 06/09/18 Time of Evaluation: 07:00 - Subjective Subjective: Varghese Faust, PGY1 Medicine Progress Note for Dr. Bennett Patient seen and examined at bedside this morning. She denied any dry heaving or retching today. She does not have chest pain, shortness of breath, abdominal pain, nausea, vomiting, diarrhea, pain in the extremities. Patient says that she wants to go home and was upset, as per nursing staff. Patient will be seen by PT today. No overnight changes. Vital signs stable. A full 12 point ROS was conducted and unremarkable except as stated above. Objective - Vital Signs/Intake and Output Vital Signs (last 24 hours): Temp Pulse Resp BP Pulse Ox 99.2 F 86 20 132/82 96 06/09/18 15:31 06/09/18 15:31 06/09/18 15:31 06/09/18 15:31 06/09/18 15:31 Intake and Output: 06/09/18 06/09/18 06:59 18:59 Intake Total 300 Output Total 900 550 Balance -600 -550 - Medications Medications: Current Medications Collagenase (Santyl) 0 gm TOP BID [facility] Last Admin: 06/09/18 11:44 Dose: 1 unit Enoxaparin Sodium (Lovenox) 40 mg SC DAILY [facility] PRN Reason: Protocol Last Admin: 06/09/18 09:46 Dose: 40 mg Gabapentin (Neurontin) 100 mg PO TID [facility] PRN Reason: Protocol Last Admin: 06/09/18 13:18 Dose: Not Given Ibuprofen (Motrin Tab) 400 mg PO Q6H PRN PRN Reason: Pain, moderate (4-7) Last Admin: 06/03/18 01:19 Dose: 400 mg Insulin Human NPH (Humulin N) 14 units SC HS [facility] Last Admin: 06/08/18 22:53 Dose: 14 units Insulin Human Regular (Humulin R Med) 0 units SC ACHS [facility] PRN Reason: Protocol Last Admin: 06/09/18 12:08 Dose: Not Given Lactobacillus Acidophilus (Bacid Acidophilus) 1 cap PO BID [facility] Last Admin: 06/09/18 09:46 Dose: 1 cap Magnesium Oxide (Mag-Ox) 400 mg PO BID [facility] Last Admin: 06/09/18 09:46 Dose: 400 mg Nystatin (Nystop Topical Powder) 2 gm TOP BID [facility] Last Admin: 06/09/18 11:44 Dose: 1 applic Ondansetron HCl (Zofran Inj) 4 mg IVP Q4H PRN PRN Reason: Nausea/Vomiting Last Admin: 06/09/18 08:32 Dose: 4 mg Pantoprazole Sodium (Protonix Ec Tab) 40 mg PO ACB [facility] Last Admin: 06/09/18 09:46 Dose: 40 mg - Labs Labs: 06/05/18 07:15 06/05/18 07:15 PT 13.4 SECONDS (9.4-12.5) H 05/28/18 01:26 INR 1.17 05/28/18 01:26 APTT 20.7 Seconds (25.1-36.5) L 05/28/18 01:26 - Constitutional Appears: Well - Head Exam Head Exam: ATRAUMATIC, NORMAL INSPECTION, NORMOCEPHALIC - Eye Exam Eye Exam: EOMI, Normal appearance, PERRL Pupil Exam: NORMAL ACCOMODATION, PERRL - ENT Exam ENT Exam: Mucous Membranes Moist, Normal Exam - Neck Exam Neck Exam: Full ROM, Normal Inspection. absent: Lymphadenopathy - Respiratory Exam Respiratory Exam: Clear to Ausculation Bilateral, NORMAL BREATHING PATTERN. absent: Chest Wall Tenderness, Rales, Rhonchi, Wheezes, Respiratory Distress - Cardiovascular Exam Cardiovascular Exam: REGULAR RHYTHM, +S1, +S2. absent: Murmur - GI/Abdominal Exam GI & Abdominal Exam: Soft, Normal Bowel Sounds. absent: Firm, Guarding, Rigid, Tenderness - Extremities Exam Extremities Exam: Full ROM, Normal Capillary Refill, Normal Inspection. absent : Calf Tenderness, Joint Swelling, Pedal Edema, Tenderness - Back Exam Additional comments: Sacral wound pressure ulcer (stage II-III) - Neurological Exam Neuro motor strength exam: Left Upper Extremity: 5, Right Upper Extremity: 5, Left Lower Extremity: 5, Right Lower Extremity: 5 - Skin Skin Exam: Dry, Intact, Normal Color, Warm Assessment and Plan - Assessment and Plan (Free Text) Assessment: Patient is a 52 y/o F with PMH of obesity, HTN and asthma who presented for AMS most likely due to metabolic encephalopathy. Patient was in DKA on admission, which resolved. She was also admitted for electrolyte abnormalities and sepsis 2 /2 sacral ulcers. Will need subacute rehab placement. Patient is being monitored on the floor. Plan: Sacral Wound Ulcers (Stage III) -c/w PT -wound care is following -f/u PT recs for possible QING and placement -Surgery recommends optiform dressing, q2 turns, and air mattress for management -Infectious disease on consult, appreciated recs. Possible Depression or Mood Disorder -Psych recommends to continue with current management; no meds at this time. AMS likely 2/2 Metabolic Encephalopathy - resolved -AAOx3; baseline mental status -Hospital admission for DKA -resolved, sepsis - resolved, and electrolyte abnormality - repleted -Abdominal US: mild hepatosplenomegaly. Status post cholecystectomy. No additional abnormality. -Head CT on admission showed no acute findings -urine drug screen was negative -appreciated neurology recs DKA - resolved -diabetic education -c/w ISS -Heart Health Diet -Endo on consult, Dr. Solitario PPX with lovonex and protonix PT: Please get the patient moving and out of bed. Recommend QING. Transportation Supervisor: patient needs outpatient PT. Discussion with patient's mother about mcaid application. Dispo: continue to monitor patient on the floor. Continue with PT. Discuss with case management rn in regards to placement. Case was discussed and reviewed with Attending Physician Dr. Bennett. <Sandrita Bennett R - Last Filed: 06/10/18 18:02> Objective - Vital Signs/Intake and Output Vital Signs (last 24 hours): Temp Pulse Resp BP Pulse Ox 98.3 F 82 20 104/59 L 94 L 06/10/18 14:00 06/10/18 14:00 06/10/18 14:00 06/10/18 14:00 06/10/18 14:00 Intake and Output: 06/10/18 06/10/18 06:59 18:59 Intake Total 780 Output Total 1300 Balance -520 - Medications Medications: Current Medications Collagenase (Santyl) 0 gm TOP BID [facility] Last Admin: 06/10/18 18:00 Dose: Not Given Enoxaparin Sodium (Lovenox) 40 mg SC DAILY [facility] PRN Reason: Protocol Last Admin: 06/10/18 11:09 Dose: 40 mg Gabapentin (Neurontin) 100 mg PO TID [facility] PRN Reason: Protocol Last Admin: 06/10/18 17:48 Dose: 100 mg Ibuprofen (Motrin Tab) 400 mg PO Q6H PRN PRN Reason: Pain, moderate (4-7) Last Admin: 06/03/18 01:19 Dose: 400 mg Insulin Human NPH (Humulin N) 14 units SC HS [facility] Last Admin: 06/09/18 21:25 Dose: Not Given Insulin Human Regular (Humulin R Med) 0 units SC ACHS [facility] PRN Reason: Protocol Last Admin: 06/10/18 16:15 Dose: Not Given Lactobacillus Acidophilus (Bacid Acidophilus) 1 cap PO BID [facility] Last Admin: 06/10/18 17:48 Dose: 1 cap Magnesium Oxide (Mag-Ox) 400 mg PO BID [facility] Last Admin: 06/10/18 17:48 Dose: 400 mg Nystatin (Nystop Topical Powder) 2 gm TOP BID [facility] Last Admin: 06/10/18 18:00 Dose: 1 applic Ondansetron HCl (Zofran Inj) 4 mg IVP Q4H PRN PRN Reason: Nausea/Vomiting Last Admin: 06/09/18 08:32 Dose: 4 mg Pantoprazole Sodium (Protonix Ec Tab) 40 mg PO ACB [facility] Last Admin: 06/10/18 08:14 Dose: 40 mg - Labs Labs: 06/05/18 07:15 06/05/18 07:15 PT 13.4 SECONDS (9.4-12.5) H 05/28/18 01:26 INR 1.17 05/28/18 01:26 APTT 20.7 Seconds (25.1-36.5) L 05/28/18 01:26 Attending/Attestation - Attestation I have personally seen and examined this patient.: Yes I have fully participated in the care of the patient.: Yes I have reviewed all pertinent clinical information, including history, physical exam and plan: Yes Notes (Text): Patient seen and examined by me at 10:45AM with resident 06/09/18. Case including HPI, physical exam, and assessment and plan discussed with resident. Agree with above with following additions/corrections. Patient is a 52-year-old female with past medical history significant for hypertension and asthma the presented to the emergency room with altered mental status. Patient states she is doing ok. States she "feels like I can get up and walk." She denies any chest pain or shortness of breath. No headaches or dizziness. No nausea, vomiting, or abdominal pain. No fevers or chills. No dysuria. Physical exam: General: Awake and alert, lying in bed in no acute distress HEENT: Normocephalic, atraumatic. Extraocular muscles intact. No scleral icterus. Oropharynx is pink. Moist mucous membranes. Neck is supple. Cardiovascular: Normal rhythm. Normal S1, S2. Positive systolic murmur. No rubs rubs or gallops appreciated Pulmonary: Normal respiratory effort. No rhonchi, rales, or wheezing appreciated. Gastrointestinal: Soft, nondistended, obese abdomen. Nontender. Positive bowel sounds all 4 quadrants, no guarding. Musculoskeletal: Moves all extremities, no calf tenderness, no edema appreciated. Positive left shoulder large lump noted. Central nervous system: Awake and alert. CN2-12 grossly intact. Dermatologic: Skin warm and dry. Positive chronic decubitus ulcers. Assessment and plan: Patient is a 52-year-old female with past medical history significant for hypertension and asthma the presented to the emergency room with altered mental status. 1. Sacral ulcers present on admission. Wound care following. Continue local wound care. S/P antibiotic treatment. Turn [id number]. 2. Toxic metabolic encephalopathy. Resolved. Was likely secondary to DKA vs electrolyte imbalance. S/P treatment with broad-spectrum antibiotics vancomycin and Zosyn. Blood cultures negative. Urine culture negative. Afebrile. Leukocytosis resolved. Procalcitionin was 0.14. Head CT per radiologist showed no acute intracranial abdnormalities. Met sepsis criteria on admission. DKA resolved. Neurology recommendations appreciated. ID following, recommendations appreciated. 3. DKA. Resolved. Off insulin drip. Endocrinology following, recommendations appreciated. Hemoglobin A1c 16.9. Continue insulin sliding scale and humulin 14 units at bedtime. Continue to monitor Accu-Cheks. 4. Hypernatremia. Likely secondary to dehydration. Resolved. 5. Hypokalemia/hypophosphatemia. Resolved. 6. Candidal rash. Under breasts and in groin area. Improved. Continue with Nystatin 7. Left shoulder lump. X-ray left shoulder shows lipoma. Patient will need outpatient follow-up for possible removal if wanted. 8. Hepatitis C positive. Per patient, she was aware of this. Viral load pending. HIV ordered. ID following. 9. GI/DVT prophylaxis. Protonix and Lovenox Case was discussed in detail with patient regarding current diagnosis and treatment plan.
--- NOTE | 2018-06-09 19:14 | CP.PCM.PN ---
Subjective - Date & Time of Evaluation Date of Evaluation: 06/09/18 Time of Evaluation: 17:45 - Subjective Subjective: Infectious Disease Follow Up: June 09, 2018 Ms. Simpson is a 52 year old AAF with a past medical history significant for HTN and asthma who was BIBA after she was found to have AMS. Patient is awake but unresponsive verbally for any HPI and ROS questioning. All information was obtained either by EMS or chart review. Patient was reported to have been found covered in feces and to have been "sitting on the couch for one week". ROS unobtainable at this time. In ED, patient was found with values consistent with sepsis from undetermined source and DKA. Currently, the patient is awake, alert, and orientated. Extensive sacral decubiti. Strange family dynamic. Patient only gives very vague complaints and symptoms. Patient does not want her knowing about her case even though the is in the room during this conversation. History provided by the patient's mother suspect as it doesn't match aspects of the patient's clinical findings. No additional issues. Patient appears to be fully awake and alert. Still with difficulty with movement. Patient wants to go home. Objective - Vital Signs/Intake and Output Vital Signs (last 24 hours): Temp Pulse Resp BP Pulse Ox 99.2 F 86 20 132/82 96 06/09/18 15:31 06/09/18 15:31 06/09/18 15:31 06/09/18 15:31 06/09/18 15:31 Intake and Output: 06/09/18 06/09/18 06:59 18:59 Intake Total 300 Output Total 900 550 Balance -600 -550 - Medications Medications: Current Medications Collagenase (Santyl) 0 gm TOP BID [facility] Last Admin: 06/09/18 17:23 Dose: Not Given Enoxaparin Sodium (Lovenox) 40 mg SC DAILY [facility] PRN Reason: Protocol Last Admin: 06/09/18 09:46 Dose: 40 mg Gabapentin (Neurontin) 100 mg PO TID [facility] PRN Reason: Protocol Last Admin: 06/09/18 17:06 Dose: Not Given Ibuprofen (Motrin Tab) 400 mg PO Q6H PRN PRN Reason: Pain, moderate (4-7) Last Admin: 06/03/18 01:19 Dose: 400 mg Insulin Human NPH (Humulin N) 14 units SC HS [facility] Last Admin: 06/08/18 22:53 Dose: 14 units Insulin Human Regular (Humulin R Med) 0 units SC ACHS [facility] PRN Reason: Protocol Last Admin: 06/09/18 16:11 Dose: Not Given Lactobacillus Acidophilus (Bacid Acidophilus) 1 cap PO BID [facility] Last Admin: 06/09/18 17:06 Dose: Not Given Magnesium Oxide (Mag-Ox) 400 mg PO BID [facility] Last Admin: 06/09/18 17:06 Dose: Not Given Nystatin (Nystop Topical Powder) 2 gm TOP BID [facility] Last Admin: 06/09/18 17:24 Dose: 1 applic Ondansetron HCl (Zofran Inj) 4 mg IVP Q4H PRN PRN Reason: Nausea/Vomiting Last Admin: 06/09/18 08:32 Dose: 4 mg Pantoprazole Sodium (Protonix Ec Tab) 40 mg PO ACB [facility] Last Admin: 06/09/18 09:46 Dose: 40 mg - Labs Labs: 06/05/18 07:15 06/05/18 07:15 PT 13.4 SECONDS (9.4-12.5) H 05/28/18 01:26 INR 1.17 05/28/18 01:26 APTT 20.7 Seconds (25.1-36.5) L 05/28/18 01:26 - Constitutional Appears: Non-toxic, No Acute Distress, Chronically Ill - Head Exam Head Exam: ATRAUMATIC, NORMOCEPHALIC - Eye Exam Eye Exam: EOMI, PERRL Pupil Exam: NORMAL ACCOMODATION, PERRL - ENT Exam ENT Exam: Mucous Membranes Moist, Normal External Ear Exam, TM's Normal Bilaterally - Neck Exam Neck Exam: Full ROM, Normal Inspection - Respiratory Exam Respiratory Exam: Clear to Ausculation Bilateral, NORMAL BREATHING PATTERN. absent: Rales, Rhonchi, Wheezes - Cardiovascular Exam Cardiovascular Exam: REGULAR RHYTHM, RRR, +S1, +S2 - GI/Abdominal Exam GI & Abdominal Exam: Soft, Normal Bowel Sounds. absent: Distended, Tenderness - Extremities Exam Extremities Exam: Full ROM, Normal Inspection - Back Exam Additional comments: Sacral wound pressure decubiti stage III - Neurological Exam Neurological Exam: Alert, Awake, CN II-XII Intact, Oriented x3 - Psychiatric Exam Psychiatric exam: Normal Affect, Normal Mood - Skin Skin Exam: Intact, Normal Color Additional comments: except sacral decubiti. Assessment and Plan - Assessment and Plan (Free Text) Assessment: 52 yo AA obese female with AMS with signs of sepsis with tachcardia, leukocytosis of 15, but no fevers. Patient was reported found in her home covered in feces on her cough for unknown period of time. Findings of DKA. Check brown cultures. On insulin drip. Currently on IV Vancomycin and Zosyn for antibiotic coverage. Procalcitonin of 0.14. No discernable renal issues at this time. Supportive care. Continue broad spectrum antibiotic coverage. Awaiting brown culture results. Cultures to date are negative. Clinically the patient is improving. Given at least 5 days of antibiotics before stopping. Cultures remain negative. Antibiotics stopped at this point. Continue local wound care. Question of family issues or strange family dynamic. No additional issues. Still with difficulty with ambulation. At best she is able to stand for a few seconds. She is not able to ambulate to a nearby commode from her bed even with aid. Thank you for allowing me to participate in the care of the patient, we will follow with you.
[2018-06-09] MEDS: Insulin Human NPH 1 UNITS/0.01 ML SC SCH (21:25)
[2018-06-10] MEDS: Insulin Human NPH/Reg 70/30 Vial(3 ml) SC SCH ×2 (08:04→17:28)
[2018-06-10] MEDS: Insulin Reg-MEDIUM-Coverage SC SCH ×4 (08:06→22:00)
[2018-06-10] MEDS: Pantoprazole 40 mg EC Tab PO SCH (08:14)
[2018-06-10] MEDS: Magnesium Oxide 400 mg Tab UD PO SCH ×2 (11:08→17:48)
[2018-06-10] MEDS: Lactobacillus Acidophilus 500 MU Cap PO SCH ×2 (11:08→17:48)
[2018-06-10] MEDS: Enoxaparin 40 mg Syringe SC SCH (11:09)
[2018-06-10] MEDS: Collagenase 250 Units/gm Ointment(30 gm) TOP SCH ×2 (14:50→18:00)
[2018-06-10] MEDS: Nystatin 100,000 Units/gm Topical Pow(15 gm) TOP SCH ×2 (14:51→18:00)
--- NOTE | 2018-06-10 17:58 | CP.PCM.PN ---
Subjective - Date & Time of Evaluation Date of Evaluation: 06/10/18 Time of Evaluation: 16:45 - Subjective Subjective: Infectious Disease Follow Up: June 10, 2018 Ms. Simpson is a 52 year old AAF with a past medical history significant for HTN and asthma who was BIBA after she was found to have AMS. Patient is awake but unresponsive verbally for any HPI and ROS questioning. All information was obtained either by EMS or chart review. Patient was reported to have been found covered in feces and to have been "sitting on the couch for one week". ROS unobtainable at this time. In ED, patient was found with values consistent with sepsis from undetermined source and DKA. Currently, the patient is awake, alert, and orientated. Extensive sacral decubiti. Strange family dynamic. Patient only gives very vague complaints and symptoms. Patient does not want her knowing about her case even though the is in the room during this conversation. History provided by the patient's mother suspect as it doesn't match aspects of the patient's clinical findings. Stating today that she doesn't want to see her family anymore. No additional issues. Patient appears to be fully awake and alert. Still with difficulty with movement. Unable to stand for more than a few seconds. Patient wants to go home. Objective - Vital Signs/Intake and Output Vital Signs (last 24 hours): Temp Pulse Resp BP Pulse Ox 98.3 F 82 20 104/59 L 94 L 06/10/18 14:00 06/10/18 14:00 06/10/18 14:00 06/10/18 14:00 06/10/18 14:00 Intake and Output: 06/10/18 06/10/18 06:59 18:59 Intake Total 780 Output Total 1300 Balance -520 - Medications Medications: Current Medications Collagenase (Santyl) 0 gm TOP BID [facility] Last Admin: 06/10/18 14:50 Dose: 1 unit Enoxaparin Sodium (Lovenox) 40 mg SC DAILY [facility] PRN Reason: Protocol Last Admin: 06/10/18 11:09 Dose: 40 mg Gabapentin (Neurontin) 100 mg PO TID [facility] PRN Reason: Protocol Last Admin: 06/10/18 14:49 Dose: Not Given Ibuprofen (Motrin Tab) 400 mg PO Q6H PRN PRN Reason: Pain, moderate (4-7) Last Admin: 06/03/18 01:19 Dose: 400 mg Insulin Human NPH (Humulin N) 14 units SC HS [facility] Last Admin: 06/09/18 21:25 Dose: Not Given Insulin Human Regular (Humulin R Med) 0 units SC ACHS [facility] PRN Reason: Protocol Last Admin: 06/10/18 16:15 Dose: Not Given Lactobacillus Acidophilus (Bacid Acidophilus) 1 cap PO BID [facility] Last Admin: 06/10/18 11:08 Dose: 1 cap Magnesium Oxide (Mag-Ox) 400 mg PO BID [facility] Last Admin: 06/10/18 11:08 Dose: 400 mg Nystatin (Nystop Topical Powder) 2 gm TOP BID [facility] Last Admin: 06/10/18 14:51 Dose: 1 applic Ondansetron HCl (Zofran Inj) 4 mg IVP Q4H PRN PRN Reason: Nausea/Vomiting Last Admin: 06/09/18 08:32 Dose: 4 mg Pantoprazole Sodium (Protonix Ec Tab) 40 mg PO ACB [facility] Last Admin: 06/10/18 08:14 Dose: 40 mg - Labs Labs: 06/05/18 07:15 06/05/18 07:15 PT 13.4 SECONDS (9.4-12.5) H 05/28/18 01:26 INR 1.17 05/28/18 01:26 APTT 20.7 Seconds (25.1-36.5) L 05/28/18 01:26 - Constitutional Appears: Non-toxic, No Acute Distress, Chronically Ill - Head Exam Head Exam: ATRAUMATIC, NORMOCEPHALIC - Eye Exam Eye Exam: EOMI, PERRL Pupil Exam: NORMAL ACCOMODATION, PERRL - ENT Exam ENT Exam: Mucous Membranes Moist, Normal External Ear Exam, TM's Normal Bilaterally - Neck Exam Neck Exam: Full ROM, Normal Inspection - Respiratory Exam Respiratory Exam: Clear to Ausculation Bilateral, NORMAL BREATHING PATTERN. absent: Rales, Rhonchi, Wheezes - Cardiovascular Exam Cardiovascular Exam: REGULAR RHYTHM, RRR, +S1, +S2 - GI/Abdominal Exam GI & Abdominal Exam: Soft, Normal Bowel Sounds. absent: Distended, Tenderness - Extremities Exam Extremities Exam: Full ROM, Normal Inspection - Back Exam Additional comments: Sacral wound pressure decubiti stage III - Neurological Exam Neurological Exam: Alert, Awake, CN II-XII Intact, Oriented x3 - Psychiatric Exam Psychiatric exam: Normal Affect, Normal Mood - Skin Skin Exam: Intact, Normal Color Additional comments: except sacral decubiti. Assessment and Plan - Assessment and Plan (Free Text) Assessment: 52 yo AA obese female with AMS with signs of sepsis with tachcardia, leukocytosis of 15, but no fevers. Patient was reported found in her home covered in feces on her cough for unknown period of time. Findings of DKA. Check brown cultures. On insulin drip. Currently on IV Vancomycin and Zosyn for antibiotic coverage. Procalcitonin of 0.14. No discernable renal issues at this time. Supportive care. Continue broad spectrum antibiotic coverage. Awaiting brown culture results. Cultures to date are negative. Clinically the patient is improving. Given at least 5 days of antibiotics before stopping. Cultures remain negative. Antibiotics stopped at this point. Continue local wound care. Question of family issues or strange family dynamic. Today, the patient is stating that she doesn't want to see her family anymore. No additional issues. Still with difficulty with ambulation. At best she is able to stand for a few seconds. She is not able to ambulate to a nearby commode from her bed even with aid. Thank you for allowing me to participate in the care of the patient, we will follow with you.
--- NOTE | 2018-06-10 21:42 | CP.PCM.PN ---
<Varghese Faust - Last Filed: 06/10/18 21:38> Subjective - Date & Time of Evaluation Date of Evaluation: 06/10/18 Time of Evaluation: 07:00 - Subjective Subjective: Varghese Faust PGY1 Medicine Progress Note for Dr. Bennett Patient seen and examined at bedside this morning. She was upset and saying she wants to go home. Patient is not participating in physical therapy. She denies cp, sob, abdominal pain, nausea, vomiting, diarrhea. No overnight changes. A full 12 point ROS was conducted and unremarkable except as stated above. Objective - Vital Signs/Intake and Output Vital Signs (last 24 hours): Temp Pulse Resp BP Pulse Ox 98.3 F 82 20 104/59 L 94 L 06/10/18 14:00 06/10/18 14:00 06/10/18 14:00 06/10/18 14:00 06/10/18 14:00 Intake and Output: 06/10/18 06/11/18 18:59 06:59 Intake Total 480 Output Total 600 Balance -120 - Medications Medications: Current Medications Collagenase (Santyl) 0 gm TOP BID [facility] Last Admin: 06/10/18 18:00 Dose: Not Given Enoxaparin Sodium (Lovenox) 40 mg SC DAILY [facility] PRN Reason: Protocol Last Admin: 06/10/18 11:09 Dose: 40 mg Gabapentin (Neurontin) 100 mg PO TID [facility] PRN Reason: Protocol Last Admin: 06/10/18 17:48 Dose: 100 mg Ibuprofen (Motrin Tab) 400 mg PO Q6H PRN PRN Reason: Pain, moderate (4-7) Last Admin: 06/03/18 01:19 Dose: 400 mg Insulin Human NPH (Humulin N) 14 units SC HS [facility] Last Admin: 06/09/18 21:25 Dose: Not Given Insulin Human Regular (Humulin R Med) 0 units SC ACHS [facility] PRN Reason: Protocol Last Admin: 06/10/18 16:15 Dose: Not Given Lactobacillus Acidophilus (Bacid Acidophilus) 1 cap PO BID [facility] Last Admin: 06/10/18 17:48 Dose: 1 cap Magnesium Oxide (Mag-Ox) 400 mg PO BID [facility] Last Admin: 06/10/18 17:48 Dose: 400 mg Nystatin (Nystop Topical Powder) 2 gm TOP BID [facility] Last Admin: 06/10/18 18:00 Dose: 1 applic Ondansetron HCl (Zofran Inj) 4 mg IVP Q4H PRN PRN Reason: Nausea/Vomiting Last Admin: 06/09/18 08:32 Dose: 4 mg Pantoprazole Sodium (Protonix Ec Tab) 40 mg PO ACB [facility] Last Admin: 06/10/18 08:14 Dose: 40 mg - Labs Labs: 06/05/18 07:15 06/05/18 07:15 PT 13.4 SECONDS (9.4-12.5) H 05/28/18 01:26 INR 1.17 05/28/18 01:26 APTT 20.7 Seconds (25.1-36.5) L 05/28/18 01:26 - Constitutional Appears: No Acute Distress - Head Exam Head Exam: ATRAUMATIC, NORMAL INSPECTION, NORMOCEPHALIC - Eye Exam Eye Exam: EOMI, Normal appearance, PERRL - ENT Exam ENT Exam: Mucous Membranes Moist, Normal Exam - Respiratory Exam Respiratory Exam: Clear to Ausculation Bilateral, NORMAL BREATHING PATTERN. absent: Rales, Rhonchi, Wheezes - Cardiovascular Exam Cardiovascular Exam: REGULAR RHYTHM, +S1, +S2. absent: Murmur - GI/Abdominal Exam GI & Abdominal Exam: Soft, Normal Bowel Sounds. absent: Tenderness - Extremities Exam Extremities Exam: Full ROM, Normal Capillary Refill, Normal Inspection. absent : Joint Swelling, Pedal Edema - Neurological Exam Neurological Exam: Alert, Awake, Oriented x3 Neuro motor strength exam: Left Upper Extremity: 5, Right Upper Extremity: 5, Left Lower Extremity: 5, Right Lower Extremity: 5 - Psychiatric Exam Psychiatric exam: Flat Affect - Skin Skin Exam: Dry, Intact, Normal Color, Warm Assessment and Plan - Assessment and Plan (Free Text) Assessment: Patient is a 52 y/o F with PMH of obesity, HTN and asthma who presented for AMS most likely due to metabolic encephalopathy. Patient was in DKA on admission, which resolved. She was also admitted for electrolyte abnormalities and sepsis 2 /2 sacral ulcers. Will need subacute rehab placement. Patient is being monitored on the floor. Plan: Sacral Wound Ulcers (Stage III) -c/w PT -wound care is following -f/u PT recs for possible QING and placement -Surgery recommends optiform dressing, q2 turns, and air mattress for management -Infectious disease on consult, appreciated recs. Possible Depression or Mood Disorder -Psych has cleared the patient AMS likely 2/2 Metabolic Encephalopathy - resolved -AAOx3; baseline mental status -Hospital admission for DKA -resolved, sepsis - resolved, and electrolyte abnormality - repleted -Abdominal US: mild hepatosplenomegaly. Status post cholecystectomy. No additional abnormality. -Head CT on admission showed no acute findings -urine drug screen was negative -appreciated neurology recs DKA - resolved -diabetic education -c/w ISS -Heart Health Diet -Endo on consult, Dr. Solitario PPX with lovonex and protonix PT: Please get the patient moving and out of bed. Recommend QING. [employer] Stra[employer]: patient needs outpatient PT. Discussion with patient's mother about mcaid application. Dispo: continue to monitor patient on the floor. Continue with PT. Case was discussed and reviewed with Attending Physician Dr. Bennett. <Sandrita Bennett R - Last Filed: 06/11/18 17:06> Objective - Vital Signs/Intake and Output Vital Signs (last 24 hours): Temp Pulse Resp BP Pulse Ox 98.2 F 74 20 128/80 97 06/11/18 14:00 06/11/18 14:00 06/11/18 14:00 06/11/18 14:00 06/11/18 14:00 Intake and Output: 06/11/18 06/11/18 06:59 18:59 Intake Total 780 Output Total 1400 Balance -620 - Medications Medications: Current Medications Collagenase (Santyl) 0 gm TOP BID [facility] Last Admin: 06/11/18 09:38 Dose: 1 unit Enoxaparin Sodium (Lovenox) 40 mg SC DAILY [facility] PRN Reason: Protocol Last Admin: 06/11/18 09:36 Dose: 40 mg Gabapentin (Neurontin) 100 mg PO TID [facility] PRN Reason: Protocol Last Admin: 06/11/18 13:22 Dose: 100 mg Ibuprofen (Motrin Tab) 400 mg PO Q6H PRN PRN Reason: Pain, moderate (4-7) Last Admin: 06/03/18 01:19 Dose: 400 mg Insulin Human NPH (Humulin N) 14 units SC HS [facility] Last Admin: 06/10/18 23:47 Dose: 14 units Insulin Human Regular (Humulin R Med) 0 units SC ACHS [facility] PRN Reason: Protocol Last Admin: 06/11/18 12:26 Dose: Not Given Lactobacillus Acidophilus (Bacid Acidophilus) 1 cap PO BID [facility] Last Admin: 06/11/18 09:36 Dose: 1 cap Magnesium Oxide (Mag-Ox) 400 mg PO BID [facility] Last Admin: 06/11/18 09:36 Dose: 400 mg Nystatin (Nystop Topical Powder) 2 gm TOP BID [facility] Last Admin: 06/11/18 09:38 Dose: 1 applic Ondansetron HCl (Zofran Inj) 4 mg IVP Q4H PRN PRN Reason: Nausea/Vomiting Last Admin: 06/09/18 08:32 Dose: 4 mg Pantoprazole Sodium (Protonix Ec Tab) 40 mg PO ACB [facility] Last Admin: 06/11/18 08:05 Dose: 40 mg - Labs Labs: 06/05/18 07:15 06/05/18 07:15 PT 13.4 SECONDS (9.4-12.5) H 05/28/18 01:26 INR 1.17 05/28/18 01:26 APTT 20.7 Seconds (25.1-36.5) L 05/28/18 01:26 Attending/Attestation - Attestation I have personally seen and examined this patient.: Yes I have fully participated in the care of the patient.: Yes I have reviewed all pertinent clinical information, including history, physical exam and plan: Yes Notes (Text): Patient seen and examined by me at 11:50AM with resident 06/10/18. Case including HPI, physical exam, and assessment and plan discussed with resident. Agree with above with following additions/corrections. Patient is a 52-year-old female with past medical history significant for hypertension and asthma the presented to the emergency room with altered mental status. Patient states she is feeling ok. States that "I have to go home to take care of my dog." Patient is not ambulating and an unsafe discharge. Discussed at length with patient. She denies any chest pain or shortness of breath. No headaches or dizziness. No nausea, vomiting, or abdominal pain. No fevers or chills. No dysuria. Physical exam: General: Awake and alert, sitting up in bed in no acute distress HEENT: Normocephalic, atraumatic. Extraocular muscles intact. No scleral icterus. Oropharynx is pink. Moist mucous membranes. Neck is supple. Cardiovascular: Normal rhythm. Normal S1, S2. Positive systolic murmur. No rubs rubs or gallops appreciated Pulmonary: Normal respiratory effort. No rhonchi, rales, or wheezing appreciated. Gastrointestinal: Soft, nondistended, obese abdomen. Nontender. Positive bowel sounds all 4 quadrants, no guarding. Musculoskeletal: Moves all extremities, no calf tenderness, no edema appreciated. Positive left shoulder large lump noted. Central nervous system: Awake and alert. CN2-12 grossly intact. Dermatologic: Skin warm and dry. Positive chronic decubitus ulcers. Assessment and plan: Patient is a 52-year-old female with past medical history significant for hypertension and asthma the presented to the emergency room with altered mental status. 1. Gait instability. Continue physical therapy. PT is recommending QING. Patient is pending insurance. 2. Sacral ulcers present on admission. Wound care following. Continue local wound care. S/P antibiotic treatment. Continue to turn [id number]. 3. Toxic metabolic encephalopathy. Resolved. Was likely secondary to DKA vs electrolyte imbalance. S/P treatment with broad-spectrum antibiotics vancomycin and Zosyn. Blood cultures negative. Urine culture negative. Afebrile. Leukocytosis resolved. Procalcitionin was 0.14. Head CT per radiologist showed no acute intracranial abdnormalities. Met sepsis criteria on admission. DKA resolved. Neurology recommendations appreciated. ID following, recommendations appreciated. 4. DKA. Resolved. Off insulin drip. Endocrinology following, recommendations appreciated. Hemoglobin A1c 16.9. Continue insulin sliding scale and humulin 14 units at bedtime. Continue to monitor Accu-Cheks. 5. Hypernatremia. Likely secondary to dehydration. Resolved. 6. Hypokalemia/hypophosphatemia. Resolved. 7. Candidal rash. Under breasts and in groin area. Improved. Continue with Nystatin 8. Left shoulder lump. X-ray left shoulder shows lipoma. Patient will need outpatient follow-up for possible removal if wanted. 9. Hepatitis C positive. Per patient, she was aware of this. ID following. 10. GI/DVT prophylaxis. Protonix and Lovenox Case was discussed in detail with patient regarding current diagnosis and treatment plan.
[2018-06-10] MEDS: Insulin Human NPH 1 UNITS/0.01 ML SC SCH (23:47)
[2018-06-11] MEDS: Insulin Human NPH/Reg 70/30 Vial(3 ml) SC SCH ×2 (08:05→17:23)
[2018-06-11] MEDS: Pantoprazole 40 mg EC Tab PO SCH (08:05)
[2018-06-11] MEDS: Insulin Reg-MEDIUM-Coverage SC SCH ×4 (08:06→22:10)
[2018-06-11] MEDS: Enoxaparin 40 mg Syringe SC SCH (09:36)
[2018-06-11] MEDS: Lactobacillus Acidophilus 500 MU Cap PO SCH ×2 (09:36→17:32)
[2018-06-11] MEDS: Magnesium Oxide 400 mg Tab UD PO SCH ×2 (09:36→17:32)
[2018-06-11] MEDS: Nystatin 100,000 Units/gm Topical Pow(15 gm) TOP SCH ×2 (09:38→17:32)
[2018-06-11] MEDS: Collagenase 250 Units/gm Ointment(30 gm) TOP SCH ×2 (09:38→17:33)
--- NOTE | 2018-06-11 14:58 | CP.PCM.PN ---
<Varghese Faust - Last Filed: 06/11/18 14:55> Subjective - Date & Time of Evaluation Date of Evaluation: 06/11/18 Time of Evaluation: 07:00 - Subjective Subjective: Varghese Faust PGY1 Medicine Progress Note for Dr. Bennett Patient seen and examined at bedside this morning. Patient denied chest pain, shortness of breath, n/v/d, abdominal pain. She says that she is now participating in physical therapy but still has some difficulty. No overnight changes. Vital signs are stable. A full 12 point ROS was conducted and unremarkable except as stated above. Objective - Vital Signs/Intake and Output Vital Signs (last 24 hours): Temp Pulse Resp BP Pulse Ox 98.4 F 91 H 20 123/75 99 06/11/18 06:00 06/11/18 06:00 06/11/18 06:00 06/11/18 06:00 06/11/18 06:00 Intake and Output: 06/11/18 06/11/18 06:59 18:59 Intake Total 780 Output Total 1400 Balance -620 - Medications Medications: Current Medications Collagenase (Santyl) 0 gm TOP BID [facility] Last Admin: 06/11/18 09:38 Dose: 1 unit Enoxaparin Sodium (Lovenox) 40 mg SC DAILY [facility] PRN Reason: Protocol Last Admin: 06/11/18 09:36 Dose: 40 mg Gabapentin (Neurontin) 100 mg PO TID [facility] PRN Reason: Protocol Last Admin: 06/11/18 13:22 Dose: 100 mg Ibuprofen (Motrin Tab) 400 mg PO Q6H PRN PRN Reason: Pain, moderate (4-7) Last Admin: 06/03/18 01:19 Dose: 400 mg Insulin Human NPH (Humulin N) 14 units SC HS [facility] Last Admin: 06/10/18 23:47 Dose: 14 units Insulin Human Regular (Humulin R Med) 0 units SC ACHS [facility] PRN Reason: Protocol Last Admin: 06/11/18 12:26 Dose: Not Given Lactobacillus Acidophilus (Bacid Acidophilus) 1 cap PO BID [facility] Last Admin: 06/11/18 09:36 Dose: 1 cap Magnesium Oxide (Mag-Ox) 400 mg PO BID [facility] Last Admin: 06/11/18 09:36 Dose: 400 mg Nystatin (Nystop Topical Powder) 2 gm TOP BID [facility] Last Admin: 06/11/18 09:38 Dose: 1 applic Ondansetron HCl (Zofran Inj) 4 mg IVP Q4H PRN PRN Reason: Nausea/Vomiting Last Admin: 06/09/18 08:32 Dose: 4 mg Pantoprazole Sodium (Protonix Ec Tab) 40 mg PO ACB [facility] Last Admin: 06/11/18 08:05 Dose: 40 mg - Labs Labs: 06/05/18 07:15 06/05/18 07:15 PT 13.4 SECONDS (9.4-12.5) H 05/28/18 01:26 INR 1.17 05/28/18 01:26 APTT 20.7 Seconds (25.1-36.5) L 05/28/18 01:26 - Constitutional Appears: Well, No Acute Distress - Head Exam Head Exam: ATRAUMATIC, NORMAL INSPECTION, NORMOCEPHALIC - Eye Exam Eye Exam: EOMI, Normal appearance, PERRL - ENT Exam ENT Exam: Mucous Membranes Moist, Normal Exam - Neck Exam Neck Exam: Full ROM, Normal Inspection. absent: Lymphadenopathy - Respiratory Exam Respiratory Exam: Clear to Ausculation Bilateral, NORMAL BREATHING PATTERN. absent: Rales, Rhonchi, Wheezes - Cardiovascular Exam Cardiovascular Exam: REGULAR RHYTHM, +S1, +S2. absent: Murmur - GI/Abdominal Exam GI & Abdominal Exam: Soft, Normal Bowel Sounds. absent: Guarding, Rigid, Tenderness - Exam Additional comments: Neff catheter in place because of stage III sacral ulcer. - Extremities Exam Extremities Exam: Full ROM, Normal Capillary Refill, Normal Inspection. absent : Joint Swelling, Pedal Edema - Back Exam Additional comments: Stage III sacral wound ulcer - Neurological Exam Neurological Exam: Alert, Awake, Oriented x3 Neuro motor strength exam: Left Upper Extremity: 5, Right Upper Extremity: 5, Left Lower Extremity: 4, Right Lower Extremity: 4 - Psychiatric Exam Psychiatric exam: Flat Affect - Skin Skin Exam: Dry, Intact, Normal Color, Warm Assessment and Plan - Assessment and Plan (Free Text) Assessment: Patient is a 52 y/o F with PMH of obesity, HTN and asthma who presented for AMS most likely due to metabolic encephalopathy. Patient was in DKA on admission, which resolved. She was also admitted for electrolyte abnormalities and sepsis 2 /2 sacral ulcers. Will need subacute rehab placement. Patient is being monitored on the floor. Plan: Sacral Wound Ulcers (Stage III) -c/w PT -Neff catheter is in place (for stage III or higher ulcers) -wound care is following -f/u PT recs for possible QING and placement -Surgery recommends optiform dressing, q2 turns, and air mattress for management -Infectious disease on consult, appreciated recs. Possible Depression or Mood Disorder -Psych has cleared the patient AMS likely 2/2 Metabolic Encephalopathy - resolved -AAOx3; baseline mental status -Hospital admission for DKA -resolved, sepsis - resolved, and electrolyte abnormality - repleted -Abdominal US: mild hepatosplenomegaly. Status post cholecystectomy. No additional abnormality. -Head CT on admission showed no acute findings -urine drug screen was negative -appreciated neurology recs DKA - resolved -diabetic education -c/w ISS -Heart Health Diet -Endo on consult, Dr. Solitario PPX with lovonex and protonix PT: Please get the patient moving and out of bed. Recommend QING. 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 Discussion with patient's mother about mcaid application. Dispo: continue to monitor patient on the floor. Continue with PT. Case was discussed and reviewed with Attending Physician Dr. Bennett. <aSndrita Bennett R - Last Filed: 06/13/18 17:02> Objective - Vital Signs/Intake and Output Vital Signs (last 24 hours): Temp Pulse Resp BP Pulse Ox 98 F 89 20 111/66 96 06/13/18 14:00 06/13/18 14:00 06/13/18 14:00 06/13/18 14:00 06/13/18 14:00 Intake and Output: 06/13/18 06/13/18 06:59 18:59 Intake Total 740 Output Total 2000 700 Balance -1260 -700 - Medications Medications: Current Medications Collagenase (Santyl) 0 gm TOP BID [facility] Last Admin: 06/13/18 09:54 Dose: 1 applic Enoxaparin Sodium (Lovenox) 40 mg SC DAILY [facility] PRN Reason: Protocol Last Admin: 06/13/18 09:53 Dose: 40 mg Gabapentin (Neurontin) 100 mg PO TID [facility] PRN Reason: Protocol Last Admin: 06/13/18 14:08 Dose: 100 mg Ibuprofen (Motrin Tab) 400 mg PO Q6H PRN PRN Reason: Pain, moderate (4-7) Last Admin: 06/03/18 01:19 Dose: 400 mg Insulin Human NPH (Humulin N) 14 units SC HS [facility] Last Admin: 06/12/18 21:56 Dose: 14 units Insulin Human Regular (Humulin R Med) 0 units SC ACHS [facility] PRN Reason: Protocol Last Admin: 06/13/18 12:30 Dose: Not Given Lactic Acid (Lac-Hydrin 12% Cream (140 G)) 0 ea TOP DAILY [facility] Lactobacillus Acidophilus (Bacid Acidophilus) 1 cap PO BID [facility] Last Admin: 06/13/18 09:53 Dose: 1 cap Magnesium Oxide (Mag-Ox) 400 mg PO BID [facility] Last Admin: 06/13/18 09:53 Dose: 400 mg Nystatin (Nystop Topical Powder) 2 gm TOP BID [facility] Stop: 06/15/18 23:59 Last Admin: 06/13/18 09:56 Dose: 1 applic Ondansetron HCl (Zofran Inj) 4 mg IVP Q4H PRN PRN Reason: Nausea/Vomiting Last Admin: 06/09/18 08:32 Dose: 4 mg Pantoprazole Sodium (Protonix Ec Tab) 40 mg PO ACB [facility] Last Admin: 06/13/18 08:30 Dose: 40 mg - Labs Labs: 06/05/18 07:15 06/05/18 07:15 PT 13.4 SECONDS (9.4-12.5) H 05/28/18 01:26 INR 1.17 05/28/18 01:26 APTT 20.7 Seconds (25.1-36.5) L 05/28/18 01:26 Attending/Attestation - Attestation I have personally seen and examined this patient.: Yes I have fully participated in the care of the patient.: Yes I have reviewed all pertinent clinical information, including history, physical exam and plan: Yes Notes (Text): Patient seen and examined by me at 11:55AM with resident 06/11/18. Case including HPI, physical exam, and assessment and plan discussed with resident. Agree with above with following additions/corrections. Patient is a 52-year-old female with past medical history significant for hypertension and asthma the presented to the emergency room with altered mental status. Patient states she is feeling better. She states she is doing better with physical therapy. No chest pain or shortness of breath. No headaches or dizziness. No nausea, vomiting, or abdominal pain. No fevers or chills. No dysuria. Physical exam: General: Awake and alert, sitting up in bed in no acute distress HEENT: Normocephalic, atraumatic. Extraocular muscles intact. No scleral icterus. Oropharynx is pink. Moist mucous membranes. Neck is supple. Cardiovascular: Normal rhythm. Normal S1, S2. Positive systolic murmur. No rubs rubs or gallops appreciated Pulmonary: Normal respiratory effort. No rhonchi, rales, or wheezing appreciated. Gastrointestinal: Soft, nondistended, obese abdomen. Nontender. Positive bowel sounds all 4 quadrants, no guarding. Musculoskeletal: Moves all extremities, no calf tenderness, no edema appreciated. Positive left shoulder large lump noted, nontender, no signs of infection Central nervous system: Awake and alert. CN2-12 grossly intact. Dermatologic: Skin warm and dry. Positive chronic decubitus ulcers. Assessment and plan: Patient is a 52-year-old female with past medical history significant for hypertension and asthma the presented to the emergency room with altered mental status. 1. Gait instability. Continue aggressive physical therapy. Physical therapy recommending QING. Patient is pending insurance. 2. Sacral ulcers present on admission. Wound care following. Continue local wound care. S/P antibiotic treatment. Continue to turn [id number]. Patient with neff catheter in 3. Toxic metabolic encephalopathy. Resolved. Was likely secondary to DKA vs electrolyte imbalance. S/P treatment with broad-spectrum antibiotics vancomycin and Zosyn. Blood cultures negative. Urine culture negative. Afebrile. Leukocytosis resolved. Procalcitionin was 0.14. Head CT per radiologist showed no acute intracranial abdnormalities. Met sepsis criteria on admission. DKA resolved. Neurology recommendations appreciated. ID following, recommendations appreciated. 4. DKA. Resolved. Off insulin drip. Endocrinology following, recommendations appreciated. Hemoglobin A1c 16.9. Continue insulin sliding scale and humulin 14 units at bedtime. Blood sugars much better controlled. Continue to monitor Accu-Cheks. 5. Hypernatremia. Likely secondary to dehydration. Resolved. 6. Hypokalemia/hypophosphatemia. Resolved. 7. Candidal rash. Under breasts and in groin area. Resolved. Continue with Nystatin 8. Left shoulder lump. X-ray left shoulder shows lipoma. Patient will need outpatient follow-up for possible removal if wanted. 9. Hepatitis C positive. Per patient, she was aware of this. ID following. 10. GI/DVT prophylaxis. Protonix and Lovenox Case was discussed in detail with patient regarding current diagnosis and treatment plan.
--- NOTE | 2018-06-11 15:35 | CP.PCM.PN ---
Subjective - Date & Time of Evaluation Date of Evaluation: 06/11/18 Time of Evaluation: 15:30 - Subjective Subjective: Infectious Disease Follow Up: June 11, 2018 Ms. Simpson is a 52 year old AAF with a past medical history significant for HTN and asthma who was BIBA after she was found to have AMS. Patient is awake but unresponsive verbally for any HPI and ROS questioning. All information was obtained either by EMS or chart review. Patient was reported to have been found covered in feces and to have been "sitting on the couch for one week". ROS unobtainable at this time. In ED, patient was found with values consistent with sepsis from undetermined source and DKA. Currently, the patient is awake, alert, and orientated. Extensive sacral decubiti. Strange family dynamic. Patient only gives very vague complaints and symptoms. Patient does not want her knowing about her case even though the is in the room during this conversation. History provided by the patient's mother suspect as it doesn't match aspects of the patient's clinical findings. Stating today that she doesn't want to see her family anymore. No additional issues. Patient appears to be fully awake and alert. Still with difficulty with movement. Unable to stand for more than a few seconds but participating with Physical Therapy. Patient wants to go home. Objective - Vital Signs/Intake and Output Vital Signs (last 24 hours): Temp Pulse Resp BP Pulse Ox 98.4 F 91 H 20 123/75 99 06/11/18 06:00 06/11/18 06:00 06/11/18 06:00 06/11/18 06:00 06/11/18 06:00 Intake and Output: 06/11/18 06/11/18 06:59 18:59 Intake Total 780 Output Total 1400 Balance -620 - Medications Medications: Current Medications Collagenase (Santyl) 0 gm TOP BID [facility] Last Admin: 06/11/18 09:38 Dose: 1 unit Enoxaparin Sodium (Lovenox) 40 mg SC DAILY [facility] PRN Reason: Protocol Last Admin: 06/11/18 09:36 Dose: 40 mg Gabapentin (Neurontin) 100 mg PO TID [facility] PRN Reason: Protocol Last Admin: 06/11/18 13:22 Dose: 100 mg Ibuprofen (Motrin Tab) 400 mg PO Q6H PRN PRN Reason: Pain, moderate (4-7) Last Admin: 06/03/18 01:19 Dose: 400 mg Insulin Human NPH (Humulin N) 14 units SC HS [facility] Last Admin: 06/10/18 23:47 Dose: 14 units Insulin Human Regular (Humulin R Med) 0 units SC ACHS [facility] PRN Reason: Protocol Last Admin: 06/11/18 12:26 Dose: Not Given Lactobacillus Acidophilus (Bacid Acidophilus) 1 cap PO BID [facility] Last Admin: 06/11/18 09:36 Dose: 1 cap Magnesium Oxide (Mag-Ox) 400 mg PO BID [facility] Last Admin: 06/11/18 09:36 Dose: 400 mg Nystatin (Nystop Topical Powder) 2 gm TOP BID [facility] Last Admin: 06/11/18 09:38 Dose: 1 applic Ondansetron HCl (Zofran Inj) 4 mg IVP Q4H PRN PRN Reason: Nausea/Vomiting Last Admin: 06/09/18 08:32 Dose: 4 mg Pantoprazole Sodium (Protonix Ec Tab) 40 mg PO ACB [facility] Last Admin: 06/11/18 08:05 Dose: 40 mg - Labs Labs: 06/05/18 07:15 06/05/18 07:15 PT 13.4 SECONDS (9.4-12.5) H 05/28/18 01:26 INR 1.17 05/28/18 01:26 APTT 20.7 Seconds (25.1-36.5) L 05/28/18 01:26 - Constitutional Appears: Non-toxic, No Acute Distress, Chronically Ill - Head Exam Head Exam: ATRAUMATIC, NORMOCEPHALIC - Eye Exam Eye Exam: EOMI, PERRL Pupil Exam: NORMAL ACCOMODATION, PERRL - ENT Exam ENT Exam: Mucous Membranes Moist, Normal External Ear Exam, TM's Normal Bilaterally - Neck Exam Neck Exam: Full ROM, Normal Inspection - Respiratory Exam Respiratory Exam: Clear to Ausculation Bilateral, NORMAL BREATHING PATTERN. absent: Rales, Rhonchi, Wheezes - Cardiovascular Exam Cardiovascular Exam: REGULAR RHYTHM, RRR, +S1, +S2 - GI/Abdominal Exam GI & Abdominal Exam: Soft, Normal Bowel Sounds. absent: Distended, Tenderness - Extremities Exam Extremities Exam: Full ROM, Normal Inspection - Back Exam Additional comments: Sacral wound pressure decubiti stage III - Neurological Exam Neurological Exam: Alert, Awake, CN II-XII Intact, Oriented x3 - Psychiatric Exam Psychiatric exam: Normal Affect, Normal Mood - Skin Skin Exam: Intact, Normal Color Additional comments: except sacral decubiti. Assessment and Plan - Assessment and Plan (Free Text) Assessment: 52 yo AA obese female with AMS with signs of sepsis with tachcardia, leukocytosis of 15, but no fevers. Patient was reported found in her home covered in feces on her cough for unknown period of time. Findings of DKA. Check brown cultures. On insulin drip. Currently on IV Vancomycin and Zosyn for antibiotic coverage. Procalcitonin of 0.14. No discernable renal issues at this time. Supportive care. Continue broad spectrum antibiotic coverage. Awaiting brown culture results. Cultures to date are negative. Clinically the patient is improving. Given at least 5 days of antibiotics before stopping. Cultures remain negative. Antibiotics stopped at this point. Continue local wound care. Question of family issues or strange family dynamic. Today, the patient is stating that she doesn't want to see her family anymore. No additional issues. Still with difficulty with ambulation. At best she is able to stand for a few seconds. She is not able to ambulate to a nearby commode from her bed even with aid. However, she is participating with physical therapy now. Thank you for allowing me to participate in the care of the patient, we will follow with you.
[2018-06-12] MEDS: Insulin Human NPH 1 UNITS/0.01 ML SC SCH ×2 (00:45→21:56)
[2018-06-12] MEDS: Insulin Human NPH/Reg 70/30 Vial(3 ml) SC SCH ×2 (08:25→16:33)
[2018-06-12] MEDS: Insulin Reg-MEDIUM-Coverage SC SCH ×4 (08:25→21:53)
[2018-06-12] MEDS: Pantoprazole 40 mg EC Tab PO SCH (09:51)
[2018-06-12] MEDS: Magnesium Oxide 400 mg Tab UD PO SCH ×2 (09:51→17:51)
[2018-06-12] MEDS: Lactobacillus Acidophilus 500 MU Cap PO SCH ×2 (09:52→17:51)
[2018-06-12] MEDS: Enoxaparin 40 mg Syringe SC SCH ×2 (09:52→20:14)
[2018-06-12] MEDS: Collagenase 250 Units/gm Ointment(30 gm) TOP SCH ×2 (09:53→17:51)
[2018-06-12] MEDS: Nystatin 100,000 Units/gm Topical Pow(15 gm) TOP SCH ×2 (09:53→21:56)
--- NOTE | 2018-06-12 17:04 | CP.PCM.PN ---
<Varghese Faust - Last Filed: 06/12/18 17:01> Subjective - Date & Time of Evaluation Date of Evaluation: 06/12/18 Time of Evaluation: 07:00 - Subjective Subjective: Varghese Faust PGY1 Medicine Progress Note for Dr. Bennett Patient seen and examined at bedside this morning. Patient was complaining that her feet were cold. She did not have cp, sob, abdominal pain, n/v/d, numbness/ tingling of extremities. Vital signs stable. No overnight changes. A full 12 point ROS was conducted and unremarkable except as stated above. Objective - Vital Signs/Intake and Output Vital Signs (last 24 hours): Temp Pulse Resp BP Pulse Ox 98.2 F 86 20 97/62 L 95 06/12/18 14:00 06/12/18 14:00 06/12/18 14:00 06/12/18 14:00 06/12/18 14:00 Intake and Output: 06/12/18 06/12/18 06:59 18:59 Intake Total 968 Output Total 1900 1000 Balance -932 -1000 - Medications Medications: Current Medications Collagenase (Santyl) 0 gm TOP BID [facility] Last Admin: 06/12/18 09:53 Dose: 1 unit Gabapentin (Neurontin) 100 mg PO TID [facility] PRN Reason: Protocol Last Admin: 06/12/18 13:31 Dose: 100 mg Ibuprofen (Motrin Tab) 400 mg PO Q6H PRN PRN Reason: Pain, moderate (4-7) Last Admin: 06/03/18 01:19 Dose: 400 mg Insulin Human NPH (Humulin N) 14 units SC HS [facility] Last Admin: 06/12/18 00:45 Dose: 14 units Insulin Human Regular (Humulin R Med) 0 units SC ACHS [facility] PRN Reason: Protocol Last Admin: 06/12/18 16:34 Dose: Not Given Lactobacillus Acidophilus (Bacid Acidophilus) 1 cap PO BID [facility] Last Admin: 06/12/18 09:52 Dose: 1 cap Magnesium Oxide (Mag-Ox) 400 mg PO BID [facility] Last Admin: 06/12/18 09:51 Dose: 400 mg Ondansetron HCl (Zofran Inj) 4 mg IVP Q4H PRN PRN Reason: Nausea/Vomiting Last Admin: 06/09/18 08:32 Dose: 4 mg Pantoprazole Sodium (Protonix Ec Tab) 40 mg PO ACB [facility] Last Admin: 06/12/18 09:51 Dose: 40 mg - Labs Labs: 06/05/18 07:15 06/05/18 07:15 PT 13.4 SECONDS (9.4-12.5) H 05/28/18 01:26 INR 1.17 05/28/18 01:26 APTT 20.7 Seconds (25.1-36.5) L 05/28/18 01:26 - Constitutional Appears: Well, No Acute Distress - Head Exam Head Exam: ATRAUMATIC, NORMAL INSPECTION, NORMOCEPHALIC - Eye Exam Eye Exam: EOMI, Normal appearance, PERRL - ENT Exam ENT Exam: Mucous Membranes Moist, Normal Exam - Neck Exam Neck Exam: Full ROM, Normal Inspection. absent: Lymphadenopathy - Respiratory Exam Respiratory Exam: Clear to Ausculation Bilateral, NORMAL BREATHING PATTERN. absent: Rales, Rhonchi, Wheezes - Cardiovascular Exam Cardiovascular Exam: REGULAR RHYTHM, +S1, +S2. absent: Murmur - GI/Abdominal Exam GI & Abdominal Exam: Soft, Normal Bowel Sounds. absent: Tenderness - Extremities Exam Extremities Exam: Full ROM, Normal Capillary Refill. absent: Calf Tenderness, Pedal Edema, Tenderness Additional comments: Patient noted to have superficial shedding of the skin at the plantar surface of R-foot. Sensation intact. Extremity is warm. No other abnormalities. - Back Exam Additional comments: Sacral wound ulcer stage III - Neurological Exam Neurological Exam: Alert, Awake, Oriented x3 Neuro motor strength exam: Left Upper Extremity: 5, Right Upper Extremity: 5, Left Lower Extremity: 5, Right Lower Extremity: 5 - Skin Skin Exam: Dry, Intact, Normal Color, Warm Assessment and Plan - Assessment and Plan (Free Text) Assessment: Patient is a 52 y/o F with PMH of obesity, HTN and asthma who presented for AMS most likely due to metabolic encephalopathy. Patient was in DKA on admission, which resolved. She was also admitted for electrolyte abnormalities and sepsis 2 /2 sacral ulcers. Will need subacute rehab placement. Patient is being monitored on the floor. Plan: Sacral Wound Ulcers (Stage III) -c/w PT -Neff catheter is in place (for stage III or higher ulcers) -wound care is following -f/u PT recs for possible QING and placement -c/w optiform dressing, q2 turns, and air mattress for management -Infectious disease on consult, appreciated recs. Xeroderma - Patient has rough, dry cracked skin at the R-foot - Podiatry consulted, f/u recs. Possible Depression or Mood Disorder -Psych has cleared the patient AMS likely 2/2 Metabolic Encephalopathy - resolved -AAOx3; baseline mental status -Hospital admission for DKA -resolved, sepsis - resolved, and electrolyte abnormality - repleted -Abdominal US: mild hepatosplenomegaly. Status post cholecystectomy. No additional abnormality. -Head CT on admission showed no acute findings -appreciated neurology recs DKA - resolved -diabetic education -c/w ISS -Heart Health Diet -Endo on consult, Dr. Solitario PPX with lovonex and protonix PT: Patient is now participating with PT. Needs to get out of bed more. Recommend QING. Commodities Requirements Analyst: patient needs outpatient PT. Discussion with patient's mother about mcaid application. Dispo: continue to monitor patient on the floor. Continue with PT. Case was discussed and reviewed with Attending Physician Dr. Bennett. <Sandrita Bennett R - Last Filed: 06/13/18 17:12> Objective - Vital Signs/Intake and Output Vital Signs (last 24 hours): Temp Pulse Resp BP Pulse Ox 98 F 89 20 111/66 96 06/13/18 14:00 06/13/18 14:00 06/13/18 14:00 06/13/18 14:00 06/13/18 14:00 Intake and Output: 06/13/18 06/13/18 06:59 18:59 Intake Total 740 Output Total 2000 700 Balance -1260 -700 - Medications Medications: Current Medications Collagenase (Santyl) 0 gm TOP BID [facility] Last Admin: 06/13/18 09:54 Dose: 1 applic Enoxaparin Sodium (Lovenox) 40 mg SC DAILY [facility] PRN Reason: Protocol Last Admin: 06/13/18 09:53 Dose: 40 mg Gabapentin (Neurontin) 100 mg PO TID [facility] PRN Reason: Protocol Last Admin: 06/13/18 14:08 Dose: 100 mg Ibuprofen (Motrin Tab) 400 mg PO Q6H PRN PRN Reason: Pain, moderate (4-7) Last Admin: 06/03/18 01:19 Dose: 400 mg Insulin Human NPH (Humulin N) 14 units SC HS [facility] Last Admin: 06/12/18 21:56 Dose: 14 units Insulin Human Regular (Humulin R Med) 0 units SC ACHS [facility] PRN Reason: Protocol Last Admin: 06/13/18 12:30 Dose: Not Given Lactic Acid (Lac-Hydrin 12% Cream (140 G)) 0 ea TOP DAILY [facility] Lactobacillus Acidophilus (Bacid Acidophilus) 1 cap PO BID [facility] Last Admin: 06/13/18 09:53 Dose: 1 cap Magnesium Oxide (Mag-Ox) 400 mg PO BID [facility] Last Admin: 06/13/18 09:53 Dose: 400 mg Nystatin (Nystop Topical Powder) 2 gm TOP BID [facility] Stop: 06/15/18 23:59 Last Admin: 06/13/18 09:56 Dose: 1 applic Ondansetron HCl (Zofran Inj) 4 mg IVP Q4H PRN PRN Reason: Nausea/Vomiting Last Admin: 06/09/18 08:32 Dose: 4 mg Pantoprazole Sodium (Protonix Ec Tab) 40 mg PO ACB [facility] Last Admin: 06/13/18 08:30 Dose: 40 mg - Labs Labs: 06/05/18 07:15 06/05/18 07:15 PT 13.4 SECONDS (9.4-12.5) H 05/28/18 01:26 INR 1.17 05/28/18 01:26 APTT 20.7 Seconds (25.1-36.5) L 05/28/18 01:26 Attending/Attestation - Attestation I have personally seen and examined this patient.: Yes I have fully participated in the care of the patient.: Yes I have reviewed all pertinent clinical information, including history, physical exam and plan: Yes Notes (Text): Patient seen and examined by me at 1:10PM with resident 06/12/18. Case including HPI, physical exam, and assessment and plan discussed with resident. Agree with above with following additions/corrections. Patient is a 52-year-old female with past medical history significant for hypertension and asthma the presented to the emergency room with altered mental status. Patient states she is feeling good. She complains of skin coming off of her right foot, no pain. No chest pain or shortness of breath. No headaches or dizziness. No nausea, vomiting, or abdominal pain. No fevers or chills. No dysuria. Physical exam: General: Awake and alert, sitting up in bed in no acute distress HEENT: Normocephalic, atraumatic. Extraocular muscles intact. No scleral icterus. Oropharynx is pink. Moist mucous membranes. Neck is supple. Cardiovascular: Normal rhythm. Normal S1, S2. Positive systolic murmur. No rubs rubs or gallops appreciated Pulmonary: Normal respiratory effort. No rhonchi, rales, or wheezing appreciated. Gastrointestinal: Soft, nondistended, obese abdomen. Nontender. Positive bowel sounds all 4 quadrants, no guarding. Musculoskeletal: Moves all extremities, no calf tenderness, no edema appreciated. Positive left shoulder large lump noted, nontender, no signs of infection Central nervous system: Awake and alert. CN2-12 grossly intact. Dermatologic: Skin warm and dry. Positive chronic decubitus ulcers. Positive sloughing of dry skin on plantar surface of right foot. Assessment and plan: Patient is a 52-year-old female with past medical history significant for hypertension and asthma the presented to the emergency room with altered mental status. 1. Gait instability. Continue aggressive physical therapy. Physical therapy recommending QING. Patient is pending insurance. 2. Sloughing of dry skin. Podiatry consulted, follow up recommendations. 3. Sacral ulcers present on admission. Wound care following. Continue local wound care. S/P antibiotic treatment. Continue to turn [id number]. Patient with neff catheter in 4. Toxic metabolic encephalopathy. Resolved. Was likely secondary to DKA vs electrolyte imbalance. S/P treatment with broad-spectrum antibiotics vancomycin and Zosyn. Blood cultures negative. Urine culture negative. Afebrile. Leukocytosis resolved. Procalcitionin was 0.14. Head CT per radiologist showed no acute intracranial abdnormalities. Met sepsis criteria on admission. DKA resolved. Neurology recommendations appreciated. ID following, recommendations appreciated. 5. DKA. Resolved. Off insulin drip. Endocrinology following, recommendations appreciated. Hemoglobin A1c 16.9. Continue insulin sliding scale and humulin 14 units at bedtime. Blood sugars well controlled. Continue to monitor Accu- Cheks. 6. Hypernatremia. Likely secondary to dehydration. Resolved. 7. Hypokalemia/hypophosphatemia. Resolved. 8. Candidal rash. Under breasts and in groin area. Resolved. Continue with Nystatin 9. Left shoulder lump. X-ray left shoulder shows lipoma. Patient will need outpatient follow-up for possible removal if wanted. 10. Hepatitis C positive. Per patient, she was aware of this. ID following. 11. GI/DVT prophylaxis. Protonix and Lovenox Case was discussed in detail with patient regarding current diagnosis and treatment plan.
--- NOTE | 2018-06-12 18:56 | CP.PCM.PN ---
Subjective - Date & Time of Evaluation Date of Evaluation: 06/12/18 Time of Evaluation: 18:15 - Subjective Subjective: Infectious Disease Follow Up: June 12, 2018 Ms. Simpson is a 52 year old AAF with a past medical history significant for HTN and asthma who was BIBA after she was found to have AMS. Patient is awake but unresponsive verbally for any HPI and ROS questioning. All information was obtained either by EMS or chart review. Patient was reported to have been found covered in feces and to have been "sitting on the couch for one week". ROS unobtainable at this time. In ED, patient was found with values consistent with sepsis from undetermined source and DKA. Currently, the patient is awake, alert, and orientated. Extensive sacral decubiti. Strange family dynamic. Patient only gives very vague complaints and symptoms. Patient does not want her knowing about her case even though the is in the room during this conversation. History provided by the patient's mother suspect as it doesn't match aspects of the patient's clinical findings. No additional issues. Patient appears to be fully awake and alert. Still with difficulty with movement. Unable to stand for more than a few seconds but participating with Physical Therapy. Patient wants to go home. Objective - Vital Signs/Intake and Output Vital Signs (last 24 hours): Temp Pulse Resp BP Pulse Ox 98.2 F 86 20 97/62 L 95 06/12/18 14:00 06/12/18 14:00 06/12/18 14:00 06/12/18 14:00 06/12/18 14:00 Intake and Output: 06/12/18 06/12/18 06:59 18:59 Intake Total 968 Output Total 1900 1000 Balance -932 -1000 - Medications Medications: Current Medications Collagenase (Santyl) 0 gm TOP BID [facility] Last Admin: 06/12/18 17:51 Dose: Not Given Gabapentin (Neurontin) 100 mg PO TID [facility] PRN Reason: Protocol Last Admin: 06/12/18 17:51 Dose: 100 mg Ibuprofen (Motrin Tab) 400 mg PO Q6H PRN PRN Reason: Pain, moderate (4-7) Last Admin: 06/03/18 01:19 Dose: 400 mg Insulin Human NPH (Humulin N) 14 units SC HS [facility] Last Admin: 06/12/18 00:45 Dose: 14 units Insulin Human Regular (Humulin R Med) 0 units SC ACHS [facility] PRN Reason: Protocol Last Admin: 06/12/18 16:34 Dose: Not Given Lactobacillus Acidophilus (Bacid Acidophilus) 1 cap PO BID [facility] Last Admin: 06/12/18 17:51 Dose: 1 cap Magnesium Oxide (Mag-Ox) 400 mg PO BID [facility] Last Admin: 06/12/18 17:51 Dose: 400 mg Ondansetron HCl (Zofran Inj) 4 mg IVP Q4H PRN PRN Reason: Nausea/Vomiting Last Admin: 06/09/18 08:32 Dose: 4 mg Pantoprazole Sodium (Protonix Ec Tab) 40 mg PO ACB [facility] Last Admin: 06/12/18 09:51 Dose: 40 mg - Labs Labs: 06/05/18 07:15 06/05/18 07:15 PT 13.4 SECONDS (9.4-12.5) H 05/28/18 01:26 INR 1.17 05/28/18 01:26 APTT 20.7 Seconds (25.1-36.5) L 05/28/18 01:26 - Constitutional Appears: Non-toxic, No Acute Distress, Chronically Ill - Head Exam Head Exam: ATRAUMATIC, NORMOCEPHALIC - Eye Exam Eye Exam: EOMI, PERRL Pupil Exam: NORMAL ACCOMODATION, PERRL - ENT Exam ENT Exam: Mucous Membranes Moist, Normal External Ear Exam, TM's Normal Bilaterally - Neck Exam Neck Exam: Full ROM, Normal Inspection - Respiratory Exam Respiratory Exam: Clear to Ausculation Bilateral, NORMAL BREATHING PATTERN. absent: Rales, Rhonchi, Wheezes - Cardiovascular Exam Cardiovascular Exam: REGULAR RHYTHM, RRR, +S1, +S2 - GI/Abdominal Exam GI & Abdominal Exam: Soft, Normal Bowel Sounds. absent: Distended, Tenderness - Extremities Exam Extremities Exam: Full ROM, Normal Inspection - Back Exam Additional comments: Sacral wound pressure decubiti stage III - Neurological Exam Neurological Exam: Alert, Awake, CN II-XII Intact, Oriented x3 - Psychiatric Exam Psychiatric exam: Normal Affect, Normal Mood - Skin Skin Exam: Intact, Normal Color Additional comments: except sacral decubiti. Assessment and Plan - Assessment and Plan (Free Text) Assessment: 52 yo AA obese female with AMS with signs of sepsis with tachcardia, leukocytosis of 15, but no fevers. Patient was reported found in her home covered in feces on her cough for unknown period of time. Findings of DKA. Check brown cultures. On insulin drip. Currently on IV Vancomycin and Zosyn for antibiotic coverage. Procalcitonin of 0.14. No discernable renal issues at this time. Supportive care. Continue broad spectrum antibiotic coverage. Awaiting brown culture results. Cultures to date are negative. Clinically the patient is improving. Given at least 5 days of antibiotics before stopping. Cultures remain negative. Antibiotics stopped at this point. Continue local wound care. Question of family issues or strange family dynamic. Today, the patient is stating that she doesn't want to see her family anymore. No additional issues. Still with difficulty with ambulation. At best she is able to stand for a few seconds. She is not able to ambulate to a nearby commode from her bed even with aid. However, she is participating with physical therapy now. Thank you for allowing me to participate in the care of the patient, we will follow with you.
[2018-06-13] MEDS: Pantoprazole 40 mg EC Tab PO SCH (08:30)
[2018-06-13] MEDS: Insulin Human NPH/Reg 70/30 Vial(3 ml) SC SCH ×2 (08:30→15:30)
[2018-06-13] MEDS: Insulin Reg-MEDIUM-Coverage SC SCH ×3 (08:30→18:15)
[2018-06-13] MEDS: Lactobacillus Acidophilus 500 MU Cap PO SCH ×2 (09:53→18:15)
[2018-06-13] MEDS: Magnesium Oxide 400 mg Tab UD PO SCH ×2 (09:53→18:15)
[2018-06-13] MEDS: Enoxaparin 40 mg Syringe SC SCH (09:53)
[2018-06-13] MEDS: Collagenase 250 Units/gm Ointment(30 gm) TOP SCH ×2 (09:54→18:17)
[2018-06-13] MEDS: Nystatin 100,000 Units/gm Topical Pow(15 gm) TOP SCH ×2 (09:56→18:17)
--- NOTE | 2018-06-13 15:00 | CP.PCM.PN ---
Subjective - Date & Time of Evaluation Date of Evaluation: 06/13/18 Time of Evaluation: 14:00 - Subjective Subjective: Infectious Disease Follow Up: June 13, 2018 Ms. Simpson is a 52 year old AAF with a past medical history significant for HTN and asthma who was BIBA after she was found to have AMS. Patient is awake but unresponsive verbally for any HPI and ROS questioning. All information was obtained either by EMS or chart review. Patient was reported to have been found covered in feces and to have been "sitting on the couch for one week". ROS unobtainable at this time. In ED, patient was found with values consistent with sepsis from undetermined source and DKA. Currently, the patient is awake, alert, and orientated. Extensive sacral decubiti. Strange family dynamic. Patient only gives very vague complaints and symptoms. Patient does not want her knowing about her case even though the is in the room during this conversation. History provided by the patient's mother suspect as it doesn't match aspects of the patient's clinical findings. No additional issues. Patient appears to be fully awake and alert. Still with difficulty with movement. Unable to stand for more than a few seconds but participating with Physical Therapy. Patient wants to go home. No other issues. Objective - Vital Signs/Intake and Output Vital Signs (last 24 hours): Temp Pulse Resp BP Pulse Ox 98 F 64 20 156/93 H 96 06/13/18 06:00 06/13/18 06:00 06/13/18 06:00 06/13/18 06:00 06/13/18 06:00 Intake and Output: 06/13/18 06/13/18 06:59 18:59 Intake Total 740 Output Total 2000 Balance -1260 - Medications Medications: Current Medications Collagenase (Santyl) 0 gm TOP BID [facility] Last Admin: 06/13/18 09:54 Dose: 1 applic Enoxaparin Sodium (Lovenox) 40 mg SC DAILY [facility] PRN Reason: Protocol Last Admin: 06/13/18 09:53 Dose: 40 mg Gabapentin (Neurontin) 100 mg PO TID [facility] PRN Reason: Protocol Last Admin: 06/13/18 14:08 Dose: 100 mg Ibuprofen (Motrin Tab) 400 mg PO Q6H PRN PRN Reason: Pain, moderate (4-7) Last Admin: 06/03/18 01:19 Dose: 400 mg Insulin Human NPH (Humulin N) 14 units SC HS [facility] Last Admin: 06/12/18 21:56 Dose: 14 units Insulin Human Regular (Humulin R Med) 0 units SC ACHS [facility] PRN Reason: Protocol Last Admin: 06/13/18 12:30 Dose: Not Given Lactobacillus Acidophilus (Bacid Acidophilus) 1 cap PO BID [facility] Last Admin: 06/13/18 09:53 Dose: 1 cap Magnesium Oxide (Mag-Ox) 400 mg PO BID [facility] Last Admin: 06/13/18 09:53 Dose: 400 mg Nystatin (Nystop Topical Powder) 2 gm TOP BID [facility] Stop: 06/15/18 23:59 Last Admin: 06/13/18 09:56 Dose: 1 applic Ondansetron HCl (Zofran Inj) 4 mg IVP Q4H PRN PRN Reason: Nausea/Vomiting Last Admin: 06/09/18 08:32 Dose: 4 mg Pantoprazole Sodium (Protonix Ec Tab) 40 mg PO ACB [facility] Last Admin: 06/13/18 08:30 Dose: 40 mg - Labs Labs: 06/05/18 07:15 06/05/18 07:15 PT 13.4 SECONDS (9.4-12.5) H 05/28/18 01:26 INR 1.17 05/28/18 01:26 APTT 20.7 Seconds (25.1-36.5) L 05/28/18 01:26 - Constitutional Appears: Non-toxic, No Acute Distress, Chronically Ill - Head Exam Head Exam: ATRAUMATIC, NORMOCEPHALIC - Eye Exam Eye Exam: EOMI, PERRL Pupil Exam: NORMAL ACCOMODATION, PERRL - ENT Exam ENT Exam: Mucous Membranes Moist, Normal External Ear Exam, TM's Normal Bilaterally - Neck Exam Neck Exam: Full ROM, Normal Inspection - Respiratory Exam Respiratory Exam: Clear to Ausculation Bilateral, NORMAL BREATHING PATTERN. absent: Rales, Rhonchi, Wheezes - Cardiovascular Exam Cardiovascular Exam: REGULAR RHYTHM, RRR, +S1, +S2 - GI/Abdominal Exam GI & Abdominal Exam: Soft, Normal Bowel Sounds. absent: Distended, Tenderness - Extremities Exam Extremities Exam: Full ROM, Normal Inspection - Neurological Exam Neurological Exam: Alert, Awake, CN II-XII Intact, Oriented x3 - Skin Skin Exam: Intact, Normal Color Additional comments: except sacral decubiti. Assessment and Plan - Assessment and Plan (Free Text) Assessment: 52 yo AA obese female with AMS with signs of sepsis with tachcardia, leukocytosis of 15, but no fevers. Patient was reported found in her home covered in feces on her cough for unknown period of time. Findings of DKA. Check brown cultures. On insulin drip. Currently on IV Vancomycin and Zosyn for antibiotic coverage. Procalcitonin of 0.14. No discernable renal issues at this time. Supportive care. Continue broad spectrum antibiotic coverage. Awaiting brown culture results. Cultures to date are negative. Clinically the patient is improving. Given at least 5 days of antibiotics before stopping. Cultures remain negative. Antibiotics stopped at this point. Continue local wound care. Question of family issues or strange family dynamic. Today, the patient is stating that she doesn't want to see her family anymore. No additional issues. Still with difficulty with ambulation. At best she is able to stand for a few seconds. She is not able to ambulate to a nearby commode from her bed even with aid. However, she is participating with physical therapy now. Thank you for allowing me to participate in the care of the patient, we will follow with you.
--- NOTE | 2018-06-13 15:32 | CP.PCM.CON ---
<Florian Rodriguez - Last Filed: 06/13/18 15:29> History of Present Illness - History of Present Illness History of Present Illness: Podiatry Consult note for Dr. Dasilva 52F with PMH HTN, AMS, DM and asthma seen at bedside for dry skin on plantar right foot. Patient is not sure how long the bottom of her foot has been dry or what caused it to dry out. Denies any treatments up to this point. She denies any pain to the area. Patient is AAO x 3 and NAD at time of visit. Denies any acute overnight events or other pedal complaints. Denies any recent N/V/F/C/CP/ SOB/D/posterior calf pain when squeezed. Review of Systems - Review of Systems All systems: reviewed and no additional remarkable complaints except Review of Systems: as per HPI Past Patient History - Infectious Disease Hx of Infectious Diseases: None - Tetanus Immunizations Tetanus Immunization: Unknown - Past Medical History & Family History Past Medical History?: Yes - Past Social History Smoking Status: Unknown If Ever Smoked - CARDIAC Hx Pacemaker: No - PULMONARY Hx Asthma: Yes - NEUROLOGICAL Hx Neurological Disorder: No - HEENT Hx HEENT Problems: No - RENAL Hx Chronic Kidney Disease: No - ENDOCRINE/METABOLIC Hx Endocrine Disorders: No - HEMATOLOGICAL/ONCOLOGICAL Hx Cancer: No - INTEGUMENTARY Hx Dermatological Problems: No - MUSCULOSKELETAL/RHEUMATOLOGICAL Hx Arthritis: Yes - GASTROINTESTINAL Hx Gall Bladder Disease: Yes (cholestectomy) - GENITOURINARY/GYNECOLOGICAL Hx Genitourinary Disorders: Yes Hx Incontinence: Yes - PSYCHIATRIC Hx Depression: No Hx Emotional Abuse: No Hx Physical Abuse: No Hx Substance Use: No - SURGICAL HISTORY Hx Mastectomy: No - ANESTHESIA Hx Anesthesia: No Meds Allergies/Adverse Reactions: Allergies Allergy/AdvReac Type Severity Reaction Status Date / Time Sulfa (Sulfonamide Allergy ANAPHYLAXIS Verified 05/28/18 01:17 Antibiotics) - Medications Medications: Current Medications Collagenase (Santyl) 0 gm TOP BID [facility] Last Admin: 06/13/18 09:54 Dose: 1 applic Enoxaparin Sodium (Lovenox) 40 mg SC DAILY [facility] PRN Reason: Protocol Last Admin: 06/13/18 09:53 Dose: 40 mg Gabapentin (Neurontin) 100 mg PO TID [facility] PRN Reason: Protocol Last Admin: 06/13/18 14:08 Dose: 100 mg Ibuprofen (Motrin Tab) 400 mg PO Q6H PRN PRN Reason: Pain, moderate (4-7) Last Admin: 06/03/18 01:19 Dose: 400 mg Insulin Human NPH (Humulin N) 14 units SC HS [facility] Last Admin: 06/12/18 21:56 Dose: 14 units Insulin Human Regular (Humulin R Med) 0 units SC ACHS [facility] PRN Reason: Protocol Last Admin: 06/13/18 12:30 Dose: Not Given Lactobacillus Acidophilus (Bacid Acidophilus) 1 cap PO BID [facility] Last Admin: 06/13/18 09:53 Dose: 1 cap Magnesium Oxide (Mag-Ox) 400 mg PO BID [facility] Last Admin: 06/13/18 09:53 Dose: 400 mg Nystatin (Nystop Topical Powder) 2 gm TOP BID [facility] Stop: 06/15/18 23:59 Last Admin: 06/13/18 09:56 Dose: 1 applic Ondansetron HCl (Zofran Inj) 4 mg IVP Q4H PRN PRN Reason: Nausea/Vomiting Last Admin: 06/09/18 08:32 Dose: 4 mg Pantoprazole Sodium (Protonix Ec Tab) 40 mg PO ACB [facility] Last Admin: 06/13/18 08:30 Dose: 40 mg Physical Exam - Constitutional Appears: Well, Non-toxic, No Acute Distress - Extremities Exam Additional comments: RLE focused exam: Vasc: DP/PT pulses fully palpable 2/4 b/l. Skin temperature warm to warm from proximal to distal. CFT < 3 seconds to all digits b/l. No edema noted b/l Neuro: Epicritic and protective sensation grossly intact b/l Derm: Xerotic skin noted to plantar RLE with peeling. Otherwise, no open lesions , wounds, maceration, xerosis, abnormal pigmentation or abnormal growths noted MSK: No pain with palpation to plantar right foot. ROM WNL at all major joints. MMT 5/5 in all major muscle groups - Neurological Exam Neurological exam: Alert, Oriented x3 - Psychiatric Exam Psychiatric exam: Normal Affect, Normal Mood Results - Vital Signs Recent Vital Signs: Last Vital Signs Temp 98 F 06/13/18 14:00 Pulse 89 06/13/18 14:00 Resp 20 06/13/18 14:00 BP 111/66 06/13/18 14:00 Pulse Ox 96 06/13/18 14:00 - Labs Result Diagrams: 06/05/18 07:15 06/05/18 07:15 Labs: Laboratory Results - last 24 hr 06/12/18 06/12/18 06/13/18 16:11 21:38 07:10 POC Glucose (mg/dL) 104 123 H 104 06/13/18 11:12 POC Glucose (mg/dL) 121 H Assessment & Plan - Assessment and Plan (Free Text) Assessment: 52F with PMH HTN, AMS, DM and asthma seen at bedside for dry skin on plantar right foot. Plan: Patient seen and evaluated with Dr. Dasilva Afebrile All peeling, lose skin seen on plantar aspect of right foot excised using suture removal kit without incident Ammonium lactate ordered to be applied daily No plan for surgical intervention at this time No dressing applied Podiatry will continue to follow while patient in house - Date & Time Date: 06/13/18 Time: 15:37 <Rui Dasilva - Last Filed: 06/14/18 10:10> Meds - Medications Medications: Current Medications Collagenase (Santyl) 0 gm TOP BID [facility] Last Admin: 06/13/18 18:17 Dose: 1 applic Enoxaparin Sodium (Lovenox) 40 mg SC DAILY [facility] PRN Reason: Protocol Last Admin: 06/13/18 09:53 Dose: 40 mg Gabapentin (Neurontin) 100 mg PO TID [facility] PRN Reason: Protocol Last Admin: 06/13/18 18:15 Dose: 100 mg Ibuprofen (Motrin Tab) 400 mg PO Q6H PRN PRN Reason: Pain, moderate (4-7) Last Admin: 06/03/18 01:19 Dose: 400 mg Insulin Human NPH (Humulin N) 14 units SC HS [facility] Last Admin: 06/12/18 21:56 Dose: 14 units Insulin Human Regular (Humulin R Med) 0 units SC ACHS [facility] PRN Reason: Protocol Last Admin: 06/14/18 07:51 Dose: Not Given Lactic Acid (Lac-Hydrin 12% Cream (140 G)) 0 ea TOP DAILY [facility] Magnesium Oxide (Mag-Ox) 400 mg PO BID [facility] Last Admin: 06/13/18 18:15 Dose: 400 mg Nystatin (Nystop Topical Powder) 2 gm TOP BID [facility] Stop: 06/15/18 23:59 Last Admin: 06/13/18 18:17 Dose: 1 applic Ondansetron HCl (Zofran Inj) 4 mg IVP Q4H PRN PRN Reason: Nausea/Vomiting Last Admin: 06/09/18 08:32 Dose: 4 mg Pantoprazole Sodium (Protonix Ec Tab) 40 mg PO ACB [facility] Last Admin: 06/13/18 08:30 Dose: 40 mg Results - Vital Signs Recent Vital Signs: Last Vital Signs Temp 98.5 F 06/14/18 06:00 Pulse 71 06/14/18 06:00 Resp 20 06/14/18 06:00 BP 109/79 06/14/18 06:00 Pulse Ox 97 06/14/18 06:00 - Labs Result Diagrams: 06/14/18 08:45 06/14/18 08:45 Labs: Laboratory Results - last 24 hr 06/13/18 06/13/18 06/13/18 07:10 11:12 16:28 WBC RBC Hgb Hct MCV MCH MCHC RDW Plt Count MPV Gran % Lymph % (Auto) Davie % (Auto) Eos % (Auto) Baso % (Auto) Gran # Lymph # (Auto) Davie # (Auto) Eos # (Auto) Baso # (Auto) Sodium Potassium Chloride Carbon Dioxide Anion Gap BUN Creatinine Est GFR ( Amer) Est GFR (Non-Af Amer) POC Glucose (mg/dL) 104 121 H 97 Random Glucose Calcium Phosphorus Magnesium Total Bilirubin AST ALT Alkaline Phosphatase Total Protein Albumin Globulin Albumin/Globulin Ratio 06/13/18 06/14/18 06/14/18 20:57 06:47 08:45 WBC 4.5 D RBC 3.75 Hgb 12.0 Hct 36.4 MCV 97.1 MCH 32.0 MCHC 33.0 RDW 13.6 Plt Count 256 MPV 9.4 Gran % 57.3 Lymph % (Auto) 32.8 Davie % (Auto) 7.7 H Eos % (Auto) 1.8 Baso % (Auto) 0.4 Gran # 2.60 Lymph # (Auto) 1.5 Davie # (Auto) 0.4 Eos # (Auto) 0.1 Baso # (Auto) 0.02 Sodium Potassium Chloride Carbon Dioxide Anion Gap BUN Creatinine Est GFR ( Amer) Est GFR (Non-Af Amer) POC Glucose (mg/dL) 84 99 Random Glucose Calcium Phosphorus Magnesium Total Bilirubin AST ALT Alkaline Phosphatase Total Protein Albumin Globulin Albumin/Globulin Ratio 06/14/18 08:45 WBC RBC Hgb Hct MCV MCH MCHC RDW Plt Count MPV Gran % Lymph % (Auto) Davie % (Auto) Eos % (Auto) Baso % (Auto) Gran # Lymph # (Auto) Davie # (Auto) Eos # (Auto) Baso # (Auto) Sodium 138 Potassium 4.1 Chloride 107 Carbon Dioxide 25 Anion Gap 10 BUN 7 Creatinine 0.5 L Est GFR ( Amer) > 60 Est GFR (Non-Af Amer) > 60 POC Glucose (mg/dL) Random Glucose 135 H Calcium 8.9 Phosphorus 4.8 H Magnesium 1.9 Total Bilirubin 0.5 AST 56 H ALT 41 Alkaline Phosphatase 99 Total Protein 6.8 Albumin 3.3 Globulin 3.6 Albumin/Globulin Ratio 0.9 L Attending/Attestation - Attestation I have personally seen and examined this patient.: Yes I have fully participated in the care of the patient.: Yes I have reviewed all pertinent clinical information: Yes
--- NOTE | 2018-06-13 20:15 | CP.PCM.PN ---
<Varghese Faust - Last Filed: 06/13/18 20:11> Subjective - Date & Time of Evaluation Date of Evaluation: 06/13/18 Time of Evaluation: 07:00 - Subjective Subjective: Varghese Faust, PGY1 Medicine Progress Note for Dr. Bennett Patient seen and examined at bedside this morning. Grossly asymptomatic. She denies cp, sob, abdominal pain, n/v/d, pain in the extremities. Patient said she is participating with PT more but is still having some difficulty. No overnight changes. Vitals stable. No labs have been drawn since patient is stable; pending lab draws tomorrow morning. Seen by podiatry after interview. Patient also had improved mood on exam today. A full 12 point ROS was conducted and unremarkable except as stated above. Objective - Vital Signs/Intake and Output Vital Signs (last 24 hours): Temp Pulse Resp BP Pulse Ox 98 F 89 20 111/66 96 06/13/18 14:00 06/13/18 14:00 06/13/18 14:00 06/13/18 14:00 06/13/18 14:00 Intake and Output: 06/13/18 06/14/18 18:59 06:59 Output Total 700 Balance -700 - Medications Medications: Current Medications Collagenase (Santyl) 0 gm TOP BID [facility] Last Admin: 06/13/18 18:17 Dose: 1 applic Enoxaparin Sodium (Lovenox) 40 mg SC DAILY [facility] PRN Reason: Protocol Last Admin: 06/13/18 09:53 Dose: 40 mg Gabapentin (Neurontin) 100 mg PO TID [facility] PRN Reason: Protocol Last Admin: 06/13/18 18:15 Dose: 100 mg Ibuprofen (Motrin Tab) 400 mg PO Q6H PRN PRN Reason: Pain, moderate (4-7) Last Admin: 06/03/18 01:19 Dose: 400 mg Insulin Human NPH (Humulin N) 14 units SC HS [facility] Last Admin: 06/12/18 21:56 Dose: 14 units Insulin Human Regular (Humulin R Med) 0 units SC ACHS [facility] PRN Reason: Protocol Last Admin: 06/13/18 18:15 Dose: Not Given Lactic Acid (Lac-Hydrin 12% Cream (140 G)) 0 ea TOP DAILY [facility] Magnesium Oxide (Mag-Ox) 400 mg PO BID [facility] Last Admin: 06/13/18 18:15 Dose: 400 mg Nystatin (Nystop Topical Powder) 2 gm TOP BID [facility] Stop: 06/15/18 23:59 Last Admin: 06/13/18 18:17 Dose: 1 applic Ondansetron HCl (Zofran Inj) 4 mg IVP Q4H PRN PRN Reason: Nausea/Vomiting Last Admin: 06/09/18 08:32 Dose: 4 mg Pantoprazole Sodium (Protonix Ec Tab) 40 mg PO ACB [facility] Last Admin: 06/13/18 08:30 Dose: 40 mg - Labs Labs: 06/05/18 07:15 06/05/18 07:15 PT 13.4 SECONDS (9.4-12.5) H 05/28/18 01:26 INR 1.17 05/28/18 01:26 APTT 20.7 Seconds (25.1-36.5) L 05/28/18 01:26 - Constitutional Appears: Well - Head Exam Head Exam: ATRAUMATIC, NORMAL INSPECTION, NORMOCEPHALIC - Eye Exam Eye Exam: EOMI, Normal appearance, PERRL - ENT Exam ENT Exam: Mucous Membranes Moist, Normal Exam - Neck Exam Neck Exam: Full ROM, Normal Inspection. absent: Lymphadenopathy - Respiratory Exam Respiratory Exam: Clear to Ausculation Bilateral, NORMAL BREATHING PATTERN. absent: Rales, Rhonchi, Wheezes - Cardiovascular Exam Cardiovascular Exam: REGULAR RHYTHM, +S1, +S2. absent: Murmur - GI/Abdominal Exam GI & Abdominal Exam: Soft, Normal Bowel Sounds. absent: Tenderness - Extremities Exam Extremities Exam: Full ROM, Normal Capillary Refill, Normal Inspection. absent : Joint Swelling, Pedal Edema - Neurological Exam Neurological Exam: Alert, Awake, Oriented x3 Neuro motor strength exam: Left Upper Extremity: 5, Right Upper Extremity: 5, Left Lower Extremity: 5, Right Lower Extremity: 5 - Psychiatric Exam Psychiatric exam: Normal Affect, Normal Mood - Skin Skin Exam: Dry, Intact, Normal Color, Warm Assessment and Plan - Assessment and Plan (Free Text) Assessment: Patient is a 52 y/o F with PMH of obesity, HTN and asthma who presented for AMS most likely due to metabolic encephalopathy. Patient was in DKA on admission, which resolved. She was also admitted for electrolyte abnormalities and sepsis 2 /2 sacral ulcers. Will need subacute rehab placement. Patient is being monitored on the floor. Plan: Gait Instability 2/2 Prolonged Immobility - Patient is being seen by PT - As per PT, patient still needs x2 mod assist but shows some improvement Sacral Wound Ulcers (Stage III) -c/w PT -Neff catheter is in place (for stage III or higher ulcers) -wound care is following -f/u PT recs for possible QING and placement -c/w optiform dressing, q2 turns, and air mattress for management -Infectious disease on consult, appreciated recs. Xeroderma and sloughing of skin at the R-foot - Patient has rough, dry cracked skin at the R-foot - Seen by podiatry, no further recs. Possible Depression or Mood Disorder -Psych has cleared the patient AMS likely 2/2 Metabolic Encephalopathy - resolved -AAOx3; baseline mental status -Hospital admission for DKA -resolved, sepsis - resolved, and electrolyte abnormality - repleted -Abdominal US: mild hepatosplenomegaly. Status post cholecystectomy. No additional abnormality. -Head CT on admission showed no acute findings -appreciated neurology recs DKA - resolved -diabetic education -c/w ISS -Heart Health Diet -Endo on consult, Dr. 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 Dispo: continue to monitor patient on the floor. Continue with PT. Case was discussed and reviewed with Attending Physician Dr. Bennett. <Sandrita Bennett R - Last Filed: 06/14/18 14:55> Objective - Vital Signs/Intake and Output Vital Signs (last 24 hours): Temp Pulse Resp BP Pulse Ox 98.5 F 71 20 109/79 97 06/14/18 06:00 06/14/18 06:00 06/14/18 06:00 06/14/18 06:00 06/14/18 06:00 Intake and Output: 06/14/18 06/14/18 06:59 18:59 Output Total 1000 Balance -1000 - Medications Medications: Current Medications Collagenase (Santyl) 0 gm TOP BID [facility] Last Admin: 06/14/18 10:13 Dose: 1 applic Enoxaparin Sodium (Lovenox) 40 mg SC DAILY [facility] PRN Reason: Protocol Last Admin: 06/14/18 10:08 Dose: 40 mg Gabapentin (Neurontin) 100 mg PO TID [facility] PRN Reason: Protocol Last Admin: 06/14/18 14:35 Dose: 100 mg Ibuprofen (Motrin Tab) 400 mg PO Q6H PRN PRN Reason: Pain, moderate (4-7) Last Admin: 06/03/18 01:19 Dose: 400 mg Insulin Human NPH (Humulin N) 14 units SC HS [facility] Last Admin: 06/12/18 21:56 Dose: 14 units Insulin Human Regular (Humulin R Med) 0 units SC ACHS [facility] PRN Reason: Protocol Last Admin: 06/14/18 12:25 Dose: Not Given Lactic Acid (Lac-Hydrin 12% Cream (140 G)) 0 ea TOP DAILY [facility] Last Admin: 06/14/18 10:08 Dose: 1 applic Magnesium Oxide (Mag-Ox) 400 mg PO BID [facility] Last Admin: 06/14/18 09:59 Dose: 400 mg Nystatin (Nystop Topical Powder) 2 gm TOP BID [facility] Stop: 06/15/18 23:59 Last Admin: 06/14/18 10:14 Dose: 1 applic Ondansetron HCl (Zofran Inj) 4 mg IVP Q4H PRN PRN Reason: Nausea/Vomiting Last Admin: 06/09/18 08:32 Dose: 4 mg Pantoprazole Sodium (Protonix Ec Tab) 40 mg PO ACB [facility] Last Admin: 06/14/18 09:59 Dose: 40 mg - Labs Labs: 06/14/18 08:45 06/14/18 08:45 PT 13.4 SECONDS (9.4-12.5) H 05/28/18 01:26 INR 1.17 05/28/18 01:26 APTT 20.7 Seconds (25.1-36.5) L 05/28/18 01:26 Attending/Attestation - Attestation I have personally seen and examined this patient.: Yes I have fully participated in the care of the patient.: Yes I have reviewed all pertinent clinical information, including history, physical exam and plan: Yes Notes (Text): Patient seen and examined by me at 11:50AM with resident 06/13/18. Case including HPI, physical exam, and assessment and plan discussed with resident. Agree with above with following additions/corrections. Patient is a 52-year-old female with past medical history significant for hypertension and asthma the presented to the emergency room with altered mental status. Patient states she is feeling good. No chest pain or shortness of breath. No headaches or dizziness. No nausea, vomiting, or abdominal pain. No fevers or chills. No dysuria. Patient is eating well. Physical exam: General: Awake and alert, sitting up in bed in no acute distress HEENT: Normocephalic, atraumatic. Extraocular muscles intact. No scleral icterus. Oropharynx is pink. Moist mucous membranes. Neck is supple. Cardiovascular: Normal rhythm. Normal S1, S2. Positive systolic murmur. No rubs rubs or gallops appreciated Pulmonary: Normal respiratory effort. No rhonchi, rales, or wheezing appreciated. Gastrointestinal: Soft, nondistended, obese abdomen. Nontender. Positive bowel sounds all 4 quadrants, no guarding. Musculoskeletal: Moves all extremities, no calf tenderness, no edema appreciated. Positive left shoulder large lump noted, nontender, no signs of infection Central nervous system: Awake and alert. CN2-12 grossly intact. Dermatologic: Skin warm and dry. Positive chronic decubitus ulcers. Positive sloughing of dry skin on plantar surface of right foot. Assessment and plan: Patient is a 52-year-old female with past medical history significant for hypertension and asthma the presented to the emergency room with altered mental status. 1. Gait instability. Continue aggressive physical therapy. Physical therapy recommending QING. Patient is pending insurance. 2. Sloughing of dry skin. Podiatry following, recommendations appreciated. S/P removal of some of the dry skin. 3. Sacral ulcers present on admission. Wound care following. Continue local wound care. S/P antibiotic treatment. Continue to turn x8otote. Patient with neff catheter in. 4. Toxic metabolic encephalopathy. Resolved. Was likely secondary to DKA vs electrolyte imbalance. S/P treatment with broad-spectrum antibiotics vancomycin and Zosyn. Blood cultures negative. Urine culture negative. Afebrile. Leukocytosis resolved. Procalcitionin was 0.14. Head CT per radiologist showed no acute intracranial abdnormalities. Met sepsis criteria on admission. DKA resolved. Neurology recommendations appreciated. ID following, recommendations appreciated. 5. DKA. Resolved. Off insulin drip. Endocrinology following, recommendations appreciated. Hemoglobin A1c 16.9. Continue insulin sliding scale and humulin 14 units at bedtime. Blood sugars well controlled. Continue to monitor Accu- Cheks. 6. Hypernatremia. Likely secondary to dehydration. Resolved. 7. Hypokalemia/hypophosphatemia. Resolved. 8. Candidal rash. Under breasts and in groin area. Resolved. Continue with Nystatin 9. Left shoulder lump. X-ray left shoulder shows lipoma. Patient will need outpatient follow-up for possible removal if wanted. 10. Hepatitis C positive. Per patient, she was aware of this. ID following. 11. GI/DVT prophylaxis. Protonix and Lovenox Case was discussed in detail with patient regarding current diagnosis and treatment plan.
[2018-06-14] MEDS: Insulin Reg-MEDIUM-Coverage SC SCH ×4 (07:51→21:50)
[2018-06-14 09:08] LABS: BASO # 0.02 K/mm3 (0.0-2.0); BASO % 0.4 % (0.0-3.0); EOS # 0.1 (0.0-0.7); EOS % 1.8 % (1.5-5.0); GRAN # 2.6 (1.4-6.5); GRAN % 57.3 % (50.0-68.0); LYMPH # 1.5 (1.2-3.4); LYMPH % 32.8 % (22.0-35.0); MEAN CELL VOLUME 97.1 fl (80.0-105.0); MEAN PLATELET VOLUME 9.4 fl (7.0-11.0); MONO # 0.4 (0.1-0.6); MONO % 7.7 % (1.0-6.0); RBC 3.75 10^6/uL (3.5-6.1); RED CELL DISTRIBUTION WIDTH 13.6 % (11.5-14.5); WHITE BLOOD COUNT 4.5 10^3/ul (4.5-11.0)
[2018-06-14 09:35] LABS: ALB/GLOB RATIO 0.9 (1.1-1.8); ALBUMIN 3.3 g/dL (3.0-4.8); ALT/SGPT 41 U/L (7-56); AST/SGOT 56 U/L (14-36); BLOOD UREA NITROGEN 7 mg/dL (7-21); CALCIUM 8.9 mg/dL (8.4-10.5); GFR NON-AFRICAN AMERICAN > 60
[2018-06-14] MEDS: Pantoprazole 40 mg EC Tab PO SCH (09:59)
[2018-06-14] MEDS: Magnesium Oxide 400 mg Tab UD PO SCH ×2 (09:59→18:08)
[2018-06-14] MEDS: Enoxaparin 40 mg Syringe SC SCH (10:08)
[2018-06-14] MEDS: Ammonium Lactate 12% Cream (140 g) TOP SCH (10:08)
[2018-06-14] MEDS: Insulin Human NPH/Reg 70/30 Vial(3 ml) SC SCH ×2 (10:09→17:13)
[2018-06-14] MEDS: Collagenase 250 Units/gm Ointment(30 gm) TOP SCH ×2 (10:13→18:18)
[2018-06-14] MEDS: Nystatin 100,000 Units/gm Topical Pow(15 gm) TOP SCH ×2 (10:14→18:09)
--- NOTE | 2018-06-14 11:45 | PN ---
DATE: 06/14/2018 SUBJECTIVE: A 52-year-old diabetic female seen at bedside for followup consultation evaluation and management of painful xerotic plantar skin as well as for elongated, thickened fungal nail plates. She states that the bottom of her feet are feeling much better with the application of ammonium lactate. She denies any nausea, fever, chills, vomiting or shortness of breath. She states that she is going to take her diabetic condition seriously once discharged. The patient's vital signs revealed temperature of 98.5, pulse rate of 71, blood pressure of 109/79, respiratory rate of 20. Laboratory findings reveal white count of 4.5, hemoglobin of 12, hematocrit of 36.4, platelet count of 256. All medications noted in the MAR. OBJECTIVE: Palpable pedal pulses noted bilaterally. Absent pedal hair growth noted bilaterally. Capillary filling time is within normal limits noted bilaterally. Protective sensation is diminished bilaterally using 5.07 g monofilament wire testing. All nail plates are noted to be elongated, dystrophic, discolored with severe subungual fungal debris and pain upon palpation. There is noted to be resolving xerotic skin on the plantar aspect of each foot, the right being greater than left. There is no open lesion. There is no wound. There is no purulence. There is no malodor. No abnormal growths noted. The underlying skin appears healthy tissue. ASSESSMENT: A 60-year-old, diabetic neuropathy, seen for painful xerotic plantar skin as well as painful onychomycosis. PLAN: The patient was seen and evaluated. Diabetic foot education was discussed at length. The patient was told that she needs to follow up once she is discharged with an slab miller operator, a director of development and a home appliance installer at periodic intervals during the year and it is imperative that she follow up with her primary care doctor as directed. The patient was told of the pedal risks associated with diabetic neuropathy and pedal soft treatment. She was told to never go barefoot inside or outside of the home except when bathing and sleeping. The patient was told of the importance of examining her feet while showering or bathing once daily. Excisional debridement was performed on all nail plates and ammonium lactate was applied to both feet. The patient will be seen and followed as needed. Rui Dasilva DPM [facility] # [id number]
--- NOTE | 2018-06-14 13:23 | CP.PCM.PN ---
<Brooklyn Hathaway - Last Filed: 06/14/18 13:28> Subjective - Date & Time of Evaluation Date of Evaluation: 06/14/18 Time of Evaluation: 13:23 - Subjective Subjective: Brooklyn Hathaway, PGY2 Medicine Progress Note for Dr. Sandrita Bennett Patient seen and examined at bedside this morning. Grossly asymptomatic. She denies cp, sob, abdominal pain, n/v/d, pain in the extremities. Patient said she is participating with physical therapy more but is still having some difficulty. No overnight changes. Vitals stable. Labs were drawn this morning. Patient refused exam today. Per attending, patient was offended when I asked if she was ready to go home today and respectfully requested that I leave the room on subsequent visit. Objective - Vital Signs/Intake and Output Vital Signs (last 24 hours): Temp Pulse Resp BP Pulse Ox 98.5 F 71 20 109/79 97 06/14/18 06:00 06/14/18 06:00 06/14/18 06:00 06/14/18 06:00 06/14/18 06:00 Intake and Output: 06/14/18 06/14/18 06:59 18:59 Output Total 1000 Balance -1000 - Medications Medications: Current Medications Collagenase (Santyl) 0 gm TOP BID [facility] Last Admin: 06/14/18 10:13 Dose: 1 applic Enoxaparin Sodium (Lovenox) 40 mg SC DAILY [facility] PRN Reason: Protocol Last Admin: 06/14/18 10:08 Dose: 40 mg Gabapentin (Neurontin) 100 mg PO TID [facility] PRN Reason: Protocol Last Admin: 06/14/18 09:59 Dose: 100 mg Ibuprofen (Motrin Tab) 400 mg PO Q6H PRN PRN Reason: Pain, moderate (4-7) Last Admin: 06/03/18 01:19 Dose: 400 mg Insulin Human NPH (Humulin N) 14 units SC HS [facility] Last Admin: 06/12/18 21:56 Dose: 14 units Insulin Human Regular (Humulin R Med) 0 units SC ACHS [facility] PRN Reason: Protocol Last Admin: 06/14/18 12:25 Dose: Not Given Lactic Acid (Lac-Hydrin 12% Cream (140 G)) 0 ea TOP DAILY [facility] Last Admin: 06/14/18 10:08 Dose: 1 applic Magnesium Oxide (Mag-Ox) 400 mg PO BID [facility] Last Admin: 06/14/18 09:59 Dose: 400 mg Nystatin (Nystop Topical Powder) 2 gm TOP BID [facility] Stop: 06/15/18 23:59 Last Admin: 06/14/18 10:14 Dose: 1 applic Ondansetron HCl (Zofran Inj) 4 mg IVP Q4H PRN PRN Reason: Nausea/Vomiting Last Admin: 06/09/18 08:32 Dose: 4 mg Pantoprazole Sodium (Protonix Ec Tab) 40 mg PO ACB [facility] Last Admin: 06/14/18 09:59 Dose: 40 mg - Labs Labs: 06/14/18 08:45 06/14/18 08:45 PT 13.4 SECONDS (9.4-12.5) H 05/28/18 01:26 INR 1.17 05/28/18 01:26 APTT 20.7 Seconds (25.1-36.5) L 05/28/18 01:26 - Head Exam Head Exam: ATRAUMATIC, NORMOCEPHALIC - Eye Exam Eye Exam: EOMI, Normal appearance - Additional Findings Additional findings: patient outright refused physical exam Assessment and Plan - Assessment and Plan (Free Text) Assessment: Patient is a 52 y/o F with PMH of obesity, HTN and asthma who presented for AMS most likely due to metabolic encephalopathy. Patient was in DKA on admission, which resolved. She was also admitted for electrolyte abnormalities and sepsis 2 /2 sacral ulcers. Will need subacute rehab placement. Patient is being monitored on the floor. Plan: Gait Instability 2/2 Prolonged Immobility - Patient is being seen by PT - As per PT, patient still needs x2 mod assist but shows some improvement Sacral Wound Ulcers (Stage III) -c/w PT -Neff catheter is in place (for stage III or higher ulcers) -wound care is following -f/u PT recs for possible QING and placement -c/w optiform dressing, q2 turns, and air mattress for management -Infectious disease on consult, appreciated recs. Xeroderma and sloughing of skin at the R-foot - Patient has rough, dry cracked skin at the R-foot - Seen by podiatry, no further recs. Possible Depression or Mood Disorder -Psych has cleared the patient AMS likely 2/2 Metabolic Encephalopathy - resolved -AAOx3; baseline mental status -Hospital admission for DKA -resolved, sepsis - resolved, and electrolyte abnormality - repleted -Abdominal US: mild hepatosplenomegaly. Status post cholecystectomy. No additional abnormality. -Head CT on admission showed no acute findings -appreciated neurology recs DKA - resolved -diabetic education -c/w ISS -Heart Health Diet -Endo on consult, Dr. Solitario PPX with lovonex and protonix PT: c/w PT for patient. 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 Dispo: continue to monitor patient on the floor. Continue with PT. Case was discussed and reviewed with Attending Physician Dr.Hetal Bennett. <Sandrita Bennett R - Last Filed: 06/14/18 15:00> Objective - Vital Signs/Intake and Output Vital Signs (last 24 hours): Temp Pulse Resp BP Pulse Ox 98.5 F 71 20 109/79 97 06/14/18 06:00 06/14/18 06:00 06/14/18 06:00 06/14/18 06:00 06/14/18 06:00 Intake and Output: 06/14/18 06/14/18 06:59 18:59 Output Total 1000 Balance -1000 - Medications Medications: Current Medications Collagenase (Santyl) 0 gm TOP BID [facility] Last Admin: 06/14/18 10:13 Dose: 1 applic Enoxaparin Sodium (Lovenox) 40 mg SC DAILY [facility] PRN Reason: Protocol Last Admin: 06/14/18 10:08 Dose: 40 mg Gabapentin (Neurontin) 100 mg PO TID [facility] PRN Reason: Protocol Last Admin: 06/14/18 14:35 Dose: 100 mg Ibuprofen (Motrin Tab) 400 mg PO Q6H PRN PRN Reason: Pain, moderate (4-7) Last Admin: 06/03/18 01:19 Dose: 400 mg Insulin Human NPH (Humulin N) 14 units SC HS [facility] Last Admin: 06/12/18 21:56 Dose: 14 units Insulin Human Regular (Humulin R Med) 0 units SC ACHS [facility] PRN Reason: Protocol Last Admin: 06/14/18 12:25 Dose: Not Given Lactic Acid (Lac-Hydrin 12% Cream (140 G)) 0 ea TOP DAILY [facility] Last Admin: 06/14/18 10:08 Dose: 1 applic Magnesium Oxide (Mag-Ox) 400 mg PO BID [facility] Last Admin: 06/14/18 09:59 Dose: 400 mg Nystatin (Nystop Topical Powder) 2 gm TOP BID [facility] Stop: 06/15/18 23:59 Last Admin: 06/14/18 10:14 Dose: 1 applic Ondansetron HCl (Zofran Inj) 4 mg IVP Q4H PRN PRN Reason: Nausea/Vomiting Last Admin: 06/09/18 08:32 Dose: 4 mg Pantoprazole Sodium (Protonix Ec Tab) 40 mg PO ACB [facility] Last Admin: 06/14/18 09:59 Dose: 40 mg - Labs Labs: 06/14/18 08:45 06/14/18 08:45 PT 13.4 SECONDS (9.4-12.5) H 05/28/18 01:26 INR 1.17 05/28/18 01:26 APTT 20.7 Seconds (25.1-36.5) L 05/28/18 01:26 Attending/Attestation - Attestation I have personally seen and examined this patient.: Yes I have fully participated in the care of the patient.: Yes I have reviewed all pertinent clinical information, including history, physical exam and plan: Yes Notes (Text): Patient seen and examined by me at 11AM with resident. Case including HPI, physical exam, and assessment and plan discussed with resident. Agree with above with following additions/corrections. Patient is a 52-year-old female with past medical history significant for hypertension and asthma the presented to the emergency room with altered mental status. Patient states she is feeling ok. Patient is asking when she will be discharged. States she is eating well. Patient is having bowel movement. No chest pain or shortness of breath. No headaches or dizziness. No nausea, vomiting, or abdominal pain. No fevers or chills. Physical exam: General: Awake and alert, sitting up in bed in no acute distress HEENT: Normocephalic, atraumatic. Extraocular muscles intact. No scleral icterus. Oropharynx is pink. Moist mucous membranes. Neck is supple. Cardiovascular: Normal rhythm. Normal S1, S2. Positive systolic murmur. No rubs rubs or gallops appreciated Pulmonary: Normal respiratory effort. No rhonchi, rales, or wheezing appreciated. Gastrointestinal: Soft, nondistended, obese abdomen. Nontender. Positive bowel sounds all 4 quadrants, no guarding. Musculoskeletal: Moves all extremities, no calf tenderness, no edema appreciated. Positive left shoulder large lump noted, nontender, no signs of infection Central nervous system: Awake and alert. CN2-12 grossly intact. Dermatologic: Skin warm and dry. Positive chronic decubitus ulcers. Positive dry skin on plantar surface of right foot. Assessment and plan: Patient is a 52-year-old female with past medical history significant for hypertension and asthma the presented to the emergency room with altered mental status. 1. Gait instability. Continue aggressive physical therapy. Physical therapy recommending [facility]. Patient is pending insurance. 2. Sloughing of dry skin. Podiatry following, recommendations appreciated. S/P removal of some of the dry skin. 3. Sacral ulcers present on admission. Wound care following. Continue local wound care. S/P antibiotic treatment. Continue to turn [id number]. Continue with neff catheter for now. 4. Toxic metabolic encephalopathy. Resolved. Was likely secondary to DKA vs electrolyte imbalance. S/P treatment with broad-spectrum antibiotics vancomycin and Zosyn. Blood cultures negative. Urine culture negative. Afebrile. Leukocytosis resolved. Procalcitionin was 0.14. Head CT per radiologist showed no acute intracranial abdnormalities. Met sepsis criteria on admission. DKA resolved. Neurology recommendations appreciated. ID following, recommendations appreciated. 5. DKA. Resolved. Off insulin drip. Endocrinology following, recommendations appreciated. Hemoglobin A1c 16.9. Continue insulin sliding scale and humulin 14 units at bedtime. Blood sugars well controlled. Continue to monitor Accu- Cheks. 6. Hypernatremia. Likely secondary to dehydration. Resolved. 7. Hypokalemia/hypophosphatemia. Resolved. 8. Candidal rash. Under breasts and in groin area. Resolved. Continue with Nystatin 9. Left shoulder lump. X-ray left shoulder shows lipoma. Patient will need outpatient follow-up for possible removal if wanted. 10. Hepatitis C positive. Per patient, she was aware of this. ID following. 11. Underlying possible psychiatric disorder. Psychiatry recommendations appreciated 12. GI/DVT prophylaxis. Protonix and Lovenox Case was discussed in detail with patient regarding current diagnosis and treatment plan.
[2018-06-14] MEDS: Insulin Human NPH 1 UNITS/0.01 ML SC SCH (21:49)
--- NOTE | 2018-06-15 07:34 | CP.PCM.PN ---
<Meaghan Frances - Last Filed: 06/15/18 12:50> Subjective - Date & Time of Evaluation Date of Evaluation: 06/15/18 Time of Evaluation: 10:00 - Subjective Subjective: PGY-1 Meaghan Frances D.O. Medicine progress note for Dr. Bennett's service: Patient was seen and examined this morning. No over night events reported. Patient was sitting up in bed. Patient states that she is feeling better. She expresses concern about her dog at home because she misses him. She denies pain. She has been working with PT to get from bed to chair. It was explained to patient that we are trying to get her into a care facility with her insurance. Objective - Vital Signs/Intake and Output Vital Signs (last 24 hours): Temp Pulse Resp BP Pulse Ox 98.9 F 89 20 116/85 97 06/14/18 14:00 06/14/18 14:00 06/14/18 14:00 06/14/18 14:00 06/14/18 14:00 Intake and Output: 06/15/18 06/15/18 06:59 18:59 Intake Total 1120 Output Total 1800 Balance -680 - Medications Medications: Current Medications Collagenase (Santyl) 0 gm TOP BID [facility] Last Admin: 06/14/18 18:18 Dose: 1 applic Enoxaparin Sodium (Lovenox) 40 mg SC DAILY [facility] PRN Reason: Protocol Last Admin: 06/14/18 10:08 Dose: 40 mg Gabapentin (Neurontin) 100 mg PO TID [facility] PRN Reason: Protocol Last Admin: 06/14/18 18:07 Dose: 100 mg Ibuprofen (Motrin Tab) 400 mg PO Q6H PRN PRN Reason: Pain, moderate (4-7) Last Admin: 06/03/18 01:19 Dose: 400 mg Insulin Human NPH (Humulin N) 14 units SC HS [facility] Last Admin: 06/14/18 21:49 Dose: Not Given Insulin Human Regular (Humulin R Med) 0 units SC ACHS [facility] PRN Reason: Protocol Last Admin: 06/14/18 21:50 Dose: Not Given Lactic Acid (Lac-Hydrin 12% Cream (140 G)) 0 ea TOP DAILY [facility] Last Admin: 06/14/18 10:08 Dose: 1 applic Magnesium Oxide (Mag-Ox) 400 mg PO BID [facility] Last Admin: 06/14/18 18:08 Dose: 400 mg Nystatin (Nystop Topical Powder) 2 gm TOP BID [facility] Stop: 06/15/18 23:59 Last Admin: 06/14/18 18:09 Dose: 1 applic Ondansetron HCl (Zofran Inj) 4 mg IVP Q4H PRN PRN Reason: Nausea/Vomiting Last Admin: 06/09/18 08:32 Dose: 4 mg Pantoprazole Sodium (Protonix Ec Tab) 40 mg PO ACB [facility] Last Admin: 06/14/18 09:59 Dose: 40 mg - Labs Labs: 06/14/18 08:45 06/14/18 08:45 PT 13.4 SECONDS (9.4-12.5) H 05/28/18 01:26 INR 1.17 05/28/18 01:26 APTT 20.7 Seconds (25.1-36.5) L 05/28/18 01:26 - Constitutional Appears: Non-toxic, No Acute Distress - Head Exam Head Exam: ATRAUMATIC, NORMAL INSPECTION - Eye Exam Eye Exam: EOMI, PERRL - ENT Exam ENT Exam: Mucous Membranes Moist, Normal Exam - Neck Exam Neck Exam: Normal Inspection - Respiratory Exam Respiratory Exam: Clear to Ausculation Bilateral, NORMAL BREATHING PATTERN - Cardiovascular Exam Cardiovascular Exam: REGULAR RHYTHM, +S1, +S2 - GI/Abdominal Exam GI & Abdominal Exam: Soft. absent: Tenderness Additional comments: obese - Rectal Exam Rectal Exam: Deferred - Extremities Exam Additional comments: large lump on L shoulder- chronic, nontender - Back Exam Back Exam: NORMAL INSPECTION - Neurological Exam Neurological Exam: Abnormal Gait, Alert, Awake, CN II-XII Intact, Oriented x3 - Psychiatric Exam Psychiatric exam: Flat Affect Additional comments: cooperative, tearful when discussing her dog - Skin Skin Exam: Dry, Normal Color, Warm Additional comments: dry skin on soles of feet Assessment and Plan - Assessment and Plan (Free Text) Assessment: Patient is a 52 yo AA female with PMH of obesity, HTN, and asthma who presented for AMS. She was found to be in DKA with metabolic encephalopathy. This has since resolved. She was also admitted for sepsis 2/2 sacral ulcers. She was initially managed in the ICU but is now transferred to the med/surg unit. Patient is deconditioned and is unable to ambulate without assistance. Needs subacute rehab placement. Patient does not require daily labs- will obtain weekly for now. Plan: Gait instability- 2/2 prolonged immobility/deconditioning - As per PT, patient still needs x2 mod assist but shows some improvement - Motrin 400 mg PO q6hrs PRN - Gabapentin 100 mg PO TID - Encourage OOB to chair - Pending QING placement - PT/OT Sacral ulcers, Stage 3 - Neff catheter is in place- required for stage 3 or higher - Wound care - Collagenase TOP BID - Nystatin topical powder 2g BID - Optiform dressing, q2 turns, and air mattress for management - Discontinued vancomycin and zosyn - Surgery consulted (Isra) - Infectious disease consulted (Mian) Xeroderma and sloughing of skin of feet - Lac-Hydrin 12% cream daily - Podiatry consulted (Mil)- topical care Mood disorder due to general medical condition - Follow-up with mental health center as outpatient if depression persists - Psychiatry consulted (Yamileth)- no psychotropic medications indicated at this time AMS, resolved- 2/2 metabolic encephalopathy due to DKA, sepsis, and electrolyte abnormalities - Abdominal US: mild hepatosplenomegaly. Status post cholecystectomy. No additional abnormality. - Head CT on admission: no acute findings - Blood and urine Cx negative - Magnesium oxide 100 mg PO BID - Zofran 4 mg IV q4hrs PRN - A1c 16.9 - Diabetic education - ISS high - Accuchecks ACHS - Hypoglycemia protocol - NPH 14 units SC QHS - Endocrinology consulted (Altaf) - Neurology consulted (Mary) IVF: not indicated Diet: moderate consistent carb GI ppx: Protonix 40 mg PO daily VTE ppx: Lovenox 40 mg SC daily Code status: full code Dispo: Continue to monitor patient on the floor. Continue with PT. Pending placement in SNF. Case was discussed with attending, Dr. Bennett. <Sandrita Bennett - Last Filed: 06/15/18 13:59> Objective - Vital Signs/Intake and Output Vital Signs (last 24 hours): Temp Pulse Resp BP Pulse Ox 98.3 F 75 20 122/80 97 06/15/18 06:00 06/15/18 06:00 06/15/18 06:00 06/15/18 06:00 06/15/18 06:00 Intake and Output: 06/15/18 06/15/18 06:59 18:59 Intake Total 1120 Output Total 1800 Balance -680 - Medications Medications: Current Medications Collagenase (Santyl) 0 gm TOP BID [facility] Last Admin: 06/15/18 10:06 Dose: 1 applic Enoxaparin Sodium (Lovenox) 40 mg SC DAILY [facility] PRN Reason: Protocol Last Admin: 06/15/18 10:02 Dose: 40 mg Gabapentin (Neurontin) 100 mg PO TID [facility] PRN Reason: Protocol Last Admin: 06/15/18 13:41 Dose: 100 mg Ibuprofen (Motrin Tab) 400 mg PO Q6H PRN PRN Reason: Pain, moderate (4-7) Last Admin: 06/03/18 01:19 Dose: 400 mg Insulin Human NPH (Humulin N) 14 units SC HS [facility] Last Admin: 06/14/18 21:49 Dose: Not Given Insulin Human Regular (Humulin R Med) 0 units SC ACHS [facility] PRN Reason: Protocol Last Admin: 06/15/18 08:09 Dose: Not Given Lactic Acid (Lac-Hydrin 12% Cream (140 G)) 0 ea TOP DAILY [facility] Last Admin: 06/15/18 10:02 Dose: 1 applic Magnesium Oxide (Mag-Ox) 400 mg PO BID [facility] Last Admin: 06/15/18 10:03 Dose: 400 mg Nystatin (Nystop Topical Powder) 2 gm TOP BID [facility] Stop: 06/15/18 23:59 Last Admin: 06/15/18 10:05 Dose: 1 applic Ondansetron HCl (Zofran Inj) 4 mg IVP Q4H PRN PRN Reason: Nausea/Vomiting Last Admin: 06/09/18 08:32 Dose: 4 mg Pantoprazole Sodium (Protonix Ec Tab) 40 mg PO ACB [facility] Last Admin: 06/15/18 08:12 Dose: 40 mg - Labs Labs: 06/14/18 08:45 06/14/18 08:45 PT 13.4 SECONDS (9.4-12.5) H 05/28/18 01:26 INR 1.17 05/28/18 01:26 APTT 20.7 Seconds (25.1-36.5) L 05/28/18 01:26 Attending/Attestation - Attestation I have personally seen and examined this patient.: Yes I have fully participated in the care of the patient.: Yes I have reviewed all pertinent clinical information, including history, physical exam and plan: Yes Notes (Text): Patient seen and examined by me at 11:20AM with resident. Case including HPI, physical exam, and assessment and plan discussed with resident. Agree with above with following additions/corrections. Patient is a 52-year-old female with past medical history significant for hypertension and asthma the presented to the emergency room with altered mental status. Patient states she is feeling fine. States she is worried about her dog and wants to go home. She denies any chest pain or shortness of breath. No headaches or dizziness. No nausea, vomiting, or abdominal pain. No fevers or chills. Patient is having bowel movements. Physical exam: General: Awake and alert, sitting up in bed in no acute distress HEENT: Normocephalic, atraumatic. Extraocular muscles intact. No scleral icterus. Oropharynx is pink. Moist mucous membranes. Neck is supple. Cardiovascular: Normal rhythm. Normal S1, S2. Positive systolic murmur. No rubs rubs or gallops appreciated Pulmonary: Normal respiratory effort. No rhonchi, rales, or wheezing appreciated. Gastrointestinal: Soft, nondistended, obese abdomen. Nontender. Positive bowel sounds all 4 quadrants, no guarding. Musculoskeletal: Moves all extremities, no calf tenderness, no edema appreciated. Positive left shoulder large lump noted, nontender, no signs of infection Central nervous system: Awake and alert. CN2-12 grossly intact. Dermatologic: Skin warm and dry. Positive chronic decubitus ulcers. Positive dry skin on plantar surface of right foot. Assessment and plan: Patient is a 52-year-old female with past medical history significant for hypertension and asthma the presented to the emergency room with altered mental status. 1. Gait instability. Continue aggressive physical therapy. Physical therapy recommending [facility]. Patient is pending insurance. 2. Sloughing of dry skin. Podiatry following, recommendations appreciated. S/P removal of some of the dry skin. Continue to monitor. 3. Sacral ulcers present on admission. Wound care following. Continue local wound care. S/P antibiotic treatment. Continue to turn [id number]. Continue with neff catheter for now. 4. Toxic metabolic encephalopathy. Resolved. Was likely secondary to DKA vs electrolyte imbalance. S/P treatment with broad-spectrum antibiotics vancomycin and Zosyn. Blood cultures negative. Urine culture negative. Afebrile. Leukocytosis resolved. Procalcitionin was 0.14. Head CT per radiologist showed no acute intracranial abdnormalities. Met sepsis criteria on admission. DKA resolved. Neurology recommendations appreciated. ID following, recommendations appreciated. 5. DKA. Resolved. Off insulin drip. Endocrinology following, recommendations appreciated. Hemoglobin A1c 16.9. Continue insulin sliding scale and humulin 14 units at bedtime. Blood sugars well controlled. Continue to monitor Accu- Cheks. 6. Hypernatremia. Likely secondary to dehydration. Resolved. 7. Hypokalemia/hypophosphatemia. Resolved. 8. Candidal rash. Under breasts and in groin area. Resolved. Continue with Nystatin 9. Left shoulder lump. X-ray left shoulder shows lipoma. Patient will need outpatient follow-up for possible removal if wanted. 10. Hepatitis C positive. Per patient, she was aware of this. ID following. 11. Underlying possible psychiatric disorder. Psychiatry recommendations appreciated 12. GI/DVT prophylaxis. Protonix and Lovenox Case was discussed in detail with patient regarding current diagnosis and treatment plan.
[2018-06-15] MEDS: Insulin Human NPH/Reg 70/30 Vial(3 ml) SC SCH ×3 (08:07→18:13)
[2018-06-15] MEDS: Insulin Reg-MEDIUM-Coverage SC SCH ×2 (08:09→18:04)
[2018-06-15] MEDS: Pantoprazole 40 mg EC Tab PO SCH (08:12)
[2018-06-15] MEDS: Enoxaparin 40 mg Syringe SC SCH ×2 (10:02→18:14)
[2018-06-15] MEDS: Ammonium Lactate 12% Cream (140 g) TOP SCH (10:02)
[2018-06-15] MEDS: Magnesium Oxide 400 mg Tab UD PO SCH ×2 (10:03→18:07)
[2018-06-15] MEDS: Nystatin 100,000 Units/gm Topical Pow(15 gm) TOP SCH ×2 (10:05→18:07)
[2018-06-15] MEDS: Collagenase 250 Units/gm Ointment(30 gm) TOP SCH ×2 (10:06→18:07)
[2018-06-16] MEDS: Insulin Reg-MEDIUM-Coverage SC SCH ×5 (02:03→22:03)
[2018-06-16] MEDS: Insulin Human NPH 1 UNITS/0.01 ML SC SCH ×2 (02:03→22:03)
[2018-06-16] MEDS: Ammonium Lactate 12% Cream (140 g) TOP SCH (09:21)
[2018-06-16] MEDS: Magnesium Oxide 400 mg Tab UD PO SCH ×2 (09:21→18:51)
[2018-06-16] MEDS: Pantoprazole 40 mg EC Tab PO SCH (09:21)
[2018-06-16] MEDS: Insulin Human NPH/Reg 70/30 Vial(3 ml) SC SCH ×2 (09:23→17:13)
[2018-06-16] MEDS: Collagenase 250 Units/gm Ointment(30 gm) TOP SCH ×2 (09:24→18:53)
[2018-06-16] MEDS: Enoxaparin 40 mg Syringe SC SCH (10:00)
--- NOTE | 2018-06-16 14:41 | CP.PCM.PN ---
<Meaghan Frances - Last Filed: 06/16/18 20:40> Subjective - Date & Time of Evaluation Date of Evaluation: 06/16/18 Time of Evaluation: 11:00 - Subjective Subjective: PGY-1 Meaghan Frances D.O. Medicine progress note for Dr. Guadarrama's service: Patient was seen and examined this morning. No over night events reported. Patient states she is comfortable. She is intermittently tearful and preoccupied with her dog. She acknowledges the importance of PT and states she will continue to work with them to regain strength. She denies pain. She is eating and sleeping well. Objective - Vital Signs/Intake and Output Vital Signs (last 24 hours): Temp Pulse Resp BP Pulse Ox 98.2 F 72 20 124/87 97 06/16/18 08:14 06/16/18 08:14 06/16/18 08:14 06/16/18 08:14 06/16/18 08:14 Intake and Output: 06/16/18 06/16/18 06:59 18:59 Intake Total 920 Output Total 2500 Balance -1580 - Medications Medications: Current Medications Collagenase (Santyl) 0 gm TOP BID [facility] Last Admin: 06/16/18 09:24 Dose: 1 applic Enoxaparin Sodium (Lovenox) 40 mg SC DAILY [facility] PRN Reason: Protocol Last Admin: 06/15/18 18:14 Dose: Not Given Gabapentin (Neurontin) 100 mg PO TID [facility] PRN Reason: Protocol Last Admin: 06/16/18 09:21 Dose: 100 mg Ibuprofen (Motrin Tab) 400 mg PO Q6H PRN PRN Reason: Pain, moderate (4-7) Last Admin: 06/03/18 01:19 Dose: 400 mg Insulin Human NPH (Humulin N) 14 units SC HS [facility] Last Admin: 06/16/18 02:03 Dose: Not Given Insulin Human Regular (Humulin R Med) 0 units SC ACHS [facility] PRN Reason: Protocol Last Admin: 06/16/18 09:18 Dose: Not Given Lactic Acid (Lac-Hydrin 12% Cream (140 G)) 0 ea TOP DAILY [facility] Last Admin: 06/16/18 09:21 Dose: 1 applic Magnesium Oxide (Mag-Ox) 400 mg PO BID [facility] Last Admin: 06/16/18 09:21 Dose: 400 mg Ondansetron HCl (Zofran Inj) 4 mg IVP Q4H PRN PRN Reason: Nausea/Vomiting Last Admin: 06/09/18 08:32 Dose: 4 mg Pantoprazole Sodium (Protonix Ec Tab) 40 mg PO ACB [facility] Last Admin: 06/16/18 09:21 Dose: 40 mg - Labs Labs: 06/14/18 08:45 06/14/18 08:45 PT 13.4 SECONDS (9.4-12.5) H 05/28/18 01:26 INR 1.17 05/28/18 01:26 APTT 20.7 Seconds (25.1-36.5) L 05/28/18 01:26 - Constitutional Appears: Non-toxic, No Acute Distress - Head Exam Head Exam: ATRAUMATIC, NORMAL INSPECTION - Eye Exam Eye Exam: EOMI, Normal appearance - ENT Exam ENT Exam: Mucous Membranes Moist, Normal Exam - Neck Exam Neck Exam: Normal Inspection - Respiratory Exam Respiratory Exam: Clear to Ausculation Bilateral, NORMAL BREATHING PATTERN - Cardiovascular Exam Cardiovascular Exam: REGULAR RHYTHM, +S1, +S2 - GI/Abdominal Exam GI & Abdominal Exam: Soft, Normal Bowel Sounds. absent: Tenderness Additional comments: obese - Rectal Exam Rectal Exam: Deferred - Extremities Exam Extremities Exam: Normal Capillary Refill, Normal Inspection - Back Exam Back Exam: NORMAL INSPECTION - Neurological Exam Neurological Exam: Alert, Awake, Oriented x3 - Psychiatric Exam Psychiatric exam: Flat Affect Additional comments: intermittently tearful - Skin Skin Exam: Dry, Intact, Normal Color, Warm Assessment and Plan - Assessment and Plan (Free Text) Assessment: Patient is a 52 yo AA female with PMH of obesity, HTN, and asthma who presented for AMS. She was found to be in DKA with metabolic encephalopathy. This has since resolved. She was also admitted for sepsis 2/2 sacral ulcers. She was initially managed in the ICU but is now transferred to the med/surg unit. Patient is deconditioned and is unable to ambulate without assistance. Needs subacute rehab placement. Patient does not require daily labs- will obtain weekly for now. Plan: Gait instability- 2/2 prolonged immobility/deconditioning - As per PT, patient still needs x2 mod assist but shows some improvement - Motrin 400 mg PO q6hrs PRN - Gabapentin 100 mg PO TID - Encourage OOB to chair - Pending QING placement - PT/OT Sacral ulcers, Stage 3 - Neff catheter is in place- required for stage 3 or higher - Wound care - Collagenase TOP BID - Nystatin topical powder 2g BID - Optiform dressing, q2 turns, and air mattress for management - Discontinued vancomycin and zosyn - Surgery consulted (Isra) - Infectious disease consulted (Mian) Xeroderma and sloughing of skin of feet - Lac-Hydrin 12% cream daily - Podiatry consulted (Mil)- topical care Mood disorder due to general medical condition - Follow-up with mental health center as outpatient if depression persists - Psychiatry consulted (Yamileth)- no psychotropic medications indicated at this time AMS, resolved- 2/2 metabolic encephalopathy due to DKA, sepsis, and electrolyte abnormalities - Abdominal US: mild hepatosplenomegaly. Status post cholecystectomy. No additional abnormality. - Head CT on admission: no acute findings - Blood and urine Cx negative - Magnesium oxide 100 mg PO BID - Zofran 4 mg IV q4hrs PRN - A1c 16.9 - Diabetic education - ISS high - Accuchecks ACHS - Hypoglycemia protocol - NPH 14 units SC QHS - Endocrinology consulted (Altaf) - Neurology consulted (Mary) IVF: not indicated Diet: moderate consistent carb GI ppx: Protonix 40 mg PO daily VTE ppx: Lovenox 40 mg SC daily Code status: full code Dispo: Continue to monitor patient on the floor. Continue with PT. Pending placement in SNF. Case was discussed with attending, Dr. Guadarrama. <Sirisha Guadarrama - Last Filed: 06/17/18 15:28> Objective - Vital Signs/Intake and Output Vital Signs (last 24 hours): Temp Pulse Resp BP Pulse Ox 98.4 F 76 20 119/80 97 06/17/18 09:00 06/17/18 09:00 06/17/18 09:00 06/17/18 09:00 06/17/18 09:00 Intake and Output: 06/17/18 06/17/18 06:59 18:59 Intake Total 1780 Output Total 2500 Balance -720 - Medications Medications: Current Medications Collagenase (Santyl) 0 gm TOP BID [facility] Last Admin: 06/17/18 10:02 Dose: 1 applic Enoxaparin Sodium (Lovenox) 40 mg SC DAILY [facility] PRN Reason: Protocol Last Admin: 06/17/18 09:52 Dose: Not Given Ibuprofen (Motrin Tab) 400 mg PO Q6H PRN PRN Reason: Pain, moderate (4-7) Last Admin: 06/03/18 01:19 Dose: 400 mg Insulin Human NPH (Humulin N) 14 units SC HS [facility] Last Admin: 06/16/18 22:03 Dose: Not Given Insulin Human Regular (Humulin R Med) 0 units SC ACHS [facility] PRN Reason: Protocol Last Admin: 06/17/18 12:55 Dose: Not Given Lactic Acid (Lac-Hydrin 12% Cream (140 G)) 0 ea TOP DAILY [facility] Last Admin: 06/17/18 10:02 Dose: 1 applic Lorazepam (Ativan) 1 mg PO TID PRN; Protocol PRN Reason: Anxiety Last Admin: 06/17/18 09:52 Dose: 1 mg Magnesium Oxide (Mag-Ox) 400 mg PO BID [facility] Last Admin: 06/17/18 09:51 Dose: 400 mg Ondansetron HCl (Zofran Inj) 4 mg IVP Q4H PRN PRN Reason: Nausea/Vomiting Last Admin: 06/09/18 08:32 Dose: 4 mg Pantoprazole Sodium (Protonix Ec Tab) 40 mg PO ACB [facility] Last Admin: 06/17/18 09:51 Dose: 40 mg - Labs Labs: 06/14/18 08:45 06/14/18 08:45 PT 13.4 SECONDS (9.4-12.5) H 05/28/18 01:26 INR 1.17 05/28/18 01:26 APTT 20.7 Seconds (25.1-36.5) L 05/28/18 01:26 Attending/Attestation - Attestation I have personally seen and examined this patient.: Yes I have fully participated in the care of the patient.: Yes I have reviewed all pertinent clinical information, including history, physical exam and plan: Yes Notes (Text): 06/17/18 15:23 Attending note; Patient seen and examined with resident. Patient is a 52-year-old female with past medical history significant for hypertension and asthma the presented to the emergency room with altered mental status/DKA. Currently metabolic encephalopathy resolved. 1. Gait instability. Continue aggressive physical therapy. Physical therapy recommending QING. Patient is pending insurance. workers' compensation commissioner valuation appreciated. 2. Sacral ulcers present on admission. Wound care following. Continue local wound care. S/P antibiotic treatment. Continue to turn [id number]. Continue with neff catheter for now. surgery evaluation appreciated. 3.Toxic metabolic encephalopathy. Resolved. secondary to DKA vs electrolyte imbalance. S/P treatment with Iv vancomycin and Zosyn. Blood cultures negative. Urine culture negative. Afebrile. Leukocytosis resolved. Head CT per radiologist showed no acute intracranial abdnormalities. 4.Diabetes: . Continue insulin sliding scale and humulin 14 units at bedtime.endocrinology evaluation appreciated. 5. Hepatitis C positive. Per patient, she was aware of this. ID following. 6. Underlying possible psychiatric disorder. Psychiatry recommendations appreciated. 7. GI/DVT prophylaxis. Protonix and Lovenox. Case was discussed in detail with patient regarding current diagnosis and treatment plan.
--- NOTE | 2018-06-17 06:21 | CP.PCM.PN ---
<Meaghan Frances - Last Filed: 06/17/18 14:02> Subjective - Date & Time of Evaluation Date of Evaluation: 06/17/18 Time of Evaluation: 09:30 - Subjective Subjective: PGY-1 Meaghan Frances D.O. Medicine progress note for Dr. Guadarrama's service: Patient was seen and examined this morning. No over night events reported. Patient is sitting comfortably in bed. She states she is not in pain. She is eating and sleeping well. Patient denies any chest pain, shortness of breath, abdominal pain, vomiting, urinary symptoms, dizziness weakness, fever, or chills. Objective - Vital Signs/Intake and Output Vital Signs (last 24 hours): Temp Pulse Resp BP Pulse Ox 98.3 F 84 18 134/86 97 06/16/18 14:00 06/16/18 23:08 06/16/18 23:08 06/16/18 23:08 06/16/18 23:08 Intake and Output: 06/16/18 06/17/18 18:59 06:59 Intake Total 1280 Output Total 1500 Balance -220 - Medications Medications: Current Medications Collagenase (Santyl) 0 gm TOP BID [facility] Last Admin: 06/16/18 18:53 Dose: 1 applic Enoxaparin Sodium (Lovenox) 40 mg SC DAILY [facility] PRN Reason: Protocol Last Admin: 06/16/18 10:00 Dose: Not Given Gabapentin (Neurontin) 100 mg PO TID [facility] PRN Reason: Protocol Last Admin: 06/16/18 18:51 Dose: 100 mg Ibuprofen (Motrin Tab) 400 mg PO Q6H PRN PRN Reason: Pain, moderate (4-7) Last Admin: 06/03/18 01:19 Dose: 400 mg Insulin Human NPH (Humulin N) 14 units SC HS [facility] Last Admin: 06/16/18 22:03 Dose: Not Given Insulin Human Regular (Humulin R Med) 0 units SC ACHS [facility] PRN Reason: Protocol Last Admin: 06/16/18 22:03 Dose: Not Given Lactic Acid (Lac-Hydrin 12% Cream (140 G)) 0 ea TOP DAILY [facility] Last Admin: 06/16/18 09:21 Dose: 1 applic Lorazepam (Ativan) 1 mg PO TID PRN; Protocol PRN Reason: Anxiety Magnesium Oxide (Mag-Ox) 400 mg PO BID [facility] Last Admin: 06/16/18 18:51 Dose: 400 mg Ondansetron HCl (Zofran Inj) 4 mg IVP Q4H PRN PRN Reason: Nausea/Vomiting Last Admin: 06/09/18 08:32 Dose: 4 mg Pantoprazole Sodium (Protonix Ec Tab) 40 mg PO ACB [facility] Last Admin: 06/16/18 09:21 Dose: 40 mg - Labs Labs: 06/14/18 08:45 06/14/18 08:45 PT 13.4 SECONDS (9.4-12.5) H 05/28/18 01:26 INR 1.17 05/28/18 01:26 APTT 20.7 Seconds (25.1-36.5) L 05/28/18 01:26 - Constitutional Appears: Non-toxic, No Acute Distress - Head Exam Head Exam: ATRAUMATIC, NORMAL INSPECTION - Eye Exam Eye Exam: EOMI, Normal appearance - ENT Exam ENT Exam: Mucous Membranes Moist, Normal Exam - Neck Exam Neck Exam: Normal Inspection - Respiratory Exam Respiratory Exam: Clear to Ausculation Bilateral, NORMAL BREATHING PATTERN - Cardiovascular Exam Cardiovascular Exam: REGULAR RHYTHM, +S1, +S2 - GI/Abdominal Exam GI & Abdominal Exam: Soft, Normal Bowel Sounds. absent: Tenderness Additional comments: obese - Rectal Exam Rectal Exam: Deferred - Extremities Exam Extremities Exam: Normal Inspection. absent: Tenderness - Back Exam Back Exam: NORMAL INSPECTION - Neurological Exam Neurological Exam: Alert, Awake, Oriented x3 - Psychiatric Exam Psychiatric exam: Flat Affect - Skin Skin Exam: Dry, Intact, Normal Color, Warm Assessment and Plan - Assessment and Plan (Free Text) Assessment: Patient is a 52 yo AA female with PMH of obesity, HTN, and asthma who presented for AMS. She was found to be in DKA with metabolic encephalopathy. This has since resolved. She was also admitted for sepsis 2/2 sacral ulcers. She was initially managed in the ICU but is now transferred to the med/surg unit. Patient is deconditioned and is unable to ambulate without assistance. Needs subacute rehab placement. Patient does not require daily labs- will obtain weekly for now. Discussed with field case manager, Tahir. Should have an update on insurance/placement tomorrow. Plan: Gait instability- 2/2 prolonged immobility/deconditioning - As per PT, patient still needs x2 mod assist but shows some improvement - Motrin 400 mg PO q6hrs PRN - Gabapentin 100 mg PO TID - Encourage OOB to chair - Pending QING placement - PT/OT Sacral ulcers, Stage 3 - Neff catheter is in place- required for stage 3 or higher - Wound care - Collagenase TOP BID - Nystatin topical powder 2g BID - Optiform dressing, q2 turns, and air mattress for management - Discontinued vancomycin and zosyn - Surgery consulted (Irsa) - Infectious disease consulted (Mian) Xeroderma and sloughing of skin of feet - Lac-Hydrin 12% cream daily - Podiatry consulted (Mil)- topical care Mood disorder due to general medical condition - Follow-up with mental health center as outpatient if depression persists - Psychiatry consulted (Yamileth)- no psychotropic medications indicated at this time AMS, resolved- 2/2 metabolic encephalopathy due to DKA, sepsis, and electrolyte abnormalities - Abdominal US: mild hepatosplenomegaly. Status post cholecystectomy. No additional abnormality. - Head CT on admission: no acute findings - Blood and urine Cx negative - Magnesium oxide 100 mg PO BID - Zofran 4 mg IV q4hrs PRN - A1c 16.9 - Diabetic education - ISS high - Accuchecks ACHS - Hypoglycemia protocol - NPH 14 units SC QHS - Endocrinology consulted (Altaf) - Neurology consulted (Mary) IVF: not indicated Diet: moderate consistent carb GI ppx: Protonix 40 mg PO daily VTE ppx: Lovenox 40 mg SC daily Code status: full code Dispo: Continue to monitor patient on the floor. Continue with PT. Pending placement in SNF. Case was discussed with attending, Dr. Guadarrama. <Sirisha Guadarrama - Last Filed: 06/19/18 15:56> Objective - Vital Signs/Intake and Output Vital Signs (last 24 hours): Temp Pulse Resp BP Pulse Ox 98 F 75 20 134/90 98 06/19/18 06:00 06/19/18 06:00 06/19/18 06:00 06/19/18 06:00 06/19/18 06:00 Intake and Output: 06/19/18 06/19/18 06:59 18:59 Intake Total 0 Balance 0 - Medications Medications: Current Medications Enoxaparin Sodium (Lovenox) 40 mg SC DAILY [facility] PRN Reason: Protocol Last Admin: 06/19/18 10:14 Dose: 40 mg Gabapentin (Neurontin) 100 mg PO TID [facility] PRN Reason: Protocol Last Admin: 06/19/18 14:54 Dose: 100 mg Ibuprofen (Motrin Tab) 400 mg PO Q6H PRN PRN Reason: Pain, moderate (4-7) Last Admin: 06/03/18 01:19 Dose: 400 mg Insulin Human NPH (Humulin N) 14 units SC HS [facility] Last Admin: 06/18/18 22:56 Dose: Not Given Insulin Human Regular (Humulin R Med) 0 units SC ACHS [facility] PRN Reason: Protocol Last Admin: 06/19/18 14:58 Dose: Not Given Lactic Acid (Lac-Hydrin 12% Cream (140 G)) 0 ea TOP DAILY [facility] Last Admin: 06/19/18 10:18 Dose: 1 applic Lorazepam (Ativan) 1 mg PO TID PRN; Protocol PRN Reason: Anxiety Last Admin: 06/17/18 09:52 Dose: 1 mg Magnesium Oxide (Mag-Ox) 400 mg PO BID [facility] Last Admin: 06/19/18 10:14 Dose: 400 mg Ondansetron HCl (Zofran Inj) 4 mg IVP Q4H PRN PRN Reason: Nausea/Vomiting Last Admin: 06/09/18 08:32 Dose: 4 mg Pantoprazole Sodium (Protonix Ec Tab) 40 mg PO ACB [facility] Last Admin: 06/19/18 14:58 Dose: Not Given - Labs Labs: 06/14/18 08:45 06/14/18 08:45 PT 13.4 SECONDS (9.4-12.5) H 05/28/18 01:26 INR 1.17 05/28/18 01:26 APTT 20.7 Seconds (25.1-36.5) L 05/28/18 01:26 Attending/Attestation - Attestation I have personally seen and examined this patient.: Yes I have fully participated in the care of the patient.: Yes I have reviewed all pertinent clinical information, including history, physical exam and plan: Yes Notes (Text): 06/19/18 15:53 Attending note; Patient seen and examined with resident. Patient is a 52-year-old female with past medical history significant for hypertension and asthma the presented to the emergency room with altered mental status/DKA. Currently metabolic encephalopathy resolved. 1. Gait instability. Continue aggressive physical therapy. Physical therapy recommending QING. Patient with episodes of anxiety. Suggested Ativan or Xanax before physical therapy. Patient refused. personnel worker evaluation appreciated. 2. Sacral ulcers present on admission. Wound care following. Continue local wound care. S/P antibiotic treatment. Continue to turn [id number]. Continue with neff catheter for now. surgery evaluation appreciated. 3.Toxic metabolic encephalopathy. Resolved. secondary to DKA vs electrolyte imbalance. S/P treatment with Iv vancomycin and Zosyn. Blood cultures negative. Urine culture negative. Afebrile. Leukocytosis resolved. Head CT is negative. 4.Diabetes: . Continue insulin sliding scale and humulin 14 units at bedtime.endocrinology evaluation appreciated. 5. Hepatitis C: chronic. Needs outpatient follow-up. 6. Underlying possible psychiatric disorder. Anxiety disorder. Ativan recommended. Patient refused meds. 7. GI/DVT prophylaxis. Protonix and Lovenox. Case was discussed in detail with patient regarding current diagnosis and treatment plan.
[2018-06-17] MEDS: Pantoprazole 40 mg EC Tab PO SCH (09:51)
[2018-06-17] MEDS: Magnesium Oxide 400 mg Tab UD PO SCH ×2 (09:51→17:37)
[2018-06-17] MEDS: Enoxaparin 40 mg Syringe SC SCH (09:52)
[2018-06-17] MEDS: Insulin Reg-MEDIUM-Coverage SC SCH ×3 (09:52→17:12)
[2018-06-17] MEDS: Collagenase 250 Units/gm Ointment(30 gm) TOP SCH ×2 (10:02→17:37)
[2018-06-17] MEDS: Ammonium Lactate 12% Cream (140 g) TOP SCH (10:02)
[2018-06-17] MEDS: Insulin Human NPH/Reg 70/30 Vial(3 ml) SC SCH ×2 (10:10→17:12)
[2018-06-17] MEDS: Insulin Human NPH 1 UNITS/0.01 ML SC SCH (22:54)
[2018-06-18] MEDS: Insulin Reg-MEDIUM-Coverage SC SCH ×3 (07:32→16:52)
[2018-06-18] MEDS: Pantoprazole 40 mg EC Tab PO SCH (08:27)
[2018-06-18] MEDS: Insulin Human NPH/Reg 70/30 Vial(3 ml) SC SCH ×2 (08:27→16:52)
[2018-06-18] MEDS: Magnesium Oxide 400 mg Tab UD PO SCH ×2 (09:42→18:01)
[2018-06-18] MEDS: Enoxaparin 40 mg Syringe SC SCH (09:42)
[2018-06-18] MEDS: Collagenase 250 Units/gm Ointment(30 gm) TOP SCH ×2 (09:42→18:01)
[2018-06-18] MEDS: Ammonium Lactate 12% Cream (140 g) TOP SCH (09:42)
--- NOTE | 2018-06-18 12:43 | CP.PCM.DIS ---
<Meaghan Frances - Last Filed: 06/19/18 16:56> Provider - Provider Date of Admission: 05/28/18 07:13 Attending physician: Sirisha Guadarrama MD Primary care physician: none Consults: endocrinology, neurology, psychiatry, ID, surgery, podiatry Time Spent in preparation of Discharge (in minutes): 60 Diagnosis - Discharge Diagnosis (1) Diabetic ketoacidosis Status: Resolved Priority: High (2) Sacral ulcer Status: Chronic Priority: Medium (3) Physical deconditioning Status: Chronic Priority: Medium (4) Mood disorder due to a general medical condition Status: Chronic Priority: Medium Hospital Course - Lab Results Lab Results: Micro Results 05/28/18 09:07 Naris MRSA Culture (Admit) - Final MRSA NOT DETECTED Most Recent Lab Values WBC 4.5 10^3/ul (4.5-11.0) D 06/14/18 08:45 RBC 3.75 10^6/uL (3.5-6.1) 06/14/18 08:45 Hgb 12.0 g/dL (12.0-16.0) 06/14/18 08:45 Hct 36.4 % (36.0-48.0) 06/14/18 08:45 MCV 97.1 fl (80.0-105.0) 06/14/18 08:45 MCH 32.0 pg (25.0-35.0) 06/14/18 08:45 MCHC 33.0 g/dl (31.0-37.0) 06/14/18 08:45 RDW 13.6 % (11.5-14.5) 06/14/18 08:45 Plt Count 256 10^3/uL (120.0-450.0) 06/14/18 08:45 MPV 9.4 fl (7.0-11.0) 06/14/18 08:45 Gran % 57.3 % (50.0-68.0) 06/14/18 08:45 Lymph % (Auto) 32.8 % (22.0-35.0) 06/14/18 08:45 [place] % (Auto) 7.7 % (1.0-6.0) H 06/14/18 08:45 Eos % (Auto) 1.8 % (1.5-5.0) 06/14/18 08:45 Baso % (Auto) 0.4 % (0.0-3.0) 06/14/18 08:45 Gran # 2.60 (1.4-6.5) 06/14/18 08:45 Lymph # (Auto) 1.5 (1.2-3.4) 06/14/18 08:45 [place] # (Auto) 0.4 (0.1-0.6) 06/14/18 08:45 Eos # (Auto) 0.1 (0.0-0.7) 06/14/18 08:45 Baso # (Auto) 0.02 K/mm3 (0.0-2.0) 06/14/18 08:45 PT 13.4 SECONDS (9.4-12.5) H 05/28/18 01:26 INR 1.17 05/28/18 01:26 APTT 20.7 Seconds (25.1-36.5) L 05/28/18 01:26 pO2 63 mm/Hg (30-55) H 05/28/18 05:15 VBG pH 7.22 (7.32-7.43) L 05/28/18 05:15 VBG pCO2 24.0 (40-60) L 05/28/18 05:15 VBG HCO3 9.8 mmol/l (21-28) L 05/28/18 05:15 VBG Total CO2 10.5 mmol.L (22-28) L 05/28/18 05:15 VBG O2 Sat (Calc) 90.5 % (40-65) H 05/28/18 05:15 VBG Base Excess -16.1 mmol/L (0.0-2.0) L 05/28/18 05:15 VBG Potassium 3.3 mmol/L (3.6-5.2) L 05/28/18 05:15 Sodium 145.0 mmol/L (132-148) 05/28/18 05:15 Chloride 109.0 mmol/L (98-107) H 05/28/18 05:15 Glucose 434 mg/dl (65-105) H* D 05/28/18 05:15 Lactate 3.2 mmol/L (0.7-2.1) H 05/28/18 05:15 FiO2 21.0 % 05/28/18 05:15 Sodium 138 mmol/L (132-148) 06/14/18 08:45 Potassium 4.1 mmol/L (3.6-5.0) 06/14/18 08:45 Chloride 107 mmol/L (98-107) 06/14/18 08:45 Carbon Dioxide 25 mmol/L (21-33) 06/14/18 08:45 Anion Gap 10 (10-20) 06/14/18 08:45 BUN 7 mg/dL (7-21) 06/14/18 08:45 Creatinine 0.5 mg/dl (0.7-1.2) L 06/14/18 08:45 Est GFR ( Amer) > 60 06/14/18 08:45 Est GFR (Non-Af Amer) > 60 06/14/18 08:45 POC Glucose (mg/dL) 122 mg/dL (65-110) H 06/18/18 06:36 Random Glucose 135 mg/dL (70-110) H 06/14/18 08:45 Hemoglobin A1c 16.9 % (4.2-6.5) H 05/28/18 08:00 Calcium 8.9 mg/dL (8.4-10.5) 06/14/18 08:45 Phosphorus 4.8 mg/dL (2.5-4.5) H 06/14/18 08:45 Magnesium 1.9 mg/dL (1.7-2.2) 06/14/18 08:45 Total Bilirubin 0.5 mg/dL (0.2-1.3) 06/14/18 08:45 AST 56 U/L (14-36) H 06/14/18 08:45 ALT 41 U/L (7-56) 06/14/18 08:45 Alkaline Phosphatase 99 U/L (38-126) 06/14/18 08:45 Ammonia 29 umol/L (9-33) 05/28/18 19:47 Lactate Dehydrogenase 730 U/L (333-699) H 05/28/18 01:26 Total Creatine Kinase 111 U/L (35-230) 05/28/18 01:26 Troponin I < 0.01 ng/mL 05/28/18 01:26 Total Protein 6.8 g/dL (5.8-8.3) 06/14/18 08:45 Albumin 3.3 g/dL (3.0-4.8) 06/14/18 08:45 Globulin 3.6 gm/dL 06/14/18 08:45 Albumin/Globulin Ratio 0.9 (1.1-1.8) L 06/14/18 08:45 Triglycerides 237 mg/dL (35-160) H 05/28/18 08:00 Cholesterol 190 mg/dL (130-200) 05/28/18 08:00 LDL Cholesterol Direct 106 mg/dL (0-129) 05/28/18 08:00 HDL Cholesterol 39 mg/dL (29-60) 05/28/18 08:00 Procalcitonin 0.14 NG/ML (0.19-0.49) L 05/28/18 08:00 TSH 3rd Generation 1.77 mIU/mL (0.46-4.68) 05/28/18 01:26 Beta HCG, Quant < 2.39 mIU/mL (0-6.15) 05/28/18 01:26 Venous Blood Potassium 3.3 mmol/L (3.6-5.2) L 05/28/18 05:15 Urine Color Yellow (YELLOW) 05/28/18 02:35 Urine Appearance Slight-cloudy (CLEAR) 05/28/18 02:35 Urine pH 6.0 (4.7-8.0) 05/28/18 02:35 Ur Specific [place] >= 1.030 (1.005-1.035) 05/28/18 02:35 Urine Protein 30 mg/dL (<30 mg/dL) H 05/28/18 02:35 Urine Glucose (UA) >=1000 mg/dL (NEGATIVE) 05/28/18 02:35 Urine Ketones >=80 mg/dL (NEGATIVE) 05/28/18 02:35 Urine Blood Moderate (NEGATIVE) H 05/28/18 02:35 Urine Nitrate Negative (NEGATIVE) 05/28/18 02:35 Urine Bilirubin Small (NEGATIVE) H 05/28/18 02:35 Urine Urobilinogen 1.0 E.U./dL (<1 E.U./dL) H 05/28/18 02:35 Ur Leukocyte Esterase Negative Teresa/uL (NEGATIVE) 05/28/18 02:35 Urine RBC 2 - 5 /hpf (0-2) 05/28/18 02:35 Urine WBC Negative /hpf (0-6) 05/28/18 02:35 Ur Epithelial Cells 4 - 5 /hpf (0-5) 05/28/18 02:35 Urine Bacteria Mod (NEG) 05/28/18 02:35 Urine Other Mucus 05/28/18 02:35 Salicylates < 1 mg/dL (2.0-20.0) L 05/28/18 01:26 Urine Opiates Screen Negative (NEGATIVE) 05/28/18 02:35 Urine Methadone Screen Negative (NEGATIVE) 05/28/18 02:35 Acetaminophen < 10.0 ug/ml (10.0-20.0) L 05/28/18 01:26 Ur Barbiturates Screen Negative (NEGATIVE) 05/28/18 02:35 Ur Phencyclidine Scrn Negative (NEGATIVE) 05/28/18 02:35 Ur Amphetamines Screen Negative (NEGATIVE) 05/28/18 02:35 U Benzodiazepines Scrn Negative (NEGATIVE) 05/28/18 02:35 U Oth Cocaine Metabols Negative (NEGATIVE) 05/28/18 02:35 U Cannabinoids Screen Negative (NEGATIVE) 05/28/18 02:35 Alcohol, Quantitative < 10 mg/dL (0-10) 05/28/18 01:26 Hepatitis A IgM Ab Negative (NEGATIVE) 05/29/18 14:15 Hep Bs Antigen Negative (NEGATIVE) 05/29/18 14:15 Hep B Core IgM Ab Negative (NEGATIVE) 05/29/18 14:15 Hepatitis C Antibody Reactive (NEGATIVE) 05/29/18 14:15 HCV RNA Qual (TMA) Detected H 05/30/18 10:30 HIV 1&2 Ag/Ab, 4th Gen Nonreactive (Nonreactive) 05/30/18 10:30 - Hospital Course Hospital Course: Wanda Simpson is a 52 year old AAF with a past medical history significant for HTN and asthma who was BIBA after she was found to have AMS. Patient is awake but unresponsive verbally to any HPI and ROS questioning. All information was obtained either by EMS or chart review. Patient was reported to have been found covered in feces and to have been "sitting on the couch for one week". ROS unobtainable at this time. In the ED, patient was found to be in sepsis with undetermined source and DKA. CT head negative. CXR: Bibasilar atelectasis. Patient was initially managed in the ICU with insulin drip. Family (mother, son , daughter) were at bedside. They reported that the patient is independently functional at baseline. She lives at home with her . They deny the patient previously being hospitalized for AMS or DKA or even knew that she had diabetes. DKA resolved in <24 hours. Patient has multiple electrolyte abnormalities that were corrected. Patient was treated with vancomycin and zosyn for sepsis. Sepsis is believed to be due to sacral ulcers. Patient became alert and oriented over 2 days. Despite this, the patient spoke slowly with paucity of speech and odd affect. She denied depression. Psychiatry saw the patient and diagnosed her with mood disorder due to general medical condition. Sacral ulcers were treated with wound care daily. Patient also had a Murray catheter in due to the ulcers being stage 3. Endocrinology saw the patient to manage diabetes. Patient was placed on daily insulin along with sliding scale. natural resources extension educator also visited patient and her family and taught them how to properly monitor glucose and give insulin injections. Ms. Simpson is a 52 year old AAF with a past medical history significant for HTN and asthma who was BIBA after she was found to have AMS. Patient is awake but unresponsive verbally to any HPI and ROS questioning. All information was obtained either by EMS or chart review. Patient was reported to have been found covered in feces and to have been "sitting on the couch for one week". ROS unobtainable at this time. In the ED, patient was found to be in sepsis with undetermined source and DKA. Patient continuously refused to participate in PT. She also refused some medications, including insulin. Upon discharge, her blood glucose was well controlled. Her vitals were stable. She was eating and sleeping well. She denied pain. Blood and urine cultures were negative. Patient continuously stated that she did not want to go to a rehab or alf. Discharge Exam - Head Exam Head Exam: ATRAUMATIC, NORMAL INSPECTION Discharge Plan - Discharge Medications Prescriptions: Insulin Human NPH [Humulin N] 14 units SC HS 30 Days Insulin Human NPH/Reg [HumuLIN 70/30 (NPH/Reg)] 40 units SC QAM 30 Days Insulin Human NPH/Reg [HumuLIN 70/30 (NPH/Reg)] 30 units SC QPM 30 Days - Follow Up Plan Condition: SERIOUS Disposition: HOME/ ROUTINE Instructions: Diabetes Type 2 (DC) Additional Instructions: You are being discharged from [facility] after being treated for diabetic ketoacidosis and a sacral ulcer. Please follow-up with a primary care provider of your choosing within 3-5 days. You will be given a prescription for insulin for diabetes. Please use the information the diabetic nurse educator provided you with to monitor you blood sugars and inject insulin. You will also be given a prescription for physical therapy as an outpatient. If symptoms return, please present to the nearest emergency department. <Sirisha Guadarrama - Last Filed: 06/20/18 15:29> Provider - Provider Date of Admission: 05/28/18 07:13 Attending physician: Sirisha Guadarrama MD Hospital Course - Lab Results Lab Results: Micro Results 05/28/18 09:07 Naris MRSA Culture (Admit) - Final MRSA NOT DETECTED Most Recent Lab Values WBC 4.5 10^3/ul (4.5-11.0) D 06/14/18 08:45 RBC 3.75 10^6/uL (3.5-6.1) 06/14/18 08:45 Hgb 12.0 g/dL (12.0-16.0) 06/14/18 08:45 Hct 36.4 % (36.0-48.0) 06/14/18 08:45 MCV 97.1 fl (80.0-105.0) 06/14/18 08:45 MCH 32.0 pg (25.0-35.0) 06/14/18 08:45 MCHC 33.0 g/dl (31.0-37.0) 06/14/18 08:45 RDW 13.6 % (11.5-14.5) 06/14/18 08:45 Plt Count 256 10^3/uL (120.0-450.0) 06/14/18 08:45 MPV 9.4 fl (7.0-11.0) 06/14/18 08:45 Gran % 57.3 % (50.0-68.0) 06/14/18 08:45 Lymph % (Auto) 32.8 % (22.0-35.0) 06/14/18 08:45 [place] % (Auto) 7.7 % (1.0-6.0) H 06/14/18 08:45 Eos % (Auto) 1.8 % (1.5-5.0) 06/14/18 08:45 Baso % (Auto) 0.4 % (0.0-3.0) 06/14/18 08:45 Gran # 2.60 (1.4-6.5) 06/14/18 08:45 Lymph # (Auto) 1.5 (1.2-3.4) 06/14/18 08:45 [place] # (Auto) 0.4 (0.1-0.6) 06/14/18 08:45 Eos # (Auto) 0.1 (0.0-0.7) 06/14/18 08:45 Baso # (Auto) 0.02 K/mm3 (0.0-2.0) 06/14/18 08:45 PT 13.4 SECONDS (9.4-12.5) H 05/28/18 01:26 INR 1.17 05/28/18 01:26 APTT 20.7 Seconds (25.1-36.5) L 05/28/18 01:26 pO2 63 mm/Hg (30-55) H 05/28/18 05:15 VBG pH 7.22 (7.32-7.43) L 05/28/18 05:15 VBG pCO2 24.0 (40-60) L 05/28/18 05:15 VBG HCO3 9.8 mmol/l (21-28) L 05/28/18 05:15 VBG Total CO2 10.5 mmol.L (22-28) L 05/28/18 05:15 VBG O2 Sat (Calc) 90.5 % (40-65) H 05/28/18 05:15 VBG Base Excess -16.1 mmol/L (0.0-2.0) L 05/28/18 05:15 VBG Potassium 3.3 mmol/L (3.6-5.2) L 05/28/18 05:15 Sodium 145.0 mmol/L (132-148) 05/28/18 05:15 Chloride 109.0 mmol/L (98-107) H 05/28/18 05:15 Glucose 434 mg/dl (65-105) H* D 05/28/18 05:15 Lactate 3.2 mmol/L (0.7-2.1) H 05/28/18 05:15 FiO2 21.0 % 05/28/18 05:15 Sodium 138 mmol/L (132-148) 06/14/18 08:45 Potassium 4.1 mmol/L (3.6-5.0) 06/14/18 08:45 Chloride 107 mmol/L (98-107) 06/14/18 08:45 Carbon Dioxide 25 mmol/L (21-33) 06/14/18 08:45 Anion Gap 10 (10-20) 06/14/18 08:45 BUN 7 mg/dL (7-21) 06/14/18 08:45 Creatinine 0.5 mg/dl (0.7-1.2) L 06/14/18 08:45 Est GFR ( Amer) > 60 06/14/18 08:45 Est GFR (Non-Af Amer) > 60 06/14/18 08:45 POC Glucose (mg/dL) 113 mg/dL (65-110) H 06/19/18 16:11 Random Glucose 135 mg/dL (70-110) H 06/14/18 08:45 Hemoglobin A1c 16.9 % (4.2-6.5) H 05/28/18 08:00 Calcium 8.9 mg/dL (8.4-10.5) 06/14/18 08:45 Phosphorus 4.8 mg/dL (2.5-4.5) H 06/14/18 08:45 Magnesium 1.9 mg/dL (1.7-2.2) 06/14/18 08:45 Total Bilirubin 0.5 mg/dL (0.2-1.3) 06/14/18 08:45 AST 56 U/L (14-36) H 06/14/18 08:45 ALT 41 U/L (7-56) 06/14/18 08:45 Alkaline Phosphatase 99 U/L (38-126) 06/14/18 08:45 Ammonia 29 umol/L (9-33) 05/28/18 19:47 Lactate Dehydrogenase 730 U/L (333-699) H 05/28/18 01:26 Total Creatine Kinase 111 U/L (35-230) 05/28/18 01:26 Troponin I < 0.01 ng/mL 05/28/18 01:26 Total Protein 6.8 g/dL (5.8-8.3) 06/14/18 08:45 Albumin 3.3 g/dL (3.0-4.8) 06/14/18 08:45 Globulin 3.6 gm/dL 06/14/18 08:45 Albumin/Globulin Ratio 0.9 (1.1-1.8) L 06/14/18 08:45 Triglycerides 237 mg/dL (35-160) H 05/28/18 08:00 Cholesterol 190 mg/dL (130-200) 05/28/18 08:00 LDL Cholesterol Direct 106 mg/dL (0-129) 05/28/18 08:00 HDL Cholesterol 39 mg/dL (29-60) 05/28/18 08:00 Procalcitonin 0.14 NG/ML (0.19-0.49) L 05/28/18 08:00 TSH 3rd Generation 1.77 mIU/mL (0.46-4.68) 05/28/18 01:26 Beta HCG, Quant < 2.39 mIU/mL (0-6.15) 05/28/18 01:26 Venous Blood Potassium 3.3 mmol/L (3.6-5.2) L 05/28/18 05:15 Urine Color Yellow (YELLOW) 05/28/18 02:35 Urine Appearance Slight-cloudy (CLEAR) 05/28/18 02:35 Urine pH 6.0 (4.7-8.0) 05/28/18 02:35 Ur Specific [place] >= 1.030 (1.005-1.035) 05/28/18 02:35 Urine Protein 30 mg/dL (<30 mg/dL) H 05/28/18 02:35 Urine Glucose (UA) >=1000 mg/dL (NEGATIVE) 05/28/18 02:35 Urine Ketones >=80 mg/dL (NEGATIVE) 05/28/18 02:35 Urine Blood Moderate (NEGATIVE) H 05/28/18 02:35 Urine Nitrate Negative (NEGATIVE) 05/28/18 02:35 Urine Bilirubin Small (NEGATIVE) H 05/28/18 02:35 Urine Urobilinogen 1.0 E.U./dL (<1 E.U./dL) H 05/28/18 02:35 Ur Leukocyte Esterase Negative [place]/uL (NEGATIVE) 05/28/18 02:35 Urine RBC 2 - 5 /hpf (0-2) 05/28/18 02:35 Urine WBC Negative /hpf (0-6) 05/28/18 02:35 Ur Epithelial Cells 4 - 5 /hpf (0-5) 05/28/18 02:35 Urine Bacteria Mod (NEG) 05/28/18 02:35 Urine Other Mucus 05/28/18 02:35 Salicylates < 1 mg/dL (2.0-20.0) L 05/28/18 01:26 Urine Opiates Screen Negative (NEGATIVE) 05/28/18 02:35 Urine Methadone Screen Negative (NEGATIVE) 05/28/18 02:35 Acetaminophen < 10.0 ug/ml (10.0-20.0) L 05/28/18 01:26 Ur Barbiturates Screen Negative (NEGATIVE) 05/28/18 02:35 Ur Phencyclidine Scrn Negative (NEGATIVE) 05/28/18 02:35 Ur Amphetamines Screen Negative (NEGATIVE) 05/28/18 02:35 U Benzodiazepines Scrn Negative (NEGATIVE) 05/28/18 02:35 U Oth Cocaine Metabols Negative (NEGATIVE) 05/28/18 02:35 U Cannabinoids Screen Negative (NEGATIVE) 05/28/18 02:35 Alcohol, Quantitative < 10 mg/dL (0-10) 05/28/18 01:26 Hepatitis A IgM Ab Negative (NEGATIVE) 05/29/18 14:15 Hep Bs Antigen Negative (NEGATIVE) 05/29/18 14:15 Hep B Core IgM Ab Negative (NEGATIVE) 05/29/18 14:15 Hepatitis C Antibody Reactive (NEGATIVE) 05/29/18 14:15 HCV RNA Qual (TMA) Detected H 05/30/18 10:30 HIV 1&2 Ag/Ab, 4th Gen Nonreactive (Nonreactive) 05/30/18 10:30 Attending/Attestation - Attestation I have personally seen and examined this patient.: Yes I have fully participated in the care of the patient.: Yes I have reviewed all pertinent clinical information, including history, physical exam and plan: Yes Notes (Text): 06/20/18 15:26 Attending note; Patient seen and examined with resident. Patient refused to do physical therapy. Patient is a 52-year-old female with past medical history significant for hypertension and asthma the presented to the emergency room with altered mental status/DKA. Currently metabolic encephalopathy resolved. 1. Gait instability. Patient is currently refusing physical therapy. Suggested Ativan or Xanax before physical therapy. Patient refused. repack room worker evaluation appreciated. 2. Sacral ulcers present on admission. Wound care following. Continue local wound care. S/P antibiotic treatment. Continue to turn [id number]. Discontinue Murray catheter. Continue local wound care. Instruction given by nurses. 3.Diabetes: . Continue insulin sliding scale and humulin 14 units at bedtime.endocrinology evaluation appreciated. 4.Hepatitis C: chronic. Needs outpatient follow-up. 5. Underlying possible psychiatric disorder. Anxiety disorder. Ativan recommended. Patient refused meds. Case discussed with social worker psychiatric for discharge planning. Patient does not qualify for rehabilitation placement. Patient will be discharged home. Patient also refused to come to [facility] clinic for follow-up. Advised to follow-up with PMD of choice.
--- NOTE | 2018-06-18 15:37 | CP.PCM.PN ---
<Meaghan Frances - Last Filed: 06/18/18 17:34> Subjective - Date & Time of Evaluation Date of Evaluation: 06/18/18 Time of Evaluation: 11:00 - Subjective Subjective: PGY-1 Meaghan Frances D.O. Medicine progress note for Dr. Guadarrama's service: Patient was seen and examined this morning. Patient is refusing to participate in PT. She is also refusing some medications, such as insulin and Ativan. She also had told multiple people that she does not want to go to a rehab. Patient denies any pain. She is sleeping and eating well. night worker contacted patient's mother regarding insurance- will follow-up tomorrow with final disposition plan. Objective - Vital Signs/Intake and Output Vital Signs (last 24 hours): Temp Pulse Resp BP Pulse Ox 98.2 F 79 20 115/76 100 06/18/18 14:00 06/18/18 14:00 06/18/18 14:00 06/18/18 14:00 06/18/18 14:00 Intake and Output: 06/18/18 06/18/18 06:59 18:59 Intake Total 540 780 Output Total 1100 340 Balance -560 440 - Medications Medications: Current Medications Collagenase (Santyl) 0 gm TOP BID ODELL Last Admin: 06/18/18 09:42 Dose: 1 applic Enoxaparin Sodium (Lovenox) 40 mg SC DAILY ODELL PRN Reason: Protocol Last Admin: 06/18/18 09:42 Dose: 40 mg Gabapentin (Neurontin) 100 mg PO TID ODELL PRN Reason: Protocol Last Admin: 06/18/18 13:34 Dose: 100 mg Ibuprofen (Motrin Tab) 400 mg PO Q6H PRN PRN Reason: Pain, moderate (4-7) Last Admin: 06/03/18 01:19 Dose: 400 mg Insulin Human NPH (Humulin N) 14 units SC HS ODELL Last Admin: 06/16/18 22:03 Dose: Not Given Insulin Human Regular (Humulin R Med) 0 units SC ACHS ODELL PRN Reason: Protocol Last Admin: 06/18/18 12:29 Dose: Not Given Lactic Acid (Lac-Hydrin 12% Cream (140 G)) 0 ea TOP DAILY ODELL Last Admin: 06/18/18 09:42 Dose: 1 applic Lorazepam (Ativan) 1 mg PO TID PRN; Protocol PRN Reason: Anxiety Last Admin: 06/17/18 09:52 Dose: 1 mg Magnesium Oxide (Mag-Ox) 400 mg PO BID [facility] Last Admin: 06/18/18 09:42 Dose: 400 mg Ondansetron HCl (Zofran Inj) 4 mg IVP Q4H PRN PRN Reason: Nausea/Vomiting Last Admin: 06/09/18 08:32 Dose: 4 mg Pantoprazole Sodium (Protonix Ec Tab) 40 mg PO ACB [facility] Last Admin: 06/18/18 08:27 Dose: 40 mg - Labs Labs: 06/14/18 08:45 06/14/18 08:45 PT 13.4 SECONDS (9.4-12.5) H 05/28/18 01:26 INR 1.17 05/28/18 01:26 APTT 20.7 Seconds (25.1-36.5) L 05/28/18 01:26 - Constitutional Appears: Non-toxic, No Acute Distress, Unkempt, Other (obese) - Head Exam Head Exam: ATRAUMATIC, NORMAL INSPECTION - Eye Exam Eye Exam: EOMI, Normal appearance - ENT Exam ENT Exam: Mucous Membranes Moist, Normal Exam - Neck Exam Neck Exam: Normal Inspection - Respiratory Exam Respiratory Exam: Clear to Ausculation Bilateral, NORMAL BREATHING PATTERN - Cardiovascular Exam Cardiovascular Exam: REGULAR RHYTHM, +S1, +S2 - GI/Abdominal Exam GI & Abdominal Exam: Soft, Normal Bowel Sounds - Rectal Exam Rectal Exam: Deferred - Extremities Exam Extremities Exam: Normal Capillary Refill, Normal Inspection. 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 She was found to be in DKA with metabolic encephalopathy. This has since resolved. She was also admitted for sepsis 2/2 sacral ulcers. She was initially managed in the ICU but is now transferred to the med/surg unit. Patient is deconditioned and is unable to ambulate without assistance. Needs subacute rehab placement. Patient does not require daily labs- will obtain weekly for now. Discussed with patient case manager, Tahir. He is in contact with mother and will have final update regarding dispo tomorrow. Plan: Gait instability- 2/2 prolonged immobility/deconditioning - As per PT, patient still needs x2 mod assist but shows some improvement - Motrin 400 mg PO q6hrs PRN - Gabapentin 100 mg PO TID - Encourage OOB to chair - PT/OT- patient refusing Sacral ulcers, Stage 3 - Neff catheter is in place- required for stage 3 or higher - Wound care - Collagenase TOP BID - Nystatin topical powder 2g BID - Optiform dressing, q2 turns, and air mattress for management - Discontinued vancomycin and zosyn - Surgery consulted (Isra) - Infectious disease consulted (Mian) Xeroderma and sloughing of skin of feet - Lac-Hydrin 12% cream daily - Podiatry consulted (Mil)- topical care Mood disorder due to general medical condition - Ativan 1 mg PO TID PRN for anxiety - Follow-up with mental health center as outpatient if depression persists - Psychiatry consulted (Yamileth)- no psychotropic medications indicated at this time AMS, resolved- 2/2 metabolic encephalopathy due to DKA, sepsis, and electrolyte abnormalities - Abdominal US: mild hepatosplenomegaly. Status post cholecystectomy. No additional abnormality. - Head CT on admission: no acute findings - Blood and urine Cx negative - Magnesium oxide 100 mg PO BID - Zofran 4 mg IV q4hrs PRN - A1c 16.9 - Diabetic education - ISS high - Accuchecks ACHS - Hypoglycemia protocol - NPH 14 units SC QHS - Endocrinology consulted (Altaf) - Neurology consulted (Mary) IVF: not indicated Diet: moderate consistent carb GI ppx: Protonix 40 mg PO daily VTE ppx: Lovenox 40 mg SC daily Code status: full code Dispo: Continue to monitor patient on the floor. Plan to d/c home tomorrow unless any change with insurance. Case was discussed with attending, Dr. Guadarrama. <Sirisha Guadarrama - Last Filed: 06/20/18 15:26> Objective - Vital Signs/Intake and Output Vital Signs (last 24 hours): Temp Pulse Resp BP Pulse Ox 97.8 F 77 20 107/71 99 06/19/18 14:00 06/19/18 14:00 06/19/18 14:00 06/19/18 14:00 06/19/18 14:00 - Labs Labs: 06/14/18 08:45 06/14/18 08:45 PT 13.4 SECONDS (9.4-12.5) H 05/28/18 01:26 INR 1.17 05/28/18 01:26 APTT 20.7 Seconds (25.1-36.5) L 05/28/18 01:26 Attending/Attestation - Attestation I have personally seen and examined this patient.: Yes I have fully participated in the care of the patient.: Yes I have reviewed all pertinent clinical information, including history, physical exam and plan: Yes Notes (Text): 06/20/18 15:24 Attending note; Patient seen and examined with resident. Patient refused to do physical therapy. Patient is a 52-year-old female with past medical history significant for hypertension and asthma the presented to the emergency room with altered mental status/DKA. Currently metabolic encephalopathy resolved. 1. Gait instability. Continue aggressive physical therapy. Physical therapy recommending [facility]ING. Patient with episodes of anxiety. Suggested Ativan or Xanax before physical therapy. Patient refused. Patient refused physical therapy. night worker evaluation appreciated. 2. Sacral ulcers present on admission. Wound care following. Continue local wound care. S/P antibiotic treatment. Continue to turn [id number]. Continue with neff catheter for now. surgery evaluation appreciated. 3.Toxic metabolic encephalopathy. Resolved. secondary to DKA vs electrolyte imbalance. S/P treatment with Iv vancomycin and Zosyn. Blood cultures negative. Urine culture negative. Afebrile. Leukocytosis resolved. Head CT is negative. 4.Diabetes: . Continue insulin sliding scale and humulin 14 units at bedtime.endocrinology evaluation appreciated. 5. Hepatitis C: chronic. Needs outpatient follow-up. 6. Underlying possible psychiatric disorder. Anxiety disorder. Ativan recommended. Patient refused meds. Case discussed with social media campaign manager for discharge planning. Patient does not qualify for rehabilitation placement. Patient also refused to come to [facility] for follow-up. Case was discussed in detail with patient regarding current diagnosis and treatment plan. 06/20/18 15:26
[2018-06-18] MEDS: Insulin Human NPH 1 UNITS/0.01 ML SC SCH (22:56)
[2018-06-19] MEDS: Insulin Reg-MEDIUM-Coverage SC SCH ×3 (01:56→14:58)
[2018-06-19 09:10] VITALS: RESP 20
[2018-06-19] MEDS: Magnesium Oxide 400 mg Tab UD PO SCH ×2 (10:14→17:16)
[2018-06-19] MEDS: Enoxaparin 40 mg Syringe SC SCH (10:14)
[2018-06-19] MEDS: Insulin Human NPH/Reg 70/30 Vial(3 ml) SC SCH (10:17)
[2018-06-19] MEDS: Ammonium Lactate 12% Cream (140 g) TOP SCH (10:18)
[2018-06-19] MEDS: Pantoprazole 40 mg EC Tab PO SCH (14:58)
[2018-06-19 15:59] VITALS: BP 107/71; PULSE 77; TEMP 97.8; O2SAT 99
== END 2018-06-19 20:49 | disposition home or self-care (01) | DRG 566 ==
LOC: ED 01:04 → ERH 07:13 → ICU 08:44 → 5RSO 05-30 10:18
PROVIDERS: ADMIT Hospitalist; ATTEND Internal Medicine
PROC: 05HB33Z Insertion of Infusion Device into Right Basilic Vein, Percutaneous Approach (ICD-10-PCS; principal; 2018-05-30)
PROC: 3E03329 Introduction of Other Anti-infective into Peripheral Vein, Percutaneous Approach (ICD-10-PCS; 2018-05-30)
PROC: 0HBRXZZ Excision of Toe Nail, External Approach (ICD-10-PCS; 2018-06-14)
PROC: 0HBRXZZ Excision of Toe Nail, External Approach (ICD-10-PCS; 2018-06-14)
PROC: 0HBRXZZ Excision of Toe Nail, External Approach (ICD-10-PCS; 2018-06-14)
PROC: 0HBRXZZ Excision of Toe Nail, External Approach (ICD-10-PCS; 2018-06-14)
PROC: 0HBRXZZ Excision of Toe Nail, External Approach (ICD-10-PCS; 2018-06-14)
PROC: 0HBRXZZ Excision of Toe Nail, External Approach (ICD-10-PCS; 2018-06-14)
PROC: 0HBRXZZ Excision of Toe Nail, External Approach (ICD-10-PCS; 2018-06-14)
PROC: 0HBRXZZ Excision of Toe Nail, External Approach (ICD-10-PCS; 2018-06-14)
PROC: 0HBRXZZ Excision of Toe Nail, External Approach (ICD-10-PCS; 2018-06-14)
PROC: 0HBRXZZ Excision of Toe Nail, External Approach (ICD-10-PCS; 2018-06-14)
DX: E11.10 Type 2 diabetes mellitus with ketoacidosis without coma (principal); A41.9 Sepsis, unspecified organism; G92 Toxic encephalopathy; L89.153 Pressure ulcer of sacral region, stage 3; E87.6 Hypokalemia; E87.0 Hyperosmolality and hypernatremia; E86.0 Dehydration; J98.11 Atelectasis; B18.2 Chronic viral hepatitis C; B37.2 Candidiasis of skin and nail; F06.30 Mood disorder due to known physiological condition, unspecified; R32 Unspecified urinary incontinence; I10 Essential (primary) hypertension; D17.22 Benign lipomatous neoplasm of skin and subcutaneous tissue of left arm; E11.40 Type 2 diabetes mellitus with diabetic neuropathy, unspecified; J45.909 Unspecified asthma, uncomplicated; E83.39 Other disorders of phosphorus metabolism; E83.42 Hypomagnesemia; B35.1 Tinea unguium; F41.1 Generalized anxiety disorder; R26.9 Unspecified abnormalities of gait and mobility; L85.0 Acquired ichthyosis; E66.01 Morbid (severe) obesity due to excess calories; Z68.41 Body mass index [BMI] 40.0-44.9, adult; Z79.4 Long term (current) use of insulin; Z88.2 Allergy status to sulfonamides

== ENCOUNTER 2018-11-04 13:32 | Outpatient (CLI) | payer MEDICAID | END 2018-11-04 13:33 | disposition home or self-care (01) | LOC: RAD 13:32 ==

== ENCOUNTER 2018-11-07 09:36 | Outpatient (CLI) | payer MEDICAID | END 2018-11-07 09:37 | disposition home or self-care (01) | LOC: RAD 09:36 ==

== ENCOUNTER 2018-11-22 12:40 | Observation (INO) | payer MEDICAID ==
[2018-11-22 12:45] VITALS: BMI 41.1
--- NOTE | 2018-11-22 13:38 | ED PDOC ---
Arrival/HPI - General Chief Complaint: Fever Historian: Patient - History of Present Illness Narrative History of Present Illness (Text): 11/22/18 13:35 A 53 year old female, whose past medical history includes "bronchitis" and diabetes, presents to the emergency department complaining of chest tightness/discomfort and cough starting last night. Patient states she "woke up in the middle of the night" feeling tightness and shortness of breath. Denies p ain with deep breaths. States she felt weak and "like I had a fever" this morning. Denies hemoptysis. States no recent illness prior to going to bed last night. States chest tightness comes and goes. Denies headache or focal weakness. PMD: Dr. Peralta 11/23/18 12:23 Time/Duration: Prior to Arrival Symptom Onset: Sudden Symptom Course: Intermittent Past Medical History - Provider Review Nursing Documentation Reviewed: Yes - Infectious Disease Hx of Infectious Diseases: None - Tetanus Immunization Tetanus Immunization: Unknown - Cardiac Hx Hypertension: Yes Hx Pacemaker: No - Pulmonary Hx Asthma: Yes Hx Bronchitis: Yes - Neurological Hx Neurological Disorder: No - HEENT Hx HEENT Disorder: No - Renal Hx Renal Disorder: No - Endocrine/Metabolic Hx Diabetes Mellitus Type 1: Yes - Hematological/Oncological Hx Cancer: No - Integumentary Hx Dermatological Disorder: No - Musculoskeletal/Rheumatological Hx Arthritis: Yes - Gastrointestinal Hx Gall Bladder Disease: Yes (cholestectomy) - Genitourinary/Gynecological Hx Genitourinary Disorders: Yes Hx Incontinence: Yes - Psychiatric Hx Depression: No Hx Emotional Abuse: No Hx Physical Abuse: No Hx Substance Use: No - Surgical History Hx Cholecystectomy: Yes Hx Mastectomy: No - Anesthesia Hx Anesthesia: Yes Hx Anesthesia Reactions: No Hx Malignant Hyperthermia: No - Suicidal Assessment Feels Threatened In Home Enviroment: No Family/Social History - Physician Review Nursing Documentation Reviewed: Yes Family/Social History: [place] (brother, from [place] at age 57) Smoking Status: Unknown If Ever Smoked Hx Alcohol Use: No Hx Substance Use: No Hx Substance Use Treatment: No Allergies/Home Meds Allergies/Adverse Reactions: Allergies Sulfa (Sulfonamide Antibiotics) Allergy (Verified 11/22/18 16:40) ITCHING Home Medications: Home Meds Medication Instructions Recorded Confirmed Hydrochlorothiazide [Microzide] 1 tab PO DAILY 11/22/18 11/22/18 Insulin Human NPH/Reg [HumuLIN 30 units SC DIN 11/22/18 11/22/18 70/30 (NPH/Reg)] Insulin Human NPH/Reg [HumuLIN 40 units SC QAM 11/22/18 11/22/18/30 (NPH/Reg)] metFORMIN [glucOPHAGE] 1 tab PO BID 11/22/18 11/22/18 Review of Systems - Review of Systems Constitutional: Fatigue. absent: Fevers Eyes: absent: Vision Changes, Photophobia ENT: Sinus Congestion. absent: Hearing Changes, Sore Throat, Rhinorrhea Respiratory: SOB, Cough. absent: Sputum Cardiovascular: Chest Pain, ELMORE. absent: Palpitations, Edema, Calf Pain Gastrointestinal: absent: Abdominal Pain, Nausea, Vomiting Genitourinary Female: absent: Frequency Musculoskeletal: absent: Back Pain, Neck Pain Skin: absent: Rash Neurological: absent: Headache, Dizziness Endocrine: absent: Polyuria Hemo/Lymphatic: absent: Easy Bleeding Psychiatric: absent: Depression Physical Exam - Physical Exam Narrative Physical Exam (Text): Head: Atraumatic. Normocephalic. Eyes: PERRL. EOMI. Conjunctivae are not pale. ENT: Mucous membranes are moist and intact. Oropharynx is clear and symmetric. Neck: Supple. Full ROM. No JVD. No lymphadenopathy. No meningeal signs. Cardiovascular: Regular rate. Regular rhythm. No murmurs, rubs, or gallops. Distal pulses are 2+ and symmetric. Pulmonary/Chest: No evidence of respiratory distress. Clear to auscultation bilaterally. Mild bronchial breath sounds. No wheezing or accessory muscle usage. Abdominal: Soft and non-distended. Obese. There is no tenderness. No rebound, guarding, or rigidity. No organomegaly. Good bowel sounds. Back: No CVA tenderness. Extremities: No pitting edema. No cyanosis. No clubbing. Full range of motion in all extremities. No calf tenderness. Skin: Skin is warm and dry. No petechiae. No purpura. Neurological: Alert, awake, and oriented. Normal speech. Steady gait. No focal motor or sensory deficits. Psychiatric: Good eye contact. Somewhat flat affect but good insight. No suicidal or homicidal ideation. Vital Signs Reviewed: Yes Vital Signs Temp Pulse Resp BP Pulse Ox 11/22/18 12:52 98.1 F 83 18 167/113 H 97 Temperature: Afebrile Blood Pressure: Hypertensive Pulse: Regular Appearance: Positive for: Non-Toxic Pain Distress: Mild Mental Status: Positive for: Alert and Oriented X 3 Finger Stick Blood Glucose: 98 Medical Decision Making ED Course and Treatment: 11/22/18 15:04 Patient on examination reports cough, chills, but is afebrile, no respiratory distress noted. She reports intermittent chest heaviness. Initial EKG and card isos unremarkable, although patient is a diabetic with no recent cardiology workup. She denies pleuritic pain. LFTs elevated although currently no abdominal pain. Patient had recent abdominal and extremity ultrasound which were reviewed. Patient requests nebulizer stating that "it helps my cough". Due to hx of chest discomfort associated with cardiac risk factors with no recent studies, will recommend telemetry admission for cardiac monitoring and evaluation. I have discussed this plan with patient in laymen's terms and have paged her PMD Dr. Peralta. On re-evaluation, blood pressure persistently elevated. She denies headache or focal weakness. BP improved after medication. Chest pain on re-evaluation she states is not present. Have discussed case with PMD requests admission to hospitalist. Patient agreeable to treatment plan and admission. With serial exams, she appears comfortable, is ambulatory with no unsteadiness or shortness of breath. - RAD Interpretation Radiology Orders: 11/22/18 13:17 CHEST PORTABLE [RAD] Stat Pouncing Machine Operator: ED Physician - EKG Interpretation EKG Interpretation (Text): 11/22/18 15:03 EKG at 13:38 normal sinus rhythm rate of 85 with minimal voltage criteria for lvh Interpreted by ED Physician: Yes Type: 12 lead EKG - Scribe Statement The provider has reviewed the documentation as recorded by the Pedro Schulte Provider Scribe Attestation: All medical record entries made by the Pedro were at my direction and personally dictated by me. I have reviewed the chart and agree that the record accurately reflects my personal performance of the history, physical exam, medical decision making, and the department course for this patient. I have also personally directed, reviewed, and agree with the discharge instructions and disposition. Disposition/Present on Arrival - Present on Arrival Any Indicators Present on Arrival: No History of DVT/PE: No History of Uncontrolled Diabetes: No Urinary Catheter: No History of Decub. Ulcer: No History Surgical Site Infection Following: None - Disposition Have Diagnosis and Disposition been Completed?: Yes Diagnosis: Chest pain, Hypertension Disposition: HOSPITALIZED Disposition Time: 14:20 Patient Plan: Admission, Observation, Telemetry Patient Problems: Current Active Problems Problem Status Onset Chest pain Acute Condition: FAIR
[2018-11-22 14:03] LABS: BASO # 0.01 K/mm3 (0.0-2.0); BASO % 0.1 % (0.0-3.0); EOS # 0.1 (0.0-0.7); EOS % 2.1 % (1.5-5.0); HEMOGLOBIN 12.2 g/dL (12.0-16.0); LYMPH % 29.8 % (22.0-35.0); MEAN CELL VOLUME 100.5 fl (80.0-105.0); MEAN CORPUSCULAR HEMOGLOBIN 32.4 pg (25.0-35.0); MEAN CORPUSCULAR HGB CONC 32.2 g/dl (31.0-37.0); MEAN PLATELET VOLUME 10.1 fl (7.0-11.0); MONO # 0.5 (0.1-0.6); MONO % 6.6 % (1.0-6.0); RBC 3.77 10^6/uL (3.5-6.1); RED CELL DISTRIBUTION WIDTH 12.9 % (11.5-14.5); WHITE BLOOD COUNT 6.8 10^3/uL (4.5-11.0)
[2018-11-22 14:07] LABS: ALT/SGPT 93 U/L (7-56); AST/SGOT 93 U/L (14-36); BLOOD UREA NITROGEN 15 mg/dL (7-21); CALCIUM 9.7 mg/dL (8.4-10.5); GFR NON-AFRICAN AMERICAN > 60
[2018-11-22 14:08] LABS: INR 1.14; PARTIAL THROMBOPLASTIN TIME 32.6 Seconds (26.9-38.3); PROTHROMBIN TIME 12.9 SECONDS (9.4-12.5)
[2018-11-22 14:19] LABS: B-TYPE NATRIURETIC PEPTIDE 43.2 pg/mL (0-450); TROPONIN I < 0.01 ng/mL
[2018-11-22] MEDS ORDERED: Albuterol-Ipratrop 3 mg / 0.5 (3 ml) UD IH STA (14:40)
[2018-11-22 14:47] LABS: PH,URINE 7.5 (4.7-8.0); URINE APPEARANCE CLEAR (CLEAR); URINE BILIRUBIN NEGATIVE (NEGATIVE); URINE BLOOD SMALL (NEGATIVE); URINE COLOR YELLOW (YELLOW); URINE GLUCOSE (UA) NEGATIVE (NEGATIVE); URINE LEUKOCYTE ESTERASE NEGATIVE Leu/uL (NEGATIVE); URINE PROTEIN NEGATIVE mg/dL (<30 mg/dL); URINE UROBILINOGEN 0.2 E.U./dL (<1 E.U./dL)
[2018-11-22 14:56] LABS: URINE BACTERIA SMALL /hpf; URINE EPITHELIAL CELLS 0 - 2 /hpf (0-5); URINE WBC 0 - 2 /hpf (0-6)
--- NOTE | 2018-11-22 15:07 | RAD ---
Date of service: 11/22/2018 HISTORY: cough, chest pain COMPARISON: 05/28/2018. FINDINGS: LUNGS: The lungs are well inflated and clear. PLEURA: No pleural effusions or pneumothorax. CARDIOVASCULAR: The heart is normal in size. No aortic atherosclerotic calcifications present. OSSEOUS STRUCTURES: Within normal limits for the patient's age. VISUALIZED UPPER ABDOMEN: Normal. OTHER FINDINGS: None. IMPRESSION: No active pulmonary disease.
[2018-11-22] MEDS ORDERED: Dextrose 50% SYRINGE Inj (50 ml) IV PRN (16:31)
[2018-11-22] MEDS ORDERED: Albuterol-Ipratrop 3 mg / 0.5 (3 ml) UD IH PRN (16:31)
--- NOTE | 2018-11-22 16:49 | CP.PCM.HP ---
<Marcos Escamilla - Last Filed: 11/22/18 16:43> History of Present Illness - History of Present Illness History of Present Illness: Marcos Escamilla DO, PGY-1 Hospitalist Admission History and Physical for Dr. Guadarrama CC: chest tightness HPI: Patient is a 53 year old female with PMH of DM2 (last A1c 16.9, diagnosed 04/2018 with episode of DKA) and HTN presents to ED with a complaint of chest tightness since last night for the past 14 hours. She describes the pain as a dull, pressure like sensation that she rates 6/10 in severity. The chest pain is greatest in her mid-sternal region. She also reports intermittent SOB and dry cough that are worse with deep breathing and exertion. She otherwise has no additional complaints and denies fever/chills, recent sick contacts, noisy breathing, abdominal pain/nausea/vomiting, body aches, YANEZ, changes in vision, or urinary complaints. PMD: Fabian Past Medical Hx: DM2 (last A1c 16.9, diagnosed 04/2018 with episode of DKA) and HTN Past Surgical Hx: c/s, cholecystectomy Allergies: Sulfa (reaction, itching) Home medications: Humulin Pen 14 u SC HS, Humulin 70/30 (NPH/Reg) 40 u qAM and 30 u qDIN, metformin 500 mg BID, HCTZ 12.5 mg daily Family Hx: reviewed, non-contributory Social Hx: denies current or prior tobacco, alcohol, or illicit drug use Pharmacy: [facility] Present on Admission - Present on Admission Any Indicators Present on Admission: Yes History of DVT/PE: No History of Uncontrolled Diabetes: Yes Urinary Catheter: No Decubitus Ulcer Present: No Review of Systems - Constitutional Constitutional: absent: Chills, Fever - EENT Eyes: absent: Change in Vision - Cardiovascular Cardiovascular: absent: Chest Pain, Dyspnea, Palpitations, Paroxysmal Nocturnal Dyspnea - Respiratory Respiratory: absent: Cough, Dyspnea - Gastrointestinal Gastrointestinal: absent: Abdominal Pain, Nausea, Vomiting - Genitourinary Genitourinary: absent: Change in Urinary Stream, Difficulty Urinating - Musculoskeletal Musculoskeletal: absent: Abnormal Gait, Neck Pain, Numbness - Neurological Neurological: absent: Dizziness, Headaches, Syncope - Endocrine Endocrine: absent: Polydipsia, Polyphagia Past Patient History - Infectious Disease Hx of Infectious Diseases: None - Tetanus Immunizations Tetanus Immunization: Unknown - Past Medical History & Family History Past Medical History?: Yes - Past Social History Smoking Status: Unknown If Ever Smoked - CARDIAC Hx Hypertension: Yes Hx Pacemaker: No - PULMONARY Hx Asthma: Yes Hx Bronchitis: Yes - NEUROLOGICAL Hx Neurological Disorder: No - HEENT Hx HEENT Problems: No - RENAL Hx Chronic Kidney Disease: No - ENDOCRINE/METABOLIC Hx Diabetes Mellitus Type 1: Yes - HEMATOLOGICAL/ONCOLOGICAL Hx Cancer: No - INTEGUMENTARY Hx Dermatological Problems: No - MUSCULOSKELETAL/RHEUMATOLOGICAL Hx Arthritis: Yes - GASTROINTESTINAL Hx Gall Bladder Disease: Yes (cholestectomy) - GENITOURINARY/GYNECOLOGICAL Hx Genitourinary Disorders: Yes Hx Incontinence: Yes - PSYCHIATRIC Hx Depression: No Hx Emotional Abuse: No Hx Physical Abuse: No Hx Substance Use: No - SURGICAL HISTORY Hx Cholecystectomy: Yes Hx Mastectomy: No - ANESTHESIA Hx Anesthesia: Yes Hx Anesthesia Reactions: No Hx Malignant Hyperthermia: No Meds Home Medications: Home Medication List Medication Instructions Recorded Confirmed Type guaiFENesin [guaifENESIN] 100 mg PO Q4H PRN #1 [facility] 11/23/18 Rx Allergies/Adverse Reactions: Allergies Allergy/AdvReac Type Severity Reaction Status Date / Time Sulfa (Sulfonamide Allergy ITCHING Verified 11/22/18 16:40 Antibiotics) Physical Exam - Constitutional Appears: Non-toxic, No Acute Distress - Head Exam Head Exam: ATRAUMATIC, NORMOCEPHALIC - Eye Exam Eye Exam: EOMI, PERRL - ENT Exam ENT Exam: Mucous Membranes Moist - Neck Exam Neck exam: Positive for: Full Rom, Normal Inspection - Respiratory Exam Respiratory Exam: Clear to Auscultation Bilateral, NORMAL BREATHING PATTERN. absent: Decreased Breath Sounds, Rales, Rhonchi, Wheezes - Cardiovascular Exam Cardiovascular Exam: REGULAR RHYTHM, RRR, +S1, +S2, Systolic Murmur (3/6 holosystolic murmur loudest at right upper sternal border). absent: Diastolic murmur, Gallop, Rubs - Extremities Exam Extremities exam: Positive for: normal inspection. Negative for: pedal edema - Back Exam Back exam: NORMAL INSPECTION - Neurological Exam Neurological exam: Alert, Oriented x3 - Psychiatric Exam Psychiatric exam: Normal Affect, Normal Mood - Skin Skin Exam: Dry, Intact, Warm Results - Vital Signs Recent Vital Signs: Last Vital Signs Temp 98.1 F 11/22/18 12:52 Pulse 92 H 11/22/18 16:16 Resp 18 11/22/18 12:52 BP 181/111 H 11/22/18 16:32 Pulse Ox 97 11/22/18 12:52 - Labs Result Diagrams: 11/22/18 13:51 11/22/18 13:51 Labs: Laboratory Results - last 24 hr 11/22/18 11/22/18 11/22/18 13:51 13:51 13:51 WBC 6.8 RBC 3.77 Hgb 12.2 Hct 37.9 MCV 100.5 D MCH 32.4 MCHC 32.2 RDW 12.9 Plt Count 243 MPV 10.1 Neut % (Auto) 61.4 Lymph % (Auto) 29.8 [place] % (Auto) 6.6 H Eos % (Auto) 2.1 Baso % (Auto) 0.1 Lymph # (Auto) 2.0 [place] # (Auto) 0.5 Eos # (Auto) 0.1 Baso # (Auto) 0.01 Absolute Neuts (auto) 4.15 PT 12.9 H INR 1.14 APTT 32.6 Sodium Potassium Chloride Carbon Dioxide Anion Gap BUN Creatinine Est GFR ( Amer) Est GFR (Non-Af Amer) Random Glucose Calcium Total Bilirubin AST ALT Alkaline Phosphatase Lactate Dehydrogenase Total Creatine Kinase Troponin I NT-Pro-B Natriuret Pep Total Protein Albumin Globulin Albumin/Globulin Ratio Urine Color Urine Appearance Urine pH Ur Specific [place] Urine Protein Urine Glucose (UA) Urine Ketones Urine Blood Urine Nitrate Urine Bilirubin Urine Urobilinogen Ur Leukocyte Esterase Urine RBC Urine WBC Ur Epithelial Cells Urine Bacteria Influenza Typ A,B (EIA) Negative for flu a/b 11/22/18 11/22/18 13:51 14:42 WBC RBC Hgb Hct MCV MCH MCHC RDW Plt Count MPV Neut % (Auto) Lymph % (Auto) [place] % (Auto) Eos % (Auto) Baso % (Auto) Lymph # (Auto) [place] # (Auto) Eos # (Auto) Baso # (Auto) Absolute Neuts (auto) PT INR APTT Sodium 138 Potassium 4.0 Chloride 102 Carbon Dioxide 31 Anion Gap 10 BUN 15 Creatinine 0.5 L Est GFR ( Amer) > 60 Est GFR (Non-Af Amer) > 60 Random Glucose 98 Calcium 9.7 Total Bilirubin 0.5 AST 93 H D ALT 93 H Alkaline Phosphatase 110 Lactate Dehydrogenase 699 Total Creatine Kinase 131 Troponin I < 0.01 NT-Pro-B Natriuret Pep 43.2 Total Protein 8.1 Albumin 4.0 Globulin 4.1 Albumin/Globulin Ratio 1.0 L Urine Color Yellow Urine Appearance Clear Urine pH 7.5 Ur Specific [place] 1.015 Urine Protein Negative Urine Glucose (UA) Negative Urine Ketones Negative Urine Blood Small H Urine Nitrate Negative Urine Bilirubin Negative Urine Urobilinogen 0.2 Ur Leukocyte Esterase Negative Urine RBC 2 - 5 H Urine WBC 0 - 2 Ur Epithelial Cells 0 - 2 Urine Bacteria Small Influenza Typ A,B (EIA) Assessment & Plan - Assessment and Plan (Free Text) Assessment: 53 yo F with PMH of DM2 (last A1c 16.9, diagnosed 04/2018 with episode of DKA) and HTN presents to ED with chest pain and is admitted for ACS r/o. Plan: Chest pain r/o ACS Initial EKG with only borderline LVH criteria no ST or T wave changes, negative trop x 1 Trend troponin q6h x 2 Repeat EKG in AM Last TTE in 04/2018 showed LVEF 60% with only borderline LVH Cardiology consult placed, all recs appreciated DM2 ISS while admitted May continue home insulin regimen Hypoglycemic protocol HTN Restart home HCTZ May add additional agents as needed DVT/GI PPX: SCD/pepcid Full Code Diabetic diet Monitor on telemetry Patient seen, examined, and plan discussed with my attending Dr. Chiara Escamilla, DCainO. IM Resident PGY-1 Pager: [phone] <Sirisha Guadarrama - Last Filed: 11/23/18 11:43> Results - Vital Signs Recent Vital Signs: Last Vital Signs Temp 97.6 F 11/23/18 06:00 Pulse 77 11/23/18 09:00 Resp 20 11/23/18 06:00 BP 130/80 11/23/18 09:00 Pulse Ox 99 11/23/18 06:00 - Labs Result Diagrams: 11/23/18 05:00 11/23/18 05:00 Labs: Laboratory Results - last 24 hr 11/22/18 11/22/18 11/22/18 13:51 13:51 13:51 WBC 6.8 RBC 3.77 Hgb 12.2 Hct 37.9 MCV 100.5 D MCH 32.4 MCHC 32.2 RDW 12.9 Plt Count 243 MPV 10.1 Neut % (Auto) 61.4 Lymph % (Auto) 29.8 [place] % (Auto) 6.6 H Eos % (Auto) 2.1 Baso % (Auto) 0.1 Lymph # (Auto) 2.0 [place] # (Auto) 0.5 Eos # (Auto) 0.1 Baso # (Auto) 0.01 Absolute Neuts (auto) 4.15 PT 12.9 H INR 1.14 APTT 32.6 Sodium Potassium Chloride Carbon Dioxide Anion Gap BUN Creatinine Est GFR ( Amer) Est GFR (Non-Af Amer) Random Glucose Calcium Phosphorus Magnesium Total Bilirubin AST ALT Alkaline Phosphatase Lactate Dehydrogenase Total Creatine Kinase Troponin I NT-Pro-B Natriuret Pep Total Protein Albumin Globulin Albumin/Globulin Ratio Triglycerides Cholesterol LDL Cholesterol Direct HDL Cholesterol TSH 3rd Generation Urine Color Urine Appearance Urine pH Ur Specific [place] Urine Protein Urine Glucose (UA) Urine Ketones Urine Blood Urine Nitrate Urine Bilirubin Urine Urobilinogen Ur Leukocyte Esterase Urine RBC Urine WBC Ur Epithelial Cells Urine Bacteria Influenza Typ A,B (EIA) Negative for flu a/b 11/22/18 11/22/18 11/22/18 13:51 14:42 19:56 WBC RBC Hgb Hct MCV MCH MCHC RDW Plt Count MPV Neut % (Auto) Lymph % (Auto) [place] % (Auto) Eos % (Auto) Baso % (Auto) Lymph # (Auto) [place] # (Auto) Eos # (Auto) Baso # (Auto) Absolute Neuts (auto) PT INR APTT Sodium 138 Potassium 4.0 Chloride 102 Carbon Dioxide 31 Anion Gap 10 BUN 15 Creatinine 0.5 L Est GFR ( Amer) > 60 Est GFR (Non-Af Amer) > 60 Random Glucose 98 Calcium 9.7 Phosphorus Magnesium Total Bilirubin 0.5 AST 93 H D ALT 93 H Alkaline Phosphatase 110 Lactate Dehydrogenase 699 Total Creatine Kinase 131 Troponin I < 0.01 < 0.01 NT-Pro-B Natriuret Pep 43.2 Total Protein 8.1 Albumin 4.0 Globulin 4.1 Albumin/Globulin Ratio 1.0 L Triglycerides Cholesterol LDL Cholesterol Direct HDL Cholesterol TSH 3rd Generation Urine Color Yellow Urine Appearance Clear Urine pH 7.5 Ur Specific [place] 1.015 Urine Protein Negative Urine Glucose (UA) Negative Urine Ketones Negative Urine Blood Small H Urine Nitrate Negative Urine Bilirubin Negative Urine Urobilinogen 0.2 Ur Leukocyte Esterase Negative Urine RBC 2 - 5 H Urine WBC 0 - 2 Ur Epithelial Cells 0 - 2 Urine Bacteria Small Influenza Typ A,B (EIA) 11/23/18 11/23/18 11/23/18 02:00 05:00 05:00 WBC 5.6 RBC 3.64 Hgb 11.8 L Hct 36.7 MCV 100.8 MCH 32.4 MCHC 32.2 RDW 12.8 Plt Count 233 MPV 10.5 Neut % (Auto) 66.1 Lymph % (Auto) 25.0 [place] % (Auto) 6.5 H Eos % (Auto) 2.2 Baso % (Auto) 0.2 Lymph # (Auto) 1.4 [place] # (Auto) 0.4 Eos # (Auto) 0.1 Baso # (Auto) 0.01 Absolute Neuts (auto) 3.67 PT INR APTT Sodium 139 Potassium 4.2 Chloride 105 Carbon Dioxide 30 Anion Gap 9 L BUN 15 Creatinine 0.6 L Est GFR ( Amer) > 60 Est GFR (Non-Af Amer) > 60 Random Glucose 93 Calcium 9.2 Phosphorus 4.6 H Magnesium 1.7 Total Bilirubin 0.5 AST 83 H ALT 79 H Alkaline Phosphatase 97 Lactate Dehydrogenase Total Creatine Kinase Troponin I < 0.01 NT-Pro-B Natriuret Pep Total Protein 7.3 Albumin 3.6 Globulin 3.7 Albumin/Globulin Ratio 1.0 L Triglycerides 90 Cholesterol 199 LDL Cholesterol Direct 53 HDL Cholesterol 105 H TSH 3rd Generation Urine Color Urine Appearance Urine pH Ur Specific [place] Urine Protein Urine Glucose (UA) Urine Ketones Urine Blood Urine Nitrate Urine Bilirubin Urine Urobilinogen Ur Leukocyte Esterase Urine RBC Urine WBC Ur Epithelial Cells Urine Bacteria Influenza Typ A,B (EIA) 11/23/18 05:00 WBC RBC Hgb Hct MCV MCH MCHC RDW Plt Count MPV Neut % (Auto) Lymph % (Auto) [place] % (Auto) Eos % (Auto) Baso % (Auto) Lymph # (Auto) [place] # (Auto) Eos # (Auto) Baso # (Auto) Absolute Neuts (auto) PT INR APTT Sodium Potassium Chloride Carbon Dioxide Anion Gap BUN Creatinine Est GFR ( Amer) Est GFR (Non-Af Amer) Random Glucose Calcium Phosphorus Magnesium Total Bilirubin AST ALT Alkaline Phosphatase Lactate Dehydrogenase Total Creatine Kinase Troponin I NT-Pro-B Natriuret Pep Total Protein Albumin Globulin Albumin/Globulin Ratio Triglycerides Cholesterol LDL Cholesterol Direct HDL Cholesterol TSH 3rd Generation 0.90 Urine Color Urine Appearance Urine pH Ur Specific [place] Urine Protein Urine Glucose (UA) Urine Ketones Urine Blood Urine Nitrate Urine Bilirubin Urine Urobilinogen Ur Leukocyte Esterase Urine RBC Urine WBC Ur Epithelial Cells Urine Bacteria Influenza Typ A,B (EIA) Attending/Attestation - Attestation I have personally seen and examined this patient.: Yes I have fully participated in the care of the patient.: Yes I have reviewed all pertinent clinical information: Yes Notes (Text): 11/23/18 11:39 attending Note; Patient seen and examined with resident in ER. Patient is alert and awake. Complaining of mild epigastric discomfort Currently chest pain-free. Denies any nausea, vomiting. Denies any abdominal pain. Complaining of cough with URI symptoms. denies any fevers, chills. Denies any sputum production. Patient is a 53 year old female with PMH of DM2 (last A1c 16.9, diagnosed 04/2018 with episode of DKA) and HTN presents to ED with a complaint of chest tightness since last night for the past 14 hours. She describes the pain as a dull, pressure like sensation that she rates 6/10 in severity. The chest pain is greatest in her mid-sternal region. 1. Chest pain; most likely musculoskeletal/related to URI. Cardiac enzyme x 1 negative. Cardiac enzymes x3 ordered .cardiology evaluation appreciated. 2. Diabetes; continue Insulin 70/30. 3. Hypertension; continue hydrochlorthiazide, Norvasc. Blood pressure is eleva nathaly. Started back on home medication. 4. Obesity; diet, exercise and weight reduction advised. 5. Mild cognitive impairment. Questionable developmental delay. Patient will be admitted to telemetry. Possible discharge home tomorrow. Patient follows up with PMD Dr. Peralta. And was also referred to risk assessor Dr. Paul as outpatient.
[2018-11-22] MEDS ORDERED: Insulin Human NPH/Reg 70/30 Vial(3 ml) SC SCH (17:00)
--- NOTE | 2018-11-22 18:06 | CARD ---
APPROVED REPORT Date of service: 11/22/2018 EKG Measurement Heart [id number] <Conclusion> Normal sinus rhythm Leftward axis Minimal voltage criteria for LVH, may be normal variant Borderline ECG
[2018-11-22] MEDS ORDERED: Pneumococcal 23-Valent Vaccine IM ONE (20:52)
[2018-11-22] MEDS ORDERED: Influenza Vaccine 60 mcg/0.5 mL SYR (4YR UP) IM ONE (20:52)
[2018-11-22] MEDS: Insulin Reg-MEDIUM-Coverage SC SCH (22:16)
[2018-11-23 01:59] VITALS: RESP 20; TEMP 97.6
[2018-11-23 06:23] VITALS: O2SAT 99
[2018-11-23 06:46] LABS: ALBUMIN 3.6 g/dL (3.0-4.8); ALT/SGPT 79 U/L (7-56); AST/SGOT 83 U/L (14-36); BLOOD UREA NITROGEN 15 mg/dL (7-21); CALCIUM 9.2 mg/dL (8.4-10.5); GFR NON-AFRICAN AMERICAN > 60; HDL CHOLESTEROL 105 mg/dL (29-60)
[2018-11-23 06:57] LABS: LDL CHOLESTEROL 53 mg/dL (0-129)
[2018-11-23 07:02] LABS: BASO # 0.01 K/mm3 (0.0-2.0); BASO % 0.2 % (0.0-3.0); EOS # 0.1 (0.0-0.7); EOS % 2.2 % (1.5-5.0); HEMOGLOBIN 11.8 g/dL (12.0-16.0); LYMPH # 1.4 (1.2-3.4); MEAN CELL VOLUME 100.8 fl (80.0-105.0); MEAN CORPUSCULAR HEMOGLOBIN 32.4 pg (25.0-35.0); MEAN CORPUSCULAR HGB CONC 32.2 g/dl (31.0-37.0); MEAN PLATELET VOLUME 10.5 fl (7.0-11.0); MONO # 0.4 (0.1-0.6); MONO % 6.5 % (1.0-6.0); RBC 3.64 10^6/uL (3.5-6.1); RED CELL DISTRIBUTION WIDTH 12.8 % (11.5-14.5); WHITE BLOOD COUNT 5.6 10^3/uL (4.5-11.0)
[2018-11-23] MEDS: Insulin Reg-MEDIUM-Coverage SC SCH (08:10)
[2018-11-23 09:34] VITALS: BP 130/80; PULSE 77
--- NOTE | 2018-11-23 09:34 | CARD ---
APPROVED REPORT Date of service: 11/23/2018 EKG Measurement Heart [id number] <Conclusion> Normal sinus rhythm Normal ECG
[2018-11-23] MEDS ORDERED: Insulin Human NPH/Reg 70/30 Vial(3 ml) SC SCH (10:00)
--- NOTE | 2018-11-23 12:51 | CP.PCM.DIS ---
<Marcos Escamilla - Last Filed: 11/23/18 12:47> Provider - Provider Date of Admission: 11/22/18 15:38 Attending physician: Sirisha Guadarrama MD Primary care physician: Bhavna Peralta MD Consults: 11/22/18 16:30 Physician Consult Routine Comment: Consulting Provider: Patrice Jack Consulting Physician: Patrice Jack Reason for Consult: chest pain, ACS r/o 11/22/18 20:52 Inpatient MAIL AGENT Core Measures Referral Routine Comment: chest pain Physician Instructions: Reason For Exam: assess Transition In Care/Readmission Reduction Routine Comment: chest pain Physician Instructions: Reason For Exam: assess Time Spent in preparation of Discharge (in minutes): 35 Diagnosis - Discharge Diagnosis (1) Chest pain, rule out acute myocardial infarction Status: Resolved (2) Chest pain Status: Resolved Hospital Course - Lab Results Lab Results: Most Recent Lab Values WBC 5.6 10^3/uL (4.5-11.0) 11/23/18 05:00 RBC 3.64 10^6/uL (3.5-6.1) 11/23/18 05:00 Hgb 11.8 g/dL (12.0-16.0) L 11/23/18 05:00 Hct 36.7 % (36.0-48.0) 11/23/18 05:00 MCV 100.8 fl (80.0-105.0) 11/23/18 05:00 MCH 32.4 pg (25.0-35.0) 11/23/18 05:00 MCHC 32.2 g/dl (31.0-37.0) 11/23/18 05:00 RDW 12.8 % (11.5-14.5) 11/23/18 05:00 Plt Count 233 10^3/uL (120.0-450.0) 11/23/18 05:00 MPV 10.5 fl (7.0-11.0) 11/23/18 05:00 Neut % (Auto) 66.1 % (50.0-68.0) 11/23/18 05:00 Lymph % (Auto) 25.0 % (22.0-35.0) 11/23/18 05:00 [place] % (Auto) 6.5 % (1.0-6.0) H 11/23/18 05:00 Eos % (Auto) 2.2 % (1.5-5.0) 11/23/18 05:00 Baso % (Auto) 0.2 % (0.0-3.0) 11/23/18 05:00 Lymph # (Auto) 1.4 (1.2-3.4) 11/23/18 05:00 [place] # (Auto) 0.4 (0.1-0.6) 11/23/18 05:00 Eos # (Auto) 0.1 (0.0-0.7) 11/23/18 05:00 Baso # (Auto) 0.01 K/mm3 (0.0-2.0) 11/23/18 05:00 Absolute Neuts (auto) 3.67 (1.4-6.5) 11/23/18 05:00 PT 12.9 SECONDS (9.4-12.5) H 11/22/18 13:51 INR 1.14 11/22/18 13:51 APTT 32.6 Seconds (26.9-38.3) 11/22/18 13:51 Sodium 139 mmol/L (132-148) 11/23/18 05:00 Potassium 4.2 mmol/L (3.6-5.0) 11/23/18 05:00 Chloride 105 mmol/L (98-107) 11/23/18 05:00 Carbon Dioxide 30 mmol/L (21-33) 11/23/18 05:00 Anion Gap 9 (10-20) L 11/23/18 05:00 BUN 15 mg/dL (7-21) 11/23/18 05:00 Creatinine 0.6 mg/dl (0.7-1.2) L 11/23/18 05:00 Est GFR ( Amer) > 60 11/23/18 05:00 Est GFR (Non-Af Amer) > 60 11/23/18 05:00 Random Glucose 93 mg/dL (70-110) 11/23/18 05:00 Calcium 9.2 mg/dL (8.4-10.5) 11/23/18 05:00 Phosphorus 4.6 mg/dL (2.5-4.5) H 11/23/18 05:00 Magnesium 1.7 mg/dL (1.7-2.2) 11/23/18 05:00 Total Bilirubin 0.5 mg/dL (0.2-1.3) 11/23/18 05:00 AST 83 U/L (14-36) H 11/23/18 05:00 ALT 79 U/L (7-56) H 11/23/18 05:00 Alkaline Phosphatase 97 U/L (38-126) 11/23/18 05:00 Lactate Dehydrogenase 699 U/L (333-699) 11/22/18 13:51 Total Creatine Kinase 131 U/L (35-230) 11/22/18 13:51 Troponin I < 0.01 ng/mL 11/23/18 02:00 NT-Pro-B Natriuret Pep 43.2 pg/mL (0-450) 11/22/18 13:51 Total Protein 7.3 g/dL (5.8-8.3) 11/23/18 05:00 Albumin 3.6 g/dL (3.0-4.8) 11/23/18 05:00 Globulin 3.7 gm/dL 11/23/18 05:00 Albumin/Globulin Ratio 1.0 (1.1-1.8) L 11/23/18 05:00 Triglycerides 90 mg/dL (35-160) 11/23/18 05:00 Cholesterol 199 mg/dL (130-200) 11/23/18 05:00 LDL Cholesterol Direct 53 mg/dL (0-129) 11/23/18 05:00 HDL Cholesterol 105 mg/dL (29-60) H 11/23/18 05:00 TSH 3rd Generation 0.90 mIU/mL (0.46-4.68) 11/23/18 05:00 Urine Color Yellow (YELLOW) 11/22/18 14:42 Urine Appearance Clear (CLEAR) 11/22/18 14:42 Urine pH 7.5 (4.7-8.0) 11/22/18 14:42 Ur Specific [place] 1.015 (1.005-1.035) 11/22/18 14:42 Urine Protein Negative mg/dL (<30 mg/dL) 11/22/18 14:42 Urine Glucose (UA) Negative mg/dL (NEGATIVE) 11/22/18 14:42 Urine Ketones Negative mg/dL (NEGATIVE) 11/22/18 14:42 Urine Blood Small (NEGATIVE) H 11/22/18 14:42 Urine Nitrate Negative (NEGATIVE) 11/22/18 14:42 Urine Bilirubin Negative (NEGATIVE) 11/22/18 14:42 Urine Urobilinogen 0.2 E.U./dL (<1 E.U./dL) 11/22/18 14:42 Ur Leukocyte Esterase Negative Teresa/uL (NEGATIVE) 11/22/18 14:42 Urine RBC 2 - 5 /hpf (0-2) H 11/22/18 14:42 Urine WBC 0 - 2 /hpf (0-6) 11/22/18 14:42 Ur Epithelial Cells 0 - 2 /hpf (0-5) 11/22/18 14:42 Urine Bacteria Small /hpf (NONE) 11/22/18 14:42 Influenza Typ A,B (EIA) Negative for flu a/b (NEGATIVE) 11/22/18 13:51 - Hospital Course Hospital Course: Marcos Escamilla DO, PGY-1 Hospitalist Discharge Summary for Dr. Guadarrama Prior to admission: Patient is a 53 year old female with PMH of DM2 (last A1c 16.9, diagnosed 04/2018 with episode of DKA) and HTN who presented to ED with a complaint of chest tightness for about 14 hours prior to presentation. She described the pain as a dull, pressure like sensation that she rated 6/10 in severity. The chest pain was greatest in her mid-sternal region. She also reported intermittent SOB and dry cough that are worse with deep breathing and exertion. She was subsequently admitted for observation for ACS r/o. Hospitalization course: Patient's troponins were repeated 6 hours prior to initial. Trop x 3 were negative. Repeat EKG in AM was unchanged from initial examination. Patient stated that she preferred to follow up with a wool spotter outpatient rather than wait for evaluation in the hospital. She was subsequently discharged with a referral given to Dr. Paul for outpatient f/u. Discharge plan was discussed with patient in detail, all questions were answered. Patient seen, examined, and discharge plan discussed with my attending Dr. Chiara Escamilla D.O. IM Resident PGY-1 Discharge Exam - Head Exam Head Exam: ATRAUMATIC, NORMOCEPHALIC - Eye Exam Eye Exam: EOMI, PERRL - ENT Exam ENT Exam: Mucous Membranes Moist - Neck Exam Neck exam: Full Rom, Normal Inspection - Respiratory Exam Respiratory Exam: Clear to PA & Lateral, NORMAL BREATHING PATTERN, UNREMARKABLE. absent: Accessory Muscle Use, Chest Wall Tenderness, Rales, Rhonchi, Wheezes, Respiratory Distress - Cardiovascular Exam Cardiovascular Exam: REGULAR RHYTHM, RRR, +S1, +S2. absent: Diastolic murmur, Gallop, Rubs, Systolic Murmur - GI/Abdominal Exam GI & Abdominal Exam: Normal Bowel Sounds, Soft, Unremarkable. absent: Tenderness - Extremities Exam Extremities exam: full ROM, normal inspection - Back Exam Back exam: NORMAL INSPECTION - Neurological Exam Neurological exam: Alert, Oriented x3 - Psychiatric Exam Psychiatric exam: Normal Affect, Normal Mood - Skin Skin Exam: Dry, Intact, Warm Discharge Plan - Discharge Medications Prescriptions: guaiFENesin [guaifENESIN] 100 mg PO Q4H PRN #1 udc PRN Reason: Cough - Follow Up Plan Condition: FAIR Disposition: HOME/ ROUTINE Instructions: Chest Pain That Is Not Caused by the Heart (DC), Chest Pain (DC), Heart Disease in Women (DC), Chest Pain (DC), Chest Pain (GEN) Additional Instructions: Please follow up with your primary medical doctor, Dr. Peralta, within 3-5 days of discharge. Please follow up with the wool spotter, Dr. Paul within two weeks of discharge, his contact information has been included in your paperwork. Please continue to take your home medications as previously prescribed. If any of your symptoms return or worsen please return to nearest ED. Referrals: Bhavna Peralta MD [Primary Care Provider] - Ran Paul MD [Staff Provider] - <Sirisha Guadarrama - Last Filed: 11/23/18 13:26> Provider - Provider Date of Admission: 11/22/18 15:38 Attending physician: Sirisha Guadarrama MD Primary care physician: Bhavna Peralta MD Consults: 11/22/18 16:30 Physician Consult Routine Comment: Consulting Provider: Patrice Jack Consulting Physician: Patrice Jack Reason for Consult: chest pain, ACS r/o 11/22/18 20:52 Inpatient MAIL AGENT Core Measures Referral Routine Comment: chest pain Physician Instructions: Reason For Exam: assess Transition In Care/Readmission Reduction Routine Comment: chest pain Physician Instructions: Reason For Exam: assess Hospital Course - Lab Results Lab Results: Most Recent Lab Values WBC 5.6 10^3/uL (4.5-11.0) 11/23/18 05:00 RBC 3.64 10^6/uL (3.5-6.1) 11/23/18 05:00 Hgb 11.8 g/dL (12.0-16.0) L 11/23/18 05:00 Hct 36.7 % (36.0-48.0) 11/23/18 05:00 MCV 100.8 fl (80.0-105.0) 11/23/18 05:00 MCH 32.4 pg (25.0-35.0) 11/23/18 05:00 MCHC 32.2 g/dl (31.0-37.0) 11/23/18 05:00 RDW 12.8 % (11.5-14.5) 11/23/18 05:00 Plt Count 233 10^3/uL (120.0-450.0) 11/23/18 05:00 MPV 10.5 fl (7.0-11.0) 11/23/18 05:00 Neut % (Auto) 66.1 % (50.0-68.0) 11/23/18 05:00 Lymph % (Auto) 25.0 % (22.0-35.0) 11/23/18 05:00 [place] % (Auto) 6.5 % (1.0-6.0) H 11/23/18 05:00 Eos % (Auto) 2.2 % (1.5-5.0) 11/23/18 05:00 Baso % (Auto) 0.2 % (0.0-3.0) 11/23/18 05:00 Lymph # (Auto) 1.4 (1.2-3.4) 11/23/18 05:00 [place] # (Auto) 0.4 (0.1-0.6) 11/23/18 05:00 Eos # (Auto) 0.1 (0.0-0.7) 11/23/18 05:00 Baso # (Auto) 0.01 K/mm3 (0.0-2.0) 11/23/18 05:00 Absolute Neuts (auto) 3.67 (1.4-6.5) 11/23/18 05:00 PT 12.9 SECONDS (9.4-12.5) H 11/22/18 13:51 INR 1.14 11/22/18 13:51 APTT 32.6 Seconds (26.9-38.3) 11/22/18 13:51 Sodium 139 mmol/L (132-148) 11/23/18 05:00 Potassium 4.2 mmol/L (3.6-5.0) 11/23/18 05:00 Chloride 105 mmol/L (98-107) 11/23/18 05:00 Carbon Dioxide 30 mmol/L (21-33) 11/23/18 05:00 Anion Gap 9 (10-20) L 11/23/18 05:00 BUN 15 mg/dL (7-21) 11/23/18 05:00 Creatinine 0.6 mg/dl (0.7-1.2) L 11/23/18 05:00 Est GFR ( Amer) > 60 11/23/18 05:00 Est GFR (Non-Af Amer) > 60 11/23/18 05:00 Random Glucose 93 mg/dL (70-110) 11/23/18 05:00 Calcium 9.2 mg/dL (8.4-10.5) 11/23/18 05:00 Phosphorus 4.6 mg/dL (2.5-4.5) H 11/23/18 05:00 Magnesium 1.7 mg/dL (1.7-2.2) 11/23/18 05:00 Total Bilirubin 0.5 mg/dL (0.2-1.3) 11/23/18 05:00 AST 83 U/L (14-36) H 11/23/18 05:00 ALT 79 U/L (7-56) H 11/23/18 05:00 Alkaline Phosphatase 97 U/L (38-126) 11/23/18 05:00 Lactate Dehydrogenase 699 U/L (333-699) 11/22/18 13:51 Total Creatine Kinase 131 U/L (35-230) 11/22/18 13:51 Troponin I < 0.01 ng/mL 11/23/18 02:00 NT-Pro-B Natriuret Pep 43.2 pg/mL (0-450) 11/22/18 13:51 Total Protein 7.3 g/dL (5.8-8.3) 11/23/18 05:00 Albumin 3.6 g/dL (3.0-4.8) 11/23/18 05:00 Globulin 3.7 gm/dL 11/23/18 05:00 Albumin/Globulin Ratio 1.0 (1.1-1.8) L 11/23/18 05:00 Triglycerides 90 mg/dL (35-160) 11/23/18 05:00 Cholesterol 199 mg/dL (130-200) 11/23/18 05:00 LDL Cholesterol Direct 53 mg/dL (0-129) 11/23/18 05:00 HDL Cholesterol 105 mg/dL (29-60) H 11/23/18 05:00 TSH 3rd Generation 0.90 mIU/mL (0.46-4.68) 11/23/18 05:00 Urine Color Yellow (YELLOW) 11/22/18 14:42 Urine Appearance Clear (CLEAR) 11/22/18 14:42 Urine pH 7.5 (4.7-8.0) 11/22/18 14:42 Ur Specific [place] 1.015 (1.005-1.035) 11/22/18 14:42 Urine Protein Negative mg/dL (<30 mg/dL) 11/22/18 14:42 Urine Glucose (UA) Negative mg/dL (NEGATIVE) 11/22/18 14:42 Urine Ketones Negative mg/dL (NEGATIVE) 11/22/18 14:42 Urine Blood Small (NEGATIVE) H 11/22/18 14:42 Urine Nitrate Negative (NEGATIVE) 11/22/18 14:42 Urine Bilirubin Negative (NEGATIVE) 11/22/18 14:42 Urine Urobilinogen 0.2 E.U./dL (<1 E.U./dL) 11/22/18 14:42 Ur Leukocyte Esterase Negative Teresa/uL (NEGATIVE) 11/22/18 14:42 Urine RBC 2 - 5 /hpf (0-2) H 11/22/18 14:42 Urine WBC 0 - 2 /hpf (0-6) 11/22/18 14:42 Ur Epithelial Cells 0 - 2 /hpf (0-5) 11/22/18 14:42 Urine Bacteria Small /hpf (NONE) 11/22/18 14:42 Influenza Typ A,B (EIA) Negative for flu a/b (NEGATIVE) 11/22/18 13:51 Attending/Attestation - Attestation I have personally seen and examined this patient.: Yes I have fully participated in the care of the patient.: Yes I have reviewed all pertinent clinical information, including history, physical exam and plan: Yes Notes (Text): 11/23/18 13:25 attending Note; Patient seen and examined with resident. denies any chest pain. wants to go home. Patient is alert and awake. Currently chest pain-free. Denies any nausea, vomiting. Denies any abdominal pain. Complaining of cough denies any fevers, chills. Denies any sputum production. Patient is a 53 year old female with PMH of DM2 (last A1c 16.9, diagnosed 04/2018 with episode of DKA) and HTN presents to ED with a complaint of chest tightness since last night for the past 14 hours. She describes the pain as a dull, pressure like sensation that she rates 6/10 in severity. The chest pain is greatest in her mid-sternal region. 1. Chest pain; most likely musculoskeletal/related to URI. Cardiac enzyme x 3 negative. Patient refused to wait to see wool spotter. she will follow up cardiology as outpatient. outpatient stress test recommended. 2. Diabetes; continue Insulin 70/30. 3. Hypertension; continue hydrochlorthiazide, Norvasc. Blood pressure is elevated. Started back on home medication. 4. Obesity; diet, exercise and weight reduction advised. 5. Mild cognitive impairment. Questionable developmental delay. discharge home. Patient follows up with PMD Dr. Peralta. And was also referred to wool spotter Dr. Paul as outpatient.
--- NOTE | 2018-11-23 21:35 | CON ---
DATE: 11/23/2018 REASON FOR DICTATION: Covering for Dr. Patrice Jack. I went to see the patient for chest pain, but the patient has been discharged and going home we will see in office with Dr. Jack. The patient was not seen as the patient has been discharged. Ran Paul MD
--- NOTE | 2018-11-23 21:40 | CON ---
DATE: 11/23/2018 REASON FOR DICTATION: Covering for Dr. Patrice Jack. REASON FOR CONSULTATION: Chest pain. I went to the see the patient, but the patient was discharged home, so I did not see the patient. The patient is going home and will see as an outpatient . Ran Paul MD
== END 2018-11-23 15:49 | disposition home or self-care (01) ==
LOC: ED 12:40 → ERH 15:38 → 2RNO 17:34
PROVIDERS: ADMIT Internal Medicine; ATTEND Internal Medicine
DX: R07.89 Other chest pain (principal); E10.9 Type 1 diabetes mellitus without complications; E66.9 Obesity, unspecified; G31.84 Mild cognitive impairment of uncertain or unknown etiology; I10 Essential (primary) hypertension; J06.9 Acute upper respiratory infection, unspecified; J45.909 Unspecified asthma, uncomplicated; Z79.899 Other long term (current) drug therapy; Z90.49 Acquired absence of other specified parts of digestive tract; Z79.4 Long term (current) use of insulin; Z68.41 Body mass index [BMI] 40.0-44.9, adult
CPT/HCPCS: 36415; 71045; 80053; 80061; 81001; 81025; 82550; 83036; 83615; 83735; 83880; 84100; 84443; 84484; 85025; 85610; 85730; 87804; 93005; 99285; G0378